=== PATIENT | female | born 1940 | race African-American/Black ===

== ENCOUNTER 2023-04-21 14:35 | Outpatient (AMB) | payer OTHER, SELFPAY ==
--- NOTE | 2023-04-21 14:50 | HO.SPINEOV ---
Intake Intake Visit Reasons: back pain Intake Note: Ms. Mojica is here today c/o low back pain. CT Scan done @ [facility]. Animal Groomer Required: No Assessment & Plan Assessment & Plan (1) Lumbar spinal stenosis: Code(s): M48.061 - Spinal stenosis, lumbar region without neurogenic claudication Plan Dear colleague, On 04/21/2023, I saw Shruti Mojica for back pain. I notice patient from my previous clinic at [facility]. She states that she has back pain it radiates to the front of her thighs. The pain is there all the time. She received [address] Kiser that helped. She is also complaining of balance problems. On exam, she has low to absent reflexes. No pathological reflexes. Straight leg raise is negative. No clear motor sensory deficits. A recent CT scan of the lumbar spine was reviewed it shows multilevel degenerative changes most pronounced at L3-4 and L4-5. The patient's symptomatology does not fit neurogenic claudication. She does have bilateral L4 foraminal stenosis on the CT scan which possibly can explain radiating pain down to her knees. She is going to see in May 11 and I will leave it up to the side if he thinks she is a surgical candidate or if injections are the way to proceed. I spent 30 minutes in this consult review imaging and discussing plan of care. Thank you for the referral. Etienne Collier MD, PhD Spine Fellowship Trained Neurosurgeon Director, [facility] Coding Level of Care Code Est Pt Level 4 (38027) Diagnoses Lumbar spinal stenosis M48.061
== END 2023-04-21 15:52 | disposition home or self-care (01) ==
PROVIDERS: PCP Internal Medicine; Visit Provider Neurological Surgery
DX: M48.061 Spinal stenosis, lumbar region without neurogenic claudication (principal)
CPT/HCPCS: 99214

== ENCOUNTER → 2023-04-21 14:35 | Outpatient (BNVA) | payer OTHER, SELFPAY | PROVIDERS: PCP Internal Medicine; Visit Provider Neurological Surgery | DX: M48.061 Spinal stenosis, lumbar region without neurogenic claudication (principal) | CPT/HCPCS: 99212 ==

== ENCOUNTER 2024-04-15 14:40 | Outpatient (AMB) | payer OTHER, SELFPAY ==
--- NOTE | 2024-04-15 15:03 | A.SPINEOV_ITS ---
Intake Visit Reasons: pain Intake Note: Ms. Mojica is here today c/o low back pain radiating into bilateral legs and unsteady gait. Medical Records Assistant Required: No Assessment & Plan Assessment & Plan (1) Lumbar spinal stenosis: Code(s): M48.061 - Spinal stenosis, lumbar region without neurogenic claudication Category: Medical Qualifiers: Neurogenic claudication status: with neurogenic claudication Qualified Code(s): M48.062 - Spinal stenosis, lumbar region with neurogenic claudication Plan Dear colleague, On 04/15/2024, I saw Shruti Mojica for chief complaint of severe bilateral leg pain. I know this patient from my time at [facility] where I performed a lumbar decompression on her. She states that she had multiple epidural steroid injections done which resulted in a dysregulation of her diabetes and admission to the hospital for 30 days. She states that since that time she has severe pain radiating down both legs of which the intensity increases when she stands and walks. Her leg starts to buckle from pain. She has fallen several times. On exam, it is very difficult to get from a sitting to standing position due to pain. She walks with small steps. Her reflexes are symmetrically present. Plantar reflex is downward bilaterally. The symptoms could come from spinal stenosis. The patient states that she had multiple scans done at [facility] in October during her admission. We will call the radiology department to see if a lumbar CT scan was done. If not then I will order a new CT scan of the lumbar spine. I spent 30 minutes in his consult to discuss history physical exam and plan. Etienne Collier MD, PhD Spine Fellowship Trained Neurosurgeon Director, [facility] Coding Level of Care Code Est Pt Level 3 (00272) Diagnoses Spinal stenosis of lumbar region with neurogenic claudication M48.062 Neurogenic claudication status: with neurogenic claudication
== END 2024-04-15 15:35 | disposition home or self-care (01) ==
PROVIDERS: PCP Internal Medicine; Visit Provider Neurological Surgery
DX: M48.062 Spinal stenosis, lumbar region with neurogenic claudication (principal)
CPT/HCPCS: 99213

== ENCOUNTER → 2024-04-15 14:40 | Outpatient (BNVA) | payer OTHER, SELFPAY | PROVIDERS: PCP Internal Medicine; Visit Provider Neurological Surgery | DX: M48.062 Spinal stenosis, lumbar region with neurogenic claudication (principal) | CPT/HCPCS: 99212 ==

== ENCOUNTER 2024-05-18 14:34 | Outpatient (AMB) | payer OTHER, SELFPAY ==
--- NOTE | 2024-05-18 14:37 | A.OFFVIS_ITS ---
Vital Signs 05/18/24 14:42 Height 5 ft 3.5 in Weight 158 lb 11.725 oz BMI 27.7 BP 136/80 Blood Pressure Location Rt brachial Position Sitting Pulse 96 Pulse Source Pulse Oximeter Intake Visit Reasons: T2DM/LVM Intake Note: NEW Patient presents today to establish treatment for Type 2 Diabetes Mellitus: Last Diabetic eye exam was on: 04/2024 Last Podiatry exam was on: Does not see a Ict Analyst Most recent HbA1c: 7.6%, 05/18/2024 Random Glucose- 237 mg/dL, Today Helicopter Repairer Required: No Accompanied by: Self / Same As Patient Allergies atorvastatin [From Lipitor] Adverse Reaction (Unknown, Verified 05/18/24 14:46) Unknown codeine Adverse Reaction (Unknown, Verified 05/18/24 14:46) Unknown oxycodone Adverse Reaction (Unknown, Verified 05/18/24 14:46) Unknown rosuvastatin [From Crestor] Adverse Reaction (Unknown, Verified 05/18/24 14:46) Unknown sulfadiazine Adverse Reaction (Unknown, Verified 05/18/24 14:46) Unknown beta blockers Adverse Reaction (Unknown, Uncoded 05/18/24 14:46) Unknown HPI Comments Details: The patient is an 83 year old female with IDDM presenting for consult Medical History: CAD s/p PCI, atrial fibrillation, PPM, DDD lumbar spine, cataract Diagnosed with diabetes in 2013 PCP Erica Blankenship [facility] Current prescriptions: Lantus 20 units nightly (taking ~3 times per week b/c skipping if in 100s), Lispro sliding scale (missing most doses and when taken doing after meal). Has nursing once daily. They are the ones giving the lantus POC A1C 7.6%. Micky 2. Glucose readings 100-270. Not consistently checking fasting. Micro/macrovascular: cataract, retinopathy. Leg pain, back issues No hypoglycemia ROS CONSTITUTIONAL: Denies weight loss, fever and chills. HEENT: Worsened eyesight RESPIRATORY: Denies SOB and cough. CV: Denies palpitations and CP GI: Denies abdominal pain, nausea, vomiting and diarrhea. : Denies dysuria and urinary frequency. MSK: Denies new myalgia and joint pain. SKIN: Denies rash and pruritus. NEUROLOGICAL: Denies headache PSYCHIATRIC: Denies recent changes in mood. PHYSICAL EXAM: GENERAL: Alert and oriented x 3. NAD EYES: EOMI. Anicteric. HENT: Moist mucous membranes. No scleral icterus. No cervical lymphadenopathy. LUNGS: Clear to auscultation bilaterally. CARDIOVASCULAR: Regular rate and rhythm. ABDOMEN: Soft, non-tender +bs EXTREMITIES: No edema. Non-tender. SKIN: No rashes or lesions. Warm. NEUROLOGIC: No focal neurological deficits. CN II-XII grossly intact PSYCHIATRIC: Cooperative. Appropriate mood and affect [facility] Surgical History Hx of eye surgery Hx of cholecystectomy Family History Mother Heart disease Father Stroke Social History Alcohol intake: never Patient Tobacco Use Status: Never used Tobacco Physical Exam Vital Signs: Last Vital Signs Pulse 96 05/18/24 14:42 BP 136/80 05/18/24 14:42 BMI result Body Mass Index 27.7 Results AMB Hemoglobin A1c AMB Hemoglobin A1c 7.6 % Last Edit by MARCO Adams on 05/18/24 14:56 Results Reviewed Results Reviewed: Laboratory Last Values Glucose (Clinic) 237 mg/dL (60-115) H 05/18/24 14:47 Assessment & Plan Assessment & Plan (1) Type 2 diabetes mellitus: Code(s): E11.9 - Type 2 diabetes mellitus without complications Category: Medical Qualifiers: Diabetes mellitus complication status: with hyperglycemia Diabetes mellitus longitudinal float operator insulin use: with half-way use Qualified Code(s): E11.65 - Type 2 diabetes mellitus with hyperglycemia; Z79.4 - jail (current) use of insulin Plan: Long time explaining the difference between short and long acting insulin, goals for fasting and 2 h post prandial Adjusted Micky alarms to <70 and >350 stop short acting insulin Take Lantus 20units regardless of spot glucose return in 4 weeks for reevaluation (2) Long-term insulin use in type 2 diabetes: Code(s): E11.9 - Type 2 diabetes mellitus without complications; Z79.4 - intermediate school teacher (current) use of insulin Category: Medical Qualifiers: Diabetes mellitus complication status: with hyperglycemia Qualified Code(s): E11.65 - Type 2 diabetes mellitus with hyperglycemia; Z79.4 - jail (current) use of insulin Plan: see above Orders: Orders AMB Hemoglobin A1c Today E11.9 - Type 2 diabetes mellitus without complications Medications: New brinzolamide 1% 1 drp ophthalmic (eye) TID 15 mL 3RF Coding Level of Care Code New Pt Level 4 (71658) Diagnoses Type 2 diabetes mellitus with hyperglycemia, with long-term current use of insulin E11.65; Z79.4 Diabetes mellitus complication status: with hyperglycemia Diabetes mellitus half-way insulin use: with half-way use Type 2 diabetes mellitus with hyperglycemia, with long-term current use of insulin E11.65; Z79.4 Diabetes mellitus complication status: with hyperglycemia
[2024-05-18 14:42] VITALS: BP 136/80; PULSE 96; BMI 27.7
[2024-05-18 14:51] LABS: Glucose, Whole Blood 237 mg/dL (60-115)
== END 2024-05-18 15:39 | disposition home or self-care (01) ==
PROVIDERS: PCP Internal Medicine; Visit Provider Internal Medicine
DX: E11.65 Type 2 diabetes mellitus with hyperglycemia (principal); Z79.4 Long term (current) use of insulin; E11.9 Type 2 diabetes mellitus without complications

== ENCOUNTER → 2024-05-18 14:34 | Outpatient (BNVA) | payer OTHER, SELFPAY | PROVIDERS: PCP Internal Medicine; Visit Provider Internal Medicine | DX: E11.65 Type 2 diabetes mellitus with hyperglycemia (principal); Z79.4 Long term (current) use of insulin | CPT/HCPCS: 82947; 83036; 99202 ==

== ENCOUNTER 2024-06-16 15:14 | Outpatient (AMB) | payer OTHER, SELFPAY ==
--- NOTE | 2024-06-16 15:16 | A.OFFVIS_ITS ---
Vital Signs 06/16/24 15:18 Height 5 ft 3.5 in Weight 156 lb 8.451 oz BMI 27.3 BP 128/72 Blood Pressure Location Rt brachial Position Sitting Pulse 86 Pulse Source Pulse Oximeter Intake Visit Reasons: DM check/LVM Intake Note: Patient presents today for a follow-up on Type 2 Diabetes Mellitus: Last Diabetic eye exam was on: 04/2024 Last Podiatry exam was on: Does not see a Pipe Bowl Paint Trimmer Most recent HbA1c: 7.6%, 05/18/2024 Random Glucose- 174 mg/dL, Today Inside Horticultural Specialty Grower Required: No Accompanied by: Other Relationship Allergies atorvastatin [From Lipitor] Adverse Reaction (Unknown, Verified 05/18/24 14:46) Unknown codeine Adverse Reaction (Unknown, Verified 05/18/24 14:46) Unknown oxycodone Adverse Reaction (Unknown, Verified 05/18/24 14:46) Unknown rosuvastatin [From Crestor] Adverse Reaction (Unknown, Verified 05/18/24 14:46) Unknown sulfadiazine Adverse Reaction (Unknown, Verified 05/18/24 14:46) Unknown beta blockers Adverse Reaction (Unknown, Uncoded 05/18/24 14:46) Unknown HPI Comments Details: The patient is an 83 year old female with IDDM presenting for follow up Medical History: CAD s/p PCI, atrial fibrillation, PPM, DDD lumbar spine, cataract Diagnosed with diabetes in 2013 PCP Erica Blankenship [facility] Current prescriptions: Lantus 20 units nightly (taking ~3 times per week b/c skipping if in 100s), Lispro sliding scale (missing most doses and when taken doing after meal). Has nursing once daily. They are the ones giving the lantus POC A1C 7.6%. Micky 2. Glucose readings 100-270. Not consistently checking fasting. Micro/macrovascular: cataract, retinopathy. Leg pain, back issues No hypoglycemia ROS CONSTITUTIONAL: Denies weight loss, fever and chills. HEENT: Worsened eyesight RESPIRATORY: Denies SOB and cough. CV: Denies palpitations and CP GI: Denies abdominal pain, nausea, vomiting and diarrhea. : Denies dysuria and urinary frequency. MSK: Denies new myalgia and joint pain. SKIN: Denies rash and pruritus. NEUROLOGICAL: Denies headache PSYCHIATRIC: Denies recent changes in mood. PHYSICAL EXAM: GENERAL: Alert and oriented x 3. NAD EYES: EOMI. Anicteric. HENT: Moist mucous membranes. No scleral icterus. No cervical lymphadenopathy. LUNGS: Clear to auscultation bilaterally. CARDIOVASCULAR: Regular rate and rhythm. ABDOMEN: Soft, non-tender +bs EXTREMITIES: No edema. Non-tender. SKIN: No rashes or lesions. Warm. NEUROLOGIC: No focal neurological deficits. CN II-XII grossly intact PSYCHIATRIC: Cooperative. Appropriate mood and affect [facility] History Hx of eye surgery Hx of cholecystectomy Family History Mother Heart disease Father Stroke Social History Alcohol intake: never Patient Tobacco Use Status: Never used Tobacco Physical Exam Vital Signs: Last Vital Signs Pulse 86 06/16/24 15:18 BP 128/72 06/16/24 15:18 BMI result Body Mass Index 27.3 Results Reviewed Results Reviewed: Laboratory Last Values Glucose (Clinic) 174 mg/dL (60-115) H 06/16/24 15:20 Assessment & Plan Assessment & Plan (1) Type 2 diabetes mellitus: Code(s): E11.9 - Type 2 diabetes mellitus without complications Category: Medical Qualifiers: Diabetes mellitus intermediate insulin use: with continuous churn buttermaker use Diabetes mellitus complication status: with hyperglycemia Qualified Code(s): E11.65 - Type 2 diabetes mellitus with hyperglycemia; Z79.4 - regional intermodal truck driver (current) use of insulin Plan: Patient reports she is feeling better Taking 100% of lantus doses. Not using short acting due to administration issues Forgot glucometer today will return with glucometer at next visit for dosing adjustments (2) Long-term insulin use in type 2 diabetes: Code(s): E11.9 - Type 2 diabetes mellitus without complications; Z79.4 - care home (current) use of insulin Category: Medical Qualifiers: Diabetes mellitus complication status: with hyperglycemia Qualified Code(s): E11.65 - Type 2 diabetes mellitus with hyperglycemia; Z79.4 - regional intermodal truck driver (current) use of insulin Plan: see above Coding Level of Care Code Est Pt Level 4 (71964) Diagnoses Type 2 diabetes mellitus with hyperglycemia, with long-term current use of insulin E11.65; Z79.4 Diabetes mellitus intermediate insulin use: with continuous churn buttermaker use Diabetes mellitus complication status: with hyperglycemia Type 2 diabetes mellitus with hyperglycemia, with long-term current use of insulin E11.65; Z79.4 Diabetes mellitus complication status: with hyperglycemia
[2024-06-16 15:18] VITALS: BP 128/72; PULSE 86; BMI 27.3
[2024-06-16 15:26] LABS: Glucose, Whole Blood 174 mg/dL (60-115)
== END 2024-06-16 15:35 | disposition home or self-care (01) ==
LOC: HO.ENCR 15:14
PROVIDERS: PCP Internal Medicine; Visit Provider Internal Medicine
DX: E11.65 Type 2 diabetes mellitus with hyperglycemia (principal); Z79.4 Long term (current) use of insulin

== ENCOUNTER → 2024-06-16 15:14 | Outpatient (BNVA) | payer OTHER, SELFPAY | PROVIDERS: PCP Internal Medicine; Visit Provider Internal Medicine | DX: E11.65 Type 2 diabetes mellitus with hyperglycemia (principal); Z79.4 Long term (current) use of insulin | CPT/HCPCS: 82947; 99212 ==

== ENCOUNTER 2024-07-20 15:34 | Outpatient (AMB) | payer OTHER, SELFPAY ==
--- NOTE | 2024-07-20 15:36 | A.OFFVIS_ITS ---
Vital Signs 07/20/24 15:38 Height 5 ft 3.5 in Weight 156 lb BMI 27.2 BP 166/78 H Blood Pressure Location Lt brachial Position Sitting Pulse 73 Pulse Source Pulse Oximeter Intake Visit Reasons: DM/ Unable to reach Intake Note: Patient present today to follow up on Type 2 Diabetes Mellitus. Patient c/o of possible hive all over her body. States bumps becomes itchy, blotchy and morgan and believes it can be related to the insulin Lantus. Last Diabetic Eye exam: 04/2024 Last Podiatry Visit: Does not see a Cheese Supervisor Random Glucose: 149 mg/dl HgA1C: 7.6% 05/18/24 School Laboratory Technician Required: No Accompanied by: Son/ Daughter Allergies atorvastatin [From Lipitor] Adverse Reaction (Unknown, Verified 07/20/24 15:41) Unknown codeine Adverse Reaction (Unknown, Verified 07/20/24 15:41) Unknown oxycodone Adverse Reaction (Unknown, Verified 07/20/24 15:41) Unknown rosuvastatin [From Crestor] Adverse Reaction (Unknown, Verified 07/20/24 15:41) Unknown sulfadiazine Adverse Reaction (Unknown, Verified 07/20/24 15:41) Unknown beta blockers Adverse Reaction (Unknown, Uncoded 07/20/24 15:41) Unknown HPI Comments Details: The patient is an 83 year old female with IDDM presenting for follow up Medical History: CAD s/p PCI, atrial fibrillation, PPM, DDD lumbar spine, cataract Diagnosed with diabetes in 2013 PCP Erica Blankenship, [facility] Current prescriptions: Lantus 20 units nightly (compliant), Lispro sliding scale (holding). Has nursing once daily. They are the ones giving the lantus POC A1C 7.6%. Micky 2. Avg glucose 205 TGT 46%, high 54%, low 0% some improvement in readings x one week. Was worse over thanksgiving with diet. Has had sometimes itchy flaky circular lesionss/rash of the thighs since starting lantus. Micro/macrovascular: cataract, retinopathy. Leg pain, back issues No hypoglycemia ROS CONSTITUTIONAL: Denies weight loss, fever and chills. HEENT: Worsened eyesight RESPIRATORY: Denies SOB and cough. CV: Denies palpitations and CP GI: Denies abdominal pain, nausea, vomiting and diarrhea. : Denies dysuria and urinary frequency. MSK: Denies new myalgia and joint pain. SKIN: see HPI NEUROLOGICAL: Denies headache PSYCHIATRIC: Denies recent changes in mood. PHYSICAL EXAM: GENERAL: Alert and oriented x 3. NAD EYES: EOMI. Anicteric. HENT: Moist mucous membranes. No scleral icterus. No cervical lymphadenopathy. LUNGS: Clear to auscultation bilaterally. CARDIOVASCULAR: Regular rate and rhythm. ABDOMEN: Soft, non-tender +bs EXTREMITIES: No edema. Non-tender. SKIN: Circular mild eczematous lesions thighs, dry legs neck NEUROLOGIC: No focal neurological deficits. CN II-XII grossly intact PSYCHIATRIC: Cooperative. Appropriate mood and affect PFSH Surgical History Hx of eye surgery Hx of cholecystectomy Family History Mother Heart disease Father Stroke Social History Alcohol intake: never Patient Tobacco Use Status: Never used Tobacco Physical Exam Vital Signs: Last Vital Signs Pulse 73 07/20/24 15:38 BP 166/78 H 07/20/24 15:38 BMI result Body Mass Index 27.2 Results Reviewed Results Reviewed: Laboratory Last Values Glucose (Clinic) 149 mg/dL (60-115) H 07/20/24 15:51 Assessment & Plan Assessment & Plan (1) Type 2 diabetes mellitus: Code(s): E11.9 - Type 2 diabetes mellitus without complications Category: Medical Qualifiers: Diabetes mellitus nursing home insulin use: with nursing home use Diabetes mellitus complication status: with hyperglycemia Qualified Code(s): E11.65 - Type 2 diabetes mellitus with hyperglycemia; Z79.4 - intermediate (current) use of insulin Plan: Uncontrolled. Increase long acting insuline to 25 units daily. Will change lantus though unlikely precipitant. lotrisone cream prn. Short term follow up (2) Long-term insulin use in type 2 diabetes: Code(s): E11.9 - Type 2 diabetes mellitus without complications; Z79.4 - intermediate (current) use of insulin Category: Medical Qualifiers: Diabetes mellitus complication status: with hyperglycemia Qualified Code(s): E11.65 - Type 2 diabetes mellitus with hyperglycemia; Z79.4 - intermediate (current) use of insulin Plan: see above Medications: New clotrimazole 1% 1 appl topical BID 4 weeks 90 grams 3RF betamethasone dipropionate 0.05% 1 appl topical BID 4 weeks 45 grams 3RF skin irritation Toujechayo SoloStar U-300 Insulin (insulin glargine U-300 conc) 25 units (0.0833 mL) subcut DAILY 4.5 mL 3RF NS albuterol sulfate 90 mcg/actuation 2 inhalations inhalation QID PRN 8.5 grams 3RF shortness of breath or wheezing inhalational spacing device (Aerochamber MV spacer) As directed 10 ea 3RF Coding Level of Care Code Est Pt Level 4 (50759) Diagnoses Type 2 diabetes mellitus with hyperglycemia, with long-term current use of insulin E11.65; Z79.4 Diabetes mellitus termite exterminator helper insulin use: with termite exterminator helper use Diabetes mellitus complication status: with hyperglycemia Type 2 diabetes mellitus with hyperglycemia, with long-term current use of insulin E11.65; Z79.4 Diabetes mellitus complication status: with hyperglycemia
[2024-07-20 15:38] VITALS: BP 166/78; PULSE 73; BMI 27.2
[2024-07-20 15:57] LABS: Glucose, Whole Blood 149 mg/dL (60-115)
--- OUTSIDE RECORDS SUMMARY | 2024-07-26 21:01 | XMS_ITS | Patient Health Record ---
Author Organization [facility] Address [address] [place] [address] Care Team Providers Care Broadcast Checker Name Role Phone Sixto Mckeon MD Primary Care Provider Oni Sargent Unavailable [phone] Allergies Allergen (clinical drug ingredient) Drug/Non Drug Allergy documented on EMR Reaction Allergy Type Onset Date Status rosuvastatin Crestor Unknown Drug Allergy Acti ve atorvastatin Lipitor Unknown Drug Allergy Acti ve oxycodone Oxycodone HCl Unknown Drug Allergy Act kristan codeine Codeine Unknown Drug Allergy Active beta blockers Unknown Drug Allergy Act kristan Reason For Referral No Information Medications Medication SIG (Take, Route, Frequency, Duration) Notes Start Date End Date Status Vitamin D Unknown Aspirin 81 MG 1 tablet Orally Once a day Unknown Vitamin C Unknown Vitamin B12 Unknown Extra-Depth Diabetic Shoes with 3 Pair Custom heat-molded multi-density innersoles . for 1 year . Dx: NIDDM, Foot Deformity, Preulcerative Callus for . 05/30/2015 Unknown hydroCHLOROthiazide 50 MG 1 tablet Orall y Once a day Unknown Metformin & Diet Manage Prod Unknown Problems No Known Problems Plan Of Treatment No Information Insurance Providers Payer Name Payer Address Payer Phone Subscriber Number Group Number Insured Name Patient Relationship to Insured Coverage Start Date Coverage End Date [employer] Medicare Complete [address] [address] [place] [address] [id number] Shruti Mojica Self - patient is the insured Medical (General) History Medical History History ICD Code Arthritis Back,Hip,and Knee pain Cholesterol type II diabetes Glaucoma Heart disease High blood pressure keloids Stroke Vascular phlebitis (clots) Measles Mumps Chicken pox Surgical History Surgery Date(Month/Year) CATARACTS GALLBLADDER PACEMAKER/STINTS
--- OUTSIDE RECORDS SUMMARY | 2024-07-26 21:02 | XMS_ITS | Data Portability ---
Author Organization [place] [facility] Address [address] [facility] [address] [address] Care Team Providers Care Director Of Graduate Medical Education Name Role Phone [facility] Primary Care Provider Assessment Encounter Date Assessment Date Assessment LastModified by Organization Details LastModified Time 12/09/2020 12/09/2020 Time On Scene with Patient: 00:44:18 [id number] Not available 12/09/2020 17:49:02 Plan of Treatment Reminders Order Date Submit Date Provider Last Modified By Organization Details Last Modified Time Details Appointments None recorded. Lab rapid SARS CoV + SARS CoV 2 Ag, QL IA, respiratory specimen 2020 021 [facility], [address], [place], [address], 17:56:58 SARS CoV 2 RNA (COVID-19), QL, mail handler-PCR, respiratory specimen 2020 021 [facility], [address] [place], [address], 11:00:08 SARS CoV 2 RNA (COVID-19), QL, mail handler-PCR, respiratory specimen 2020 021 [facility], [address] [place], [address], 11:00:08 Referral None recorded. Procedures None recorded. Surgeries None recorded. Imaging None recorded. Medication Orders None recorded. Patient TargetsNo targets recorded. Patient Instructions Encounter Date Encounter Id Patient Instructions Last Modified By Organization Details Last Modified Time 12/09/2020 [id number] coronavirus (covid-19): care instructions Not available 12/09/2020 17:49:28 Reason for Referral None Reported. Results Created Date Observation Date Name Description Value Unit Range Abnormal Flag Note LastModifiedBy Organization Detail LastModifiedTime 12/09/2020 rapid SARS CoV + SARS CoV 2 Ag, QL IA, respi rator y speci men Covid-19 positi ve Not Available [facility] [address] [place], [address], 12/09/2020 17:55:57 12/09/2020 rapid SARS CoV + SARS CoV 2 Ag, QL IA, respi rator y speci men Control Visual ized/V alid Not Available [facility] [address] [place], [address], 12/09/2020 17:55:57 Result Notes None recorded. Procedures Surgical History Date Name Laterality Status Provider Name and Address Organization Details Recorded Time Unlisted px ant segment eye completed Tiara Mello NP [address] [place], [address], [place] [facility] 12/09/2020 17:13:25 Xcapsl ctrc rmvl cplx wo ecp completed Tiara Mello NP [address] [place], [address], [place] [facility] 12/09/2020 17:13:36 placement of stent in pulmonary artery completed Tiara Mello NP [address] [place], [address], [place] [facility] 12/09/2020 17:13:45 cardiac pacemaker procedure completed Tiara Mello NP [address] [place], [address], [place] [facility] 12/09/2020 17:13:57 cholecystectomy completed Tiara Mello NP [address] [place], [address], [place] [facility] 12/09/2020 17:14:05 discectomy of spine completed Tiara Mello NP [address] [place], [address], [place] [facility] 12/09/2020 17:14:17 Imaging Results None recorded. Procedure Notes None recorded. Medical Equipment None Reported. Allergies No known drug allergies Medications Name Sig Start Date Stop Date Status Note LastModified by Organization Details LastModified Time trazodone 50 mg tablet TAKE 1 TABLET BY MOUTH EVERY DAY AT BEDTIME active Not Available Not Available No t Available brinzolamid e 1 % eye drops,suspe nsion INSTILL 1 DROP INTO BOTH EYES THREE TIMES DAILY active Not Available Not Available No t Available omeprazole 40 mg capsule,del ayed release TAKE 1 CAPSULE BY MOUTH DAILY active Not Available Not Available No t Available oxycodone-a cetaminophe n 5 mg-325 mg tablet TK 1 T PO Q 6 H 12/09 completed Not Available Not Available Not Available DOK 100 mg capsule TK ONE C PO BID active Not Available Not Available No t Available glipizide ER 2.5 mg tablet, extended release 24 hr TK 1 T PO BID B MEALS active Not Available Not Available No t Available metformin 1,000 mg tablet TK 1 T PO D WITH DEE active Not Available Not Available No t Available diclofenac 0.1 % eye drops INSTILL 1 DROP IN BOTH EYES EVERY DAY active Not Available Not Available No t Available nitroglycer in 0.4 mg sublingual tablet TK 1 T PO SUBLINGUA LLY PRN CHEST PAIN AND REPEAT DIRECTED active Not Available Not Available No t Available omeprazole 20 mg capsule,del ayed release TK 1 C PO D 12/09 completed Not Available Not Available Not Available metoprolol succinate ER 25 mg tablet,exte nded release 24 hr TAKE 1 TABLET BY MOUTH EVERY DAY active Not Available Not Available No t Available sertraline 50 mg tablet TAKE 1 TABLET BY MOUTH DAILY active Not Available Not Available No t Available brimonidine 0.15 % eye drops INSTILL 1 DROP INTO BOTH EYES THREE TIMES DAILY active Not Available Not Available No t Available oxycodone 5 mg tablet TK 1 T PO Q 8 H PRN P 12/09 completed Not Available Not Available Not Available ezetimibe 10 mg tablet TAKE 1 TABLET BY MOUTH EVERY DAY active Not Available Not Available No t Available Vitamin D3 25 mcg (1,000 unit) tablet TAKE 1 TABLET BY MOUTH EVERY DAY active Not Available Not Available No t Available cyclobenzap rine 5 mg tablet TAKE 1 TABLET BY MOUTH THREE TIMES DAILY NEEDED FOR MUSCLE SPASMS active Not Available Not Available No t Available metformin ER 750 mg tablet,exte nded release 24 hr TAKE 1 TABLET BY MOUTH EVERY DAY active Not Available Not Available No t Available rosuvastati n 5 mg tablet TAKE 1 TABLET BY MOUTH EVERY DAY active Not Available Not Available No t Available lactulose 10 gram/15 mL oral solution TK 15 ML PO D WITH DEE active Not Available Not Available No t Available vitamin E (dl, acetate) 45 mg (100 unit) capsule TAKE ONE CAPSULE BY MOUTH EVERY DAY active Not Available Not Available No t Available losartan 100 mg-hydrochl orothiazide 12.5 mg tablet TK 1 T PO D active Not Available Not Available No t Available Alphagan P 0.1 % eye drops INSTILL 1 DROP INTO OU TID active Not Available Not Available No t Available Lumigan 0.01 % eye drops INSTILL 1 DROP RIGHT EYE EVERY NIGHT AT BEDTIME active Not Available Not Available No t Available Rhopressa 0.02 % eye drops INSTILL 1 DROP IN BOTH EYES EVERY NIGHT AT BEDTIME active Not Available Not Available No t Available Vitals Date Recorded Body temperature Respiratory rate Oxygen saturation Oxygen saturation in Arterial blood by Pulse oximetry Heart rate Systolic blood pressure Diastolic blood pressure Provider Name and Address Organization Details Last Updated DateTime 97.9 [degF] 14 /min 98 % 98 % 60 /min 120 mm[Hg] 66 mm[Hg] Not Available [facility] 17:10:38 Social History Question Answer Notes LastModified by Organizat ion Details LastModified Time Tobacco Smoking Status Never Smoker Tiaar Mello, DERRICK [address] [place], [address], [place] [facility] 12/09/2020 17:12:17 Do You Have An Advance Directive? No Information not available 12/09/2020 What Is Your Code Status? Full Code Information not available 12/09/2020 Within The Past 12 Months, Has It Happened That The Food You Bought Just Didn't Last And You Didn't Have Money To Get More. No Information not available 12/09/2020 Within The Past 12 Months, Have You Worried That Your Food Would Run Out Before You Got Money To Buy More. No Information not available 12/09/2020 Fall Risk: Do You Feel Unsteady When Standing Or Walking? No Uses Cane To Ambulate Information not available 12/09/2020 We Know That How And When People Interact With Friends And Family Can Be Very Different From Person To Person. How Often Do You Have The Opportunity To See Or Talk To People That You Care About And Feel Close To? (Ex: Talking To Friends On The Phone Or Visiting Friends Or Family Or Going To Anabaptist Or Club Meetings) 1 Or 2 Times Per Week Information not available 12/09/2020 Excessive Alcohol Or Drug Use No Information not available 12/09/2020 We Know From Many Of Our Patients That Covering All Of Their Costs Can Be Difficult At Times. This Can Cause Stress And Impact Health. In The Past Year, Have You Been Unable To Get Any Of The Following When It Was Really Needed? No Information not available 12/09/2020 What Is Your Housing Situation Today? I Have Housing Information not available 12/09/2020 Would You Like Help Connecting To Resources? None Information not available 12/09/2020 Sex: Unknown Functional Status None recorded. Mental Status None recorded. Family History Relationship Description Onset Age of this Age Resolved Age Notes LastModified by Organization Details LastModified Time Father No current problems or disability Not available 12/09 17:11:25 Father Diabetes mellitus Not available 2020 17:11:38 Father Hyperlipidem ia Not available 2020 17:12:13 Mother No current problems or disability Not available 12/09 17:11:25 Mother Cardiac complication Not available 17:11:54 Mother Hypertensive disorder Not available 2020 17:12:04 Medical History Condition Response Coronary Artery Disease Y COPD N Depression N Diabetes Y Cancer N Stroke Y Asthma N High Cholesterol Y Pulmonary Embolism N Hypertension Y Kidney Disease N Gynecological HistoryNo gynecological history recorded. Obstetrics History GPAL:G 0 P 0 0 0 0 Past Encounters Encounter ID Performer Location Encounter Start Date Encounter Closed Date Diagnosis/Indication Diagnosis SNOMED-CT Code Diagnosis ICD10 Code [id number] Tiara Mello NP [facility] [address] [facility] [place] [address] 12/09/2020 17:04:51 12/09/2020 18:10:44 Suspected COVID-19 848198519 Z03.89 Exposure t o communicable disease 374774138 Z20.822 Health Concerns Section Related Observation LastModified by Organization Detai ls LastModified Time None Recorded Concern Status LastModified by Organization Details LastModified Time None Recorded Advance Directives Directive N: Payers Encounter Date Sequence Insurance Name Policy Number Policy Raza Covered Member ID Raza Member ID Guarantor Name 12/09/2020 1 [employer] - [employer] - MEDICARE SOLUTIONS - MEDICARE COMPLETE (MEDICARE REPLACEMENT HMO) Shruti Mojica [id number] Shruti Mojica Notes Date Note Type Note Provider Name and Address Organization Details Recorded Time 12/09/2020 text/html Patient is an alert 79 year old female who is new to and new to this provider. Patient chief complaint is covid symptoms that started yesterday where patient experienced weakness, body aches and pains. Patient reports a temperature of 104 this am. Patient requested EMS this morning. EMS crew assessed patient and reported non-acute findings; patient declined transport to the ER. Patient was directly exposed to Covid through family members who reside in the same home. Patient medical history significant for Heart block with stent placement, diabetes, hyperlipidemia, HTN, multiple TIA's. DERRICK Garcia, [place], [address], [place] [facility] 12/09/2020 18:02:11 OBGyn Episode No OBEpisode recorded.
== END 2024-07-20 16:23 | disposition home or self-care (01) ==
PROVIDERS: PCP Internal Medicine; Visit Provider Internal Medicine
DX: E11.65 Type 2 diabetes mellitus with hyperglycemia (principal); Z79.4 Long term (current) use of insulin

== ENCOUNTER → 2024-07-20 15:34 | Outpatient (BNVA) | payer OTHER, SELFPAY | PROVIDERS: PCP Internal Medicine; Visit Provider Internal Medicine | DX: E11.65 Type 2 diabetes mellitus with hyperglycemia (principal); Z79.4 Long term (current) use of insulin | CPT/HCPCS: 82947; 99212 ==

== ENCOUNTER 2024-11-02 16:05 | Outpatient (AMB) | payer OTHER, SELFPAY ==
[2024-11-02 16:06] VITALS: BP 138/72; PULSE 86; O2SAT 98; BMI 28.4
--- NOTE | 2024-11-02 16:06 | A.OFFVIS_ITS ---
Vital Signs 11/02/24 16:06 Height 5 ft 3.5 in Weight 163 lb 2.273 oz BMI 28.4 BP 138/72 Blood Pressure Location Rt brachial Position Sitting Pulse 86 Pulse Source Pulse Oximeter Pulse Oximetry (%) 98 Oxygen Delivery Method Room Air Intake Visit Reasons: DM Intake Note: Patient presents today for a follow-up on Type 2 Diabetes Mellitus: Last Diabetic eye exam was on: 04/2024 Last Podiatry exam was on: Does not see a Electronic Integrated Systems Mechanic Most recent HbA1c: 6.6%, 11/02/2024 Random Glucose- 224 mg/dL, Today Debt Collector Required: No Accompanied by: Other Relationship Allergies insulin glargine [From Lantus U-100 Insulin] Allergy (Intermediate, Verified 11/04/24 05:01) rash atorvastatin [From Lipitor] Adverse Reaction (Unknown, Verified 07/20/24 15:41) Unknown codeine Adverse Reaction (Unknown, Verified 07/20/24 15:41) Unknown oxycodone Adverse Reaction (Unknown, Verified 07/20/24 15:41) Unknown rosuvastatin [From Crestor] Adverse Reaction (Unknown, Verified 07/20/24 15:41) Unknown sulfadiazine Adverse Reaction (Unknown, Verified 07/20/24 15:41) Unknown beta blockers Adverse Reaction (Unknown, Uncoded 07/20/24 15:41) Unknown HPI Comments Details: 83 YO female who is seen in f/u for T2DM. She was last seen by Dr. Hernández in July. A1C 11/02/24 6.6%, 05/18/24 7.6% Initially diagnosed with T2DM in 2013 Was initially started on treatment with: Was on Lantus which triggered a rash which resolved about a month or so later Current regimen: Toujeveto 25 units Does not have her fs nuvia 2 with her today numbers 88- 145 Occasional 200 with large breakfast Reports low sugars: none recent Treats lows with juice Has eyes checked yearly, 04/2024 has some vision loss Denies neuropathy, last foot exam today in the office, does not see podiatry. Denies nephropathy, on ARB eGFR 71 10/10 Denies HLD, not on on stain + CAD cardiac pacemaker stent s/p mi Diet: balanced Not interested in seeing coach driver Weight: stable [facility] Medical History (Updated 11/04/24 @ 05:08 by Jazmyne Roach NP) Legally blind Pacemaker Surgical History Hx of eye surgery Hx of cholecystectomy Family History Mother Heart disease Father Stroke Social History Alcohol intake: never Patient Tobacco Use Status: Never used Tobacco Physical Exam Vital Signs: Last Vital Signs Pulse 86 11/02/24 16:06 BP 138/72 11/02/24 16:06 Pulse Ox 98 11/02/24 16:06 Oxygen Delivery Method Room Air 11/02/24 16:06 BMI result Body Mass Index 28.4 Absence of Cushingoid features. Absence of acromegalic features. Neck exam reveals nl size thyroid about 15 gms. No thyroid nodules palpable. No carotid bruits present. Lungs CTA. Heart S1 S2, Reg R/R. No M/R/ G. Skin exam reveals absence of vitiligo or acanthosis nigricans. Abdominal exam reveals Soft NT/ND with NA BS. No organomegaly present. Const Other: Absence of Cushingoid features. Absence of acromegalic features. Neck exam reveals nl size thyroid about 15 gms. No thyroid nodules palpable. Heart S1 S2, Reg R/R. No M/R G. Skin exam reveals absence of vitiligo or acanthosis nigricans. Visual exam of foot performed. No ulcerations or open lesions. No inter digit maceration or fissuring. No onychomycosis, no callouses. Sensation intact to monofilament exam. Vibratory sensation is normal with 128 Hz tuning fork. Neck Other: . Extrem Other: Visual exam of foot performed. No ulcerations or open lesions. No onchomycosis, no callouses.Pulses 2 + distally Sensation intact to monofilament exam. Vibratory sensation sensed is intact with 128 Hz tuning fork Results AMB Hemoglobin A1c AMB Hemoglobin A1c 6.6 % Last Edit by MARCO Adams on 11/02/24 16:21 Results Reviewed Results Reviewed: Laboratory Last Values Glucose (Clinic) 224 mg/dL (60-115) H 11/02/24 16:09 Hgb A1c (Clinic) 6.6 % (4.0-6.0) H 11/02/24 16:20 Assessment & Plan Assessment & Plan (1) Type 2 diabetes mellitus: Code(s): E11.9 - Type 2 diabetes mellitus without complications Category: Medical Qualifiers: Diabetes mellitus termite exterminator insulin use: with longterm use Diabetes mellitus complication status: with hyperglycemia Qualified Code(s): E11.65 - Type 2 diabetes mellitus with hyperglycemia; Z79.4 - alf (current) use of insulin Plan: Well-controlled diabetes. A1c 6.6% we will reduce insulin to 22 units. She does report an odor to her urine without dysuria or frequency and requested a urine test. She was unable to stay to give this today and she was given a slip to take to an outside lab. The patient had an opportunity to ask questions regarding treatment plan. The patient expressed understanding and agreement with the above treatment plan. The patient is aware they should contact our office by phone for worsening glucose readings or for any low blood sugars which may warrant a change in diabetes medication. Compliance is encouraged with medications and any followup testing/consults which may have been ordered. She will follow up with Dr. Veto Vyas Orders: Orders AMB Hemoglobin A1c 11/02/24 E11.65 - Type 2 diabetes mellitus with hyperglycemia, Z79.4 - alf (current) use of insulin Urine Culture 11/02/24 R35.0 - Frequency of micturition Medications: Changed From Toujeo SoloStar U-300 Insulin (insulin glargine U-300 conc) 25 units (0.0833 mL) subcut DAILY 4.5 mL 3RF NS To Toujeo SoloStar U-300 Insulin (insulin glargine U-300 conc) 22 units (0.0733 mL) subcut DAILY 30 days 3 mL 3RF NS Patient Instructions: Have urine sample done Take 15 carb carbohydrate grams to treat a low sugar (3-4 glucose tablets, half a glass of juice or 15 carbohydrate grams of soft candy such as gummie snacks). Recheck your sugar in 15 minutes and re-treat again with 15 carbohydrate grams if low or still with symptoms. Do not drive a car or operate machinery if you do not know what your blood sugar is, if it is low or in excess of 300. Check your feet daily looking for any signs of infection, drainage, redness, ulceration and seek medical attention if this occurs. Break in shoes gradually and do not wear open-toed shoes or walk stocking footed or barefooted. Coding Level of Care Code Est Pt Level 4 (11665) Complex EM visit Add On G2211 Diagnoses Type 2 diabetes mellitus with hyperglycemia, with long-term current use of insulin E11.65; Z79.4 Diabetes mellitus termite exterminator insulin use: with longterm use Diabetes mellitus complication status: with hyperglycemia Time Spent (min) 30 Comment Time spent reviewing labs/provider notes, face to face, chart doc
[2024-11-02 16:15] LABS: Glucose, Whole Blood 224 mg/dL (60-115)
--- OUTSIDE RECORDS SUMMARY | 2024-11-02 17:45 | XMS_ITS | Clinical Summary ---
[facility] Organization [facility] Address [address] [place] [address] Care Team Providers Care Mortgage Closing Clerk Name Role Phone Trina Messina MD Primary Care Prov ider Social History Tobacco Use Types Packs/Day Years Used Date Smoking Tobacco: Never Assessed Sex and Gender Information Value Date Recorded Sex Assigned at Not on file Gender Identity Not on file Sexual Orientation Not on file Plan of Treatment Health Maintenance Due Date Last Done Comments COVID-19 Vaccine (#1) 06/13/1941 Depression Screening 1952 Preventative Health Evaluation 12/12/1957 DTap / Tdap / Td (1 - Tdap) 12/12/1958 Shingrix-Zoster Vaccine (1 of 2) 12/12/1989 Fall Risk Assessment 12/12/2004 Osteoporosis Screening (DEXA Scan) 12/12/2004 RSV Adult > 60+ Yrs or Pregn ant (1 - 1-dose 75+ series) 12/12/2014 Pneumococcal Vaccine (2 of 2 - PCV) 07/03/2018 07/03/2017 Influenza Vaccine (#1) 2024 Hepatitis B Vaccines Aged Out No long er eligible based on patient's age to complete this topic RSV Ped < 20 months Aged Out No longe r eligible based on patient's age to complete this topic Care Teams Mortgage Closing Clerk Relationship Specialty Start Date End Date Trina Messina MD PCP - General Internal Medicine 09/15/19
--- OUTSIDE RECORDS SUMMARY | 2024-11-02 17:45 | XMS_ITS | Encounter Summary ---
Author Organization [facility] [employer] Address [address] [place] [address] Care Team Providers Care Medical Scientific Officer Name Role Phone Trina Messina MD Primary Care Prov ider Encounter Details Date Type Department Care Team (Late st Contact Info) Description 08/26/2024 Telephone [facility] [address] [facility] [address] [place] [address] Evelia Hayes MA Social History Tobacco Use Types Packs/Day Years Used Date Smoking Tobacco: Never Smokeless Tobacco: Never Alcohol Use Standard Drinks/Week Comments No 0 (1 standard drink = 0.6 oz pur e alcohol) Comments No Sex and Gender Information Value Date Recorded Sex Assigned at Not on file Legal Sex Female 5:24 PM EST Gender Identity Not on file Sexual Orientation Not on file documented as of this encounter Progress Notes * Dayan Villarreal - 10/10/2024 7:59 AM EST Unable to reach patient by phone. Letter sent for patient to book an appointment. * Dayan Villarreal - 09/29/2024 12:39 PM EST Left message to book appointment * Evan Rodriguez MA - 09/29/2024 11:34 AM EST Pt called my line and wanted to make an appt for a device check. Please call pt at [phone]. * Jess Trotter - 09/03/2024 9:40 AM EST Reached out and left a third message, mailed a letter home. * Veronique De La Cruz - 09/02/2024 3:57 PM EST Second attempt, received busy signal * Veronique De La Cruz - 08/31/2024 10:17 AM EST Left message for patient to book * Evelia Hayes MA - 08/26/2024 3:19 PM EST Please reschedule patient from missed device check for next available that works for him. Thank you documented in this encounter Plan of Treatment Upcoming Encounters Date Type Department Care Team (Late st Contact Info) Description 10/23/2025 4:00 PM EDT Ancillary Procedure [facility] [address] [facility] [address] [place] [address] documented as of this encounter Visit Diagnoses Not on filedocumented in this encounter Care Teams Medical Scientific Officer Relationship Specialty Start Date End Date Trina Messina MD [address] [place] [address] PCP - General Internal Medicine 01/28/16 documented as of this encounter
--- OUTSIDE RECORDS SUMMARY | 2024-11-02 17:45 | XMS_ITS | Encounter Summary ---
Author Organization [facility] Address [address] [place] [address] Care Team Providers Care Procurement Accountant Name Role Phone Trina Messina MD Primary Care Prov ider Reason for Referral * Consultation (Routine) - Authorized Specialty Diagnoses / Procedures Referred By Contac t Referred To Contact Cardiology Diagnoses Pacemaker reprogramming/check Trina Messina MD [address] [place], [place] Phone: tel: fax: [facility] [address] [facility] [address] [place] [address] Phone: tel: fax: Referral ID Status Reason Start Date Expiration Date Visits Requested Visits Authorized [id number] Authorized Specialty Services Required 10/10/2024 10/10/2025 1 1 Reason for Visit * Reason Onset Date Comments Referral 10/10/2024 [facility] Encounter Details Date Type Department Care Team ([facility] st Contact Info) Description 10/10/2024 Telephone Adult Medicine - [place] [address] [place] [address] Trina Messina MD [address] [place], [place] Referral ([facility]) Social History Tobacco Use Types Packs/Day Years [...] as of this encounter Progress Notes * Maddie Ochoa MA - 10/10/2024 3:28 PM EST Referral pended. * Maria Del Carmen Tristan - 10/10/2024 2:23 PM EST Referral Request: What insurance does the patient have today? [facility] and [facility] Referrals cannot be processed if the insurance is not accurate. If the insurance listed above in red is NO BILLING INFORMATION FOUND FOR THIS ENCOUTNER The patients correct insurance must be obtained and registered in [facility] or their referral can not be processed. Is this a retro request? yes If yes for what date of service do you need the retro referral? Tomorrow 10/11/24 Who is calling to request this referral? Friend / caregiver If the caller is not the patient, what is their name? Jeanette Ask the patient WHO referred them to this specialty: Not an initial visit; it is for follow up/continuation of care. Patients PCP is Krzysztof. [facility]. FIRST and LAST NAME of SPECIALIST PATIENT is seeing: Device Clinic What specialty is this? Cardiology DIAGNOSIS Patient is being seen for (Not a body part or a procedure): pacemaker checkup Have you seen this SPECIALIST for this PROBLEM/DX before? If YES, when? Yes. 2+ years ago Have you checked REVIEW or the APPT DESK to see if this referral has already been done or has visits left? yes Is this visit: Follow Up Address of Specialist: [place] Phone # of Specialist: n/a Fax #: (if applicable): n/a Does patient have an appointment scheduled?: yes Date of appointment- (including a retro-request): TOMORROW 10/11/24 Is this appointment related to: Not MVA, worker compensation, or surgery related documented in this encounter Plan of Treatment Upcoming Encounters Date Type Department Care Team (Late st Contact Info) Description 10/23/2025 4:00 PM EDT Ancillary Procedure [facility] [address] [facility] [address] [place] [address] Scheduled Referrals Name Type Priority Associated Diagnoses Order Schedule Ambulatory referral to Cardiology Outpatient Referral Routine Pacemaker reprogramming/check Expected: 10/10/2024, Expires: 10/10/2025 documented as of this encounter Visit Diagnoses Diagnosis Pacemaker reprogramming/check- Primary Fitting and adjustment of cardiac pacemaker Encounter for adjustment or management of cardiac device documented in this encounter Care Teams Procurement Accountant Relationship Specialty Start Date End Date Trina Messina MD [address] [place] [id number] PCP - General Internal Medicine 01/28/16 documented as of this encounter
--- OUTSIDE RECORDS SUMMARY | 2024-11-02 17:45 | XMS_ITS | Patient Health Record ---
Author Organization [facility] Address [address] [place] [address] Care Team Providers Care Hand Coke Drawer Name Role Phone Sixto Mckeon MD Primary Care Provider Oni Sargent Unavailable [phone] Allergies Allergen (clinical drug ingredient) Drug/Non Drug [...] Insured Coverage Start Date Coverage End Date [facility] Medicare Complete [address] [address] [place] [address] [id number] Shruti Mojica Self - patient is the insured Medical (General) History Medical History History ICD Code Arthritis Back,Hip,and Knee pain Cholesterol type II diabetes Glaucoma Heart disease High blood pressure keloids Stroke Vascular phlebitis (clots) Measles Mumps Chicken pox Surgical History Surgery Date(Month/Year) CATARACTS GALLBLADDER PACEMAKER/STINTS
--- OUTSIDE RECORDS SUMMARY | 2024-11-02 17:45 | XMS_ITS | Encounter Summary ---
Author Organization [facility] [employer] [facility] Address [address] [place] [address] Care Team Providers Care Legal Analyst Name Role Phone Trina Messina MD Primary Care Prov ider Encounter Details Date Type Department Care Team (Late st Contact Info) Description 10/10/2024 Telephone [facility] [address] [facility] [address] [place] [phone] Rc Patrick MD [address] [place] [address] Social History Tobacco Use Types Packs/Day Years [...] as of this encounter Progress Notes * Alondra Wiley MA - 10/11/2024 9:08 AM EST Correction, legacy records off notes scanned in from Sep and November of [address] Geo Cowan * Alondra Wiley MA - 10/10/2024 4:27 PM EST Not sure. Patients under Dr BAZAN. Not sure if the original call meant to put Rajesh since he's underall device checks. * Marilee Nieves NP - 10/10/2024 4:12 PM EST I think she will have to be a new patient previous with Dr. Patrick, correct? * Alondra Wiley MA - 10/10/2024 3:34 PM EST C/o burning of the throat and middle of her chest for about 1 x month, fatigued, dizziness, tiredness, vertigo room spinning making her nauseous for months now. She reported similar symptoms . She says she had several visit to [facility] last year and was in a rehab too. She's due for a Device check tomorrow. Last seen in the office by a Provider 2018. She was advised to call her PCP to see if she can get in sooner She states she has a VNA nurse that sees her and get her pill box done but she doesn't know what she takes. Im legally blind Barry [phone] * Dolores Reeves - 10/10/2024 1:32 PM EST Patient called stating she has had frequent burning sensation in throat and chest, body ache, weakness and dizzy spells. We rescheduled device check to 10/11/24 per her request, she no show 08/24/24. She would like to see a doctor. documented in this encounter Plan of Treatment Upcoming Encounters Date Type Department Care Team (Late st Contact Info) Description 10/23/2025 4:00 PM EDT Ancillary Procedure [facility] - [address] [facility] [address] [place] [address] documented as of this encounter Visit Diagnoses Not on filedocumented in this encounter Care Teams Legal Analyst Relationship Specialty Start Date End Date Trina Messina MD [address] [place] [id number] PCP - General Internal Medicine 01/28/16 documented as of this encounter
--- OUTSIDE RECORDS SUMMARY | 2024-11-02 17:45 | XMS_ITS | Clinical Summary ---
Author Organization [facility] [address] [facility] [address] Address [address] [place] [address] Phone Care Team Providers Care Tonnage Compilation Clerk Name Role Phone Trina Messina MD Primary Care Prov ider Allergies No known active allergies Medications ascorbic acid (VITAMIN C) 500 mg tablet Take 1 tablet (500 mg total) by mouth 1 (one) time each day. 04/12/20 24 Active aspirin 81 mg chewable tablet 1 tablet (81 mg total) 1 (one) time each day at the same time. Active cholecalciferol (VITAMIN D-3) 25 mcg (1,000 unit) tablet Take 1 tablet (1,000 Units total) by mouth 1 (one) time each day. 02/19/20 24 Active clonazePAM (KlonoPIN) 0.5 mg tablet Take 1 tablet (0.5 mg total) by mouth 2 times daily. Active cyanocobalamin, vitamin B-12, 1,000 mcg capsule Take by mouth. Activ e diclofenac (VOLTAREN) 0.1 % ophthalmic solution INSTILL 1 DROP IN BOTH EYES EVERY DAY 12/14/19 21 Active acetaminophen 500 mg/15 mL liquid Take 325 mg by mouth every 6 hours as needed. Active vitamin E, dl, acetate, 22.5 mg (50 unit)/mL drops 8 mL (400 Units total) daily. Active coenzyme Q-10 100 mg capsule Take 1 capsule (100 mg total) by mouth daily. Active senna-docusate (PERICOLACE) 8.6-50 mg per tablet Take 2 tablets by mouth at bedtime. Active sertraline (ZOLOFT) 50 mg tablet Take 1 tablet (50 mg total) by mouth 1 (one) time each day. 12/14/19 Active meclizine (ANTIVERT) 12.5 mg tablet Take 1 tablet (12.5 mg total) by mouth 3 (three) times a day if needed for dizziness. 30 tablet 07/01/20 24 025 Active Additional Information Patient taking differently: (No dose reported), oral,(No frequency reported), (No PRN reasons reported), Reported on 07/07/2024 flash glucose sensor (FreeStyle Micky 2 Sensor) kit APPLY TO BACK OF arm AND CHANGE sensors EVERY 14 DAYS Active losartan (COZAAR) 100 mg tablet Take 1 tablet (100 mg total) by mouth 1 (one) time each day. 05/25/20 24 Active insulin lispro (HumaLOG KwikPen) 100 unit/mL injection pen CARTRIDGE Inject 1 Units into the skin 3 times daily (with meals). Inject as per sliding scale: if 150 - 199 = 3 units; 200 - 249 = 4 units; 250 - 299 = 7 units; 300 - 349 = 10 units; 350 - 399 = 12 units 400 or greater Call MD Active insulin glargine (LANTUS) 100 unit/mL injection Inject 20 unit subcutaneously once a day at bedtime Active pen needle, diabetic 32 gauge x 5/32 needle USE FOR injecting lantus AND lispro 4 (FOUR) TIMES DAILY 12/16/19 Active flash glucose sensor (FREESTYLE MICKY 2 SENSOR [facility]) USE DIRECTED 06/10/20 24 Active acetaminophen (TYLENOL) 325 mg tablet Take 2 Tablets by mouth every 6 hours as needed. Active bimatoprost (LATISSE) 0.03 % ophthalmic solution Place into both eyes at bedtime. Apply one drop to applicator and apply to the upper eyelid at night. Active bisacodyL (DULCOLAX) [address] rectally. Active brimonidine (ALPHAGAN P) 0.1 % ophthalmic solution Active dorzolamide (TRUSOPT) 2 % ophthalmic solution 2 Drops 3 times daily. Active sodium phosphate,mono- dibasic (FLEET ENEMA RECT) Place rectally. Ac tive lactulose (CHRONULAC) solution Take 15 mL by mouth daily (with breakfast). Active methazolAMIDE (NEPTAZANE) 25 mg tablet Take 1 tablet (25 mg total) by mouth 2 (two) times a day. Active MULTIVITAMIN ORAL Take by mouth. Activ e polyethylene glycol (PEG) 17 gram/dose oral powder Take 17 g by mouth as needed. Active traZODone (DESYREL) 50 mg tablet Take 1 Tablet by mouth at bedtime. Active coQ10, ubiquinol, 100 mg capsule Take by mouth 1 (one) time each day. Active UNABLE TO FIND Take 1 capsule by mouth 1 (one) time each day. Vitamin E Water Soluble 450 MG (1000 UT) Cap 08/14/20 23 Active ezetimibe (ZETIA) 10 mg tablet Take 1 tablet (10 mg total) by mouth 1 (one) time each day. 08/14/20 23 Active Lactobacillus acidophilus 100 mg (1 billion cell) capsule Take 1 capsule by mouth 1 (one) time each day. 06/23/20 23 Active blood-glucose meter kit Use device to take blood sugar once daily before breakfast 01/17/20 23 Active magnesium hydroxide (MILK OF MAGNESIA) 400 mg/5 mL suspension Take 30 mL by mouth 2 times daily as needed for Constipation. Take medication twice daily until bowels start moving 05/13/20 22 Active freestyle (Prodigy Lancets) 28 gauge lancets Use to test blood sugar once daily 06/08/20 19 Active cyclobenzaprine (FLEXERIL) 5 mg tablet TAKE 1 TABLET BY MOUTH 3 (THREE) TIMES A DAY NEEDED FOR MUSCLE SPASM 45 tablet 5 07/11/20 24 Active traZODone (DESYREL) 100 mg tabletIndicatio ns:Anxiety disorder, unspecified TAKE ONE TABLET BY MOUTH DAILY AT BEDTIME 90 tablet 1 07/11/20 24 Active Vitamin C 500 mg tabletIndicatio ns:Type 2 diabetes mellitus with diabetic cataract (CMS/HCC) TAKE 1 TABLET BY MOUTH ONCE DAILY 90 tablet 1 07/11/20 24 Active Active Problems Problem Noted Date Diagnosed Date Known medical problems 07/07/2024 Overview (07/07/2024): Granuloma , 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 In light of recently poorly controlled blood sugars with steroid injections in other areas of the body, I have significant concern that her sugars will spike and be difficult to get back under control. I explained that if her sugars get under better control in the future and we feel the risk is worth it, we can consider the injection, but I do not recommend it for cosmetic reasons given her medical comorbidities. She voiced understanding and agreed. Arteriosclerosis of coronary artery 12/15/2022 History of 2019 novel coronavirus disease (COVID -19) 04/18/2022 Insomnia 02/11/2021 COVID-19 virus infection 12/21/2020 Cervical spondylosis 07/17/2019 CKD (chronic kidney disease) stage 3, GFR 30-59 ml/min 06/17/2019 Sliding hiatal hernia 04/01/2019 Obstructive sleep apnea 11/10/2018 Overview (07/01/2024): [facility] [place]ysomnogram: Date 11/09/2018; Wt 158# SE 49%; SM 52%; REM 0%; RDI 26 (AHI 6), Central apneas 0; Obstructive apneas 0; Mixed apneas 0; hypopneas 28; RERAs 87; average oxygen saturation 95% (lowest 92% - without saturations <88% for 5% or more of study); PLMs 6.Pre-study ESS 12. 3/4 RLS symptoms. Nuclear Stress Test 05/17/2018 EF 76% [facility] Polysomnogram treatment study. Date 04/03/2019. Wt 158#; BMI 28; SE 72 % SM 77 %; spent 19 % of the study in REM. On CPAP @ 6; RDI 0.2 (AHI 0.2), Central apneas 1; Obstructive apneas 0; Mixed apneas 0; hypopneas 0; RERAs 0; and, average oxygen saturation was 97%. For the entire study, PLMs ~0. Pre-study ESS 14. 3/4 RLS symptoms. - Obstructive Sleep Apnea - mild overall; no REM sleep; mostly hypopneas; without sleep related hypoventilation by 2019 polysomnogram. 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 2 to the mid RCA 95% lesion status post balloon angioplasty 6 sinus syndrome status post dual chamber pacemaker. Sick sinus syndrome 03/03/2018 MCI (mild cognitive impairment) with memory loss 02/09/2018 Legally blind 07/14/2017 Anxiety 05/07/2016 Atrial fibrillation 05/07/2016 Overview (07/01/2024): Short duration episodes, last one noted 03/31 Short duration episodes, last one noted 03/31 Cataract 05/07/2016 Overview (07/01/2024): S/p removal Depression 05/07/2016 Fibromyalgia 05/07/2016 GERD (gastroesophageal reflux disease) 6 Type 2 diabetes mellitus with cataract 6 Abnormal granulation tissue 02/13/2010 Cardiac pacemaker 06/13/2009 Overview (07/01/2024): 2008 Dual chamber, due to sinus kalyan Dr. Ty Mcduffie 2008 Dual chamber, due to sinus kalyan Dr. Ty Mcduffie Glaucoma 07/06/2008 Overview (07/01/2024): Multiple surgeries; patient is legally blind HTN (hypertension) 07/06/2008 Hyperlipidemia 07/06/2008 Encounters Date Type Department Care Team Description 10/19/2024 4:00 PM EST Ancillary Procedure [facility] [address] [facility] [address] [place] [address] Encounter for adjustment or management of cardiac device 10/18/2024 Billing Patient Not Present [facility] - [address] [phone] Trina Valadez MD Type 2 diabetes mellitus without complication, unspecified whether terminologist insulin use (CMS/HCC) (Primary Dx); Athscl heart disease of council coronary artery w/o ang pctrs; Sick sinus syndrome (CMS/HCC); Essential (primary) hypertension; termite helper (current) use of insulin (CMS/HCC); Personal history of other venous thrombosis and embolism 10/17/2024 Telephone Adult [address] [phone] Trina Valadez MD Forms/questionnaires ([facility] 09/30/2024-11/28/2024) 10/10/2024 Telephone Adult [address] [phone] Trina Valadez MD [facility]erral [facility]) 10/10/2024 Telephone [facility] - [facility] [address] [facility] [address] [place] [address] cR Patrick MD 08/26/2024 Telephone [facility] - [facility] [address] [facility] [address] [place] [phone] Evelia Hayes NE 08/22/[address] [phone] Trina Valadez MD 08/18/2024 Billing Patient Not Present [address] [phone] Trina Valadez MD Type 2 diabetes mellitus without complication, unspecified whether long-term insulin use (CMS/HCC) (Primary Dx); Athscl heart disease of council coronary artery w/o ang pctrs; Sick sinus syndrome (CMS/HCC); Essential (primary) hypertension; correction (current) use of insulin (CMS/HCC); Personal history of other venous thrombosis and embolism 08/16/2024 Telephone Adult [address] [phone] Trina Valadez MD Forms/questionnaires ([facility] 08/01/2024-09/29/2024 ) from Last 3 Months Immunizations Name Administration Dates Next Due PPD Test 08/15/2016,08/13/2016 Pneumococcal polysaccharide 23 valent (Pneumovax 23) 2yo and older 07/03/2017 Surgical History Surgery Date Site/Laterality Comments PARTIAL HYSTERECTOMY PROCEDURE: [place] SUPRACERVICAL ABDL HYSTER W/WO RMVL TUBE OVARY CATARACT EXTRACTION , , , PROCEDURE: HISTORICAL CATARACT REMOVAL CARDIAC CATHETERIZATION 2006 PROCEDURE: HISTORICAL CARDIAC CATH; COMMENT: 2 stents PACEMAKER IMPLANT 2008 PROCEDURE: HISTORICAL PACEMAKER EYE SURGERY [id number] PROCEDURE: HISTORICAL EYE SURGERY; COMMENT: 4 surgeries for glaucoma OTHER SURGICAL HISTORY 03/09/2020 PROCEDURE: HISTORY OTHER; COMMENT: Spinal surgery, Dr. Berkowitz LUMBAR LAMINECTOMY PROCEDURE: HISTORICAL LUMB LAMINECTOMY Medical History Medical History Date Comments Cataract DX:Cataract NSTEMI (non-ST elevation prasanna cardial infarction) ([facility]) DX:NSTEMI (non-ST elevation myocardial infarction) ([facility]) Diabetes mellitus type 2, uncomplicated ([facility]/HCC) 05/07/2016 DX:Diabetes mellitus type 2, uncomplicated ([facility]) GERD (gastroesophageal reflux disease) 05/07/2016 DX:GERD (gastroesophageal reflux disease) Fibromyalgia 05/07/2016 DX:Fibromyalgia Depression 05/07/2016 DX:Depression Anxiety 05/07/2016 DX:Anxiety Type 2 diabetes mellitus wit h cataract ([facility]) 05/07/2016 DX:Type 2 diabetes mellitus with cataract ([facility]) Cervical spondylosis 07/17/2019 DX:Cervical spondylosis Insomnia 02/11/2021 DX:Insomnia Abdominal discomfort DX:Abdomina l discomfort Constipation DX:Constipation Chronic ischemic heart disease D X:Chronic ischemic heart disease Hyperlipidemia DX:Hyperlipidemi a Essential hypertension DX:Essent ial hypertension Family History Medical History Relation Name Comments Diabetes Aunt 1 heart disease, HTN Ovarian cancer Aunt 2 breast cancer Throat cancer Brother 1 Diabetes Brother 2 Diabetes Daughter 1 heart disease, HTN Hypertension Daughter 1 Diabetes Daughter 2 Diabetes Father heart disease, HTN Other: Heart disease Mother Arthritis Sister 1 Diabetes Sister 2 Other: Heart disease Sister 2 Diabetes Sister 3 heart disease Diabetes Son 1 heart disease, HTN Diabetes Son 2 from diabe kyaw No Known Problems Son 3 Hypertension Son 4 Relation Name Status Comments Aunt 1 Aunt 2 Brother 1 Alive Brother 2 Alive Daughter 1 Alive Daughter 2 Alive Father Mother Sister 1 Alive Sister 2 Sister 3 Alive Son 1 Alive Son 2 Son 3 Alive Son 4 Alive Social History Tobacco Use Types Packs/Day Years Used Date Smoking Tobacco: Never Smokeless Tobacco: Never Tobacco Cessation:Counseling Given: Not Answered Alcohol Use Standard Drinks/Week Comments No 0 (1 standard drink = 0.6 oz pur e alcohol) Comments No Sex and Gender Information Value Date Recorded Sex Assigned at Not on file Legal Sex Female 5:24 PM EST Gender Identity Not on file Sexual Orientation Not on file Obstetrics History Last Filed Vital Signs Vital Sign Reading Time Taken Comments Blood Pressure 172/73 07/01/2024 10:35 AM EST Pulse 62 07/01/2024 10:35 AM EST Temperature 36.6 ??C (97.9 ??F) 07/01/2024 10:[address] Respiratory Rate - - Oxygen Saturation 96% 07/01/2024 10:35 AM EST Inhaled Oxygen Concentration - - Weight 72.6 kg (160 lb) 07/01/2024 10:35 AM EST Height 160 cm (5' 3 ) 07/01/2024 10:35 AM EST Body Mass Index 28.34 07/01/2024 10:35 AM EST Plan of Treatment Upcoming Encounters Date Type Department Care Team (Late st Contact Info) Description 10/23/2025 4:00 PM EDT Ancillary Procedure [facility] [address] [facility] [address] [place] [address] Health Maintenance Due Date Last Done Comments COVID-19 Vaccine (#1) 12/12/1945 Diabetes: Annual Foot Exam 12/12/1949 Zoster Vaccines (1 of 2) 12/12/1989 DTaP,Tdap,and Td Vaccines (2 - Td or Tdap) 04/24/2014 04/24/2004 RSV Immunization Patients 60 + Years Old (1 - 1-dose 75+ series) 12/12/2014 Pneumococcal Vaccine: 50+ Years (2 of 2 - PCV) 07/03/2018 07/03/2017 Depression Screening 07/26/2022 Falls Risk Assessment 07/26/2022 Osteoporosis Screening (Bone Density Screening) 07/26/2022 Social Influencers of Health Screening 07/26/2022 Diabetes: Annual Urine Albumin-Creatinine Ratio (uACR) 01/01/2024 12/31/2022 Influenza Vaccine (#1) 2024 4, 07/09/2007 Diabetes: Blood Sugar Contro l Test (HGBA1C) 12/29/2024 07/01/2024 Diabetes: Annual Retina Eye Exam 03/22/2025 03/22/2024 Diabetes: Annual GFR (Glomerular Filtration Rate) 07/01/2025 07/01/2024, 05/22/2023 Hypertension/CHF/CAD Annual BMP Blood Test 07/01/2025 07/01/2024, 05/22/2023 Cholesterol Screening (Lipid Panel) 10/22/2027 10/21/2022 HIB Vaccines Aged Out No longer eligi ble based on patient's age to complete this topic HPV Vaccines Aged Out No longer eligi ble based on patient's age to complete this topic Hepatitis A Vaccines Aged Out No long er eligible based on patient's age to complete this topic Hepatitis B Vaccines Aged Out No long er eligible based on patient's age to complete this topic IPV Vaccines Aged Out No longer eligi ble based on patient's age to complete this topic MMR Vaccines Aged Out No longer eligi ble based on patient's age to complete this topic Meningococcal ACWY Vaccine Aged Out N o longer eligible based on patient's age to complete this topic Meningococcal B Vacine Aged Out No lo nger eligible based on patient's age to complete this topic RSV Immunization Patients Under 20 months Aged Out No longer eligible b ased on patient's age to complete this topic Varicella Vaccines Aged Out No longer eligible based on patient's age to complete this topic Medical Devices Implanted Type Area K [employer] Device Identifier Shelf Expiration Date Model / Serial / Lot Luis 2240 Birdie(Tm) [id number] Implanted:12/2017 by Cain Mena MD (Quantity not on file) Cardiac Pacemaker Left: Chest [employer] 224 BIRDIE(TM ) DR Zapata [id number] / [address] 2240 [id number] Implanted:12/2017 (Quantity not on file) Cardiac Pacemaker [employer] [employer] BIRDIE [place] / [id number] / Procedures Procedure Name Priority Date/Time Associated Diagnosis Comments CARDIAC DEVICE CHECK- IN CLINIC- MURJ Routine 10/19/2024 4:01 PM EST Encounter for adjustment or management of cardiac device COMPREHENSIVE METABOLIC PANEL Routine 07/01/2024 12:06 PM EST Diabetes 1.5, managed as type 2 (CMS/HCC) HEMOGLOBIN A1C Routine 07/01/2024 12:06 PM EST Diabetes 1.5, managed as type 2 (CMS/HCC) HM URINE ALBUMIN CREATININE RATIO Routine 12/31/2022 LIPID PANEL Routine 10/21/2022 from Last 3 Months or Most Recently Relevant to Health Maintenance Results * CARDIAC DEVICE CHECK- IN CLINIC- MURJ (10/19/2024 4:01 PM EST) Date Time Interrogation Session [id number] CV DEVICE CHECK Implantable Pulse Generator [employer] CV DEVICE CHECK Implantable Pulse Generator Type IPG CV DEVICE CHECK Implantable Pulse Generator Model Assurity 2240 CV DEVICE CHECK Implantable Pulse Generator Serial Number [id number] CV DEVICE CHECK Implantable Pulse Generator Implant Date [id number] CV DEVICE CHECK Battery Voltage 2.980 CV D EVICE CHECK Battery Status Middle of Service CV DEVICE CHECK Kalyan Statistic RA Percent Paced 80.00 CV DEVICE CHECK Kalyan Statistic RV Percent Paced 0.34 CV DEVICE CHECK Lead Channel Sensing Intrinsic Amplitude 1.900 CV DEVICE CHECK Lead Channel Impedance Value 560 CV DEVICE CHECK Lead Channel Pacing Threshold Amplitude 0.750 CV DEVICE CHECK Lead Channel Pacing Threshold Pulse Width 0.4 CV DEVICE CHECK Lead Channel RA Pacing Threshold Date 2024-10-19 CV DEVICE CHECK Lead Channel Setting Pacing Amplitude 1.630 CV DEVICE CHECK Lead Channel Setting Pacing Pulse Width 0.4 CV DEVICE CHECK Lead Channel Sensing Intrinsic Amplitude 12.000 CV DEVICE CHECK Lead Channel Setting Sensing Sensitivity 2.00 CV DEVICE CHECK Lead Channel Impedance Value 710 CV DEVICE CHECK Lead Channel Pacing Threshold Amplitude 0.500 CV DEVICE CHECK Lead Channel Pacing Threshold Pulse Width 0.4 CV DEVICE CHECK Lead Channel RV Pacing Threshold Date 2024-10-19 CV DEVICE CHECK Lead Channel Setting Pacing Amplitude 0.750 CV DEVICE CHECK Lead Channel Setting Pacing Pulse Width 0.4 CV DEVICE CHECK Kalyan Setting Mode (NBG Code) DDDR CV DEVICE CHECK Kalyan Setting Lower Rate Limit 60 CV DEVICE CHECK Kalyan Setting AT Mode Switch Rate 180 CV DEVICE CHECK Kalyan Setting Maximum Tracking Rate 110 CV DEVICE CHECK Kalyan Setting Maximum Sensor Rate 110 CV DEVICE CHECK Kalyan Setting PAV Delay 250 CV DEVICE CHECK Kalyan Setting BILLY Delay 200 CV DEVICE CHECK Date of Service 2025-08-23 CV DEVICE CHECK Anatomical Region Laterality Modality Device Interroga tion 10/19/2024 Impressions 10/20/2024 9:53 AM EST Normal In-Office: No Events * Normal Device Function * Alerts or events: None * Battery: MOS, 5.30 yrs * Sensing, impedance and thresholds reviewed and tested * Presenting Rhythm: AP/ - VS 60's * Underlying Rhythm: - VS 50 - 60's * Heart Rate Histograms reviewed * Pacing and Detection Parameters were evaluated Narrative Procedure Note Cain Mena MD - 10/20/2024 IMPRESSION: Normal In-Office: No Events * Normal Device Function * Alerts or events: None * Battery: MOS, 5.30 yrs * Sensing, impedance and thresholds reviewed and tested * Presenting Rhythm: AP/ - VS 60's * Underlying Rhythm: - VS 50 - 60's * Heart Rate Histograms reviewed * Pacing and Detection Parameters were evaluated Order Referral Cardiovascular CV IMPLANTABLE CAR DIAC DEVICE PROCEDURES Final Result * (ABNORMAL) Hemoglobin A1c (07/01/2024 12:06 PM EST) Hemoglobin A1C 7.4(H) <6.5 % LAB CHEMISTRY METHOD 07/02/2024 11:19 AM EST [facility] Mean Bld Glu Estim. 166 mg/dL LAB CHEMISTRY METHOD 07/02/2024 11:19 AM EST [facility] Blood Venous blood specimen / Unknown Venipuncture / Unknown 07/01/2024 12:06 PM EST 07/01/2024 12:06 PM EST Trina Messina MD LAB BLOOD ORDERABL ES Final Result [facility] [address] [place] [address], * (ABNORMAL) Comprehensive metabolic panel (07/01/2024 12:06 PM EST) Sodium 142 133 - 145 mmol/L LAB CHEMISTRY METHOD 07/01/2024 4:45 PM EST [facility] Potassium 4.4 3.5 - 5.5 mmol/L LAB CHEMISTRY METHOD 07/01/2024 4:[address] [facility] Chloride 109 96 - 110 mmol/L LAB CHEMISTRY METHOD 07/01/2024 4:[address] [facility] CO2 28 21 - 32 mmol/L LAB CHEMISTRY METHOD 07/01/2024 4:[address] [facility] Anion Gap 5 3 - 11 LAB CHEMISTRY METHOD 07/01/2024 4:[address] [facility] Glucose 176(H) 70 - 100 mg/dL LAB CHEMISTRY METHOD 07/01/2024 4:[address] [facility] BUN 15 5 - 25 mg/dL LAB CHEMISTRY METHOD 07/01/2024 4:[address] [facility] Creatinine 0.86 0.50 - 1.10 mg/dL LAB CHEMISTRY METHOD 07/01/2024 4:[address] [facility] eGFR 67 >=60 mL/min/1. 73m2 LAB CHEMISTRY METHOD 07/01/2024 4:[address] [facility] Comment:Calculation based on the??Chronic Kidney Disease Epidemiology Collaboration (CKD-EPI) equation refit??without adjustment for race. BUN/Creatinine Ratio 17.4 LAB CHEMISTRY METHOD 07/01/2024 4:[address] [facility] Calcium 9.8 8.5 - 10.5 mg/dL LAB CHEMISTRY METHOD 07/01/2024 4:45 PM EST [facility] AST (SGOT) 20 10 - 42 unit/L LAB CHEMISTRY METHOD 07/01/2024 4:[address] [facility] ALT (SGPT) 27 10 - 60 unit/L LAB CHEMISTRY METHOD 07/01/2024 4:[address] [facility] Alkaline Phosphatase 111 42 - 121 unit/L LAB CHEMISTRY METHOD 07/01/2024 4:[address] [facility] Total Protein 6.9 6.0 - 8.0 g/dL LAB CHEMISTRY METHOD 07/01/2024 4:[address] [facility] Albumin 3.9 3.2 - 5.0 g/dL LAB CHEMISTRY METHOD 07/01/2024 4:[address] [facility] Total Bilirubin 0.3 0.0 - 1.4 mg/dL LAB CHEMISTRY METHOD 07/01/2024 4:[address] [facility] Blood Venous blood specimen / Unknown Venipuncture / Unknown 07/01/2024 12:06 PM EST 07/01/2024 12:06 PM EST Trina Messina MD LAB BLOOD ORDERABL ES Final Result [facility] [address] [place] [address], * Urine Albumin Creatinine Ratio (12/31/2022) Pathologist [facility] Urine Albumin Creatinine Ratio abstracted Historical Provider HEALTH MAINTENANCE Final Result * (ABNORMAL) Lipid panel (10/21/2022) Pathologist [facility] LDL/HDL Ratio 3 0 - 4 Triglycerides 101 0 - 150 mg/dL Cholesterol 206(A) 0 - 200 mg/dL HDL 64 >=40 mg/dL LDL Cholesterol 122(A) 0 - 100 mg/dL Blood Venous blood specimen / Unknown Historical Provider LAB BLOOD ORDERABLES Niocle l Result from Last 3 Months or Most Recently Relevant to Health Maintenance Insurance MEDICA[place] - [place] Advance Directives Documents on File Type Date Recorded Patient Vortex Operator Expl anation Health Care Decision (hx) 09/28/2023 AD REDDY DIRECTIVE Health Care Decision (hx) 09/28/2023 AD REDDY DIRECTIVE Health Care Decision (hx) 09/28/2023 AD REDDY DIRECTIVE Health Care Decision (hx) 09/15/2023 AD REDDY DIRECTIVE Health Care Decision (hx) 09/15/2023 AD REDDY DIRECTIVE Health Care Decision (hx) 09/15/2023 AD REDDY DIRECTIVE Health Care Decision (hx) 09/15/2023 AD REDDY DIRECTIVE Health Care Decision (hx) 04/14/2023 AD REDDY DIRECTIVE Health Care Decision (hx) 04/14/2023 AD REDDY DIRECTIVE Health Care Decision (hx) 04/14/2023 AD REDDY DIRECTIVE Care Teams Tonnage Compilation Clerk Relationship Specialty Start Date End Date Trina Messina MD [address] [place] [id number] PCP - General Internal Medicine 01/28/16
--- OUTSIDE RECORDS SUMMARY | 2024-11-02 17:45 | XMS_ITS | Clinical Summary ---
Author Organization [facility] Address [address] [place] [address] Care Team Providers Care Medical Affairs Leader Name Role Phone Shira Awan MD Primary Care Provider Source Comments PLEASE NOTE, if this patient is a minor, it may be UNLAWFUL to discuss sensitive information that is contained in these records (such as FAMILY PLANNING, MENTAL HEALTH or SUBSTANCE ABUSE) with the minor patient's parent or other person without the patient's specific authorization.[facility] Social History Tobacco Use Types Packs/Day Years Used Date Smoking Tobacco: Never Assessed Social Connections Answer Date Recorded Connectedness 0 05/05/2024 Financial Resource Strain Answer Date R ecorded Financial Resource Strain 0 2023 Stress Answer Date Recorded Stress 0 04/06/2024 Physical Activity Answer Date Recorded Physical Activity 0 04/06/2024 Food Insecurity Answer Date Recorded Food 0 05/12/2024 Transportation Needs Answer Date Record ed Transportation 0 04/06/2024 Housing Stability Answer Date Recorded Housing 0 04/06/2024 Safety and Environment Answer Date Adriel rded Safety 0 04/06/2024 Utilities Answer Date Recorded Utilities 0 04/06/2024 Employment Answer Date Recorded Stress 0 05/05/2024 Comments Unknown Sex and Gender Information Value Date Recorded Sex Assigned at Not on file Legal Sex Female 11:13 AM PDT Gender Identity Not on file Sexual Orientation Not on file Plan of Treatment Upcoming Encounters Date Type Department Care Team (Late st Contact Info) Description 12/02/2024 3:00 PM EDT Office Visit [facility] [address] [facility] [address] [place] [phone] Eric Jackson [address] [place] [address] Health Maintenance Due Date Last Done Comments Tobacco Screening 1940 Advanced Care Planning 01/12/1940 Hypertension Screening (#1) 12/12/1957 Medicare Annual Wellness Visit 12/12/1957 Imm-DTaP/Tdap/Td (1 - Tdap) 12/12/1958 Imm-Pneumococcal 65+ (1 of 1 - PCV) 12/12/1989 Imm-Zoster, Recombinant (1 of 2) 12/12/1989 Bone Density Screening 12/12/2004 Falls Prevention 12/12/2004 [id number] (1 - 2023- season) 2024 Imm-Influenza (#1) 2024 Alcohol and Drug Screen 08/17/2024 Depression Annual Screen 08/17/2024 [place] [facility] Care Teams Medical Affairs Leader Relationship Specialty Start Date End Date Shira Awan MD [address] [place] [address] PCP - General Internal Medicine 10/31/15
--- OUTSIDE RECORDS SUMMARY | 2024-11-02 17:45 | XMS_ITS | Data Portability ---
Author Organization [place] [facility] Address [address] [facility] [address] [place] [address] Care Team Providers Care Cycle Touring Guide Name Role Phone [facility] Primary Care Provider [phone] Assessment Encounter Date Assessment Date Assessment LastModified [...] respiratory specimen 2020 021 [facility], [address] [place] [address], [id number], 17:56:58 SARS CoV 2 RNA (COVID-19), QL, roofing layer-PCR, respiratory specimen 2020 021 [facility] (Centralized Electronic Ordering - All Locations), Patient Can Go To The Location Of Their Choice, [id number] 11:00:08 SARS CoV 2 RNA (COVID-19), QL, roofing layer-PCR, respiratory specimen 2020 021 [facility] (Centralized Electronic Ordering - All Locations), Patient Can Go To The Location Of Their Choice, [id number] 11:00:08 Referral None recorded. Procedures None recorded. Surgeries None recorded. Imaging None recorded. Medication Orders None recorded. Patient TargetsNo targets recorded. Patient Instructions Encounter Date Encounter Id Patient Instructions Last Modified By Organization Details Last Modified Time 12/09/2020 [id number] coronavirus (covid-19): care instructions Not available 12/09/2020 17:49:28 Reason for Referral None Reported. Results Created Date Observation Date Name Description Value Unit Range Abnormal Flag Note LastModifiedBy Organization Detail LastModifiedTime 12/10/19 21 12/09/2020 rapid SARS CoV + SARS CoV 2 Ag, QL IA, respi rator y speci men Covid-19 positi ve Not Available [facility] [address], [place], [address], 12/09/2020 17:55:57 12/10/19 21 12/09/2020 rapid SARS CoV + SARS CoV 2 Ag, QL IA, respi rator y speci men Control Visual ized/V alid Not Available [facility] [address], [place], [address], 12/09/2020 17:55:57 Result Notes None recorded. Procedures Surgical History Date Name Laterality Status Provider Name and Address Organization Details Recorded Time Unlisted px ant segment eye completed Tiara Mello NP [address] [place], [address], [place] [facility] 12/09/2020 17:13:25 Xcapsl ctrc rmvl cplx wo ecp completed Tiara Mello NP [address] [place], [address], [place] [facility] 12/09/2020 17:13:36 placement of stent in pulmonary artery completed Tiara Mello NP [address] [place], [address], [place] [facility] 12/09/2020 17:13:45 cardiac pacemaker procedure completed Tiara Mello NP [address] [place], [address], [place] [facility] 12/09/2020 17:13:57 cholecystectomy completed Tiara Mello NP [address] [place], [address], [place] [facility] 12/09/2020 17:14:05 discectomy of spine completed Tiara Mello NP [address] [place], [address], [place] [facility] 12/09/2020 17:14:17 Imaging Results [...] /min 120 mm[Hg] 66 mm[Hg] Not Available [facility] 17:10:38 Social History Question Answer Notes LastModified by Organizat ion Details LastModified Time Tobacco Smoking Status Never Smoker Tiara Mello, DERRICK [address] [place], [address], [place] [facility] 12/09/2020 17:12:17 Do You [...] Visiting Friends Or Family Or Going To Sabianist Or Club Meetings) 1 Or 2 Times [...] available 2020 17:12:04 Medical History Condition Response Diabetes Y Coronary Artery Disease Y High Cholesterol Y Pulmonary Embolism N Cancer N Hypertension Y Stroke Y Asthma N COPD N Depression N Kidney Disease N Gynecological HistoryNo gynecological history recorded. Obstetrics History GPAL:G 0 P 0 0 0 0 Past Encounters Encounter ID Performer Location Encounter Start Date Encounter Closed Date Diagnosis/Indication Diagnosis SNOMED-CT Code Diagnosis ICD10 Code Diagnosis Note [id number] Tiara Mello NP [facility] [place] [address] [facility] [place] [address] 12/09/2020 17:04:51 12/09/2020 18:10:44 Suspected COVID-19 [id number] Z03.89 {{jenny n primary care provider s pecialist surgeon}} and {{spoke to the PCP spoke to the on-call provider laurence odomt a message th ere was no one available spoke to the home care coordinato rs spoke to the medical technologist microbiology/ staff}}. Exposure t o communicable disease [id number] Z20.822 Overview/H istory: Patient is an 79 year old AA Female who presents with symptoms of Covid. Her symptoms include fever of 104.0 this am and body aches since yesterday. Patient suffered direct exposure through Covid positive family members who tested positive for covid. Exam: Patient afebrile 97;9. HRR 60, S1, S2. LSCTA, no work of breathing. Moist mucous membranes, no lymphadeno torri. ENT exam wnl. Abdomen SNT, + bowel sounds x 4 quadrants. No CVA tenderness , no suprapubic tenderness . DDx considered , but not limited to: Covid likely, + rapid Flu unlikely, patient immunized Pneurmonia considered , LSC Work up/Results : Rapid Covid + Covid swab sent to lab to confirm Plan/Discu ssion: 1. contact patient/cc pcp with covid PCR results. 2. Provided covid handout. Patient understand s all discussed regarding symptom management , quarantine . Discussed acute s/s to report to ED/call 911. Proper Personal Protective Equipment (PPE), including {{gloves, eye protection , masks, and gowns, shoe covers willian ves, eye protection and masks glov es, eye protection gloves, eye protection , N95 mask, gown, and shoe covers* corado rgical mask with face-shiel d, gloves, gown and shoe covers shashank gical mask with face-shiel d, gloves}} were donned and doffed paul reich and all equipment cleaned using approved technique with germicidal disposable wipes prior to and after care of this patient according to [facility]'s infection prevention protocols. In order to obtain further informatio n and compare any laboratory results/va lues, I have accessed {{old patient records* p atient records on the [employer] [facility] r eviewed records with the PCP}}. This informatio n was pertinent in my medical decision making today. Health Concerns Section Related Observation LastModified by Organization Detai ls LastModified Time None Recorded Concern Status LastModified by Organization Details LastModified Time None Recorded Advance Directives Directive N: Payers Encounter Date Sequence Insurance Name Policy Number Policy Raza Covered Member ID Raza Member ID Guarantor Name 12/09/2020 1 [employer] WEST - AARP - MEDICARE SOLUTIONS - MEDICARE COMPLETE (MEDICARE REPLACEMENT HMO) Shruti Mojica [id number] Shruti Mojica Notes Date Note Type Note [...] stent placement, diabetes, hyperlipidemia, HTN, multiple TIA's. Tiara Mello NP [address], [place], [address], [place] [facility] 12/09/2020 18:02:11 OBGyn Episode No OBEpisode recorded.
--- OUTSIDE RECORDS SUMMARY | 2024-11-02 17:45 | XMS_ITS | Clinical Summary ---
Author Organization [address] Address [address] [place] [address] Care Team Providers Care Desk Officer Name Role Phone Trina Messina MD Primary Care Prov ider Allergies Active Allergy Reactions Criticality Noted Date Comments Beta-Blockers (Beta-Adrenerg ic Blocking Agts) 04/05/2015 Chlorpheniramine 11/15/2018 Codeine 11/15/2018 Dextromethorphan 11/15/2018 Guaifenesin 11/15/2018 Atorvastatin 04/05/2015 Morphine 11/15/2018 Oxycodone 11/15/2018 Diphenhydramine-Acetaminophen 2014 Phenylephrine 11/15/2018 Phenylpropanolamine 11/15/2018 Rosuvastatin 11/15/2018 Sulfa (Sulfonamide Antibiotics) 08/2018 Medications bimatoprost (LUMIGAN) 0.03 % ophthalmic drops Place 1 drop into both eyes nightly Active clonazePAM (KLONOPIN) 0.5 MG tablet Take 0.5 mg by mouth 2 (two) times daily. Active atorvastatin (LIPITOR) 10 MG tablet Take 10 mg by mouth daily. Active sertraline (ZOLOFT) 50 MG tablet Take 50 mg by mouth daily. Active dorzolamide (TRUSOPT) 2 % ophthalmic solution 1 drop 3 (three) times daily. Active metFORMIN (GLUCOPHAGE-XR) 750 MG 24 hr tablet Take 750 mg by mouth daily with dinner. Active aspirin 81 MG EC tablet Take 81 mg by mouth daily. Active cyanocobalamin, vitamin B-12, (VITAMIN B-12 ORAL) Take by mouth. Active VITAMIN C 500 mg Chew CHEW 1 TABLET EVERY DAY 5 09/13/2018 Active vitamin E, dl, acetate, 15 unit/0.3 mL Drop Take by mouth. Active Lactobacillus acidophilus 100 mg (1 billion cell) Cap Take 100 mg by mouth 09/15/2018 Active artificial tears,hypromello se, (GENTEAL) 0.2 % ophthalmic solution Place 2 drops into both eyes 4 (four) times daily as needed 10 mL 12 09/21/2018 Active ezetimibe (ZETIA) 10 mg tablet Take 10 mg by mouth daily Active losartan-hydroch lorothiazide (HYZAAR) 100-12.5 mg per tablet Take 1 tablet by mouth daily Active traZODone (DESYREL) 50 MG tablet Take 50 mg by mouth nightly Active omeprazole (PRILOSEC) 20 MG capsule Take 20 mg by mouth daily Active brinzolamide (AZOPT) 1 % ophthalmic suspension Place 1 drop into both eyes 3 (three) times daily. 10 mL 12 04/12/2019 Active brimonidine (ALPHAGAN P) 0.1 % Drop Place 1 drop into both eyes 3 (three) times daily. 10 mL 11 04/12/2019 Active Active Problems Problem Noted Date Diagnosed Date Dizziness 09/19/2018 Overview (09/19/2018): Overview: Seen with neuro in past and ENT, thought to be due to eye disease Old MO (myocardial infarction) 09/19/2018 Overview (09/19/2018): Overview: Inferior wall NSTEMI 2006; drug eluting stents ? 2 to the mid RCA 95% lesion status post balloon angioplasty 6 sinus syndrome status post dual chamber pacemaker. Sick sinus syndrome (HC Code) (HC CODE) 03/03/20 18 MCI (mild cognitive impairment) with memory loss 02/09/2018 Legally blind 07/14/2017 Anxiety 05/07/2016 Atrial fibrillation (HC Code) (HC CODE) 05/07/20 16 Overview (09/19/2018): Overview: Short duration episodes, last one noted 03/31 Cataract 05/07/2016 Overview (09/19/2018): Overview: S/p removal Depression 05/07/2016 Fibromyalgia 05/07/2016 GERD (gastroesophageal reflux disease) 6 History of DVT (deep vein thrombosis) 05/07/2016 Overview (09/19/2018): Overview: Upper extremities Other abnormal granulation tissue 02/13/2010 Cardiac pacemaker 06/13/2009 Overview (09/19/2018): Overview: 2008 Dual chamber, due to sinus kianna Dr. Ty Mcduffie Glaucoma 07/06/2008 Overview (09/19/2018): Overview: Multiple surgeries; patient is legally blind HTN (hypertension) 07/06/2008 Hyperlipidemia 07/06/2008 Family History Medical History Relation Name Comments No Known Problems Brother Glaucoma Daughter No Known Problems Father No Known Problems Maternal Cousin No Known Problems Maternal Grandfather Blindness Maternal Grandmother No Known Problems Mother Glaucoma Other granddaughter x 2 No Known Problems Paternal Grandfather Blindness Paternal Grandmother Glaucoma Sister Macular degen Son Amblyopia Neg Hx Cancer Neg Hx Cataracts Neg Hx Diabetes Neg Hx Hypertension Neg Hx Retinal detachment Neg Hx Strabismus Neg Hx Stroke Neg Hx Thyroid disease Neg Hx Relation Name Status Comments Brother Daughter Father Maternal Cousin Maternal Grandfather Maternal Grandmother Mother Other granddaughter x 2 Alive Paternal Grandfather Paternal Grandmother Sister Son Social History Tobacco Use Types Packs/Day Years Used Date Smoking Tobacco: Never Smokeless Tobacco: Never Alcohol Use Standard Drinks/Week Comments No 0 (1 standard drink = 0.6 oz pur e alcohol) PHQ-2 Answer Date Recorded PHQ-2 Score 0 02/15/2019 Comments Unknown Sex and Gender Information Value Date Recorded Sex Assigned at Not on file Legal Sex Female 7:08 AM EST Gender Identity Not on file Sexual Orientation Not on file Last Filed Vital Signs Vital Sign Reading Time Taken Comments Blood Pressure 131/72 10/12/2018 1:06 PM EST Pulse 66 10/12/2018 1:06 PM EST Temperature 36.7 ??C (98 ??F) 10/12/2018 1:06 PM EST Respiratory Rate - - Oxygen Saturation 100% 10/12/2018 1:06 PM EST Inhaled Oxygen Concentration - - Weight 73.5 kg (162 lb) 10/12/2018 1:06 PM EST Height 160 cm (5' 3 ) 10/12/2018 1:06 PM EST Body Mass Index 28.7 10/12/2018 1:06 PM EST Plan of Treatment Health Maintenance Due Date Last Done Comments HIV screening 12/12/1953 Tetanus adult (Td q 10,TDAP once) 1959 Lipid disorder screening 1979 Diabetes screening 12/12/1984 Shingles vaccine (Shingrix) (1 of 2 - Shingrix (RZV) 2 Dose Standard Series) 12/12/1989 Osteoporosis screening (bone density) 12/12/2004 RSV Discussion (1 - 1-dose 7 5+ series) 12/12/2014 Pneumococcal Vaccine (50+ ye ars) (2 of 2 - PCV) 07/03/2018 07/03/2017 Influenza vaccine 03/17/2024 Covid-19 vaccine series ( - 2023- season) 2024 Breast cancer screening Discontinued Cervical cancer screening Discontinued Meningococcal Vaccine Aged Out No carlos eduardo jem eligible based on patient's age to complete this topic Medical Devices Implanted Type Area Occupational Psychologist Device Identifier Shelf Expiration Date Model / Serial / Lot Pacemaker [employer] Insurance [facility] Care Teams Desk Officer Relationship Specialty Start Date End Date Trina Messina MD PCP - General Internal Medicine 10/14/18
--- OUTSIDE RECORDS SUMMARY | 2024-11-02 17:45 | XMS_ITS | Encounter Summary ---
Author Organization [facility] Address [address] [place] [address] Care Team Providers Care Air Cargo Agent Name Role Phone Trina Messina MD Primary Care Prov ider Encounter Details Date Type Department Care Team (Latest Contact Info) Description 10/19/2024 4:00 PM EST Ancillary Procedure [facility] - [facility] [address] [facility] [address] [place] [address] Encounter for adjustment or management of cardiac device Social History Tobacco Use Types Packs/Day Years [...] on file documented as of this encounter Plan of Treatment Upcoming Encounters Date Type Department Care Team (Late st Contact Info) Description 10/23/2025 4:00 PM EDT Ancillary Procedure [facility] [address] [facility] [address] [place] [phone] documented as of this encounter Procedures Procedure Name Priority Date/Time Associated Diagnosis Comments CARDIAC DEVICE CHECK- IN CLINIC- [facility] Routine 10/19/2024 4:01 PM EST Encounter for adjustment or management of cardiac device documented in this encounter Results * CARDIAC DEVICE CHECK- IN CLINIC- [facility] (10/19/2024 4:01 PM EST) Date Time Interrogation Session [id number] CV DEVICE CHECK Implantable Pulse Generator Professional Poker Player [employer] CV DEVICE CHECK Implantable Pulse Generator Type IPG CV DEVICE CHECK Implantable Pulse Generator Model Assurity [address] 2240 CV DEVICE CHECK Implantable Pulse Generator Serial Number [id number] CV DEVICE CHECK Implantable Pulse Generator Implant [...] Detection Parameters were evaluated Narrative Procedure Note Rajesh, Cain P, MD - 10/20/2024 IMPRESSION: Normal In-Office: No Events * Normal Device Function * Alerts or events: None * Battery: MOS, 5.30 yrs * Sensing, impedance and thresholds reviewed and tested * Presenting Rhythm: AP/ - VS 60's * Underlying Rhythm: - VS 50 - 60's * Heart Rate Histograms reviewed * Pacing and Detection Parameters were evaluated us Order Referral Cardiovascular CV IMPLANTABLE CAR DIAC DEVICE PROCEDURES Final Result documented in this encounter Visit Diagnoses Diagnosis Encounter for adjustment or management of cardiac device Encounter for adjustment or management of cardiac device documented in this encounter Care Teams Air Cargo Agent Relationship Specialty Start Date End Date Trina Messina MD [address] [place] [address] PCP - General Internal Medicine 01/28/16 documented as of this encounter
--- OUTSIDE RECORDS SUMMARY | 2024-11-02 17:46 | XMS_ITS | Encounter Summary ---
Author Organization [facility] Address [address] [place] [address] Care Team Providers Care Fuel Buyer Name Role Phone Trina Messina MD Primary Care Prov ider Reason for Visit * Reason Onset Date Comments Forms/questionnaires 10/17/2024 [facility] 09/30/19-11/28/2024 Encounter Details Date Type Department Care Team (Late st Contact Info) Description 10/17/2024 Telephone Adult Medicine - [place] [address] [place] [phone] Trina Messina MD [address] [place] [address] Forms/questionnaires ([facility] 09/30/2024-11/28/2024) Social History Tobacco Use Types Packs/Day Years [...] Progress Notes * Maddie Ochoa MA - 10/18/2024 9:05 AM EST Order encounter created. * Maddie Ochoa MA - 10/17/2024 2:25 PM EST Placed in pcp's in basket. * Mela Mijares - 10/17/2024 10:00 AM EST HOME HEALTH CERTIFICATION AND PLAN OF CARE DATE RECEIVED:10/11/2024 AGENCY:[employer] CERT DATES:09/30/2024-11/28/2024 FAX NUMBER:[phone] LOCATION OF [facility] front desk attendant forms documented in this encounter Plan of Treatment Upcoming Encounters Date Type Department Care Team (Late st Contact Info) Description 10/23/2025 4:00 PM EDT Ancillary Procedure [facility] - [address] [facility] [address] [place] [address] documented as of this encounter Visit Diagnoses Not on filedocumented in this encounter Care Teams Fuel Buyer Relationship Specialty Start Date End Date Trina Messina MD [facility] [place] [address] PCP - General Internal Medicine 01/28/16 documented as of this encounter
--- OUTSIDE RECORDS SUMMARY | 2024-11-02 17:46 | XMS_ITS | Encounter Summary ---
Author Organization [facility] Address [address] [place] [address] Care Team Providers Care Shirt Marker Name Role Phone Trina Messina MD Primary Care Prov ider Encounter Details Date Type Department Care Team (Late st Contact Info) Description 10/18/2024 Billing Patient Not Present Adult Medicine - [place] [address] [place] [address] Trina Messina MD [address] [place] [address] Type 2 diabetes mellitus without complication, unspecified whether ferry terminal supervisor insulin use (CMS/HCC) (Primary Dx); Athscl heart disease of nikolai coronary artery w/o ang pctrs; Sick sinus syndrome (CMS/HCC); Essential (primary) hypertension; correction (current) use of insulin (CMS/HCC); Personal history of other venous thrombosis and embolism Social History Tobacco Use Types Packs/Day Years [...] Ochoa MA - 10/18/2024 9:05 AM EST Start of Care Date: 10/06/23 Date of certification period: 09/30/24-11/28/24 Date of service = signature date 10/17/24 Hospice patient: no Home Care Agency: [facility] Recertification Code [id number] Initial Code [id number] documented in this encounter Plan of Treatment Upcoming Encounters Date Type Department Care Team (Late st Contact Info) Description 10/23/2025 4:00 PM EDT Ancillary Procedure [facility] - [address] [place] [address] documented as of this encounter Visit Diagnoses Diagnosis Type 2 diabetes mellitus without complication, unspecified whether ferry terminal supervisor insulin use (CMS/HCC)- Primary 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
--- OUTSIDE RECORDS SUMMARY | 2024-11-02 17:46 | XMS_ITS ---
Author Name Mendenhall CLINICAL INFORMATICS STRATEGIST,CONTENT ENGINEER,FN P,MEASUREMENT SPECIALIST, Jenn Address [address] [place] [address] Phone [phone] Organization [facility] Care Team Providers Care C4 Planner Name Role Phone Jenn Mendenhall Unavailable [phone] Unavailable Unavailable Unavailable Unavailable Unavailable [phone] [facility] Unavailable [phone] Unavailable Unavailable Unavailable Trina Blackwell Unavailable FILIPPO BARROW Unavailable [phone] Anju Arango Unavailable [phone] Reason for Referral Not Available Allergies, adverse reactions, alerts Allergen Type Reaction Severity Status Onset Date Atorvastatin Calcium Allergy to substance (disorder) Elevated Enzymes Unknown Active 2008-08-18 Morphine Allergy to substance (disorder) Vomiting Unknown Active 2001-01-24 HMG-Coa-R Inhibitors Allergy to substance (disorder) Myalgia and Joint Pain Unknown Active 2016-05-07 Sulfa Antibiotics Allergy to substance (disorder) Rash/Dermatitis Unknown Active 2008-07-06 Metoprolol Tartrate Allergy to substance (disorder) Bradycardia in 20 Unknown Active 2008-08-18 Beta Adrenergic Blockers Allergy to substance (disorder) Unknown Unknown Active 2016-07-08 Codeine Allergy to substance (disorder) Unknown Unknown Active 2016-07-08 Diphenhydramine-Acetaminop hen Allergy to substance (disorder) Unknown Unknown Active 2015-04-05 Phenylpropanolamine HCl Allergy to substance (disorder) Unknown Active 2016-07-08 History of medication use Medication Class Instructions Start Date End Date Azopt 1 % Suspension Ophthalmic INSTILL 1 DROP IN EACH EYE two (2) times a day 2021-11-06 No Data Available Lactobacillus acidophilus 10 0 mg (1 billion cell) capsule TAKE 1 CAPSULE BY MOUTH ONCE DAILY 2021-03-13 2024-09-29 Rhopressa 0.02 % Solution INSTILL 1 DROP IN EACH EYE ONCE DAILY 2021-02-14 2023-04-17 traZODone 100 mg Tab TAKE ONE TABLET BY MOUTH DAILY AT BEDTIME 2021-10-22 2023-12-22 Vitamin D3 25 mcg (1,000 unit) tablet TAKE ONE TABLET BY MOUTH DAILY 2021-11-08 2024-09-29 Sertraline 50 mg Tab TAKE 1 & 1/2 TABLET S BY MOUTH DAILY 2021-12-02 No Data Available metFORMIN ER 750 mg Tab ER 24hr TAKE ONE TABLET BY MOUTH DAILY 2021-10-10 2023-12-22 methazolAMIDE 25 mg Tab TAKE ONE TABLET BY MOUTH two (2) times a day 2021-08-26 2024-09-29 Brimonidine Tartrate 0.15 % Solution Ophthalmic INSTILL 1 DROP IN BOTH EYES THREE TIMES DAILY 2021-12-24 No Data Available Latanoprost 0.005 % Solution INSTILL 1 D ROP IN EACH EYE EVERY NIGHT AT BEDTIME 2022-01-08 2022-05-26 Lumigan 0.01 % Solution Ophthalmic INSTILL 1 DROP IN BOTH EYES EVERY DAY 2021-12-24 No Data Available coenzyme Q10 100 mg capsule TAKE ONE CAP CHRIS BY MOUTH DAILY 2021-10-10 No Data Available glipiZIDE ER 2.5 mg Tab ER 24hr TAKE 1 TABLET BY MOUTH ONCE DAILY BEFORE MEALS 2022-01-17 2023-12-22 Losartan Potassium-HCTZ 100/12.5 mg Tab TAKE ONE TABLET BY MOUTH DAILY 2022-01-17 2023-12-22 Omeprazole 40 mg Cap delayed rel TAKE ONE CAPSULE BY MOUTH DAILY 2022-01-17 No Data Available Cyclobenzaprine 5 mg Tab TAKE 1 TABLET B Y MOUTH 3 (THREE) TIMES A DAY NEEDED FOR MUSCLE SPASMS 2021-10-07 No Data Available Ezetimibe 10 mg Tab TAKE 1 TABLET BY VELIA TH ONCE DAILY 2022-02-14 No Data Available Lactulose 10 GM/15ML Solution TAKE 1 TAB LESPOONFUL (15MLS) BY MOUTH DAILY WITH BREAKFAST 2021-06-13 No Data Available Flowflex Covid-19 Antigen Home Test kit USE DIRECTED 2022-02-15 No Data Available oxyCODONE-Acetaminophen 5/32 5 mg Tab TAKE 1 TABLET BY MOUTH 3 (THREE) TIMES A DAY NEEDED FOR SEVERE PAIN 2022-03-19 No Data Available vitamin E (dl, acetate) 450 mg (1,000 unit) capsule TAKE ONE CAPSULE BY MOUTH DAILY 2021-11-08 2023-12-22 Aspirin EC 81 mg Tab delayed rel take 1 tablet by mouth daily 2022-05-26 No Data Available Nitroglycerin 0.4 mg Tab Sublingual 1 tablet SL PRN angina every 5 minutes x 3 max 2022-05-26 No Data Available Docusate Sodium 100 mg Cap 1 capsule orally BID 2021-08 No Data Available MiraLax 17 GM Packet 1 packet orally philly ly mixed with 8 ounces of fluid 2022-05-26 No Data Available Senna 8.6 mg Tab 1 tab by mouth QD 2022-05-26 No Arslan a Available [facility] Glycerin Adult [address] 1 Suppository rectally 2 times daily as needed for Constipation 2022-05-26 No Data Available Milk of Magnesia 400 mg/5ML Suspension Take 30 mL by mouth 2 times daily as needed for Constipation. 2022-05-26 No Data Available Cyclobenzaprine 5 mg Tab 1 tablet orally 3 times per day as needed pain 2022-05-26 No Data Available Dorzolamide 2 % Solution Ophthalmic 2 times three times a day 2022-05-26 No Data Availa ble predniSONE 20 mg Tab TAKE 3 TABLETS BY M OUTH ONCE DAILY FOR 3 DAYS; 2 TABLETS ONCE DAILY FOR 3 DAYS; 1 TABLET ONCE DAILY 2022-07-01 No Data Available prednisoLONE Acetate 1 % Suspension Ophthalmic Place 1 drop into the left eye 4 (four) times a day. 2022-12-15 No Data Available Latanoprost 0.005 % Solution Place 1 samuel p into each eye nightly at bedtime. 2023-01-20 No Data Available Amoxicillin 500 mg Cap TAKE 1 CAPSULE BY MOUTH 3 (THREE) TIMES A DAY UNTIL FINISHED 2023-02-06 No Data Available Mucinex 600 mg Tab ER 12hr 1 tablets ora lly every 12 hours as needed 2023-04-17 2023-12-22 Zithromax Z-Sean 250 mg Tab 2 tablets ora lly one time today then 1 tablet (250 mg) orally daily for 4 days 2023-04-21 No Data Available Promethazine-DM 6.25/15 mg/5ML Syrup 5 ml orally every 4 hours as needed for cough 2023-04-21 2023-12-22 Vitamin C 500 mg Tab TAKE 1 TABLET BY [facility] ONCE DAILY 2023-04-14 No Data Available Vitamin E 450 mg (1000 UT) Cap TAKE ONE CAPSULE BY MOUTH DAILY 2023-01-19 No Data Available Insulin Lispro (1 Unit Dial) 100 UNIT/ML Solution Pen-injector Subcutaneous SS tid with meals & HS 2023-10-05 2024-09-29 Lantus SoloStar 100 UNIT/ML Solution Pen-injector Subcutaneous 20 units sq once daily at bedtime 2023-10-05 2024-09-29 TRUE COMFORT SAFETY PEN NEEDLES 32G X 4MM 32G X 4 MM MISC No Data Available 2023-10-05 No Data Available Ear Drops 6.5 % Solution Place 5 Drops i nto both ears 2 times daily for 10 days. Tilt head so ear to be treated points towards the ceiling. Hold medication in ear using part of a cotton ball. 2023-10-08 No Data Available [employer] Micky 2 Renovo Device USE DIRECTED 2023-10-08 No Data Available Losartan Potassium 100 mg Tab TAKE 1 TAB LET BY MOUTH ONCE DAILY 2023-11-09 No Data Available True Comfort Safety Pen Needle 32 gauge x 5/32 USE FOR injecting lantus AND lispro 4 (FOUR) TIMES DAILY 2023-12-16 No Data Available Brinzolamide 1 % Suspension Ophthalmic 1 drop ophthalmically into affected eye 2 times per day 2023-12-22 No Data Available Lumigan 0.01 % Solution Ophthalmic 1 drop ophthalmically into affected eye daily in the evening 2023-12-22 No Data Available cholecalciferol (vitamin D3) 25 mcg (1,000 unit) tablet TAKE 1 TABLET BY MOUTH ONCE DAILY 2023-09-22 No Data Available traZODone 100 mg Tab TAKE 1 TABLET BY [facility] ONCE DAILY AT BEDTIME 2024-01-29 No Data Available Diclofenac Potassium 50 mg Tab TAKE 1 TABLET BY MOUTH TWICE DAILY FOR 10 DAYS 2024-01-29 No Data Available glipiZIDE ER 2.5 mg Tab ER 24hr TAKE 1 TABLET BY MOUTH ONCE DAILY 2023-05-22 2024-09-29 Diclofenac Sodium 1 % Gel APPLY EXTERNAL LY TO THE AFFECTED AREA TWICE DAILY FOR 10 DAYS. WASH HAND AFTER APPLYING 2024-02-28 No Data Available Acetaminophen 325 mg Tab TAKE 3 TABLET B Y MOUTH EVERY 8 NEEDED FOR 10 DAYS 2024-02-28 No Data Available Diclofenac Sodium 1 % Gel 4 grams topica lly to affected area 4 times per day PRN 2024-03-23 No Data Available Meclizine 25 mg Tab 1 tablet orally pablito y as needed every 8 hours 2024-03-23 No Data Available MiraLax 17 GM/SCOOP Powder mix 17 grams of powder in liquid and drink once daily 2024-03-23 No Data Available Fluconazole 150 mg Tab Take 1 tablet (15 0 mg total) by mouth See administration instructions for 1 day. Take one tab now. Repeat in 7 days if symptoms persist. 2024-07-01 No Data Available Amoxicillin-Pot Clavulanate 500/125 mg Tab Take 1 tablet by mouth 3 (three) times a day for 10 days. 2024-07-01 No Data Available Betamethasone Dipropionate 0.05 % Crm APPLY TO THE AFFECTED AREA TOPICALLY two (2) times a day FOR SKIN irritation FOR 4 WEEKS 2024-07-20 No Data Available [facility] spacer USE DIRECTED 2024-07-20 No Data Available Clotrimazole 1 % Crm APPLY TO THE AFFECT ED AREA TOPICALLY two (2) times a day 2024-07-20 No Data Available Albuterol Sulfate HFA 108 (9 0 Base) MCG/ACT Aerosol Solution INHALE 2 PUFFS BY MOUTH INTO THE lungs 4 (FOUR) TIMES DAILY NEEDED FOR SHORTNESS OF BREATH OR FOR WHEEZING 2024-07-20 No Data Available Toujeo SoloStar 300 UNIT/ML Solution Pen-injector Subcutaneous 20 untis at night 2024-09-29 No Data Available Amoxicillin-Pot Clavulanate 875/125 mg Tab Take 1 tablet PO twice daily for 7 days 2024-09-29 No Data Available benzonatate 100 MG Oral Capsule [Tessaljamie Garica] 1 PO BID PRN cough 2024-09-29 No Data Availa ble Flonase Allergy Relief 50 MCG/ACT Suspension Nasal 1 spray each nostril daily every 12 hours 2024-09-29 No Data Available Florastor 250 mg Cap 1 capsule orally 2 times per day for GI health while on antibiotics 2024-09-29 No Data Available Problem List Problem Status Onset Date Resolved Date Mild obstructive sleep apnea Active 2022-05-26 N/A Hyperlipidemia associated wi th type 2 diabetes mellitus Active 2022-05-26 N/A Angina pectoris Active 2022-05-28 N/A Constipation Resolved 2024-03-23 2024-07-04 Rash Resolved 2024-07-04 2024-08-02 Type 2 diabetes mellitus wit h ophthalmic complication, Open-angle glaucoma, severe stage Active 2022-05-26 N/A Cervical spondylosis Active 2022-05-26 N/A Hypertension Active 2022-05-26 N/A Major depressive disorder, recurrent, moderate Active 2022-05-26 N/A Chronic kidney disease, stage 2 (mild) Active 07-06-10 N/A Fall, sequela Active 2024-08-02 N/A Dizziness Active 2024-03-23 N/A Chronic pain; Primary osteoa rthritis involving multiple joints Active 2024-03-23 N/A 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, with long-term current use of insulin Active 2023-12-22 N/A Sick sinus syndromePacemaker Active 2022-05-26 N/A Other problems related to wi dical facilities and other health care Active 2023-12-22 N/A Encounters Encounters Type Facility Date of Service Diagnosis/Co mplaint Pain Assessment - NO pain present (1126F) [facility] [place] Pain Assessment - NO pain present (1126F[place] [facility] [place] Pain Assessment - NO pain present (1126F[place] [facility] [place] Pain Assessment - NO pain present (1126F[place] [facility] [place] Pain Assessment - NO pain present (1126F[place] [facility] [place] Pain Assessment - NO pain present (1126F[place] [facility] [place] Pain Assessment - NO pain present (1126F[place] [facility] [place] Pain Assessment - NO pain present (1126F[place] [facility] [place] Pain Assessment - NO pain present (1126F[place] [facility] Type 2 diabetes mellitus wit h other circulatory complicationsHypertension secondary to endocrine disordersType 2 diabetes mellitus with unspecified complicationsUnspecified open-angle glaucoma, severe stageType 2 diabetes mellitus with diabetic chronic kidney diseaseChronic kidney disease, stage 3 unspecifiedType 2 diabetes mellitus with other specified complicationHyperlipidemia, unspecifiedMajor depressive disorder, recurrent, moderateSick sinus syndromeObstructive sleep apnea (adult) (pediatric)Spondylosis without myelopathy or radiculopathy, cervical regionAthscl heart disease of [place] art w unsp ang pctrs No Data Available [facility] [place] Unlisted special service; to be used for medical record reviews and reporting CPTII codes (1111F, etc) [facility] [place]2023 Other specified health statu s Unlisted special service; to be used for medical record reviews and reporting CPTII codes (1111F, etc) [facility] Unlisted special service; to be used for medical record reviews and reporting CPTII codes (1111F, etc) [facility] [place] No Data Available [facility] [place]23 Unspecified open-angle glauc [place], severe stageMajor depressive disorder, recurrent, moderateSick sinus syndromeUnspecified atrial fibrillationVentricular tachycardia, unspecifiedChronic kidney disease, stage 3 unspecifiedInsomnia, unspecifiedObstructive sleep apnea (adult) (pediatric)Hypertensive chronic kidney disease w stg 1-4/unsp chr kdnyType 2 diabetes mellitus with other specified complicationHyperlipidemia, unspecifiedSpondylosis without myelopathy or radiculopathy, cervical regionAthscl heart disease of [place] art w unsp ang pctrsCough, unspecified No Data Available [facility]23 No Data Available [facility] [place] No Data Available [facility] [place] No Data Available [facility] [place] No Data Available [facility] [place] No Data Available [facility] [place] No Data Available [facility] [place] No Data Available [facility] [place] No Data Available [facility] [place]23 Unspecified open-angle glauc che[place], severe stageType 2 diabetes mellitus with other diabetic ophthalmic complicationEssential (primary) hypertension No Data Available [facility] [place]2023 No Data Available [facility] [place]2023 No Data Available [facility] [place] No Data Available [facility] [place] No Data Available [facility] [place] Estab. patient 30-39min; chronic exacerbation, 2 stable chronic or 1 acute illness add add modifier 95 for video, (do not use for phone, instead use [id number]) [facility] [place]23 Type 2 diabetes mellitus wit h diabetic chronic kidney diseaseHypertensive chronic kidney disease w stg 1-4/unsp chr kdnyChronic kidney disease, stage 3 unspecifiedUnspecified open-angle glaucoma, severe stageType 2 diabetes mellitus with other diabetic ophthalmic complicationLong term (current) use of insulinType 2 diabetes mellitus with other specified complicationHyperlipidemia, unspecifiedSick sinus syndromePresence of cardiac pacemakerMajor depressive disorder, recurrent, moderateAngina pectoris, unspecifiedObstructive sleep apnea (adult) (pediatric)Spondylosis without myelopathy or radiculopathy, cervical regionOther problems related to medical facilities and other health care Estab. patient 30-39min; chronic exacerbation, 2 stable chronic or 1 acute illness add add modifier 95 for video, (do not use for phone, instead use [id number]) [facility] [place] Estab. patient 30-39min; chronic exacerbation, 2 stable chronic or 1 acute illness add add modifier 95 for video, (do not use for phone, instead use [id number]) [facility] Estab. patient 30-39min; chronic exacerbation, 2 stable chronic or 1 acute illness add add modifier 95 for video, (do not use for phone, instead use [id number]) [facility] [place] Estab. patient 30-39min; chronic exacerbation, 2 stable chronic or 1 acute illness add add modifier 95 for video, (do not use for phone, instead use [id number]) [facility] [place] Estab. patient 30-39min; chronic exacerbation, 2 stable chronic or 1 acute illness add add modifier 95 for video, (do not use for phone, instead use [id number]) [facility] [place] Estab. patient 30-39min; chronic exacerbation, 2 stable chronic or 1 acute illness add add modifier 95 for video, (do not use for phone, instead use [id number]) [facility] [place] Estab. patient 30-39min; chronic exacerbation, 2 stable chronic or 1 acute illness add add modifier 95 for video, (do not use for phone, instead use [id number]) [facility] [place] Estab. patient 30-39min; chronic exacerbation, 2 stable chronic or 1 acute illness add add modifier 95 for video, (do not use for phone, instead use [id number]) [facility] [place] Estab. patient 30-39min; chronic exacerbation, 2 stable chronic or 1 acute illness add add modifier 95 for video, (do not use for phone, instead use [id number]) [facility] [place]23 No Data Available [facility] [place] 03[place]2024 Constipation, unspecifiedOth er chronic painDizziness and giddiness No Data Available [facility] [place] 03[place]2024 No Data Available [facility] [place] No Data Available [facility] [place]2024 Type 2 diabetes mellitus wit h diabetic chronic kidney diseaseChronic kidney disease, stage 3 unspecifiedOther problems related to medical facilities and other health careUnspecified open-angle glaucoma, severe stageType 2 diabetes mellitus with other diabetic ophthalmic complicationType 2 diabetes mellitus with other specified complicationHyperlipidemia, unspecifiedPresence of cardiac pacemakerSick sinus syndromeMajor depressive disorder, recurrent, moderateAngina pectoris, unspecifiedInsomnia, unspecifiedObstructive sleep apnea (adult) (pediatric)Hypertensive chronic kidney disease w stg 1-4/unsp chr kdnySpondylosis without myelopathy or radiculopathy, cervical regionDizziness and giddinessOther chronic painConstipation, unspecified No Data Available [facility] [place] No Data Available [facility] [place] No Data Available [facility] [place] No Data Available [facility] [place] No Data Available [facility] [place]2024 Essential (primary) hypertensionType 2 diabetes mellitus with diabetic chronic kidney diseaseChronic kidney disease, unspecifiedLong term (current) use of insulin No Data Available [facility] [place]2024 No Data Available [facility] [place]2024 Type 2 diabetes mellitus wit h diabetic chronic kidney diseaseChronic kidney disease, stage 3 unspecifiedSick sinus syndromeMajor depressive disorder, recurrent, moderateAngina pectoris, unspecifiedType 2 diabetes mellitus with other diabetic ophthalmic complicationType 2 diabetes mellitus with other specified complicationHypertensive chronic kidney disease w stg 1-4/unsp chr kdnyHyperlipidemia, unspecifiedPresence of cardiac pacemakerInsomnia, unspecifiedObstructive sleep apnea (adult) (pediatric)Spondylosis without myelopathy or radiculopathy, cervical regionDizziness and giddinessOther chronic painConstipation, unspecifiedUnspecified open-angle glaucoma, severe stageOther problems related to medical facilities and other health care No Data Available [facility] [place] No Data Available [facility] [place] No Data Available [facility] [place] No Data Available [facility] [place] No Data Available [facility] [place]2024 Type 2 diabetes mellitus wit h diabetic chronic kidney diseaseHypertensive chronic kidney disease w stg 1-4/unsp chr kdnyChronic kidney disease, stage 3 unspecifiedOther problems related to medical facilities and other health careUnspecified open-angle glaucoma, severe stageType 2 diabetes mellitus with other diabetic ophthalmic complicationType 2 diabetes mellitus with other specified complicationHyperlipidemia, unspecifiedSick sinus syndromePresence of cardiac pacemakerMajor depressive disorder, recurrent, moderateAngina pectoris, unspecifiedObstructive sleep apnea (adult) (pediatric)Spondylosis without myelopathy or radiculopathy, cervical regionDizziness and giddinessOther chronic painRash and other nonspecific skin eruption No Data Available [facility] [place]24 No Data Available [facility] [place] No Data Available [facility] [place]20[place] Type 2 diabetes mellitus wit h diabetic chronic kidney diseaseChronic kidney disease, stage 3 unspecifiedType 2 diabetes mellitus with other diabetic ophthalmic complicationType 2 diabetes mellitus with other specified complicationSick sinus syndromeMajor depressive disorder, recurrent, moderateAngina pectoris, unspecifiedUnspecified open-angle glaucoma, severe stageHyperlipidemia, unspecifiedInsomnia, unspecifiedObstructive sleep apnea (adult) (pediatric)Hypertensive chronic kidney disease w stg 1-4/unsp chr kdnyPresence of cardiac pacemakerOther problems related to medical facilities and other health careSpondylosis without myelopathy or radiculopathy, cervical regionDizziness and giddinessOther chronic painUnspecified fall, sequela No Data Available [facility] [place] No Data Available [facility] [place] No Data Available [facility] [place] No Data Available [facility] [place] Estab. patient 10-29min; 1 minor problem; add add modifier 95 for video, modifier 93 for phone [facility] [place]2024 Type 2 diabetes mellitus wit h diabetic chronic kidney diseaseChronic kidney disease, stage 3 unspecifiedType 2 diabetes mellitus with other diabetic ophthalmic complicationType 2 diabetes mellitus with other specified complicationMajor depressive disorder, recurrent, moderateSick sinus syndromeUnspecified open-angle glaucoma, severe stageHyperlipidemia, unspecifiedPresence of cardiac pacemakerAngina pectoris, unspecifiedObstructive sleep apnea (adult) (pediatric)Hypertensive chronic kidney disease w stg 1-4/unsp chr kdnySpondylosis without myelopathy or radiculopathy, cervical regionDizziness and giddinessOther chronic painUnspecified fall, sequelaOther problems related to medical facilities and other health care Estab. patient 10-29min; 1 minor problem; add add modifier 95 for video, modifier 93 for phone [facility] [facility] [place] Estab. patient 10-29min; 1 minor problem; add add modifier 95 for video, modifier 93 for phone [facility] [facility] [place]/02/[place] Estab. patient 10-29min; 1 minor problem; add add modifier 95 for video, modifier 93 for [facility] [employer] [facility] [place]20[place] Estab. patient 10-29min; 1 minor problem; add add modifier 95 for video, modifier 93 [facility] [place] Type 2 diabetes mellitus wit h diabetic chronic kidney diseaseChronic kidney disease, stage 3 unspecifiedHypertensive chronic kidney disease w stg 1-4/unsp chr kdnyType 2 diabetes mellitus with other diabetic ophthalmic complicationUnspecified open-angle glaucoma, severe stageType 2 diabetes mellitus with other specified complicationHyperlipidemia, unspecifiedSick sinus syndromeMajor depressive disorder, recurrent, moderatePresence of cardiac pacemakerAngina pectoris, unspecifiedInsomnia, unspecifiedObstructive sleep apnea (adult) (pediatric)Spondylosis without myelopathy or radiculopathy, cervical regionDizziness and giddinessOther chronic painUnspecified fall, sequelaOther problems related to medical facilities and other health care Estab. patient 10-29min; 1 minor problem; add add modifier 95 for video, modifier 93 for phone [facility] [place] [place] Estab. patient 10-29min; 1 minor problem; add add modifier 95 for video, modifier 93 for [facility] Estab. patient 10-29min; 1 minor problem; add add modifier 95 for video, modifier 93 for phone [facility] Estab. patient 10-29min; 1 minor problem; add add modifier 95 for video, modifier 93 for phone [facility] [place] [facility] Estab. patient 20-29min; 1 stable chronic or 2 minor; add add modifier 95 for video, modifier 93 for phone [facility] [place] [facility] Type 2 diabetes mellitus wit h diabetic chronic kidney diseaseChronic kidney disease, stage 2 (mild)Hypertensive chronic kidney disease w stg 1-4/unsp chr kdnyLong term (current) use of insulinType 2 diabetes mellitus with other diabetic ophthalmic complicationType 2 diabetes mellitus with other specified complicationHyperlipidemia, unspecifiedSick sinus syndromeMajor depressive disorder, recurrent, moderatePresence of cardiac pacemakerAngina pectoris, unspecifiedUnspecified open-angle glaucoma, severe stageInsomnia, unspecifiedObstructive sleep apnea (adult) (pediatric)Spondylosis without myelopathy or radiculopathy, cervical regionDizziness and giddinessOther chronic painPrimary generalized (osteo)arthritisOther problems related to medical facilities and other health careUnspecified fall, sequela Estab. patient 20-29min; 1 stable chronic or 2 minor; add add modifier 95 for video, modifier 93 for phone [facility] [place] [facility] Estab. patient 20-29min; 1 stable chronic or 2 minor; add add modifier 95 for video, modifier 93 for phone [facility] [place] 09/29/[facility]24 Estab. patient 20-29min; 1 stable chronic or 2 minor; add add modifier 95 for video, modifier 93 for phone [facility] [place] 09/29/2024 Estab. patient 20-29min; 1 stable chronic or 2 minor; add add modifier 95 for video, modifier 93 for phone [facility] [place] 09/29/2024 Estab. patient 20-29min; 1 stable chronic or 2 minor; add add modifier 95 for video, modifier 93 for phone [facility] 09/29/2024 Estab. patient 20-29min; 1 stable chronic or 2 minor; add add modifier 95 for video, modifier 93 for phone [facility] [place] 09/29/2024 Estab. patient 20-29min; 1 stable chronic or 2 minor; add add modifier 95 for video, modifier 93 for phone [facility] 09/29/2024 Estab. patient 20-29min; 1 stable chronic or 2 minor; add add modifier 95 for video, modifier 93 for phone [facility] [place] 09/29/2024 Estab. patient 20-29min; 1 stable chronic or 2 minor; add add modifier 95 for video, modifier 93 for phone [facility] 09/29/2024 Estab. patient 10-29min; 1 minor problem; add add modifier 95 for video, modifier 93 for phone [facility] 10/05/2024 Type 2 diabetes mellitus wit h diabetic chronic kidney diseaseChronic kidney disease, stage 2 (mild)Hypertensive chronic kidney disease w stg 1-4/unsp chr kdnyLong term (current) use of insulinType 2 diabetes mellitus with other diabetic ophthalmic complicationUnspecified open-angle glaucoma, severe stageType 2 diabetes mellitus with other specified complicationHyperlipidemia, unspecifiedSick sinus syndromeMajor depressive disorder, recurrent, moderateAngina pectoris, unspecifiedObstructive sleep apnea (adult) (pediatric)Spondylosis without myelopathy or radiculopathy, cervical regionDizziness and giddinessOther chronic painPrimary generalized (osteo)arthritisUnspecified fall, sequelaOther problems related to medical facilities and other health carePresence of cardiac pacemaker Estab. patient 10-29min; 1 minor problem; add add modifier 95 for video, modifier 93 for phone [facility] [place] 10/05/2024 Estab. patient 10-29min; 1 minor problem; add add modifier 95 for video, modifier 93 for phone [facility] [place] 10/05/2024 Estab. patient 10-29min; 1 minor problem; add add modifier 95 for video, modifier 93 for phone [facility] Estab. patient 10-29min; 1 minor problem; add add modifier 95 for video, modifier 93 for [facility] Vital Signs Date of Collection Vitals 2022-05-26 11:51:35 Height - 161.29 cmWe ight - 69.85 kgBody Mass Index (BMI) - 26.85 kg/m2BP Diastolic - 70.0 mm[Hg]BP Systolic - 110.0 mm[Hg]Heart Rate - 61.0 /minO2 % BldC Oximetry - 98.0 % 2023-03-30 13:10:56 BP Diastolic - 60.0 mm[Hg]BP Systolic - 92.0 mm[Hg]Heart Rate - 78.0 /min 2023-04-17 13:36:41 Weight - 65.32 kgBod y Mass Index (BMI) - 25.11 kg/m2BP Diastolic - 73.0 mm[Hg]BP Systolic - 113.0 mm[Hg]Heart Rate - 75.0 /min 2023-05-13 10:55:06 BP Diastolic - 71.0 mm[Hg]BP Systolic - 133.0 mm[Hg]Heart Rate - 58.0 /minPain Scale - 3.0 {score} 2023-12-22 12:49:34 Weight - 69.85 kgBod y Mass Index (BMI) - 26.85 kg/m2BP Diastolic - 82.0 mm[Hg]BP Systolic - 138.0 mm[Hg]Pain Scale - 10.0 {score} 2024-03-23 13:46:58 BP Diastolic - 69.0 mm[Hg]BP Systolic - 154.0 mm[Hg]Heart Rate - 59.0 /min 2024-09-29 12:47:33 Height - 160.02 cmWe ight - 65.77 kgBody Mass Index (BMI) - 25.69 kg/m2BP Diastolic - 70.0 mm[Hg]BP Systolic - 130.0 mm[Hg]Pain Scale - 5.0 {score} Social History Social History Social History Observation Description Effec tive Time Current Smoking Status Never smoker 2024-10-15 9 Sex Female Gender identity Woman History of Procedures Procedures Service Procedure code Service date Servicing provider Phone# Pain Assessment - NO pain present (7446F) 1123F 2022-05-26 No Data Available No Data A vailable Medication List Documented (1159F) 1159F 2022-05-26 No Data Available No Data Mandy ilable Medication Review by prescribing provider or pharmacist documented (1160F) 1160F 2022-05-26 No Data Available No Data Mandy ilable Functional Status Assessed (1170F) 1170F 2022-05-26 No Data Available No Data Avail able Advance Care Directive Advance care planning discussion documented in the medical record (1158F) 1158F 2022-05-26 No Data Available No Data Availa ble BMI obtained (3008F) 3008F 2022-05-26 No Data Availab le No Data Available SBP < 130 (3074F) 3074F 2022-05-26 No Data Available No Data Available DBP <80 (3078F) 3078F 2022-05-26 No Data Available No Data Available New patient, 60-74min; chronic with severe exacerbation; add add modifier 95 for video, (do not use for phone, instead use [id number]) 00582 2022-05-26 No Data Available No Data Availa ble Unlisted special service; to be used for medical record reviews and reporting CPTII codes (1111F, etc) 47717 2023-03-30 No Data Available No Data Availa ble SBP < 130 (3074F) 3074F 2023-03-30 No Data Available No Data Available DBP <80 (3078F) 3078F 2023-03-30 No Data Available No Data Available No Data Available [id number] 2023-04-17 No Data Available No Data Available Medication List Documented (1159F) 1159F 2023-04-17 No Data Available No Data Mandy ilable Medication Review by prescribing provider or pharmacist documented (1160F) 1160F 2023-04-17 No Data Available No Data Mandy ilable BMI obtained (3008F) 3008F 2023-04-17 No Data Availab le No Data Available Advance Care Directive Advance care planning discussion documented in the medical record (1158F) 1158F 2023-04-17 No Data Available No Data Availa ble Pain Assessment - Pain Documented on a Pain Scale (1125F) 1125F 2023-04-17 No Data Available No Data Mandy ilable SBP < 130 (3074F) 3074F 2023-04-17 No Data Available No Data Available DBP <80 (3078F) 3078F 2023-04-17 No Data Available No Data Available Functional Status Assessed (1170F) 1170F 2023-04-17 No Data Available No Data Avail able No Data Available 69144 2023-05-13 No Data Available No Data Available Pain Assessment - Pain Documented on a Pain Scale (1125F) 1125F 2023-05-13 No Data Available No Data Mandy ilable Medication List Documented (1159F) 1159F 2023-05-13 No Data Available No Data Mandy ilable SBP 130-139 (3075F) 3075F 2023-05-13 No Data Availab le No Data Available DBP <80 (3078F) 3078F 2023-05-13 No Data Available No Data Available Functional Status Assessed (1170F) 1170F 2023-05-13 No Data Available No Data Avail able Estab. patient 30-39min; chronic exacerbation, 2 stable chronic or 1 acute illness add add modifier 95 for video, (do not use for phone, instead use [id number]) 76199 2023-12-22 No Data Available No Data Availa ble Medication List Documented (1159F) 1159F 2023-12-22 No Data Available No Data Mandy ilable Medication Review by prescribing provider or pharmacist documented (1160F) 1160F 2023-12-22 No Data Available No Data Mandy ilable Functional Status Assessed (1170F) 1170F 2023-12-22 No Data Available No Data Avail able Pain Assessment - Pain Documented on a Pain Scale (1125F) 1125F 2023-12-22 No Data Available No Data Mandy ilable Advance Care Directive Advance care planning discussion documented in the medical record (1158F) 1158F 2023-12-22 No Data Available No Data Availa ble BMI obtained (3008F) 3008F 2023-12-22 No Data Availab le No Data Available SBP 130-139 (3075F) 3075F 2023-12-22 No Data Availabl e No Data Available DBP 80-89 (3079F) 3079F 2023-12-22 No Data Available No Data Available Advance care planning discussed and documented ? advance care plan or surrogate decision-maker was documented in the medical record. (1123F) 1123F 2023-12-22 No Data Available No Data Availa ble No Data Available 2024-03-23 No Data Available No Data Available SBP >= 140 3077F 2024-03-23 No Data Available No Data Available DBP <80 (3078F) 3078F 2024-03-23 No Data Available No Data Available No Data Available 2024-04-19 No Data Available No Data Available Medication List Documented (1159F) 1159F 2024-04-19 No Data Available No Data Mandy ilable Functional Status Assessed (1170F) 1170F 2024-04-19 No Data Available No Data Avail able Advance Care Directive Advance care planning discussion documented in the medical record (1158F) 1158F 2024-04-19 No Data Available No Data Availa ble Advance care planning discussed and documented ? advance care plan or surrogate decision-maker was documented in the medical record. (1123F) 1123F 2024-04-19 No Data Available No Data Availa ble No Data Available 2024-05-10 No Data Available No Data Available SBP >= 140 3077F 2024-05-10 No Data Available No Data Available No Data Available 2024-06-08 No Data Available No Data Available Advance Care Directive Advance care planning discussion documented in the medical record (1158F) 1158F 2024-06-08 No Data Available No Data Availa ble Advance care planning discussed and documented ? advance care plan or surrogate decision-maker was documented in the medical record. (1123F) 1123F 2024-06-08 No Data Available No Data Availa ble Medication List Documented (1159F) 1159F 2024-06-08 No Data Available No Data Mandy ilable Functional Status Assessed (1170F) 1170F 2024-06-08 No Data Available No Data Avail able No Data Available 2024-07-04 No Data Available No Data Available Medication List Documented (1159F) 1159F 2024-07-04 No Data Available No Data Mandy ilable Functional Status Assessed (1170F) 1170F 2024-07-04 No Data Available No Data Avail able No Data Available [id number] 2024-08-02 No Data Available No Data Available Medication List Documented (1159F) 1159F 2024-08-02 No Data Available No Data Mandy ilable Functional Status Assessed (1170F) 1170F 2024-08-02 No Data Available No Data Avail able Advance Care Directive Advance care planning discussion documented in the medical record (1158F) 1158F 2024-08-02 No Data Available No Data Availa ble Advance care planning discussed and documented ? advance care plan or surrogate decision-maker was documented in the medical record. (1123F) 1123F 2024-08-02 No Data Available No Data Availa ble Estab. patient 10-29min; 1 minor problem; add add modifier 95 for video, modifier 93 for phone [id number] 2024-09-02 No Data Available No Data Availa ble No Data Available [id number] 2024-09-02 No Data Available No Data Available Medication List Documented (1159F) 1159F 2024-09-02 No Data Available No Data Mandy ilable Functional Status Assessed (1170F) 1170F 2024-09-02 No Data Available No Data Avail able Estab. patient 10-29min; 1 minor problem; add add modifier 95 for video, modifier 93 for phone [id number] 2024-09-29 No Data Available No Data Availa ble Advance Care Directive Advance care planning discussion documented in the medical record (1158F) 1158F 2024-09-29 No Data Available No Data Availa ble Advance care planning discussed and documented ? advance care plan or surrogate decision-maker was documented in the medical record. (1123F) 1123F 2024-09-29 No Data Available No Data Availa ble Medication List Documented (1159F) 1159F 2024-09-29 No Data Available No Data Mandy ilable Functional Status Assessed (1170F) 1170F 2024-09-29 No Data Available No Data Avail able Estab. patient 20-29min; 1 stable chronic or 2 minor; add add modifier 95 for video, modifier 93 for phone 18182 2024-09-29 No Data Available No Data Availa ble Medication Review by prescribing provider or pharmacist documented (1160F) 1160F 2024-09-29 No Data Available No Data Mandy ilable SBP 130-139 (3075F) 3075F 2024-09-29 No Data Availabl e No Data Available DBP <80 (3078F) 3078F 2024-09-29 No Data Available No Data Available Pain Assessment - Pain Documented on a Pain Scale (1125F) 1125F 2024-09-29 No Data Available No Data Mandy ilable Advance Care Directive Advance care planning discussion documented in the medical record (1158F) 1158F 2024-09-29 No Data Available No Data Availa ble Advance care planning discussed and documented ? advance care plan or surrogate decision-maker was documented in the medical record. (1123F) 1123F 2024-09-29 No Data Available No Data Availa ble Medication List Documented (1159F) 1159F 2024-09-29 No Data Available No Data Mandy ilable Functional Status Assessed (1170F) 1170F 2024-09-29 No Data Available No Data Avail able Pain Assessment - Pain Documented on a Pain Scale (1125F) 112F 2024-09-29 No Data Available No Data Mandy ilable Estab. patient 10-29min; 1 minor problem; add add modifier 95 for video, modifier 93 for phone 55416 2024-10-05 No Data Available No Data Availa ble Advance Care Directive Advance care planning discussion documented in the medical record (1158F) 1158F 2024-10-05 No Data Available No Data Availa ble Advance care planning discussed and documented ? advance care plan or surrogate decision-maker was documented in the medical record. (1123F) 1123F 2024-10-05 No Data Available No Data Availa ble Medication List Documented (1159F) 1159F 2024-10-05 No Data Available No Data Mandy ilable Functional Status Assessed (1170F) 1170F 2024-10-05 No Data Available No Data Avail able Functional Status Functional Category Effective Dates ADL: Bathing Needs Assistanc e , Dressing Needs Assistance , Eating Independent , Ambulation Needs Assistance , Transferring Needs Assistance and Toileting Needs Assistance 2023-12-22 IADL: Medication Needs Willy tance , Meal Prep Needs Assistance , Shopping Needs Assistance , Driving or Public Transport Needs Assistance , Housework Needs Assistance , Finances Needs Assistance 2023-12-22 How many falls within the last 6 months? Yes 2024-09-29 Near falls within the last 6 months? Yes 2023-12-22 Do you feel unsteady on your feet? Yes Do you worry about falling? 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 Mental Status Status Date Cognition Status: Oriented to Person, Pl lizette and Time 2023-12-22 Assessments Date of Service Assessments 2022-05-26 11:51:35 Major depressive dis order, recurrent, moderateSick sinus syndromeChronic kidney disease, stage 3 unspecifiedMild obstructive sleep apneaHypertension associated with type 2 diabetes mellitusHyperlipidemia associated with type 2 diabetes mellitusCervical spondylosisAtherosclerotic heart disease of [place] coronary artery with unspecified angina pectorisType 2 diabetes mellitus with unspecific complications 2023-04-17 13:36:41 Type 2 diabetes naye itus with unspecific complicationsMajor depressive disorder, recurrent, moderateSick sinus syndromeChronic kidney disease, stage 3 unspecifiedMild obstructive sleep apneaHypertension associated with type 2 diabetes mellitusHyperlipidemia associated with type 2 diabetes mellitusCervical spondylosisAtherosclerotic heart disease of [place] coronary artery with unspecified angina pectorisCough 2023-05-13 10:55:06 Type 2 diabetes naye itus with ophthalmic complication, Open- angle glaucoma, severe stageHypertension 2023-12-22 12:49:34 Type 2 diabetes naye itus with diabetic chronic kidney diseaseChronic kidney disease, stage 3 unspecifiedType 2 diabetes mellitus with ophthalmic complication, Open-angle glaucoma, severe stageHyperlipidemia associated with type 2 diabetes mellitusSick sinus syndromePacemakerMajor depressive disorder, recurrent, moderateAngina pectorisMild obstructive sleep apneaHypertensionCervical spondylosisOther problems related to medical facilities and other health care 2024-03-23 13:46:58 Follow up plan for a cute symptoms: 03/28/24 with APPConstipationChronic painDizziness 2024-04-19 10:14:34 Type 2 diabetes naye itus with diabetic chronic kidney diseaseOther problems related to medical facilities and other health careChronic kidney disease, stage 3 unspecifiedType 2 diabetes mellitus with ophthalmic complication, Open-angle glaucoma, severe stageHyperlipidemia associated with type 2 diabetes mellitusSick sinus syndromePacemakerMajor depressive disorder, recurrent, moderateAngina pectorisMild obstructive sleep apneaHypertensionCervical spondylosisDizzinessChronic painConstipation 2024-05-10 15:25:14 HypertensionType 2 d iabetes mellitus with diabetic chronic kidney disease 2024-06-08 13:10:29 Type 2 diabetes naye itus with diabetic chronic kidney diseaseOther problems related to medical facilities and other health careChronic kidney disease, stage 3 unspecifiedType 2 diabetes mellitus with ophthalmic complication, Open-angle glaucoma, severe stageHyperlipidemia associated with type 2 diabetes mellitusSick sinus syndromePacemakerMajor depressive disorder, recurrent, moderateAngina pectorisMild obstructive sleep apneaHypertensionCervical spondylosisDizzinessChronic painConstipation 2024-07-04 13:44:47 Type 2 diabetes naye itus with diabetic chronic kidney diseaseOther problems related to medical facilities and other health careChronic kidney disease, stage 3 unspecifiedType 2 diabetes mellitus with ophthalmic complication, Open-angle glaucoma, severe stageHyperlipidemia associated with type 2 diabetes mellitusSick sinus syndromePacemakerMajor depressive disorder, recurrent, moderateAngina pectorisMild obstructive sleep apneaHypertensionCervical spondylosisDizzinessChronic painRash 2024-08-02 07:48:44 Type 2 diabetes naye itus with diabetic chronic kidney diseaseOther problems related to medical facilities and other health careChronic kidney disease, stage 3 unspecifiedType 2 diabetes mellitus with ophthalmic complication, Open-angle glaucoma, severe stageHyperlipidemia associated with type 2 diabetes mellitusSick sinus syndromePacemakerMajor depressive disorder, recurrent, moderateAngina pectorisMild obstructive sleep apneaHypertensionCervical spondylosisDizzinessChronic painFall, sequela 2024-09-02 07:19:02 Type 2 diabetes naye itus with diabetic chronic kidney diseaseOther problems related to medical facilities and other health careChronic kidney disease, stage 3 unspecifiedType 2 diabetes mellitus with ophthalmic complication, Open-angle glaucoma, severe stageHyperlipidemia associated with type 2 diabetes mellitusSick sinus syndromePacemakerMajor depressive disorder, recurrent, moderateAngina pectorisMild obstructive sleep apneaHypertensionCervical spondylosisDizzinessChronic painFall, sequela 2024-09-29 06:31:52 Type 2 diabetes naye itus with diabetic chronic kidney diseaseOther problems related to medical facilities and other health careChronic kidney disease, stage 3 unspecifiedType 2 diabetes mellitus with ophthalmic complication, Open-angle glaucoma, severe stageHyperlipidemia associated with type 2 diabetes mellitusSick sinus syndromePacemakerMajor depressive disorder, recurrent, moderateAngina pectorisMild obstructive sleep apneaHypertensionCervical spondylosisDizzinessChronic painFall, sequela 2024-09-29 12:47:33 Type 2 diabetes naye itus with stage 2 chronic kidney disease, with long-term current use of insulinOther problems related to medical facilities and other health careChronic kidney disease, stage 2 (mild)Type 2 diabetes mellitus with ophthalmic complication, Open-angle glaucoma, severe stageHyperlipidemia associated with type 2 diabetes mellitusHypertensionSick sinus syndromePacemakerMajor depressive disorder, recurrent, moderateAngina pectorisMild obstructive sleep apneaCervical spondylosisDizzinessChronic pain; Primary osteoarthritis involving multiple jointsFall, sequela 2024-10-05 14:44:03 Type 2 diabetes naye itus with stage 2 chronic kidney disease, with long-term current use of insulinOther problems related to medical facilities and other health careChronic kidney disease, stage 2 (mild)Type 2 diabetes mellitus with ophthalmic complication, Open-angle glaucoma, severe stageHyperlipidemia associated with type 2 diabetes mellitusHypertensionSick sinus syndromePacemakerMajor depressive disorder, recurrent, moderateAngina pectorisMild obstructive sleep apneaCervical spondylosisDizzinessChronic pain; Primary osteoarthritis involving multiple jointsFall, sequela Plan of Care Date of Service Plans 2022-05-26 11:51:35 Pain Assessment - NO pain documented (1126F)Medication Review by prescribing provider or pharmacist documented (1160F)Medication List Documented (1159F)Functional Status Assessed (1170F)Advance Care Directive Advance care planning discussion documented in the medical record (1158F)BMI obtained (3008F)SBP < 130 (3074F)DBP <80 (3078F)Televideo new patient, 60-74min; chronic with severe exacerbation; add modifier 95Continue to see PCP. Follow-up with [facility] as needed for any acute or disease education needs that may arise.RX: sertralineFollows PCP yearlyRX: losartan Potassium- HCTZCardiac Pacemaker - set at 61Checks B/P every other day 110/70 (05/25/22)Checks Pulse dailyFollows Cardiology, yearlyGFR - 58 (04/16/2022)Follow PCP every yearRX: TrazadoneSleep study- Date 04/03/2019.CPAP - no longer uses as she is afraid she will inhale something and get sick. Has not used since having COVIDRX: glipizide, metforminChecks BS every day - 114 (05/25/22)A1C 5.6 (04/16/22)MICROALBUMIN, RANDOM - <5.0 (04/16/2022)GFR - 58Last diabetic foot exam - 02/23/2019Last Diabetic Eye Exam - 2RX: losartan Potassium- HCTZCardiac Pacemaker - set at 61Checks B/P every other day 110/70 (05/25/22)Checks Pulse dailyFollows Cardiology, yearlyRX: glipizide, metforminChecks BS every day - 114 (05/25/22)A1C 5.6 (04/16/22)Last diabetic foot exam - 02/23/2019Last Diabetic Eye Exam - 2RX: ezetimibeChol -225 (04/16/22)Trig - 84 (04/16/22)HDL - 74 (04/16/22)LDL - 135 (04/16/22)cortisone injections every 3 monthsFollows Pain managementmember continues to take nitroglycerin prn. Risk factors/comorbidities include history of [place], HTN, HLD, SSS.RX: glipizide, metforminChecks BS every day - 114 (05/25/22)A1C 5.6 (04/16/22)MICROALBUMIN, RANDOM - <5.0 (04/16/2022)Follows PCP yearlyRX: Azopt, Brimonidine, Lumigan, and Rhopressa, methazolamideFollows Ophthalmology yearly - Legally blindLast diabetic foot exam - 02/23/2019Last Diabetic Eye Exam - 04/12/2022 2022-06-11 06:08:27 care team will conta ct member this afternoon to reassess symptoms. 2023-04-17 13:36:41 Medication List Docu mented (1159F)Functional Status Assessed (1170F)Advance Care Directive Advance care planning discussion documented in the medical record (1158F)BMI obtained (3008F)sbdbPain Assessment - Pain Documented (1125F)Phone (patient, parent, or guardian); 21-30 minutes of medical discussion (no modifier 95)Continue to see PCP. Follow-up with [facility] as needed for any acute or disease education needs that may arise.RX: glipizide, metforminChecks BS every day - 114 (05/25/22)A1C 5.6 (04/16/22)MICROALBUMIN, RANDOM - <5.0 (04/16/2022)Follows PCP yearlyRX: Azopt, Brimonidine, Lumigan, and Rhopressa, methazolamideFollows Ophthalmology yearly - Legally blindLast diabetic foot exam - 02/23/2019Last Diabetic Eye Exam - 04/12/2022Last Diabetic exam-02/2023 and 03/2023 per member follows closely with opthamology some of drops switched.*Suggest stopping sulfonylurea (glipizide) or switching to an alternative class with a more favorable risk? benefit ratio, such as a lower risk of hypoglycemia. Note sent to NIALL Christian04/14/2023- A1C 6.1RX: sertralineFollows PCP yearly04/17/2023-member stated she feels O.K. but expressed that she wishes one of her daughters in [place] would be a little more loving towards her and check in with her.RX: losartan Potassium- HCTZCardiac Pacemaker - set at 61Checks B/P every other day 110/70 (05/25/22)Checks Pulse dailyFollows Cardiology, yearly04/17/2023-member stable and no changes had her check her BP during our call.GFR - 58 (04/16/2022)Follow PCP every yearRX: TrazadoneSleep study- Date 04/03/2019.CPAP - no longer uses as she is afraid she will inhale something and get sick. Has not used since having COVIDRX: glipizide, metforminChecks BS every day - 114 (05/25/22)A1C 5.6 (04/16/22)MICROALBUMIN, RANDOM - <5.0 (04/16/2022)GFR - 58Last diabetic foot exam - 02/23/2019Last Diabetic Eye Exam - 2RX: losartan Potassium- HCTZCardiac Pacemaker - set at 61Checks B/P every other day 110/70 (05/25/22)Checks Pulse dailyFollows Cardiology, yearly04/17/2023-Member checked blood pressure during our call today with her cuff.RX: glipizide, metforminChecks BS every day - 114 (05/25/22)A1C 5.6 (04/16/22)Last diabetic foot exam - 02/23/2019Last Diabetic Eye Exam - 2RX: ezetimibeChol -225 (04/16/22)Trig - 84 (04/16/22)HDL - 74 (04/16/22)LDL - 135 (04/16/22)cortisone injections every 3 monthsFollow pain managment04/17/2023-has follow up on this coming Thursday.member continues to take nitroglycerin prn. Risk factors/comorbidities include history of ND, HTN, HLD, SSS. 04/17/2023-member stable on current medications.Mucinex 600mg ER sent for common cold symptoms. Strongly encouraged to continue with palliative treatments steam shower, and use vicks as needed. Drink your teas and warm liquids to aid with throat.04/14/2023-Both Covid antigen tests negative and saw doctor with 04/14-cxr two days ago and no pneumonia per member. Her granddaughter was sick and she feels she got the cold from her.Doctors sent some cough medicine but pharmacists informed member not covered by her insurance. 2023-05-13 10:55:06 Medication List Docu mented (1159F)Pain Assessment - Pain Documented (1125F)Phone (patient, parent, or guardian); 11-20 minutes of medical discussion (no modifier 95)SBP 130-139 (3075F)DBP <80 (3078F)Continue to see PCP. [facility] or disease education needs that may arise 09/03.RX: glipizide, metforminChecks BS every day - 114 (05/25/22)A1C 5.6 (04/16/22)MICROALBUMIN, RANDOM - <5.0 (04/16/2022)Follows PCP yearlyRX: Azopt, Brimonidine, Lumigan, and Rhopressa, methazolamideFollows Ophthalmology yearly - Legally blindLast diabetic foot exam - 02/23/2019Last Diabetic Eye Exam - 04/12/2022Last Diabetic exam-02/2023 and 03/2023 per member follows closely with opthamology some of drops switched.*Suggest stopping sulfonylurea (glipizide) or switching to an alternative class with a more favorable risk? benefit ratio, such as a lower risk of hypoglycemia. Note sent to NIALL Christian04/14/2023- A1C 6.: BG 187. Managed with glipizide (as needed), metformin, lantanoprost, prednisolone. Continue medications as directed. Encouraged diet and weight management. Increase physical activities as tolerated. Maintain safety and fall precautions. Follow up with PCP, ophthalmology as indicated.RX: glipizide, metforminChecks BS every day - 114 (05/25/22)A1C 5.6 (04/16/22)MICROALBUMIN, RANDOM - <5.0 (04/16/2022)GFR - 58Last diabetic foot exam - 02/23/2019Last Diabetic Eye Exam - 2RX: losartan Potassium- HCTZCardiac Pacemaker - set at 61Checks B/P every other day 110/70 (05/25/22)Checks Pulse dailyFollows Cardiology, yearly04/17/2023-Member checked blood pressure during our call today with her cuff. 05/13/23: BP normalized today. Noted to be elevated last night. Continue medications as directed. Discussed holding trazodone until seen by PCP tomorrow. Verbalized understanding. Encouraged diet and weight management. Increase physical activities as tolerated. Maintain safety and fall precautions. Follow up with PCP as indicated. 2023-12-22 12:49:34 Medication Review by prescribing provider or pharmacist documented (1160F)Medication List Documented (1159F)Functional Status Assessed (1170F)Advance Care Directive Advance care planning discussion documented in the medical record (1158F)BMI obtained (3008F)SBP 130-139 (3075F)DBP 80-89 (3079F)Televideo 30-39min; chronic exacerbation, 2 stable chronic or 1 acute illness add modifier 95Advance care planning discussed and documented ? advance care plan or surrogate decision-maker was documented in the medical record. (1123F)Pain Assessment - Pain Documented (1125F)Continue to see PCP. Follow-up with [facility] as needed for any acute or disease education needs that may arise.RX: Insulin Lispro, LantusEducated on the importance of daily FSBS checks. Advised to report symptoms of hyperglycemia to CB or PCP. Advised on diabetic diet including avoiding foods with high sugar content, high carbohydrates or starchy foods like rice, potatoes. Advised to eat smaller portions with healthy snacks.Continue to follow up with PCP.Avoid nephrotoxic medications.Continue to follow up with PCP.RX: Brimonidine, Brinzolamide, Latanoprost, Lumigan, Methazolamide, PrednisoloneRecommend tight blood glucose control. Continue to follow up with Ophthalmology.RX: Ezetimibe Heart healthy diet. Continue to follow up with PCP and Cardiology.Continue to follow up with Content Engineer and Cardiology. .RX: Sertraline, Trazodone Notify provider with any changes in behavior, difficulty sleeping, or new/worsening depressive symptoms.Continue to follow up with PCP.RX: Nitroglycerin Denies recent episodes.Continue to follow up with Cardiology.Sleep study- Date 04/03/2019.CPAP - no longer uses as she is afraid she will inhale something and get sick. Has not used since having COVIDRX: Losartan Encourage low sodium diet. Encouraged daily blood pressure checks and tracking. Instructed patient to notify CB or PCP if blood pressure >140/90 or <90/50.Continue to follow up with PCP.RX: Cyclobenzaprine. Discontinued Cortisone injections due to elevated blood glucose. No longer seeing Pain Management. Continue to follow up with PCP and Neurosurgeon. .FALL CONTINGENCY PLANMember to call for the following symptoms: Fall??/ Vertigo/ WeaknessPlanned intervention: Have member check blood pressure and blood glucose. Encourage extra fluid intake Assess for change in mental status and provide reassurance if none (patient's Baseline is AAOx3) Review importance of sitting for two to three minutes prior to standing after laying downAt least 50% of time spent counseling patient, discussing diagnosis, treatment plan, compliance, and coordinating follow up care. 2024-03-23 13:46:58 Phone (patient, pare nt, or guardian); 11-20 minutes of medical discussion (no modifier 95)Continue to see PCP. Follow-up with [facility] as needed for any acute or disease education needs that may arise 09/03.03/23/24: Last BM 5-7 days ago.Will refill miralax and docusate sodium.Eat fiber rich foods, prunes or drink prune juice dailyDrink plenty of waterIncrease daily physical activityContinue to monitorF/u with MAKAYLA :Having back pain, knee pain and swelling, and burning pressure to top of her head for months. Went to ER had 1-2 months ago and had lab tests and ultrasound on her legs -found a sprain to her chest that was causing the pain. Having right shoulder pain and swelling for over a month. Will refill diclofenac gel.TylenolHeat/coldF/U with MAKAYLA : For the past 3 weeks when she lays down she feels like the room is spinning and when getting up it is hard to get up since falls back down and it is getting worse. Has nausea at times with it, neck and ear pain. Today started to have dizziness and then had a headache with it. She went to eye doctor yesterday since her vision was blurry and was told to go to her PCP but they don? t have any appointments available.Started to get dizzy spells in beginning of the year when she was in hospital when they put a continuous glucose monitoring system on her. When holding head down feels like the whole room is spinning. Had sob a while ago when had dizziness a short while ago. Denies any chest painWas given medication when was discharged from Hospital (which helped relieve dizziness) but does not know the name of it. Will start meclizineDiscussed safety measures.F/U with MAKAYLA 03/28/24 2024-04-19 10:14:34 Phone (patient, pare nt, or guardian); 11-20 minutes of medical discussion (no modifier 95)Continue to see PCP. Follow-up with [facility] as needed for any acute or disease education needs that may arise 09/03.RX: Insulin Lispro, LantusEducated on the importance of daily FSBS checks. Advised to report symptoms of hyperglycemia to CB or PCP. Advised on diabetic diet including avoiding foods with high sugar content, high carbohydrates or starchy foods like rice, potatoes. Advised to eat smaller portions with healthy snacks.Continue to follow up with PCP.FALL CONTINGENCY PLANMember to call for the following symptoms: Fall??/ Vertigo/ WeaknessPlanned intervention: Have member check blood pressure and blood glucose. Encourage extra fluid intake Assess for change in mental status and provide reassurance if none (patient's Baseline is AAOx3) Review importance of sitting for two to three minutes prior to standing after laying downAvoid nephrotoxic medications.Continue to follow up with PCP.RX: Brimonidine, Brinzolamide, Latanoprost, Lumigan, Methazolamide, PrednisoloneRecommend tight blood glucose control. Continue to follow up with Ophthalmology.RX: Ezetimibe Heart healthy diet. Continue to follow up with PCP and Cardiology.Continue to follow up with Content Engineer and Cardiology. .RX: Sertraline, Trazodone Notify provider with any changes in behavior, difficulty sleeping, or new/worsening depressive symptoms.Continue to follow up with PCP.RX: Nitroglycerin Denies recent episodes.Continue to follow up with Cardiology.Sleep study- Date 04/03/2019.CPAP - no longer uses as she is afraid she will inhale something and get sick. Has not used since having COVIDRX: Losartan Encourage low sodium diet. Encouraged daily blood pressure checks and tracking. Instructed patient to notify CB or PCP if blood pressure >140/90 or <90/50.Continue to follow up with PCP.RX: Cyclobenzaprine. Discontinued Cortisone injections due to elevated blood glucose. No longer seeing Pain Management. Continue to follow up with PCP and Neurosurgeon. .03/23/24: For the past 3 weeks when she lays down she feels like the room is spinning and when getting up it is hard to get up since falls back down and it is getting worse. Has nausea at times with it, neck and ear pain. Today started to have dizziness and then had a headache with it. She went to eye doctor yesterday since her vision was blurry and was told to go to her PCP but they don? t have any appointments available.Started to get dizzy spells in beginning of the year when she was in hospital when they put a continuous glucose monitoring system on her. When holding head down feels like the whole room is spinning. Had sob a while ago when had dizziness a short while ago. Denies any chest painWas given medication when was discharged from Hospital (which helped relieve dizziness) but does not know the name of it. Will start meclizineDiscussed safety measures.F/U with MAKAYLA : Follow up for dizziness, states that the antivert works ok, son describes BPPV fixed by a procedure and they have appt for follow up 05/12/24. Fall precautions discussed.03/23/24:Having back pain, knee pain and swelling, and burning pressure to top of her head for months. Went to ER had 1-2 months ago and had lab tests and ultrasound on her legs -found a sprain to her chest that was causing the pain. Having right shoulder pain and swelling for over a month. Will refill diclofenac gel.TylenolHeat/coldF/U with MAKAYLA : Last BM 5-7 days ago.Will refill miralax and docusate sodium.Eat fiber rich foods, prunes or drink prune juice dailyDrink plenty of waterIncrease daily physical activityContinue to monitorF/u with MAKAYLA 03/28/24 2024-05-10 15:25:14 Phone (patient, pare nt, or guardian); 5-10 minutes of medical discussion (no modifier 95)Continue to see PCP. Follow-up with [facility] as needed for any acute or disease education needs that may arise 09/03.RX: Losartan Encourage low sodium diet. Encouraged daily blood pressure checks and tracking. Instructed patient to notify CB or PCP if blood pressure >140/90 or <90/50.Continue to follow up with PCP. 05/10/24-Systolic 200 earlier today. She took her meds and it is now 156.RX: Insulin Lispro, LantusEducated on the importance of daily FSBS checks. Advised to report symptoms of hyperglycemia to CB or PCP. Advised on diabetic diet including avoiding foods with high sugar content, high carbohydrates or starchy foods like rice, potatoes. Advised to eat smaller portions with healthy snacks.Continue to follow up with PCP. 05/10/24 Micky sensor pulled out of arm. Too soon to refill. I provided her with the number for [employer] to see if they could send her a replacement. Unable to send replacement strips for her talking meter as they came from a DME supply company. 2024-06-08 13:10:29 Phone (patient, pare nt, or guardian); 5-10 minutes of medical discussion (no modifier 95)Continue to see PCP. Follow-up with [facility] as needed for any acute or disease education needs that may arise 09/03.RX: Insulin Lispro, LantusEducated on the importance of daily FSBS checks. Advised to report symptoms of hyperglycemia to CB or PCP. Advised on diabetic diet including avoiding foods with high sugar content, high carbohydrates or starchy foods like rice, potatoes. Advised to eat smaller portions with healthy snacks.Continue to follow up with PCP. 05/10/24 Micky sensor pulled out of arm. Too soon to refill. I provided her with the number for [employer] to see if they could send her a replacement. Unable to send replacement strips for her talking meter as they came from a [employer] supply company.FALL CONTINGENCY PLANMember to call for the following symptoms: Fall??/ Vertigo/ WeaknessPlanned intervention: Have member check blood pressure and blood glucose. Encourage extra fluid intake Assess for change in mental status and provide reassurance if none (patient's Baseline is AAOx3) Review importance of sitting for two to three minutes prior to standing after laying downHYPERTENSION CONTINGENCY PLANLast updated: 06/08/2024Member to call for the following symptoms: BP >180/100??/ Chest pain??/ HR >100??Planned intervention: Non Emergency Services Ambulance Driver on proper BP monitoring technique and reassess/ Encourage low sodium diet/ Discuss breathing exercises/ Encourage medication adherenceAvoid nephrotoxic medications.Continue to follow up with PCP.RX: Brimonidine, Brinzolamide, Latanoprost, Lumigan, Methazolamide, PrednisoloneRecommend tight blood glucose control. Continue to follow up with Ophthalmology.RX: Ezetimibe Heart healthy diet. Continue to follow up with PCP and Cardiology.Continue to follow up with Content Engineer and Cardiology. .RX: Sertraline, Trazodone Notify provider with any changes in behavior, difficulty sleeping, or new/worsening depressive symptoms.Continue to follow up with PCP.RX: Nitroglycerin Denies recent episodes.Continue to follow up with Cardiology.Sleep study- Date 04/03/2019.CPAP - no longer uses as she is afraid she will inhale something and get sick. Has not used since having COVIDRX: Losartan Encourage low sodium diet. Encouraged daily blood pressure checks and tracking. Instructed patient to notify CB or PCP if blood pressure >140/90 or <90/50.Continue to follow up with PCP. 06/08/24: Brief visit with son (he seemed to not want to talk long), member's 2 phone numbers are not working. Son relays Mom is doing well, no medication changes, no needs. Was in the ER 9.24 for elevated BP. States they did not add any medication to her regimen. They take her BP at home and state its normal (unable to give any numbers). Red flags reviewed when to call CB.RX: Cyclobenzaprine. Discontinued Cortisone injections due to elevated blood glucose. No longer seeing Pain Management. Continue to follow up with PCP and Neurosurgeon. .03/23/24: For the past 3 weeks when she lays down she feels like the room is spinning and when getting up it is hard to get up since falls back down and it is getting worse. Has nausea at times with it, neck and ear pain. Today started to have dizziness and then had a headache with it. She went to eye doctor yesterday since her vision was blurry and was told to go to her PCP but they don? t have any appointments available.Started to get dizzy spells in beginning of the year when she was in hospital when they put a continuous glucose monitoring system on her. When holding head down feels like the whole room is spinning. Had sob a while ago when had dizziness a short while ago. Denies any chest painWas given medication when was discharged from Hospital (which helped relieve dizziness) but does not know the name of it. Will start meclizineDiscussed safety measures.F/U with MAKAYLA : Follow up for dizziness, states that the antivert works ok, son describes BPPV fixed by a procedure and they have appt for follow up 05/12/24. Fall precautions discussed.03/23/24:Having back pain, knee pain and swelling, and burning pressure to top of her head for months. Went to ER had 1-2 months ago and had lab tests and ultrasound on her legs -found a sprain to her chest that was causing the pain. Having right shoulder pain and swelling for over a month. Will refill diclofenac gel.TylenolHeat/coldF/U with MAKAYLA : Last BM 5-7 days ago.Will refill miralax and docusate sodium.Eat fiber rich foods, prunes or drink prune juice dailyDrink plenty of waterIncrease daily physical activityContinue to monitorF/u with MAKAYLA 03/28/24 2024-07-04 13:44:47 Phone (patient, pare nt, or guardian); 5-10 minutes of medical discussion (no modifier 95)Continue to see PCP. Follow-up with [facility] as needed for any acute or disease education needs that may arise 09/03.RX: Insulin Lispro, LantusEducated on the importance of daily FSBS checks. Advised to report symptoms of hyperglycemia to CB or PCP. Advised on diabetic diet including avoiding foods with high sugar content, high carbohydrates or starchy foods like rice, potatoes. Advised to eat smaller portions with healthy snacks.Continue to follow up with PCP. 05/10/24 Micky sensor pulled out of arm. Too soon to refill. I provided her with the number for [employer] to see if they could send her a replacement. Unable to send replacement strips for her talking meter as they came from a [employer].FALL CONTINGENCY PLANMember to call for the following symptoms: Fall??/ Vertigo/ WeaknessPlanned intervention: Have member check blood pressure and blood glucose. Encourage extra fluid intake Assess for change in mental status and provide reassurance if none (patient's Baseline is AAOx3) Review importance of sitting for two to three minutes prior to standing after laying downHYPERTENSION CONTINGENCY PLANLast updated: 07/04/2024Last er 05/10 elevated BPMember to call for the following symptoms: BP >180/100??/ Chest pain??/ HR >100??Planned intervention: Non Emergency Services Ambulance Driver on proper BP monitoring technique and reassess/ Encourage low sodium diet/ Discuss breathing exercises/ Encourage medication adherenceAvoid nephrotoxic medications.Continue to follow up with PCP.RX: Brimonidine, Brinzolamide, Latanoprost, Lumigan, Methazolamide, PrednisoloneRecommend tight blood glucose control. Continue to follow up with Ophthalmology.RX: Ezetimibe Heart healthy diet. Continue to follow up with PCP and Cardiology.Continue to follow up with Content Engineer and Cardiology. .RX: Sertraline, Trazodone Notify provider with any changes in behavior, difficulty sleeping, or new/worsening depressive symptoms.Continue to follow up with PCP.RX: Nitroglycerin Denies recent episodes.Continue to follow up with Cardiology.Sleep study- Date 04/03/2019.CPAP - no longer uses as she is afraid she will inhale something and get sick. Has not used since having COVIDRX: Losartan Encourage low sodium diet. Encouraged daily blood pressure checks and tracking. Instructed patient to notify CB or PCP if blood pressure >140/90 or <90/50.Continue to follow up with PCP. 06/08/24: Brief visit with son (he seemed to not want to talk long), member's 2 phone numbers are not working. Son relays Mom is doing well, no medication changes, no needs. Was in the ER 9.24 for elevated BP. States they did not add any medication to her regimen. They take her BP at home and state its normal (unable to give any numbers). Red flags reviewed when to call CB.RX: Cyclobenzaprine. Discontinued Cortisone injections due to elevated blood glucose. No longer seeing Pain Management. Continue to follow up with PCP and Neurosurgeon. .03/23/24: For the past 3 weeks when she lays down she feels like the room is spinning and when getting up it is hard to get up since falls back down and it is getting worse. Has nausea at times with it, neck and ear pain. Today started to have dizziness and then had a headache with it. She went to eye doctor yesterday since her vision was blurry and was told to go to her PCP but they don? t have any appointments available.Started to get dizzy spells in beginning of the year when she was in hospital when they put a continuous glucose monitoring system on her. When holding head down feels like the whole room is spinning. Had sob a while ago when had dizziness a short while ago. Denies any chest painWas given medication when was discharged from Hospital (which helped relieve dizziness) but does not know the name of it. Will start meclizineDiscussed safety measures.F/U with MAKAYLA : Follow up for dizziness, states that the antivert works ok, son describes BPPV fixed by a procedure and they have appt for follow up 05/12/24. Fall precautions discussed. 07/04/24: Member still with dizziness encouraged slow position changes making follow up03/23/24:Having back pain, knee pain and swelling, and burning pressure to top of her head for months. Went to ER had 1-2 months ago and had lab tests and ultrasound on her legs -found a sprain to her chest that was causing the pain. Having right shoulder pain and swelling for over a month. Will refill diclofenac gel.TylenolHeat/cold07/04/24: Saw pcp recently for a rash to chest and arms, itchy, a cream and short term pills were prescribed unsure of name. She had blood work done and is awaiting the results. Red flags reviewed. 2024-08-02 07:48:44 Phone (patient, pare nt, or guardian); 5-10 minutes of medical discussion (no modifier 95)Continue to see PCP. [facility] or disease education needs that may arise 09/03.RX: Insulin Lispro, LantusEducated on the importance of daily FSBS checks. Advised to report symptoms of hyperglycemia to CB or PCP. Advised on diabetic diet including avoiding foods with high sugar content, high carbohydrates or starchy foods like rice, potatoes. Advised to eat smaller portions with healthy snacks.Continue to follow up with PCP. 05/10/24 Micky sensor pulled out of arm. Too soon to refill. I provided her with the number for [employer] to see if they could send her a replacement. Unable to send replacement strips for her talking meter as they came from a [employer].FALL CONTINGENCY PLANMember to call for the following symptoms: Fall??/ Vertigo/ WeaknessPlanned intervention: Have member check blood pressure and blood glucose. Encourage extra fluid intake Assess for change in mental status and provide reassurance if none (patient's Baseline is AAOx3) Review importance of sitting for two to three minutes prior to standing after laying downHYPERTENSION CONTINGENCY PLANLast updated: 08/02/2024Last er 05/10 elevated BPMember to call for the following symptoms: BP >180/100??/ Chest pain??/ HR >100??Planned intervention: Non Emergency Services Ambulance Driver on proper BP monitoring technique and reassess/ Encourage low sodium diet/ Discuss breathing exercises/ Encourage medication adherenceAvoid nephrotoxic medications.Continue to follow up with PCP.RX: Brimonidine, Brinzolamide, Latanoprost, Lumigan, Methazolamide, PrednisoloneRecommend tight blood glucose control. Continue to follow up with Ophthalmology.RX: Ezetimibe Heart healthy diet. Continue to follow up with PCP and Cardiology.Continue to follow up with Content Engineer and Cardiology. .RX: Sertraline, Trazodone Notify provider with any changes in behavior, difficulty sleeping, or new/worsening depressive symptoms.Continue to follow up with PCP.RX: Nitroglycerin Denies recent episodes.Continue to follow up with Cardiology.Sleep study- Date 04/03/2019.CPAP - no longer uses as she is afraid she will inhale something and get sick. Has not used since having COVIDRX: Losartan Encourage low sodium diet. Encouraged daily blood pressure checks and tracking. Instructed patient to notify CB or PCP if blood pressure >140/90 or <90/50.Continue to follow up with PCP. 06/08/24: Brief visit with son (he seemed to not want to talk long), member's 2 phone numbers are not working. Son relays Mom is doing well, no medication changes, no needs. Was in the ER 9.24 for elevated BP. States they did not add any medication to her regimen. They take her BP at home and state its normal (unable to give any numbers). Red flags reviewed when to call CB.RX: Cyclobenzaprine. Discontinued Cortisone injections due to elevated blood glucose. No longer seeing Pain Management. Continue to follow up with PCP and Neurosurgeon. .03/23/24: For the past 3 weeks when she lays down she feels like the room is spinning and when getting up it is hard to get up since falls back down and it is getting worse. Has nausea at times with it, neck and ear pain. Today started to have dizziness and then had a headache with it. She went to eye doctor yesterday since her vision was blurry and was told to go to her PCP but they don? t have any appointments available.Started to get dizzy spells in beginning of the year when she was in hospital when they put a continuous glucose monitoring system on her. When holding head down feels like the whole room is spinning. Had sob a while ago when had dizziness a short while ago. Denies any chest painWas given medication when was discharged from Hospital (which helped relieve dizziness) but does not know the name of it. Will start meclizineDiscussed safety measures.F/U with MAKAYLA : Follow up for dizziness, states that the antivert works ok, son describes BPPV fixed by a procedure and they have appt for follow up 05/12/24. Fall precautions discussed. 07/04/24: Member still with dizziness encouraged slow position changes making follow up03/23/24:Having back pain, knee pain and swelling, and burning pressure to top of her head for months. Went to ER had 1-2 months ago and had lab tests and ultrasound on her legs -found a sprain to her chest that was causing the pain. Having right shoulder pain and swelling for over a month. Will refill diclofenac gel.TylenolHeat/coldVisit with son at side, member doing well. Did have a fall last week, she missed the chair when going to sit down, no injuries, son helped her back up. Does have assistive devices available. Red flags reviewed. 2024-09-02 07:19:02 Estab. patient 10-29 min; 1 minor problem; add add modifier 95 for video, modifier 93 for phoneContinue to see PCP. Follow-up with Pao as needed for any acute or disease education needs that may arise 09/03.RX: Insulin Lispro, LantusEducated on the importance of daily FSBS checks. Advised to report symptoms of hyperglycemia to CB or PCP. Advised on diabetic diet including avoiding foods with high sugar content, high carbohydrates or starchy foods like rice, potatoes. Advised to eat smaller portions with healthy snacks.Continue to follow up with PCP. 05/10/24 Micky sensor pulled out of arm. Too soon to refill. I provided her with the number for [employer] to see if they could send her a replacement. Unable to send replacement strips for her talking meter as they came from a [employer].Updated 09.02.24FALL CONTINGENCY PLANMember to call for the following symptoms: Fall??/ Vertigo/ WeaknessPlanned intervention: Have member check blood pressure and blood glucose. Encourage extra fluid intake Assess for change in mental status and provide reassurance if none (patient's Baseline is AAOx3) Review importance of sitting for two to three minutes prior to standing after laying downHYPERTENSION CONTINGENCY PLANLast er 05/10 elevated BPMember to call for the following symptoms: BP >180/100??/ Chest pain??/ HR >100??Planned intervention: Non Emergency Services Ambulance Driver on proper BP monitoring technique and reassess/ Encourage low sodium diet/ Discuss breathing exercises/ Encourage medication adherenceAvoid nephrotoxic medications.Continue to follow up with PCP.RX: Brimonidine, Brinzolamide, Latanoprost, Lumigan, Methazolamide, PrednisoloneRecommend tight blood glucose control. Continue to follow up with Ophthalmology.RX: Ezetimibe Heart healthy diet. Continue to follow up with PCP and Cardiology.Continue to follow up with Content Engineer and Cardiology. .RX: Sertraline, Trazodone Notify provider with any changes in behavior, difficulty sleeping, or new/worsening depressive symptoms.Continue to follow up with PCP.RX: Nitroglycerin Denies recent episodes.Continue to follow up with Cardiology.Sleep study- Date 04/03/2019.CPAP - no longer uses as she is afraid she will inhale something and get sick. Has not used since having COVIDRX: Losartan Encourage low sodium diet. Encouraged daily blood pressure checks and tracking. Instructed patient to notify CB or PCP if blood pressure >140/90 or <90/50.Continue to follow up with PCP. 06/08/24: Brief visit with son (he seemed to not want to talk long), member's 2 phone numbers are not working. Son relays Mom is doing well, no medication changes, no needs. Was in the ER 9. for elevated BP. States they did not add any medication to her regimen. They take her BP at home and state its normal (unable to give any numbers). Red flags reviewed when to call CB.RX: Cyclobenzaprine. Discontinued Cortisone injections due to elevated blood glucose. No longer seeing Pain Management. Continue to follow up with PCP and Neurosurgeon. .03/23/24: For the past 3 weeks when she lays down she feels like the room is spinning and when getting up it is hard to get up since falls back down and it is getting worse. Has nausea at times with it, neck and ear pain. Today started to have dizziness and then had a headache with it. She went to eye doctor yesterday since her vision was blurry and was told to go to her PCP but they don? t have any appointments available.Started to get dizzy spells in beginning of the year when she was in hospital when they put a continuous glucose monitoring system on her. When holding head down feels like the whole room is spinning. Had sob a while ago when had dizziness a short while ago. Denies any chest painWas given medication when was discharged from Hospital (which helped relieve dizziness) but does not know the name of it. Will start meclizineDiscussed safety measures.F/U with MAKAYLA : Follow up for dizziness, states that the antivert works ok, son describes BPPV fixed by a procedure and they have appt for follow up 05/12/24. Fall precautions discussed. 07/04/24: Member still with dizziness encouraged slow position changes making follow up03/23/24:Having back pain, knee pain and swelling, and burning pressure to top of her head for months. Went to ER had 1-2 months ago and had lab tests and ultrasound on her legs -found a sprain to her chest that was causing the pain. Having right shoulder pain and swelling for over a month. Will refill diclofenac gel.TylenolHeat/coldVisit with son at side, member doing well. Did have a fall last week, she missed the chair when going to sit down, no injuries, son helped her back up. Does have assistive devices available. Red flags reviewed. 2024-09-29 06:31:52 Estab. patient 10-29 min; 1 minor problem; add add modifier 95 for video, modifier 93 for phoneContinue to see PCP. Follow-up with Pao as needed for any acute or disease education needs that may arise 09/03.RX: Insulin Lispro, LantusEducated on the importance of daily FSBS checks. Advised to report symptoms of hyperglycemia to CB or PCP. Advised on diabetic diet including avoiding foods with high sugar content, high carbohydrates or starchy foods like rice, potatoes. Advised to eat smaller portions with healthy snacks.Continue to follow up with PCP. 05/10/24 Micky sensor pulled out of arm. Too soon to refill. I provided her with the number for [employer] to see if they could send her a replacement. Unable to send replacement strips for her talking meter as they came from a [employer].Updated 10.03.24FALL CONTINGENCY PLANMember to call for the following symptoms: Fall??/ Vertigo/ WeaknessPlanned intervention: Have member check blood pressure and blood glucose. Encourage extra fluid intake Assess for change in mental status and provide reassurance if none (patient's Baseline is AAOx3) Review importance of sitting for two to three minutes prior to standing after laying downHYPERTENSION CONTINGENCY PLANLast er 05/10 elevated BPMember to call for the following symptoms: BP >180/100??/ Chest pain??/ HR >100??Planned intervention: Non Emergency Services Ambulance Driver on proper BP monitoring technique and reassess/ Encourage low sodium diet/ Discuss breathing exercises/ Encourage medication adherenceAvoid nephrotoxic medications.Continue to follow up with PCP.RX: Brimonidine, Brinzolamide, Latanoprost, Lumigan, Methazolamide, PrednisoloneRecommend tight blood glucose control. Continue to follow up with Ophthalmology.RX: Ezetimibe Heart healthy diet. Continue to follow up with PCP and Cardiology.Continue to follow up with Content Engineer and Cardiology. .RX: Sertraline, Trazodone Notify provider with any changes in behavior, difficulty sleeping, or new/worsening depressive symptoms.Continue to follow up with PCP.RX: Nitroglycerin Denies recent episodes.Continue to follow up with Cardiology.Sleep study- Date 04/03/2019.CPAP - no longer uses as she is afraid she will inhale something and get sick. Has not used since having COVIDRX: Losartan Encourage low sodium diet. Encouraged daily blood pressure checks and tracking. Instructed patient to notify CB or PCP if blood pressure >140/90 or <90/50.Continue to follow up with PCP. 06/08/24: Brief visit with son (he seemed to not want to talk long), member's 2 phone numbers are not working. Son relays Mom is doing well, no medication changes, no needs. Was in the ER . for elevated BP. States they did not add any medication to her regimen. They take her BP at home and state its normal (unable to give any numbers). Red flags reviewed when to call CB.RX: Cyclobenzaprine. Discontinued Cortisone injections due to elevated blood glucose. No longer seeing Pain Management. Continue to follow up with PCP and Neurosurgeon. .03/23/24: For the past 3 weeks when she lays down she feels like the room is spinning and when getting up it is hard to get up since falls back down and it is getting worse. Has nausea at times with it, neck and ear pain. Today started to have dizziness and then had a headache with it. She went to eye doctor yesterday since her vision was blurry and was told to go to her PCP but they don? t have any appointments available.Started to get dizzy spells in beginning of the year when she was in hospital when they put a continuous glucose monitoring system on her. When holding head down feels like the whole room is spinning. Had sob a while ago when had dizziness a short while ago. Denies any chest painWas given medication when was discharged from Hospital (which helped relieve dizziness) but does not know the name of it. Will start meclizineDiscussed safety measures.F/U with MAKAYLA : Follow up for dizziness, states that the antivert works ok, son describes BPPV fixed by a procedure and they have appt for follow up 05/12/24. Fall precautions discussed. 07/04/24: Member still with dizziness encouraged slow position changes making follow up03/23/24:Having back pain, knee pain and swelling, and burning pressure to top of her head for months. Went to ER had 1-2 months ago and had lab tests and ultrasound on her legs -found a sprain to her chest that was causing the pain. Having right shoulder pain and swelling for over a month. Will refill diclofenac gel.TylenolHeat/coldVisit with son at side, member doing well. Did have a fall last week, she missed the chair when going to sit down, no injuries, son helped her back up. Does have assistive devices available. Red flags reviewed. 2024-09-29 12:47:33 Functional Status As sessed (1170F)Advance Care Directive Advance care planning discussion documented in the medical record (1158F)Advance care planning discussed and documented ? advance care plan or surrogate decision-maker was documented i n the medical record. (1123F)SBP < 130 (3074F)DBP <80 (3078F)Estab. patient 20-29min; 1 stable chronic or 2 minor; add add modifier 95 for video, modifier 93 for phoneMedication List Documented (1159F)Medication Review by prescribing provider or pharmacist documented (1160F)BMI obtained (3008F)Pain Assessment - Pain Documented on a Pain Scale (1125F)Continue to see PCP. Follow-up with [facility] as needed for any acute or disease education needs that may arise.RX: Insulin Toujeo M [id number]/: eGFR 67; Creatinine 0.86 Hemoglobin A1C 7.4ADA dietFollows with endocrineUpdated 2.FALL CONTINGENCY PLANMember to call for the following symptoms: Fall??/ Vertigo/ WeaknessPlanned intervention: Have member check blood pressure and blood glucose. Encourage extra fluid intake Assess for change in mental status and provide reassurance if none (patient's Baseline is AAOx3) Review importance of sitting for two to three minutes prior to standing after laying downHYPERTENSION CONTINGENCY PLANLast er 05/10 elevated BPMember to call for the following symptoms: BP >180/100??/ Chest pain??/ HR >100??Planned intervention: Non Emergency Services Ambulance Driver on proper BP monitoring technique and reassess/ Encourage low sodium diet/ Discuss breathing exercises/ Encourage medication adherence DIABETES CONTINGENCY PLANMember to call for the following symptoms: Blood sugar <70??/ Blood sugar >300??Planned intervention: Elevate legs/ Limit high-sugar and high-carbohydrate foods/ Go for a walk / consider lantus increaseAvoid nephrotoxic mjszcpyevqc19/15/24: eGFR 67; Creatinine 0.86 Creat clearance 51 Continue to follow up with PCPRX: Brimonidine, Brinzolamide, Latanoprost, Lumigan, Methazolamide, PrednisolonePreviously recommend tight blood glucose control. Continue to follow up with Ophthalmology.RX: Ezetimibe Heart healthy diet. Continue to follow up with PCP and Cardiology.RX: Losartan Low NA diet BP 130/70Follow up pcps/p PPM. Continue to follow up with Content Engineer and Cardiology. .RX: Sertraline, Trazodone Phq2:2 Good sleep habits Would like a mental health provider referralRX: Nitroglycerin Denies recent episodes.Continue to follow up with Cardiology.Sleep study- Date 04/03/2019.CPAP - no longer uses as she is afraid she will inhale something and get sick. Has not used since having COVIDRX: Cyclobenzaprine. Discontinued Cortisone injections due to elevated blood glucose. No longer seeing Pain Management. Continue to follow up with PCP and Neurosurgeon as indicated.Describes a procedure being done for BPPVAntivert prnSlow position changesPain at times to back pain, knee pain, right shoulder pain diclofenac gel.TylenolHeat/coldNo longer follows with pain management Member's bed side commode (>5 years old) has broken. She needs a BSC as she is advanced age of 83, has had multiple falls mostly at night getting to bathroomFall, sequela, Dizziness, Primary osteoarthritis involving multiple joints, Type 2 diabetes mellitus with stage 2 chronic kidney disease, with long-term current use of elnoksaM40.XXXS, R42, M15.0, E11.22, N18.263, 145Hx falls Assistive devices to ambulate 2024-10-05 14:44:03 Estab. patient 10-29 min; 1 minor problem; add add modifier 95 for video, modifier 93 for phoneContinue to see PCP. Follow-up with [facility] as needed for any acute or disease education needs that may arise 09/03.RX: Insulin Juan Pablo M [id number]/01/24: eGFR 67; Creatinine 0.86 Hemoglobin A1C 7.4ADA dietFollows with endocrineUpdated 2..FALL CONTINGENCY PLANMember to call for the following symptoms: Fall??/ Vertigo/ WeaknessPlanned intervention: Have member check blood pressure and blood glucose. Encourage extra fluid intake Assess for change in mental status and provide reassurance if none (patient's Baseline is AAOx3) Review importance of sitting for two to three minutes prior to standing after laying downHYPERTENSION CONTINGENCY PLANLast er 05/10 elevated BPMember to call for the following symptoms: BP >180/100??/ Chest pain??/ HR >100??Planned intervention: Non Emergency Services Ambulance Driver on proper BP monitoring technique and reassess/ Encourage low sodium diet/ Discuss breathing exercises/ Encourage medication adherence DIABETES CONTINGENCY PLANMember to call for the following symptoms: Blood sugar <70??/ Blood sugar >300??Planned intervention: Elevate legs/ Limit high-sugar and high-carbohydrate foods/ Go for a walk / consider lantus increaseAvoid nephrotoxic tijqbrhihoq68/15/24: eGFR 67; Creatinine 0.86 Creat clearance 51 Continue to follow up with PCPRX: Brimonidine, Brinzolamide, Latanoprost, Lumigan, Methazolamide, PrednisolonePreviously recommend tight blood glucose control. Continue to follow up with Ophthalmology.RX: Ezetimibe Heart healthy diet. Continue to follow up with PCP and Cardiology.RX: Losartan Low NA diet BP 130/70Follow up pcps/p PPM. Continue to follow up with Content Engineer and Cardiology. .RX: Sertraline, Trazodone Phq2:2 Good sleep habits Would like a mental health provider referralRX: Nitroglycerin Denies recent episodes.Continue to follow up with Cardiology.Sleep study- Date 04/03/2019.CPAP - no longer uses as she is afraid she will inhale something and get sick. Has not used since having COVIDRX: Cyclobenzaprine. Discontinued Cortisone injections due to elevated blood glucose. No longer seeing Pain Management. Continue to follow up with PCP and Neurosurgeon as indicated.Describes a procedure being done for BPPVAntivert prnSlow position changesPain at times to back pain, knee pain, right shoulder pain diclofenac gel.TylenolHeat/coldNo longer follows with pain management Member's bed side commode (>5 years old) has broken. She needs a BSC as she is advanced age of 83, has had multiple falls mostly at night getting to bathroomFall, sequela, Dizziness, Primary osteoarthritis involving multiple joints, Type 2 diabetes mellitus with stage 2 chronic kidney disease, with long-term current use of bclphzfA69.XXXS, R42, M15.0, E11.22, N18.263, 145Hx falls Assistive devices to ambulate Goals Date Goal 2022-05-26 Remember to keep all appointments with your PCP. 2022-05-26 Call if you have que stions or concerns before going to the ER. 2022-05-26 D[facility]ed how [facility] via [facility] or tablet. 2023-05-13 Remember to follow u p with PCP and specialists as directed.Call if you have any questions, comments, or concerns.Keep taking your medications as prescribed. 2023-12-22 Continue taking medi cations as directed and keep all follow up appointments with established PCP and Specialist. Health Concerns Date Concern 2024-10-05 Visit completed via audio by telephone. Patient/Guardian agreed to visit via telehealth.Time spent in visit: <29 minutes 2024-10-05 Most recent hospital stay(s) or ER visit(s) and precipitating factors: 05/10 elevated BP 2024-10-05 HEDIS review: review ed 2024-10-05 Tuck in visit with s on. Son states there was a paper work issue and lost insurance but is hopeful it will be reinstated at the beginning of the month. He is working with his [facility].
== END 2024-11-02 16:44 | disposition home or self-care (01) ==
LOC: HO.ENCR 16:05
PROVIDERS: PCP Internal Medicine; Visit Provider Nurse Practitioner Adult Health
DX: E11.65 Type 2 diabetes mellitus with hyperglycemia (principal); Z79.4 Long term (current) use of insulin

== ENCOUNTER → 2024-11-02 16:05 | Outpatient (BNVA) | payer OTHER, SELFPAY | PROVIDERS: PCP Internal Medicine; Visit Provider Nurse Practitioner Adult Health | DX: E11.65 Type 2 diabetes mellitus with hyperglycemia (principal); Z79.4 Long term (current) use of insulin | CPT/HCPCS: 82947; 83036; 99212 ==

== ENCOUNTER 2024-11-18 15:13 | Outpatient (REF) | payer OTHER, SELFPAY ==
--- OUTSIDE RECORDS SUMMARY | 2024-11-18 16:56 | XMS_ITS | Clinical Summary ---
Author Organization [address] Address [address] [place] [address] Care Team Providers Care Finishing Inspector Name Role Phone Trina Messina MD Primary [...] to be due to eye disease Old [place] (myocardial infarction) 09/19/2018 Overview (09/19/2018): Overview: Inferior [...] this topic Medical Devices Implanted Type Area In Store Marketer Device Identifier Shelf Expiration Date Model / Serial / Lot Pacemaker [facility] [employer] Insurance [facility] MGD [facility] MGD [facility] MGD Care Teams Finishing Inspector Relationship Specialty Start Date End Date Trina Messina MD PCP - General Internal Medicine 10/14/18
--- OUTSIDE RECORDS SUMMARY | 2024-11-18 16:57 | XMS_ITS | Clinical Summary ---
Author Organization [facility] [address] [facility] Address [address] [place] [address] Phone Care Team Providers Care Negative Turner Name Role Phone Trina Messina MD [...] flash glucose sensor (FREESTYLE MICKY 2 SENSOR [facility]) USE DIRECTED 06/10/20 24 Active acetaminophen (TYLENOL) [...] 04/01/2019 Obstructive sleep apnea 11/10/2018 Overview (07/01/2024): [facility] Polysomnogram: Date 11/09/2018; Wt 158# SE 49%; SM 52%; REM 0%; RDI 26 (AHI 6), Central apneas 0; Obstructive apneas 0; Mixed apneas 0; hypopneas 28; RERAs 87; average oxygen saturation 95% (lowest 92% - without saturations <88% for 5% or more of study); PLMs 6.Pre-study ESS 12. 3/4 RLS symptoms. Nuclear Stress Test 05/17/2018 EF 76% [facility] Polysomnogram treatment study. Date [...] sleep related hypoventilation by 2019 polysomnogram. Old MO (myocardial infarction) 09/19/2018 Overview (07/01/2024): Inferior wall [...] Description 11/18/2024 4:30 PM EDT Ancillary Procedure [facility] [address] [place] [address] Arrived 10/19/2024 4:00 PM EST Ancillary Procedure [facility] [address] [place] [address] Encounter for adjustment or management of cardiac device 10/18/2024 Billing Patient Not Present Adult [address] [phone] Trina Valadez MD Type 2 diabetes mellitus without complication, unspecified whether parts counterman insulin use (CMS/[facility]) (Primary Dx); Athscl heart disease of [place] coronary artery w/o ang pctrs; Sick sinus syndrome (CMS/[facility]); Essential (primary) hypertension; [facility] (current) use of insulin (CMS/[facility]); Personal history of other venous thrombosis and embolism 10/17/2024 Telephone Adult [address] [phone] Trina Valadez MD Forms/questionnaires ([facility] 09/30/2024-11/28/2024) 10/10/2024 Telephone Adult [facility] [address] [place] [phone] Trina Valadez MD Referral ([facility] 10/10/2024 Telephone [facility] [address] [facility] [address] [place] [address] Rc Patrick MD 08/26/2024 Telephone [facility] [address] [facility] [address] [place] [address] Evelia Hayes [place] 08/22/2024 Telephone Adult [facility] [address] [place] [phone] Trina Valadez MD from Last 3 Months Immunizations Name Administration Dates Next Due PPD Test 08/15/2016,08/13/2016 Pneumococcal polysaccharide 23 valent (Pneumovax 23) 2yo and older 07/03/2017 Surgical History Surgery Date Site/Laterality Comments PARTIAL HYSTERECTOMY PROCEDURE: NM SUPRACERVICAL ABDL HYSTER W/WO RMVL TUBE OVARY CATARACT EXTRACTION , , , 12 PROCEDURE: HISTORICAL CATARACT REMOVAL CARDIAC CATHETERIZATION 2006 PROCEDURE: HISTORICAL CARDIAC CATH; COMMENT: 2 stents PACEMAKER IMPLANT 2008 PROCEDURE: HISTORICAL PACEMAKER EYE SURGERY [id number] PROCEDURE: HISTORICAL EYE SURGERY; COMMENT: 4 surgeries for glaucoma OTHER SURGICAL HISTORY 03/09/2020 PROCEDURE: HISTORY OTHER; COMMENT: Spinal surgery, Dr. Berkowitz LUMBAR LAMINECTOMY PROCEDURE: HISTORICAL LUMB LAMINECTOMY Medical History Medical History Date Comments Cataract DX:Cataract NSTEMI (non-ST elevation prasanna cardial infarction) ([facility]) DX:NSTEMI (non-ST elevation myocardial infarction) ([facility]) Diabetes mellitus type 2, uncomplicated 05/07/2016 DX:Diabetes mellitus type 2, uncomplicated ([facility]) GERD (gastroesophageal reflux disease) 05/07/2016 DX:GERD (gastroesophageal reflux disease) Fibromyalgia 05/07/2016 DX:Fibromyalgia Depression 05/07/2016 DX:Depression Anxiety 05/07/2016 DX:Anxiety Type 2 diabetes mellitus with cataract 05/07/2016 DX:Type 2 diabetes mellitus with cataract ([facility]) Cervical spondylosis 07/17/2019 DX:Cervical spondylosis Insomnia 02/11/2021 [...] Description 05/03/2025 1:30 PM EDT Office Visit [facility] [address] [facility] [address] [place] [address] Rc Patrick MD 300 [facility] [address] [place] [address] 10/23/2025 4:00 PM EDT Ancillary Procedure [facility] [address] [facility] [address] [place] [phone] Health Maintenance Due Date Last Done Comments [...] this topic Medical Devices Implanted Type Area Workcell Operator Device Identifier Shelf Expiration Date Model / Serial / Lot Beatriz-William 2240 Asssven(Tm) [id number] Implanted:12/2017 by Cain Mena MD (Quantity not on file) Cardiac Pacemaker Left: Chest [facility] 2240 ASSSVEN(TM ) DR Zapata [id number] / Emmyt-William Esparza Dr 2240 [id number] Implanted:12/2017 (Quantity not on file) Cardiac Pacemaker [facility] [employer] [place] / [id number] / Procedures Procedure Name Priority Date/Time Associated [...] 4:26 PM EDT) Date Time Interrogation Session [id number] CV DEVICE CHECK Type Interrogation Session Remote Scheduled CV DEVICE CHECK Implantable Pulse Generator Workcell Operator [employer] CV DEVICE CHECK Implantable Pulse Generator Type IPG CV DEVICE CHECK Implantable Pulse Generator Model 2240 Assurity(TM) CV DEVICE CHECK Implantable Pulse Generator Serial Number [id number] CV DEVICE CHECK Implantable Pulse Generator Implant Date 20180521 CV DEVICE CHECK Battery Remaining Percentage 50.00 CV DEVICE CHECK Battery Remaining Longevity 67.0 CV DEVICE CHECK Battery Voltage 2.990 CV D EVICE CHECK Battery WINDMILL TECHNICIAN Trigger 2.600 CV DEVICE CHECK Battery Status Middle of Service CV DEVICE CHECK Kalyan Statistic RA Percent Paced 45.00 CV DEVICE CHECK Kalyan Statistic RV Percent Paced 1.00 CV DEVICE CHECK Atrial Tachy Statistic AT/AF [place] Percent 0.00 CV DEVICE CHECK Lead Channel [...] Result * CARDIAC DEVICE CHECK- [facility] (10/19/2024 4:01 PM EST) Date Time Interrogation Session [id number] CV DEVICE CHECK Implantable Pulse Generator Workcell Operator [employer] CV DEVICE CHECK Implantable Pulse Generator Type IPG CV DEVICE CHECK Implantable Pulse Generator Model Assurity DR 2240 CV DEVICE CHECK Implantable Pulse Generator Serial Number [id number] CV DEVICE CHECK Implantable Pulse Generator Implant [...] (ABNORMAL) Hemoglobin A1c (07/01/2024 12:06 PM EST) Pathologist [facility] Hemoglobin A1C 7.4(H) <6.5 % LAB CHEMISTRY METHOD 07/02/2024 11:19 AM [facility] Mean Bld Glu Estim. 166 mg/dL LAB CHEMISTRY METHOD 07/02/2024 11:19 AM [facility] Blood Venous blood specimen / Unknown Venipuncture / Unknown 07/01/2024 12:06 PM EST 07/01/2024 12:06 PM EST us Trina Messina MD LAB BLOOD ORDERABL ES Final Result [facility] [address] [place] [address], [place] [phone] * (ABNORMAL) Comprehensive metabolic panel (07/01/2024 12:06 PM EST) [facility] Sodium 142 133 - 145 mmol/L LAB CHEMISTRY METHOD 07/01/2024 4:45 PM [facility] Potassium 4.4 3.5 - 5.5 mmol/L LAB CHEMISTRY METHOD 07/01/2024 4:45 PM [facility] Chloride 109 96 - 110 mmol/L LAB CHEMISTRY METHOD 07/01/2024 4:45 PM [facility] CO2 28 21 - 32 mmol/L LAB CHEMISTRY METHOD 07/01/2024 4:45 PM [facility] Anion Gap 5 3 - 11 LAB CHEMISTRY METHOD 07/01/2024 4:45 PM [facility] Glucose 176(H) 70 - 100 mg/dL LAB CHEMISTRY METHOD 07/01/2024 4:45 PM [facility] BUN 15 5 - 25 mg/dL LAB CHEMISTRY METHOD 07/01/2024 4:45 PM [facility] Creatinine 0.86 0.50 - 1.10 mg/dL LAB CHEMISTRY METHOD 07/01/2024 4:45 PM [facility] eGFR 67 >=60 mL/min/1. 73m2 LAB CHEMISTRY METHOD 07/01/2024 4:45 PM [facility] Comment:Calculation based on the??Chronic Kidney Disease Epidemiology Collaboration (CKD-EPI) equation refit??without adjustment for race. BUN/Creatinine Ratio 17.4 LAB CHEMISTRY METHOD 07/01/2024 4:45 PM [facility] Calcium 9.8 8.5 - 10.5 mg/dL LAB CHEMISTRY METHOD 07/01/2024 4:45 PM [facility] AST (SGOT) 20 10 - 42 unit/L LAB CHEMISTRY METHOD 07/01/2024 4:45 PM [facility] ALT (SGPT) 27 10 - 60 unit/L LAB CHEMISTRY METHOD 07/01/2024 4:45 PM [facility] Alkaline Phosphatase 111 42 - 121 unit/L LAB CHEMISTRY METHOD 07/01/2024 4:45 PM [facility] Total Protein 6.9 6.0 - 8.0 g/dL LAB CHEMISTRY METHOD 07/01/2024 4:45 PM [facility] Albumin 3.9 3.2 - 5.0 g/dL LAB CHEMISTRY METHOD 07/01/2024 4:45 PM [facility] Total Bilirubin 0.3 0.0 - 1.4 mg/dL LAB CHEMISTRY METHOD 07/01/2024 4:45 PM [facility] Blood Venous blood specimen / Unknown Venipuncture / Unknown 07/01/2024 12:06 PM EST 07/01/2024 12:06 PM EST us Trina Messina MD LAB BLOOD ORDERABL ES Final Result [facility] [address] [place] [address], * HM Urine Albumin Creatinine Ratio (12/31/2022) HM Urine Albumin Creatinine Ratio abstracted Historical Provider HEALTH MAINTENANCE Final Result * (ABNORMAL) Lipid panel (10/21/2022) LDL/HDL Ratio 3 0 - 4 Triglycerides 101 0 - 150 mg/dL Cholesterol 206(A) 0 - 200 mg/dL HDL 64 >=40 mg/dL LDL Cholesterol 122(A) 0 - 100 mg/dL Blood Venous blood specimen / Unknown us Historical Provider LAB BLOOD ORDERABLES Nicole l Result from Last 3 Months or Most Recently Relevant to Health Maintenance Insurance MEDICAID - [place] Advance Directives Documents on File Type Date Recorded Patient Print Controller Expl anation Health Care Decision (hx) 09/28/2023 [...] (hx) 04/14/2023 AD REDDY DIRECTIVE Care Teams Negative Turner Relationship Specialty Start Date End Date Trina Messina MD [address] [place] [id number] PCP - General Internal Medicine 01/28/16
--- OUTSIDE RECORDS SUMMARY | 2024-11-18 16:57 | XMS_ITS | Clinical Summary ---
Author Organization [facility] Address [address] [place] [address] Care Team Providers Care Editing Computer Publisher Name Role Phone Shira Awan MD Primary Care Provider [phone] Source Comments PLEASE NOTE, if this patient [...] Description 12/02/2024 3:00 PM EDT Office Visit [facility] [address] [facility] [address] [place] [phone] Eric Jackson [address] [place] [address] Health Maintenance Due Date Last Done Comments Tobacco Screening 1940 Advanced Care Planning 01/12/1940 Hypertension Screening (#1) 12/12/1957 Medicare Annual Wellness Visit 12/12/1957 Imm-DTaP/Tdap/Td (1 - Tdap) 12/12/1958 Imm-Pneumococcal 65+ (1 of 1 - PCV) 12/12/1989 Imm-Zoster, Recombinant (1 of 2) 12/12/1989 Bone Density Screening 12/12/2004 Falls Prevention 12/12/2004 [id number] (1 - 2023- season) 2024 Imm-Influenza (#1) 2024 Alcohol and Drug Screen 08/17/2024 Depression Annual Screen 08/17/2024 [place] [facility] Care Teams Editing Computer Publisher Relationship Specialty Start Date End Date Shira Awan MD [address] [place] [address] PCP - General Internal Medicine 10/31/15
--- OUTSIDE RECORDS SUMMARY | 2024-11-18 16:57 | XMS_ITS | Encounter Summary ---
Author Organization [facility] Address [address] [place] [address] Care Team Providers Care Medical Support Specialist Name Role Phone Trina Messina MD Primary Care Prov ider Encounter Details Date Type Department Care Team (Late Contact Info) Description 11/18/2024 4:30 PM EDT Ancillary Procedure [facility] [address] [facility] [address] [place] [address] Arrived Social History Tobacco Use Types Packs/Day [...] Description 05/03/2025 1:30 PM EDT Office Visit [facility] - [facility] [address] [phone] Rc Patrick MD [address] [address] 10/23/2025 4:00 PM EDT Ancillary Procedure [facility] - [facility] [address] [facility] [address] [place] [phone] documented as of this encounter Procedures Procedure Name Priority Date/Time Associated Diagnosis Comments CARDIAC DEVICE CHECK- REMOTE- MURJ Routine 11/18/2024 4:26 PM EDT documented in this encounter Results * Cardiac device check - Remote- MURJ (11/18/2024 4:26 PM EDT) Date Time Interrogation Session [id number] CV DEVICE CHECK Type Interrogation Session Remote Scheduled CV DEVICE CHECK Implantable Pulse Generator Program Director/Morning Show Host [employer] CV DEVICE CHECK Implantable Pulse Generator Type IPG CV DEVICE CHECK Implantable Pulse Generator Model 2240 Assurity(TM) DR CV DEVICE CHECK Implantable Pulse Generator Serial Number [id number] CV DEVICE CHECK Implantable Pulse Generator Implant Date 20180521 CV DEVICE CHECK Battery Remaining Percentage 50.00 CV DEVICE CHECK Battery Remaining Longevity 67.0 CV DEVICE CHECK Battery Voltage 2.990 CV D EVICE CHECK Battery PROPERTY FIELD INSPECTOR Trigger 2.600 CV DEVICE CHECK Battery Status Middle of Service CV DEVICE CHECK Kalyan Statistic RA Percent Paced 45.00 CV DEVICE CHECK Kalyan Statistic RV Percent Paced 1.00 CV DEVICE CHECK Atrial Tachy Statistic AT/AF [place] Percent 0.00 CV DEVICE CHECK Lead Channel [...] filedocumented in this encounter Care Teams Medical Support Specialist Relationship Specialty Start Date End Date Trina Messina MD [address] [place] [id number] PCP - General Internal Medicine 01/28/16 documented as of this encounter
--- OUTSIDE RECORDS SUMMARY | 2024-11-18 16:57 | XMS_ITS | Clinical Summary ---
Author Organization [facility] Address [address] [place] [address] Care Team Providers Care Warp Knit Operator Name Role Phone Trina Messina MD Primary [...] age to complete this topic Care Teams Warp Knit Operator Relationship Specialty Start Date End Date Trina Messina MD PCP - General Internal Medicine 09/15/19
--- OUTSIDE RECORDS SUMMARY | 2024-11-18 16:57 | XMS_ITS ---
Author Name Abdirashid EMBROIDERY SUPERVISOR,HAT BRIM CURLER,FN P,BRISTLE MACHINE OPERATOR, Jenn Address [address] [place] [address] Phone [phone] Organization [facility] [facility] Care Team Providers Care Parts Clerk Name Role Phone Jenn Mendenhall Unavailable [phone] Unavailable Unavailable [phone] Unavailable Unavailable Unavailable Unavailable Unavailable [phone] [facility] Unavailable Unavailable Unavailable Unavailable Trina Blackwell Unavailable [phone] FILIPPO BARROW Unavailable [phone] Anju Arango Unavailable [phone] Reason for Referral Not Available Allergies, adverse [...] 500 mg Tab TAKE 1 TABLET BY [facility] ONCE DAILY 2023-04-14 No Data Available Vitamin [...] a cotton ball. 2023-10-08 No Data Available Letyano Micky 2 [employer] Device USE DIRECTED 2023-10-08 No Data Available [...] WEEKS 2024-07-20 No Data Available Hawa Reeves [facility] spacer USE DIRECTED 2024-07-20 No Data Available [...] Active 2022-05-26 N/A Other problems related to [facility] facilities and other health care [...] Pain Assessment - NO pain present (1126F) [facility] [place] Pain Assessment - NO pain present (1126F) [facility] [place] Pain Assessment - NO pain present (1126F) [facility] [place] Pain Assessment - NO pain present (1126F) [facility] [place] Pain Assessment - NO pain present (1126F) [facility] Pain Assessment - NO pain present (1126F) [facility] Pain Assessment - NO pain present (1126F) [facility] Pain Assessment - NO pain present (1126F) [facility] [place] Pain Assessment - NO pain present (1126F) [facility] [place]20[place] Type 2 diabetes mellitus wit [...] or radiculopathy, cervical regionAthscl heart disease of [place]osh[place] cor art w unsp ang pctrs No Data Available [facility] [place] 06/[place]/2022 Unlisted special service; to be used for medical record reviews and reporting CPTII codes (1111F, etc) [facility] [place] 03/30/2023 Other specified health statu s Unlisted special service; to be used for medical record reviews and reporting CPTII codes (1111F, etc) [facility] [place] 03/30/2023 Unlisted special service; to be used for medical record reviews and reporting CPTII codes (1111F, etc) [facility] [place] 03/30/2023 No Data Available [facility] [place] 04[place]17/2023 Unspecified open-angle glauc chester, severe stageMajor depressive disorder, recurrent, moderateSick sinus syndromeUnspecified atrial fibrillationVentricular tachycardia, unspecifiedChronic kidney disease, stage 3 unspecifiedInsomnia, unspecifiedObstructive sleep apnea (adult) (pediatric)Hypertensive chronic kidney disease w stg 1-4/unsp chr kdnyType 2 diabetes mellitus with other specified complicationHyperlipidemia, unspecifiedSpondylosis without myelopathy or radiculopathy, cervical regionAthscl heart disease of shosh[place] cor art w unsp ang pctrsCough, unspecified No Data Available [facility] [place]2023 No Data Available [facility]2023 No Data Available [facility]/17[place]2023 No Data Available [facility]2023 No Data Available [facility]/17[place]2023 No Data Available [facility]/17[place]2023 No Data Available [facility]2023 No Data Available [facility]23 No Data Available [facility] [place]2023 Unspecified open-angle glauc chester, severe stageType 2 diabetes mellitus with other diabetic ophthalmic complicationEssential (primary) hypertension No Data Available [facility] [place] 05[place]13/2023 No Data Available [facility]2023 No Data Available [facility] [place]2023 No Data Available [facility] [place]23 No Data Available [facility] [place] 05[place]/2023 Estab. patient 30-39min; chronic exacerbation, 2 stable chronic or 1 acute illness add add modifier 95 for video, (do not use for phone, instead use 80499-71) [facility] [place]20[place] Type 2 diabetes mellitus wit h [...] (do not use for phone, instead use 28319-00) [facility] [place] Estab. patient 30-39min; chronic exacerbation, 2 stable chronic or 1 acute illness add add modifier 95 for video, (do not use for phone, instead use 25050-93) [facility] [place]20[place] Estab. patient 30-39min; chronic exacerbation, 2 stable chronic or 1 acute illness add add modifier 95 for video, (do not use for phone, instead use 07328-24) [facility] [place]20[place] Estab. patient 30-39min; chronic exacerbation, 2 stable chronic or 1 acute illness add add modifier 95 for video, (do not use for phone, instead use 76399-06) [facility] [place]20[place] Estab. patient 30-39min; chronic exacerbation, 2 stable chronic or 1 acute illness add add modifier 95 for video, (do not use for phone, instead use 13397-44) [facility] [place]20[place] Estab. patient 30-39min; chronic exacerbation, 2 stable chronic or 1 acute illness add add modifier 95 for video, (do not use for phone, instead use 39138-68) [facility] [place] Estab. patient 30-39min; chronic exacerbation, 2 stable chronic or 1 acute illness add add modifier 95 for video, (do not use for phone, instead use 27495-40) [facility] [place] Estab. patient 30-39min; chronic exacerbation, 2 stable chronic or 1 acute illness add add modifier 95 for video, (do not use for phone, instead use 82033-99) [facility] [place]20[place] Estab. patient 30-39min; chronic exacerbation, 2 stable chronic or 1 acute illness add add modifier 95 for video, (do not use for phone, instead use 85015-82) [facility] [place]2023 No Data Available [facility] 03[place]/2024 Constipation, unspecifiedOth er chronic painDizziness and giddiness No Data Available [facility] 03[place]23/2024 No Data Available [facility] [place] 03[place]2024 No Data Available [facility] [place] 04[place]19/2024 Type 2 diabetes mellitus wit [...] giddinessOther chronic painConstipation, unspecified No Data Available [facility] 04[place]19/2024 No Data Available [facility] 04[place]24 No Data Available [facility] 04/19/2024 No Data Available [facility] [place] 04[place]24 No Data Available [facility] 05[place]/2024 Essential (primary) hypertensionType 2 diabetes mellitus with diabetic chronic kidney diseaseChronic kidney disease, unspecifiedLong term (current) use of insulin No Data Available [facility] [place] 05/10/2024 No Data Available [facility] [place] 06/08/2024 Type 2 diabetes mellitus wit [...] and other health care No Data Available [facility] [place] 06/08/2024 No Data Available [facility] [place] 06/08/2024 No Data Available [facility] [place] 06/08/2024 No Data Available [facility] [place] 06/08/2024 No Data Available [facility] [place] 07/04/2024 Type 2 diabetes mellitus wit [...] other nonspecific skin eruption No Data Available [facility] [place] 07/04/2024 No Data Available [facility] [place] 07[place]04[place]2024 No Data Available [facility] [place] 08/02/2024 Type 2 diabetes mellitus wit [...] chronic painUnspecified fall, sequela No Data Available [facility] [place] 08/02/2024 No Data Available [facility] [place] No Data Available [facility] [place] No Data Available [facility] [place]/02/[place] Estab. patient 10-29min; 1 minor problem; add add modifier 95 for video, modifier 93 for phone [facility] [place] 09/02/2024 Type 2 diabetes mellitus wit h [...] 95 for video, modifier 93 for phone [facility] [place] 09/02/20[place] Estab. patient 10-29min; 1 minor problem; add add modifier 95 for video, modifier 93 for phone [facility] [place] 09/02/2024 Estab. patient 10-29min; 1 minor problem; add add modifier 95 for video, modifier 93 for phone [facility] [place] 09/02/2024 Estab. patient 10-29min; 1 minor problem; add add modifier 95 for video, modifier 93 for phone [facility] [place] 09/29/2024 Type 2 diabetes mellitus wit h [...] modifier 95 for video, modifier 93 for [facility] 09/29/[place] Estab. patient 10-29min; 1 minor problem; add add modifier 95 for video, modifier 93 for [facility] 09/29/20[place] Estab. patient 10-29min; 1 minor problem; add add modifier 95 for video, modifier 93 for [facility] 09/29/2024 Estab. patient 10-29min; 1 minor problem; add add modifier 95 for video, modifier 93 for [facility] [place] 09/29/2024 Estab. patient 20-29min; 1 stable chronic or 2 minor; add add modifier 95 for video, modifier 93 for [facility] 09/29/2024 Type 2 diabetes mellitus wit h [...] modifier 95 for video, modifier 93 for [facility] 09/29/20[place] Estab. patient 20-29min; 1 stable chronic or 2 minor; add add modifier 95 for video, modifier 93 for [facility] [place] 09/29/2024 Estab. patient 20-29min; 1 stable chronic [...] 95 for video, modifier 93 for phone [facility] [place] Estab. patient 10-29min; 1 minor problem; add add modifier 95 for video, modifier 93 for phone [facility] [place]/05/[place] Estab. patient 10-29min; 1 minor problem; add add modifier 95 for video, modifier 93 for phone [facility] [place] Estab. patient 10-29min; 1 minor problem; add add modifier 95 for video, modifier 93 for phone [facility] [place]/05/2024 Encounter for issue of repea t prescriptionGastro-esophageal reflux disease without esophagitis Estab. patient 10-29min; 1 minor problem; add add modifier 95 for video, modifier 93 for phone [facility] [place] 11/11/2024 Gastro-esophageal reflux dis ease without esophagitisType 2 diabetes mellitus with diabetic chronic kidney diseaseChronic kidney disease, stage 2 (mild)long term care phlebotomist (current) use of insulinDisorder of the skin [...] (do not use for phone, instead use 85433-88) 18195 2022-05-26 No Data Available No Data Availa ble Unlisted special service; to be used for medical record reviews and reporting CPTII codes (1111F, etc) 66619 2023-03-30 No Data Available No Data Availa ble SBP < 130 (3074F) 3074F 2023-03-30 No Data Available No Data Available DBP <80 (3078F) 3078F 2023-03-30 No Data Available No Data Available No Data Available [id number] 2023-04-17 No Data Available No Data Available [...] No Data Avail able No Data Available [id number] 2023-05-13 No Data Available No Data Available [...] (do not use for phone, instead use 54240-69) [id number] 2023-12-22 No Data Available No Data Availa [...] No Data Availa ble No Data Available [id number] 2024-03-23 No Data Available No Data Available SBP >= 140 3077F 2024-03-23 No Data Available No Data Available DBP <80 (3078F) 3078F 2024-03-23 No Data Available No Data Available No Data Available [id number] 2024-04-19 No Data Available No Data Available [...] No Data Availa ble No Data Available [id number] 2024-05-10 No Data Available No Data Available SBP >= 140 3077F 2024-05-10 No Data Available No Data Available No Data Available 71061 2024-06-08 No Data Available No Data Available [...] No Data Avail able No Data Available [id number] 2024-07-04 No Data Available No Data Available [...] 95 for video, modifier 93 for phone [id number] 2024-09-02 No Data Available No Data Availa ble No Data Available [id number] 2024-09-02 No Data Available No Data Available Medication List Documented (1159F) 1159F 2024-09-02 No Data Available No Data Mandy ilable Functional Status Assessed (1170F) 1170F 2024-09-02 No Data Available No Data Avail able Estab. patient 10-29min; 1 minor problem; add add modifier 95 for video, modifier 93 for phone [id number] 2024-09-29 No Data Available No Data Availa [...] 95 for video, modifier 93 for phone 64014 2024-09-29 No Data Available No Data Availa [...] 95 for video, modifier 93 for phone 34212 2024-10-05 No Data Available No Data Availa [...] 95 for video, modifier 93 for phone [id number] 2024-11-06 No Data Available No Data Availa ble Estab. 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 Mental Status Status Date Cognition Status: Oriented to Person, Pl lizette and Time 2023-12-22 Assessments Date of Service Assessments 2022-05-26 11:51:35 Major depressive dis order, recurrent, moderateSick sinus syndromeChronic kidney disease, stage 3 unspecifiedMild obstructive sleep apneaHypertension associated with type 2 diabetes mellitusHyperlipidemia associated with type 2 diabetes mellitusCervical spondylosisAtherosclerotic heart disease of shosh[place] coronary artery with unspecified angina pectorisType 2 diabetes mellitus with unspecific complications 2023-04-17 13:36:41 Type 2 diabetes naye itus with unspecific complicationsMajor depressive disorder, recurrent, moderateSick sinus syndromeChronic kidney disease, stage 3 unspecifiedMild obstructive sleep apneaHypertension associated with type 2 diabetes mellitusHyperlipidemia associated with type 2 diabetes mellitusCervical spondylosisAtherosclerotic heart disease of shosh[place] coronary artery with unspecified angina pectorisCough 2023-05-13 [...] nitroglycerin prn. Risk factors/comorbidities include history of [place], HTN, HLD, SSS.RX: glipizide, metforminChecks BS every [...] modifier 95)Continue to see PCP. Follow-up with [facility] as needed for any acute or [...] nitroglycerin prn. Risk factors/comorbidities include history of [place], HTN, HLD, SSS. 04/17/2023-member stable on current [...] PCP and Cardiology.Continue to follow up with [facility] and Cardiology. .RX: Sertraline, Trazodone Notify provider [...] PCP and Cardiology.Continue to follow up with [facility] Cardiology. .RX: Sertraline, Trazodone Notify provider [...] modifier 95)Continue to see PCP. Follow-up with [facility] as needed for any acute or [...] modifier 95)Continue to see PCP. Follow-up with [facility] as needed for any acute or [...] BP >180/100??/ Chest pain??/ HR >100??Planned intervention: Deburr Technician on proper BP monitoring technique and reassess/ Encourage low sodium diet/ Discuss breathing exercises/ Encourage medication adherenceAvoid nephrotoxic medications.Continue to follow up with PCP.RX: Brimonidine, Brinzolamide, Latanoprost, Lumigan, Methazolamide, PrednisoloneRecommend tight blood glucose control. Continue to follow up with Ophthalmology.RX: Ezetimibe Heart healthy diet. Continue to follow up with PCP and Cardiology.Continue to follow up with [facility] and Cardiology. .RX: Sertraline, Trazodone Notify provider [...] talking meter as they came from a [employer].FALL CONTINGENCY PLANMember to call for the following [...] BP >180/100??/ Chest pain??/ HR >100??Planned intervention: Deburr Technician on proper BP monitoring technique and reassess/ Encourage low sodium diet/ Discuss breathing exercises/ Encourage medication adherenceAvoid nephrotoxic medications.Continue to follow up with PCP.RX: Brimonidine, Brinzolamide, Latanoprost, Lumigan, Methazolamide, PrednisoloneRecommend tight blood glucose control. Continue to follow up with Ophthalmology.RX: Ezetimibe Heart healthy diet. Continue to follow up with PCP and Cardiology.Continue to follow up with [facility]. .RX: Sertraline, Trazodone Notify provider [...] talking meter as they came from a [employer].FALL CONTINGENCY PLANMember to call for the following [...] BP >180/100??/ Chest pain??/ HR >100??Planned intervention: Deburr Technician on proper BP monitoring technique and reassess/ Encourage low sodium diet/ Discuss breathing exercises/ Encourage medication adherenceAvoid nephrotoxic medications.Continue to follow up with PCP.RX: Brimonidine, Brinzolamide, Latanoprost, Lumigan, Methazolamide, PrednisoloneRecommend tight blood glucose control. Continue to follow up with Ophthalmology.RX: Ezetimibe Heart healthy diet. Continue to follow up with PCP and Cardiology.Continue to follow up with [facility] Cardiology. .RX: Sertraline, Trazodone Notify provider [...] for phoneContinue to see PCP. Follow-up with [facility] as needed for any acute or [...] talking meter as they came from a [employer].Updated 09.02.24FALL CONTINGENCY PLANMember to call for the [...] BP >180/100??/ Chest pain??/ HR >100??Planned intervention: Deburr Technician on proper BP monitoring technique and reassess/ Encourage low sodium diet/ Discuss breathing exercises/ Encourage medication adherenceAvoid nephrotoxic medications.Continue to follow up with PCP.RX: Brimonidine, Brinzolamide, Latanoprost, Lumigan, Methazolamide, PrednisoloneRecommend tight blood glucose control. Continue to follow up with Ophthalmology.RX: Ezetimibe Heart healthy diet. Continue to follow up with PCP and Cardiology.Continue to follow up with [facility] Cardiology. .RX: Sertraline, Trazodone Notify provider [...] talking meter as they came from a [employer].Updated 10.03.24FALL CONTINGENCY PLANMember to call for the [...] BP >180/100??/ Chest pain??/ HR >100??Planned intervention: Deburr Technician on proper BP monitoring technique and reassess/ Encourage low sodium diet/ Discuss breathing exercises/ Encourage medication adherenceAvoid nephrotoxic medications.Continue to follow up with PCP.RX: Brimonidine, Brinzolamide, Latanoprost, Lumigan, Methazolamide, PrednisoloneRecommend tight blood glucose control. Continue to follow up with Ophthalmology.RX: Ezetimibe Heart healthy diet. Continue to follow up with PCP and Cardiology.Continue to follow up with [facility]. .RX: Sertraline, Trazodone Notify provider [...] education needs that may arise.RX: Insulin Toujeo [facility] [id number]/01/24: eGFR 67; Creatinine 0.86 Hemoglobin A1C 7.4ADA [...] BP >180/100??/ Chest pain??/ HR >100??Planned intervention: Deburr Technician on proper BP monitoring technique and reassess/ Encourage low sodium diet/ Discuss breathing exercises/ Encourage medication adherence DIABETES CONTINGENCY PLANMember to call for the following symptoms: Blood sugar <70??/ Blood sugar >300??Planned intervention: Elevate legs/ Limit high-sugar and high-carbohydrate foods/ Go for a walk / consider lantus increaseAvoid nephrotoxic yzxjcgsdhyo89/15/24: eGFR 67; Creatinine 0.86 Creat clearance 51 Continue to follow up with PCPRX: Brimonidine, Brinzolamide, Latanoprost, Lumigan, Methazolamide, PrednisolonePreviously recommend tight blood glucose control. Continue to follow up with Ophthalmology.RX: Ezetimibe Heart healthy diet. Continue to follow up with PCP and Cardiology.RX: Losartan Low NA diet BP 130/70Follow up pcps/p PPM. Continue to follow up with [facility] and Cardiology. .RX: Sertraline, Trazodone Phq2:2 Good [...] kidney disease, with long-term current use of larwcceQ55.XXXS, R42, M15.0, E11.22, N18.263, 145Hx falls Assistive devices to ambulate 2024-10-05 14:44:03 Estab. patient 10-29 min; 1 minor problem; add add modifier 95 for video, modifier 93 for phoneContinue to see PCP. Follow-up with [facility] as needed for any acute or disease education needs that may arise 09/03.RX: Insulin Toujeo CGM [id number]/: eGFR 67; Creatinine 0.86 Hemoglobin A1C 7.4ADA [...] BP >180/100??/ Chest pain??/ HR >100??Planned intervention: Deburr Technician on proper BP monitoring technique and reassess/ Encourage low sodium diet/ Discuss breathing exercises/ Encourage medication adherence DIABETES CONTINGENCY PLANMember to call for the following symptoms: Blood sugar <70??/ Blood sugar >300??Planned intervention: Elevate legs/ Limit high-sugar and high-carbohydrate foods/ Go for a walk / consider lantus increaseAvoid nephrotoxic slruzsjamct37/15/24: eGFR 67; Creatinine 0.86 Creat clearance 51 Continue to follow up with PCPRX: Brimonidine, Brinzolamide, Latanoprost, Lumigan, Methazolamide, PrednisolonePreviously recommend tight blood glucose control. Continue to follow up with Ophthalmology.RX: Ezetimibe Heart healthy diet. Continue to follow up with PCP and Cardiology.RX: Losartan Low NA diet BP 130/70Follow up pcps/p PPM. Continue to follow up with [facility] and Cardiology. .RX: Sertraline, Trazodone Phq2:2 Good [...] kidney disease, with long-term current use of qykruisP20.XXXS, R42, M15.0, E11.22, N18.263, 145Hx falls Assistive devices to ambulate 2024-11-05 17:52:40 Televideo 10-29min; 1 minor problem; add add modifier 95 for video, modifier 93 for phoneContinue to see PCP. [facility] or disease [...] for phoneContinue to see PCP. Follow-up with [facility] as needed for any acute or [...] 30 minutes after eating.RX: Insulin Toujeo CGM [id number]/: eGFR 67; Creatinine 0.86 Hemoglobin A1C 7.4ADA dietFollows with endocrine11/11/24-freestyle micky 2 sensors refill sent to pharmacy per member request Goals Date Goal 2022-05-26 Remember to keep all appointments with your PCP. 2022-05-26 Call if you have que stions or concerns before going to the ER. 2022-05-26 Discussed how to con ehsant [employer] via phone or tablet. 2023-05-13 Remember to [...] it. States it is flesh colored.States a MARKETING AND COMMUNICATIONS OFFICER took a sample and said it was not cancerous about 2 years ago.Saw another provider who member states said they were not going to touch it because of her sugar. 2024-11-11 Member currently genia michaud a PCP. Has an appt with a primary care provider on 12/02/24 to establish care.
[2024-11-18 17:19] LABS: Alanine Aminotransferase 19 U/L (0-31); Albumin Level 4.2 g/dL (3.5-5.0); Alkaline Phosphatase 74 U/L (39-117); Anion Gap 14 (12-20); Aspartate Amino Transferase 28 U/L (5-31); Bilirubin Total 0.4 mg/dL (0.0-1.0); Blood Urea Nitrogen 12 mg/dL (9-16); Calcium 9.1 mg/dL (8.4-10.2); Carbon Dioxide 24 mmol/L (22-29); Chloride 111 mmol/L (96-108); Estimated Glomerular Filt Rate > 60; Glucose Random 116 mg/dL (60-115); Potassium 4.6 mmol/L (3.3-5.1); Sodium 144 mmol/L (135-145)
== END 2024-11-18 15:14 | disposition home or self-care (01) ==
LOC: HO.LAB 15:13
PROVIDERS: PCP Internal Medicine; Visit Provider Nurse Practitioner Adult Health
DX: E11.65 Type 2 diabetes mellitus with hyperglycemia (principal); E11.40 Type 2 diabetes mellitus with diabetic neuropathy, unspecified; R35.0 Frequency of micturition; Z79.4 Long term (current) use of insulin
CPT/HCPCS: 36415; 80053; 82947; 87086; 99212

== ENCOUNTER 2024-11-18 15:13 | Outpatient (AMB) | payer OTHER, SELFPAY ==
[2024-11-18 15:25] VITALS: BP 130/72; PULSE 86; O2SAT 97; BMI 28.4
--- NOTE | 2024-11-18 15:25 | A.OFFVIS_ITS ---
Vital Signs 11/18/24 15:25 Height 5 ft 3.5 in Weight 163 lb 2.273 oz BMI 28.4 BP 130/72 Blood Pressure Location Rt brachial Position Sitting Pulse 86 Pulse Source Pulse Oximeter Pulse Oximetry (%) 97 Oxygen Delivery Method Room Air Intake Visit Reasons: DM Intake Note: Patient presents today for a follow-up on Type 2 Diabetes Mellitus: Last Diabetic eye exam was on: 04/2024 Last Podiatry exam was on: Does not see a Utility Assembler Most recent HbA1c: 6.6%, 11/02/2024 Random Glucose- 120 mg/dL, Today Form Coverer Required: No Accompanied by: Other Relationship Allergies insulin glargine [From Lantus U-100 Insulin] Allergy (Intermediate, Verified 11/18/24 15:26) rash atorvastatin [From Lipitor] Adverse Reaction (Unknown, Verified 11/18/24 15:26) Unknown codeine Adverse Reaction (Unknown, Verified 11/18/24 15:26) Unknown oxycodone Adverse Reaction (Unknown, Verified 11/18/24 15:26) Unknown rosuvastatin [From Crestor] Adverse Reaction (Unknown, Verified 11/18/24 15:26) Unknown sulfadiazine Adverse Reaction (Unknown, Verified 11/18/24 15:26) Unknown beta blockers Adverse Reaction (Unknown, Uncoded 11/18/24 15:26) Unknown HPI Comments Details: 83 YO female who is seen in f/u for T2DM. She was last seen 3 weeks ago without her freestyle nuvia. A1C 11/02/24 6.6%, 05/18/24 7.6% Initially diagnosed with T2DM in 2013 Was initially started on treatment with: Was on Lantus which triggered a rash which resolved about a month or so later Current regimen: Toujeo 25 units Reports low sugars: none recent Treats lows with juice Freestyle nuvia sensor 3 average glucose: 199 14 day continuous glucose sensor report reviewed Glucose Management indicator 8.1 % TIme in ranges: Seventeen % very high (above 250) 41 % high (181-250) 42 % in range (70-180] 0 % low (69-55) 0 % very low (below 54) Interpretation of CGMS glucose readings slight over target Has eyes checked yearly, 04/2024 has significant vision loss Denies neuropathy, last foot exam 3 weeks ago, does not see podiatry. Denies nephropathy, on ARB eGFR 71 10/10 Denies HLD, not on on stain + CAD cardiac pacemaker stent s/p mi Denies symptoms of chest pain, dyspnea or claudication. She c/o slight odor to her urine denies dysuria She c/o some constipation and is requesting refill of ducolax Diet: balanced Not interested in seeing assurance manager Weight: stable PFSH Medical History Legally blind Pacemaker Surgical History Hx of eye surgery Hx of cholecystectomy Family History Mother Heart disease Father Stroke Social History Alcohol intake: never Patient Tobacco Use Status: Never used Tobacco Physical Exam Vital Signs: Last Vital Signs Pulse 86 11/18/24 15:25 BP 130/72 11/18/24 15:25 Pulse Ox 97 11/18/24 15:25 Oxygen Delivery Method Room Air 11/18/24 15:25 BMI result Body Mass Index 28.4 Const Other: Absence of Cushingoid features. Absence of acromegalic features. Neck exam reveals nl size thyroid about 15 gms. No thyroid nodules palpable. Heart S1 S2, Reg R/R. No M/R G. Skin exam reveals absence of vitiligo or acanthosis nigricans. Results Reviewed Results Reviewed: Laboratory Last Values Glucose (Clinic) 120 mg/dL (60-115) H 11/18/24 15:31 Assessment & Plan Assessment & Plan (1) Type 2 diabetes mellitus: Code(s): E11.9 - Type 2 diabetes mellitus without complications Category: Medical Qualifiers: Diabetes mellitus machine featheredger and reducer insulin use: with half-way use Diabetes mellitus complication status: with hyperglycemia Qualified Code(s): E11.65 - Type 2 diabetes mellitus with hyperglycemia; Z79.4 - group home (current) use of insulin Plan: 83-year-old diabetic with neuropathy, CAD and vision loss, Glucose targets revised given advanced age and comorbidities. The patient had an opportunity to ask questions regarding treatment plan. The patient expressed understanding and agreement with the above treatment plan. The patient is aware they should contact our office by phone for worsening glucose readings or for any low blood sugars which may warrant a change in diabetes medication. Compliance is encouraged with medications and any followup testing/consults which may have been ordered. Orders: Orders Comprehensive Met. Panel 11/18/24 E11.65 - Type 2 diabetes mellitus with hyperglycemia, Z79.4 - metalizing supervisor (current) use of insulin Medications: Changed From docusate sodium 100 mg PO BID To docusate sodium 100 mg PO BID 30 days 60 caps 0RF Refilled docusate sodium 100 mg PO BID 30 days 60 caps 0RF Patient Instructions: Take 15 carb carbohydrate grams to treat a low sugar (3-4 glucose tablets, half a glass of juice or 15 carbohydrate grams of soft candy such as gummie snacks). Recheck your sugar in 15 minutes and re-treat again with 15 carbohydrate grams if low or still with symptoms. Do not drive a car or operate machinery if you do not know what your blood sugar is, if it is low or in excess of 300. Check your feet daily looking for any signs of infection, drainage, redness, ulceration and seek medical attention if this occurs. Break in shoes gradually and do not wear open-toed shoes or walk stocking footed or barefooted. Coding Level of Care Code Est Pt Level 4 (66807) Complex EM visit Add On G2211 Diagnoses Type 2 diabetes mellitus with hyperglycemia, with long-term current use of insulin E11.65; Z79.4 Diabetes mellitus half-way insulin use: with machine featheredger and reducer use Diabetes mellitus complication status: with hyperglycemia
[2024-11-18 15:35] LABS: Glucose, Whole Blood 120 mg/dL (60-115)
--- OUTSIDE RECORDS SUMMARY | 2024-11-18 16:31 | XMS_ITS | Encounter Summary ---
Author Organization [facility] Address [address] [place] [address] Care Team Providers Care Die Polisher Name Role Phone Lou Messina MD Primary Care Provider [phone] Rc Patrick MD Unavailable Etienne Collier MD, PHD Unavailable Unava ilMadonna Tee PA-C Primary Care Provider + Lou Messina MD Primary Care Provider [phone] Mela Hernandez Pharm.D Unavailable [phone] Encounter Details Date Type Department Care Team Description 07/17/2019 Telephone Adult Medicine - [address] [address] Sammie Lynne PA-C Social History Tobacco Use Types Packs/Day Years Used Date Smoking Tobacco: Never Smokeless Tobacco: Never Alcohol Use Standard Drinks/Week Comments No 0 (1 standard drink = 0.6 oz pur e alcohol) Alcohol Habits Answer Date Recorded How often do you have a drin k containing alcohol? Never 11/17/2023 How many drinks containing a lcohol do you have on a typical day when you are drinking? Patient does not drink 11/17/2023 How often do you have six or more drinks on one occasion? Never 11/17/2023 Social Isolation Answer Date Recorded In a typical week, how many times do you talk on the phone with family, friends, or neighbors? More than three times a week 11/17/2023 How often do you get togethe r with friends or relatives? More than three times a week 11/17/2023 How often do you attend chur ch or voodoo services? Never 11/17/2023 Do you belong to any clubs o r organizations such as hindu groups, unions, fraternal or athletic groups, or school groups? No 11/17/2023 How often do you attend meet ings of the clubs or organizations you belong to? Never 11/17/2023 Are you now , , , , never or living with a partner? 11/17/2023 Physical Activity Answer Date Recorded On average, how many days pe r week do you engage in moderate to strenuous exercise (like walking fast, running, jogging, dancing, swimming, biking, or other activities that cause a light or heavy sweat)? 3 days 11/17/2023 On average, how many minutes do you engage in exercise at this level? 0 min 08/14/2021 Stress Answer Date Recorded Do you feel stress - tense, restless, nervous, or anxious, or unable to sleep at night because your mind is troubled all the time - these days? Only a little 11/17/2023 Financial Resource Strain Answer Date R ecorded How hard is it for you to pa y for the very basics like food, housing, medical care, and heating? Not hard at all 11/17/2023 Intimate Partner Violence Answer Date R ecorded Within the last year, have y ou been afraid of your partner or ex-partner? No 11/17/2023 Within the last year, have y ou been humiliated or emotionally abused in other ways by your partner or ex-partner? No Within the last year, have y ou been kicked, hit, slapped, or otherwise physically hurt by your partner or ex-partner? No 11/17/2023 Within the last year, have y ou been raped or forced to have any kind of sexual activity by your partner or ex-partner? No 11/17/2023 Food Insecurity Answer Date Recorded Within the past 12 months, y ou worried that your food would run out before you got money to buy more. Never true 11/17/2023 Within the past 12 months, t he food you bought just didn't last and you didn't have money to get more. Never true 11/17/2023 Transportation Needs Answer Date Record ed In the past 12 months, has l ack of transportation kept you from medical appointments or from getting medications? No 09/2023 In the past 12 months, has l ack of transportation kept you from meetings, work, or getting things needed for daily living? No 11/17/2023 Housing Stability Answer Date Recorded In the last 12 months, was t here a time when you were not able to pay the mortgage or rent on time? No 11/17/2023 In the last 12 months, how many places have you lived? 1 11/17/2023 In the last 12 months, was t here a time when you did not have a steady place to sleep or slept in a detention (including now)? No 11/17/2023 Sex Assigned at Date Recorded Not on file Job Start Date Occupation Industry Not on file Not on file Not on file documented as of this encounter Plan of Treatment Not on file documented as of this encounter Visit Diagnoses Not on filedocumented in this encounter Care Teams Die Polisher Relationship Specialty Start Date End Date Lou Messina MD [address] [place], [place] PCP - General Internal Medicine 01/28/16 10/07/23 Madonna Saul PA-C [address] [place] PCP - General Internal Medicine 10/08/23 10/08/23 Lou Messina MD [address] [place] PCP - General Internal Medicine 10/09/23 Rc Patrick MD [address] [place], [place] Specialist Cardiovascular Disease 01/01/21 Etienne Collier MD, PHD [address] [place], [place] Specialist Neurosurgery 08/14/21 Mela Hernandez, Pharm.D [address] [place] [id number] Specialist PHAMACIST CLINICIAN 11/17/23 documented as of this encounter
--- OUTSIDE RECORDS SUMMARY | 2024-11-18 16:31 | XMS_ITS | Encounter Summary ---
Author Organization [facility] Address [address] [place] [address] Care Team Providers Care Assistant Financial Accountant Name Role Phone Lou Messina MD Primary Care Provider [phone] Rc Patrick MD Unavailable Etienne Collier MD, PHD Unavailable Unava ilable Madonna Saul PA-C Primary Care Provider + Lou Messina MD Primary Care Provider [phone] Mela Hernandez Pharm.D Unavailable [phone] Reason for Referral * Non FREDO (Routine) - Authorized/Booked Specialty Diagnoses / Procedures Referred By Gisselle serrato Referred To Contact Ophthalmology Procedures REFERRAL TO EXTERNAL OPHTHALMOLOGY Lou Messina MD [address] [place] [address] Cain Roblero Referral ID Status Reason Start Date Expiration Date V isits Requested Visits Authorized [id number] Authorized/B ooked 06/09/2016 09/09/2016 1 1 Reason for Visit * Reason Onset Date Comments Cloth Examiner Feedback 06/09/2016 Optometry Encounter Details Date Type Department Care Team Description 06/09/2016 Telephone Adult Medicine - [place] [address] [place] [address] Lou Messina MD [address] [place] [address] Cloth Examiner Feedback (Optometry) Social History Tobacco Use Types Packs/Day Years Used Date Smoking Tobacco: Never Alcohol Use Standard Drinks/Week Comments Not Asked 0 (1 standard drink = 0.6 oz [...] 11/17/2023 How often do you attend chur or mandaen services? Never 11/17/2023 Do you belong to any clubs o r organizations such as yazdanism groups, unions, fraternal or athletic groups, or [...] place to sleep or slept in a custodial (including now)? No 11/17/2023 Sex Assigned at Date Recorded Not on file Job Start Date Occupation Industry Not on file Not on file Not on file documented as of this encounter Miscellaneous Notes * Telephone Encounter - Lou Messina MD - 06/09/2016 11:49 AM EDT Thank you new order signed * Telephone Encounter - Lis Ramos - 06/09/2016 11:[address] Messina You referred patient to Dr Pike for second opinion for Glaucoma, Dr Pike is a retina specialistand does not see patients for this dx I have pended a new order w/o a provider listed documented in this encounter Plan of Treatment Not on file documented as of this encounter Visit Diagnoses Not on filedocumented in this encounter Care Teams Assistant Financial Accountant Relationship Specialty Start Date End Date Lou Messina MD [address] [place] [address] PCP - General Internal Medicine 01/28/16 10/07/23 Madonna Saul PA-C [address] [place] [address] PCP - General Internal Medicine 10/08/23 10/08/23 Lou Messina MD [address] [place] [address] PCP - General Internal Medicine 10/09/23 Rc Patrick MD [address] [place] [address] Specialist Cardiovascular Disease 01/01/21 Etienne Collier MD, PHD [address] [place], [place] Specialist Neurosurgery 08/14/21 Mela Hernandez, Pharm.D [address] [place] [address] Specialist PHAMACIST CLINICIAN 11/17/23 documented as of this encounter
--- OUTSIDE RECORDS SUMMARY | 2024-11-18 16:31 | XMS_ITS | Encounter Summary ---
Author Organization [facility] Address [address] [place] [address] Care Team Providers Care Sales Representative Aircraft Name Role Phone Valeria Lopez MD Primary Care Provider Unavai ruthie Messina Ch MD Primary Care Provider [phone] Lou Messina MD Primary Care Provider [phone] Rc Patrick MD Unavailable Etienne Collier MD, PHD Unavailable Unava Madonna Salguero PA-C Primary Care Provider + Lou Messina MD Primary Care Provider [phone] Mela Hernandez Pharm.D Unavailable [phone] Encounter Details Date Type Department Care Team Description 05/06/2010 Hospital Medical Records [address] [place] [address] Maida Wyman PA-C Social History Tobacco Use Types Packs/Day Years Used Date Smoking Tobacco: Never Passive Smoke Exposure: Current Smokeless Tobacco: Never Alcohol Use Standard Drinks/Week [...] How often do you attend chur or zoroastrianism services? Never 11/17/2023 Do you belong to any clubs o r organizations such as zoroastrian groups, unions, fraternal or athletic groups, or [...] place to sleep or slept in a snf (including now)? No 11/17/2023 Sex Assigned at Date Recorded Not on file Job Start Date Occupation Industry Not on file Not on file Not on file documented as of this encounter Plan of Treatment Not on file documented as of this encounter Visit Diagnoses Not on filedocumented in this encounter Care Teams Sales Representative Aircraft Relationship Specialty Start Date End Date Valeria Lopez MD PCP - General 06/23/08 12/08/13 Lou Messina MD [address] [place], [place] PCP - General Internal Medicine 01/28/16 10/07/23 Lou Messina MD [address] [place], [place] PCP - General 12/09/13 01/27/16 Madonna Saul PA-C [address] [place], [place] PCP - General Internal Medicine 10/08/23 10/08/23 Lou Messina MD [address] [place], [place] PCP - General Internal Medicine 10/09/23 Rc Patrick MD [address] [place] [address] Specialist Cardiovascular Disease 01/01/21 Etienne Collier MD, PHD [address] [place] [address] Specialist Neurosurgery 08/14/21 Mela Hernandez, Pharm.D [address] [place] [address] [id number] Specialist PHAMACIST CLINICIAN 11/17/23 documented as of this encounter
--- OUTSIDE RECORDS SUMMARY | 2024-11-18 16:31 | XMS_ITS | Encounter Summary ---
Author Organization [facility] Address [address] [place] [address] Care Team Providers Care Lpn Rn Hospice Name Role Phone Lou Messina MD Primary Care Provider [phone] Rc Patrick MD Unavailable Etienne Collier MD, PHD Unavailable Unava ilable Madonna Saul PA-C Primary Care Provider + Lou Messina MD Primary Care Provider [phone] Mela Hernandez Pharm.D Unavailable [phone] Encounter Details Date Type Department Care Team Description 09/27/2019 Power System Engineer Report Medical Records [address] [place] [address] Rc Patrick MD [address] [place] [address] [id number] Social History Tobacco Use Types Packs/Day Years [...] often do you attend chur ch or restoration services? Never 11/17/2023 Do you belong to any clubs o r organizations such as mormon groups, unions, fraternal or athletic groups, or [...] place to sleep or slept in a retirement (including now)? No 11/17/2023 Sex Assigned at Date Recorded Not on file Job Start Date Occupation Industry Not on file Not on file Not on file documented as of this encounter Plan of Treatment Not on file documented as of this encounter Visit Diagnoses Not on filedocumented in this encounter Care Teams Lpn Rn Hospice Relationship Specialty Start Date End Date Lou Messina MD [address] [place] [address] PCP - General Internal Medicine 01/28/16 10/07/23 Madonna Saul PA-C [address] [place] [address] PCP - General Internal Medicine 10/08/23 10/08/23 Lou Messina MD [address] [place], [place] PCP - General Internal Medicine 10/09/23 Rc Patrick MD [address] [place] [address] Specialist Cardiovascular Disease 01/01/21 Etienne Collier MD, PHD [address] [place], [place] Specialist Neurosurgery 08/14/21 Mela Hernandez, Pharm.D [address] [place] [address] Specialist PHAMACIST CLINICIAN 11/17/23 documented as of this encounter
--- OUTSIDE RECORDS SUMMARY | 2024-11-18 16:31 | XMS_ITS | Encounter Summary ---
Author Organization [facility] Address [address] [place] [address] Care Team Providers Care Director Of Ancillary Services Name Role Phone Valeria Lopez MD Primary Care Provider Unavai ruthie Messina Ch MD Primary Care Provider [phone] Lou Messina MD Primary Care Provider [phone] Rc Patrick MD Unavailable Etienne Collier MD, PHD Unavailable Unava ilMadonna Tee PA-C Primary Care Provider + Lou Messina MD Primary Care Provider [phone] Mela Hernandez Pharm.D Unavailable [phone] Encounter Details Date Type Department Care Team Description 08/18/2013 Test Data Developer Report Medical Records [address] [place] [address] Karen Manuel Social History Tobacco Use Types Packs/Day Years [...] How often do you attend chur or latter-day services? Never 11/17/2023 Do you belong to any clubs o r organizations such as synagogue groups, unions, fraternal or athletic groups, or [...] place to sleep or slept in a alf (including now)? No 11/17/2023 Sex Assigned at Date Recorded Not on file Job Start Date Occupation Industry Not on file Not on file Not on file documented as of this encounter Plan of Treatment Not on file documented as of this encounter Visit Diagnoses Not on filedocumented in this encounter Care Teams Director Of Ancillary Services Relationship Specialty Start Date End Date Valeria Lopez MD PCP - General 06/23/08 12/08/13 Lou Messina MD [address] [place], [place] PCP - General Internal Medicine 01/28/16 10/07/23 Lou Messina MD [address] [place], [place] PCP - General 12/09/13 01/27/16 Madonna Saul PA-C [address] [place], [place] PCP - General Internal Medicine 10/08/23 10/08/23 Lou Messina MD [address] [place], [place] PCP - General Internal Medicine 10/09/23 Rc Patrick MD [address] [place] [address] Specialist Cardiovascular Disease 01/01/21 Etienne Collier MD, PHD [address] [place] [address] Specialist Neurosurgery 08/14/21 Mela Hernandez, Pharm.D [address] [place] [address] Specialist PHAMACIST CLINICIAN 11/17/23 documented as of this encounter
--- OUTSIDE RECORDS SUMMARY | 2024-11-18 16:31 | XMS_ITS | Encounter Summary ---
Author Organization [facility] Address [address] [place] [address] Care Team Providers Care Cafeteria Table Attendant Name Role Phone Lou Messina MD Primary Care Provider [phone] Rc Patrick MD Unavailable Etienne Collier MD, PHD Unavailable Unava Madonna Salguero PA-C Primary Care Provider + Lou Messina MD Primary Care Provider [phone] Mela Hernandez Pharm.D Unavailable [phone] Reason for Visit * Reason Onset Date Comments medication problems 04/05/2019 losartan-hyd rochlorothiazide (HYZAAR) 100-12.5 MG per tablet Encounter Details Date Type Department Care Team Description 04/05/2019 Telephone Adult Medicine - [place] [address] [place], [place] [id number] Lou Messina MD [address] [place], [place] [phone] medication problems (losartan-hydrochlorothi azide (HYZAAR) 100-12.5 MG per tablet) Social History Tobacco Use Types Packs/Day Years [...] week 11/17/2023 How often do you attend [facility] or scientology services? Never 11/17/2023 Do you belong to [...] place to sleep or slept in a senior care (including now)? No 11/17/2023 Sex Assigned at Date Recorded Not on file Job Start Date Occupation Industry Not on file Not on file Not on file documented as of this encounter Miscellaneous Notes * Telephone Encounter - Clementina Aponte M.A. - 04/06/2019 8:29 AM EDT Pt contacted and informed of medication change. * Telephone Encounter - Lou Messina MD - 04/05/2019 5:31 PM EDT Changed to Lisinopril hctz * Telephone Encounter - Roma Callaway - 04/05/2019 4:23 PM EDT Who is calling? A pharmacist: Pharmacy: [facility] Pharmacist Name: fax request Pharmacy Name of the medication losartan-hydrochlorothiazide (HYZAAR) 100-12.5 MG per tablet What is the specific problem or interaction? Fax request states product on backorder/unavailable If the patient is having a problem with taking the med - how long has the problem been going on? N/A documented in this encounter Plan of Treatment Not on file documented as of this encounter Visit Diagnoses Not on filedocumented in this encounter Care Teams Cafeteria Table Attendant Relationship Specialty Start Date End Date Lou Messina MD [address] [place] [address] PCP - General Internal Medicine 01/28/16 10/07/23 Madonna Saul PA-C [address] [place] [address] PCP - General Internal Medicine 10/08/23 10/08/23 Lou Messina MD [address] [place] [address] PCP - General Internal Medicine 10/09/23 Rc Patrick MD [address] [place] [address] Specialist Cardiovascular Disease 01/01/21 Etienne Collier MD, PHD [address] [place], [place] Specialist Neurosurgery 08/14/21 Mela Hernandez, Pharm.D [address] [place] [id number] Specialist PHAMACIST CLINICIAN 11/17/23 documented as of this encounter
--- OUTSIDE RECORDS SUMMARY | 2024-11-18 16:31 | XMS_ITS | Encounter Summary ---
Author Organization [facility] Address [address] [place] [address] Care Team Providers Care Chicken Picker Name Role Phone Valeria Lopez MD Primary Care Provider Unavai ruthie Messina Ch MD Primary Care Provider [phone] [phone] Lou Messina MD Primary Care Provider [phone] Rc Patrick MD Unavailable Etienne Collier MD, PHD Unavailable Unava Madonna Salguero PA-C Primary Care Provider + Lou Messina MD Primary Care Provider +1 [phone] Mela Hernandez Pharm.D Unavailable [phone] Encounter Details Date Type Department Care Team Description 07/12/2010 Incoming Correspondence Medical Records [address] [place] [address] Vascular, [facility] [address] [place] [address] Social History Tobacco Use Types Packs/Day Years [...] How often do you attend chur or moravian services? Never 11/17/2023 Do you belong to any clubs o r organizations such as catholic groups, unions, fraternal or athletic groups, or [...] place to sleep or slept in a fci (including now)? No 11/17/2023 Sex Assigned at Date Recorded Not on file Job Start Date Occupation Industry Not on file Not on file Not on file documented as of this encounter Plan of Treatment Not on file documented as of this encounter Visit Diagnoses Not on filedocumented in this encounter Care Teams Chicken Picker Relationship Specialty Start Date End Date Valeria Lopez MD PCP - General 06/23/08 12/08/13 Lou Messina, [address] [place], [place] PCP - General Internal Medicine 01/28/16 10/07/23 Lou Messina MD [address] [place], [place] PCP - General 12/09/13 01/27/16 Madonna Saul PA-C [address] [place], [place] PCP - General Internal Medicine 10/08/23 10/08/23 Lou Messina MD [address] [place], [place] PCP - General Internal Medicine 10/09/23 Rc Patrick MD [address] [place] [address] Specialist Cardiovascular Disease 01/01/21 Etienne Collier MD, PHD [address] [place] [address] Specialist Neurosurgery 08/14/21 Mela Hernandez, Pharm.D [address] [place] [address] Specialist PHAMACIST CLINICIAN 11/17/23 documented as of this encounter
--- OUTSIDE RECORDS SUMMARY | 2024-11-18 16:31 | XMS_ITS | Encounter Summary ---
Author Organization [facility] Address [address] [place] [address] Care Team Providers Care Switchboard Operator Assistant Name Role Phone Lou Messina MD Primary Care Provider [phone] Rc Patrick MD Unavailable Etienne Collier MD, PHD Unavailable Unava Madonna Salguero PA-C Primary Care Provider + Lou Messina MD Primary Care Provider +[phone] Mela Hernandez Pharm.D Unavailable [phone] Encounter Details Date Type Department Care Team Description 10/16/2016 Specialty Food Products Supervisor Report Medical Records [address] [place] [address] Neeta Bolton NP Social History Tobacco Use Types Packs/Day Years [...] often do you attend chur ch or episcopalian services? Never 11/17/2023 Do you belong to any clubs o r organizations such as baptism groups, unions, fraternal or athletic groups, or [...] on filedocumented in this encounter Care Teams Switchboard Operator Assistant Relationship Specialty Start Date End Date Lou Messina MD [address] [place], [place] PCP - General Internal Medicine 01/28/16 10/07/23 Madonna Saul PA-C [address] [place], [place] PCP - General Internal Medicine 10/08/23 10/08/23 Lou eMssina MD [address] [place], [place] PCP - General Internal Medicine 10/09/23 Rc Patrick MD [address] [place], [place] Specialist Cardiovascular Disease 01/01/21 Etienne Collier MD, PHD [address] [place], [place] Specialist Neurosurgery 08/14/21 Mela Hernandez, Pharm.D [address] [place] [address] Specialist PHAMACIST CLINICIAN 11/17/23 documented as of this encounter
--- OUTSIDE RECORDS SUMMARY | 2024-11-18 16:31 | XMS_ITS | Encounter Summary ---
Author Organization [facility] Address [address] [place] [address] Care Team Providers Care Forge Hand Name Role Phone Lou Messina MD Primary Care Provider [phone] Rc Patrick MD Unavailable Etienne Collier MD, PHD Unavailable Unava ilable Madonna Saul PA-C Primary Care Provider + Lou Messina MD Primary Care Provider [phone] Mela Hernandez Pharm.D Unavailable [phone] Reason for Visit * Reason Onset Date Comments Medication 05/30/2019 Encounter Details Date Type Department Care Team Description 05/30/2019 Telephone Adult Medicine - [place] [address] [place] [address] Lou Messina MD [address] [place] [address] Medication Social History Tobacco Use Types Packs/Day Years [...] often do you attend chur ch or oriental orthodox services? Never 11/17/2023 Do you belong to any clubs o r organizations such as rastafarian groups, unions, fraternal or athletic groups, or [...] encounter Miscellaneous Notes * Telephone Encounter - Lina GironP.N. - 05/30/2019 1:34 PM EDT msg left for clarification. What do they need? Pt is presently on prinizide with is a combination of lisinopril and hctz * Telephone Encounter - Kimberly Medina - 05/30/2019 10:11 AM EDT Who is calling? Formerly [facility], [facility] - [facility] Name of the medication lisinopril-hydrochlorothiazide (PRINZIDE,ZESTORETIC) 10- 12.5 MG per tablet What is the specific problem or interaction? Pt wondering what bp pressure rx she is to be taking If the patient is having a problem with taking the med - how long has the problem been going on? N/A documented in this encounter Plan of Treatment Not on file documented as of this encounter Visit Diagnoses Not on filedocumented in this encounter Care Teams Forge Hand Relationship Specialty Start Date End Date Lou Messina MD [address] [place], [place] PCP - General Internal Medicine 01/28/16 10/07/23 Madonna Saul PA-C [address] [place] [address] PCP - General Internal Medicine 10/08/23 10/08/23 Lou Messina MD [address] [place] [address] PCP - General Internal Medicine 10/09/23 Rc Patrick MD [address] [place] [address] Specialist Cardiovascular Disease 01/01/21 Etienne Collier MD, PHD [address] [place] [address] Specialist Neurosurgery 08/14/21 Mela Hernandez, Pharm.D [address] [place] [address] Specialist PHAMACIST CLINICIAN 11/17/23 documented as of this encounter
--- OUTSIDE RECORDS SUMMARY | 2024-11-18 16:31 | XMS_ITS | Encounter Summary ---
Author Organization [facility] Address [address] [place] [address] Care Team Providers Care Drum Worker Name Role Phone Lou Messina MD Primary Care Provider [phone] Lou Messina MD Primary Care Provider [phone] [phone] Rc Patrick MD Unavailable Etienne Collier MD, PHD Unavailable Unava ilMadonna Tee PA-C Primary Care Provider + Lou Messina MD Primary Care Provider [phone] Mela Hernandez Pharm.D Unavailable Encounter Details Date Type Department Care Team Description 04/25/2015 Hospital Medical Records [address] [place] [address] Lucio Hansen Social History Tobacco Use Types Packs/Day Years [...] How often do you attend chur or yazidi services? Never 11/17/2023 Do you belong to any clubs o r organizations such as episcopal groups, unions, fraternal or athletic groups, or [...] on filedocumented in this encounter Care Teams Drum Worker Relationship Specialty Start Date End Date Lou Messina MD [address] [place], [place] PCP - General Internal Medicine 01/28/16 10/07/23 Lou Messina MD [address] [place], [place] PCP - General 12/09/13 01/27/16 Madonna Saul PA-C [address] [place], [place] PCP - General Internal Medicine 10/08/23 10/08/23 Lou Messina MD [address] [place], [place] PCP - General Internal Medicine 10/09/23 Rc Patrick MD [address] [place], [place] Specialist Cardiovascular Disease 01/01/21 Etienne Collier MD, PHD [address] [place] [address] Specialist Neurosurgery 08/14/21 Mela Hernandez, Pharm.D [address] [place] [address] Specialist PHAMACIST CLINICIAN 11/17/23 documented as of this encounter
--- OUTSIDE RECORDS SUMMARY | 2024-11-18 16:31 | XMS_ITS | Encounter Summary ---
Author Organization [facility] Address [address] [place] [address] Care Team Providers Care Inspector Government Property Name Role Phone Lou Messina MD Primary Care Provider [phone] Rc Patrick MD Unavailable Etienne Collier MD, PHD Unavailable Unava ilable Madonna Saul PA-C Primary Care Provider + Lou Messina MD Primary Care Provider [phone] Mela Hernandez Pharm.D Unavailable [phone] Encounter Details Date Type Department Care Team Description 04/12/2022 Home Health Certification Medical Records [address] [place] [address] Social History Tobacco Use Types Packs/Day Years [...] often do you attend chur ch or caodaism services? Never 11/17/2023 Do you belong to any clubs o r organizations such as confucianism groups, unions, fraternal or athletic groups, or [...] place to sleep or slept in a [facility] (including now)? No 11/17/2023 Sex Assigned at Date Recorded Not on file Job Start Date Occupation Industry Not on file Not on file Not on file documented as of this encounter Plan of Treatment Not on file documented as of this encounter Visit Diagnoses Not on filedocumented in this encounter Care Teams Inspector Government Property Relationship Specialty Start Date End Date Lou Messina MD [address] [place], [place] PCP - General Internal Medicine 01/28/16 10/07/23 Madonna Saul PA-C [address] [place], [place] PCP - General Internal Medicine 10/08/23 10/08/23 Lou Messina MD [address] [place], [place] PCP - General Internal Medicine 10/09/23 Rc Patrick MD [address] [place], [place] Specialist Cardiovascular Disease 01/01/21 Etienne Collier MD, PHD [address] [place], [place] Specialist Neurosurgery 08/14/21 Mela Hernandez, Pharm.D [address] [place] [address] Specialist PHAMACIST CLINICIAN 11/17/23 documented as of this encounter
--- OUTSIDE RECORDS SUMMARY | 2024-11-18 16:31 | XMS_ITS | Encounter Summary ---
Author Organization [facility] Address [address] [place] [address] Care Team Providers Care Disc Inspector Name Role Phone Lou Messina MD Primary Care Provider [phone] Rc Patrick MD Unavailable Etienne Collier MD, PHD Unavailable Unava ilable Madonna Saul PA-C Primary Care Provider + Lou Messina MD Primary Care Provider [phone] Mela Hernandez Pharm.D Unavailable [phone] Encounter Details Date Type Department Care Team Description 03/17/2019 Dyeing Machine Feeder Report Medical Records [address] [place] [address] Rehab., Prakash Social History Tobacco Use Types Packs/Day Years [...] often do you attend chur ch or episcopal services? Never 11/17/2023 Do you belong to any clubs o r organizations such as bahai groups, unions, fraternal or athletic groups, or [...] place to sleep or slept in a half-way (including now)? No 11/17/2023 Sex Assigned at Date Recorded Not on file Job Start Date Occupation Industry Not on file Not on file Not on file documented as of this encounter Plan of Treatment Not on file documented as of this encounter Visit Diagnoses Not on filedocumented in this encounter Care Teams Disc Inspector Relationship Specialty Start Date End Date Lou Messina MD [address] [place], [place] PCP - General Internal Medicine 01/28/16 10/07/23 Madonna Saul PA-C [address] [place], [place] PCP - General Internal Medicine 10/08/23 10/08/23 Lou Messina MD [address] [place], [place] PCP - General Internal Medicine 10/09/23 Rc Patrick MD [address] [place], [place] Specialist Cardiovascular Disease 01/01/21 Etienne Collier MD, PHD [address] [place], [place] Specialist Neurosurgery 08/14/21 Mela Hernandez, Pharm.D [address] [place] [address] Specialist PHAMACIST CLINICIAN 11/17/23 documented as of this encounter
--- OUTSIDE RECORDS SUMMARY | 2024-11-18 16:31 | XMS_ITS | Encounter Summary ---
Author Organization [facility] Address [address] [place] [address] Care Team Providers Care Head Piece Assembler Name Role Phone Lou Messina MD Primary Care Provider [phone] Rc Patrick MD Unavailable Etienne Collier MD, PHD Unavailable Unava ilable Madonna Saul PA-C Primary Care Provider + Lou Messina MD Primary Care Provider [phone] Mela Hernandez Pharm.D Unavailable [phone] Reason for Visit * Reason Onset Date Comments Faxed Refill 10/15/2016 Error 10/15/2016 Encounter Details Date Type Department Care Team Description 10/15/2016 Refill Adult Medicine - [place] [address] [place] [address] Lou Messina MD [address] [place] [address] Faxed Refill; Error Social History Tobacco Use Types Packs/Day Years [...] often do you attend chur ch or quaker services? Never 11/17/2023 Do you belong to any clubs o r organizations such as oriental orthodox groups, unions, fraternal or athletic groups, or [...] on filedocumented in this encounter Care Teams Head Piece Assembler Relationship Specialty Start Date End Date Lou Messina MD [address] [place], [place] PCP - General Internal Medicine 01/28/16 10/07/23 Madonna Saul PA-C [address] [place], [place] PCP - General Internal Medicine 10/08/23 10/08/23 Lou Messina MD [address] [place], [place] PCP - General Internal Medicine 10/09/23 Rc Patrick MD [address] [place], [place] Specialist Cardiovascular Disease 01/01/21 Etienne Collier MD, PHD [address] [place] [address] Specialist Neurosurgery 08/14/21 Mela Hernandez, Pharm.D [address] [place] [address] Specialist PHAMACIST CLINICIAN 11/17/23 documented as of this encounter
--- OUTSIDE RECORDS SUMMARY | 2024-11-18 16:31 | XMS_ITS | Encounter Summary ---
Author Organization [facility] Address [address] [place] [address] Care Team Providers Care Program Therapist Name Role Phone Lou Messina MD Primary Care Provider [phone] Rc Patrick MD Unavailable Etienne Collier MD, PHD Unavailable Unava ilable Madonna Saul PA-C Primary Care Provider + Lou Messina MD Primary Care Provider [phone] Mela Hernandez Pharm.D Unavailable Reason for Visit * Reason Onset Date Comments Call From Insurance Co 03/31/2019 Defecogra phy Encounter Details Date Type Department Care Team Description 03/31/2019 Telephone Gastroenterology [address] [place] [address] Minh Donaldson MD Call From Insurance [employer] (Defecography ) Social History Tobacco Use Types Packs/Day Years [...] How often do you attend chur or congregation services? Never 11/17/2023 Do you belong to any clubs o r organizations such as latter-day groups, unions, fraternal or athletic groups, or [...] place to sleep or slept in a jail (including now)? No 11/17/2023 Sex Assigned at Date Recorded Not on file Job Start Date Occupation Industry Not on file Not on file Not on file documented as of this encounter Miscellaneous Notes * Telephone Encounter - Dimitry Oscar - 04/15/2019 12:25 PM EDT Per [facility]. Auth # [id number] Approved 3 visits 04/05/2019-04/05/2020 * Telephone Encounter - Dimitry Oscar - 04/08/2019 10:37 AM EDT Received respone from [facility] noting that Request pending Dertmination under Reference Number [id number]. Lay from [facility] Medical Management Team called at 9AM on 04-08-2019 to ask if this was considered Out of Network and I explained that it was and [facility] is the only Facility that would do this procedure. She documented that so she can forward to reviewing Nurse and they will contact us back with a final response. Waiting for that response. * Telephone Encounter - Cheyenne Magallon M.A. - 04/05/2019 3:58 PM EDT Noted, thank you * Telephone Encounter - Dimitry Oscar - 04/05/2019 3:54 PM EDT Notes, imaging, faxed to [facility], waiting on response. * Telephone Encounter - Cheyenne Magallon M.A. - 04/05/2019 2:47 PM EDT Pt needs an out of Network Refferal to be able to have a defecogram which per Dr donaldson she needs done , and it can only be performed at [facility]/ * Telephone Encounter - Dimitry Oscar - 04/05/2019 1:56 PM EDT Evelyn please rout this to Gi dept for scheduling. Thanks * Telephone Encounter - Evelyn Schaefer - 04/05/2019 1:41 PM EDT No prior auth required for defocogram. Pt will need to get an out of network referral. * Telephone Encounter - Cheyenne Riggs.AFranky - 04/05/2019 1:33 PM EDT Pt needs authorization for defecogram at [facility]. * Telephone Encounter - Cheyenne Magallon M.AFranky - 04/05/2019 1:[address] Donaldson needs defecogram, will work on this * Telephone Encounter - Cheyenne Magallon M.A. - 04/05/2019 12:55 PM EDT According to her last visit: PLAN: 1. Patient to undergo defecography and a Gastrografin enema to more clearly delineate her hindgut function. ?? 2. She did undergo an upper GI with small bowel follow-through to assess her relative transit time between the stomach and the cecum. ?? She was provided with a written handout outlining appropriate skin care. This was reviewed several times the patient does not appear to have a good understanding of what she needs to do. Patient has no concept of how the bowel works and despite several attempts to educate her it appears that she fails to grasp the issues presented to her. ?? Edtq-at-wjnr time exceeded 35 minutes with greater than 50% of the time spent counseling the patient. (Pt did get BE done , would you still need Defecogram?) ?? * Telephone Encounter - Cammy Mao - 04/05/2019 12:05 PM EDT Therese from [facility] is calling to inform you that she was not able to find an in-network facility who does the defecography. The office would have to submit an out of network auhtorizatin for [facility]. Both numbers for Prior aohtorization are # for (Medical Part) - [employer] # (Radiology) . If you need to then you can access the requirements on the web site [email or web address] * Telephone Encounter - Cheyenne Magallon M.A. - 03/31/2019 4:10 PM EDT Noted will wait for call/vs * Telephone Encounter - Keyla Bedoya - 03/31/2019 1:47 PM EDT Patient called to book her defecography. I called [facility] scheduling department and prior auth is needed for patient insurance. I was informed the patients insurance will be consider an [id number]. Ispoke with the patient an informed her if she would like for me to continue to book this appointment or if she would like to call her insurance. Patient stated she would call her insurance and get back to us. Patients insurance called with the patient on the phone and will give the patient a few places [facility] will cover for her to have the Defecography done. Patient will call back with information. documented in this encounter Plan of Treatment Not on file documented as of this encounter Visit Diagnoses Not on filedocumented in this encounter Care Teams Program Therapist Relationship Specialty Start Date End Date Lou Messina MD [address] [place] [address] PCP - General Internal Medicine 01/28/16 10/07/23 Madonna Saul PA-C [address] [place] [address] PCP - General Internal Medicine 10/08/23 10/08/23 Lou Messina MD [address] [place] [address] PCP - General Internal Medicine 10/09/23 Rc Patrick MD [address] [place] [address] Specialist Cardiovascular Disease 01/01/21 Etienne Collier MD, PHD [address] [place], [place] Specialist Neurosurgery 08/14/21 Mela Hernandez, Pharm.D [address] [place] [address] Specialist PHAMACIST CLINICIAN 11/17/23 documented as of this encounter
--- OUTSIDE RECORDS SUMMARY | 2024-11-18 16:31 | XMS_ITS | Encounter Summary ---
Author Organization [facility] Address [address] [place] [address] Care Team Providers Care Health Information Provider Name Role Phone Lou Messina MD Primary Care Provider [phone] Rc Patrick MD Unavailable Etienne Collier MD, PHD Unavailable Unava ilable Madonna Saul PA-C Primary Care Provider + Lou Messina MD Primary Care Provider +[phone] Mela Hernandez Pharm.D Unavailable [phone] Encounter Details Date Type Department Care Team Description 01/19/2017 Folding Machine Operator Report Medical Records [address] [place] [address] Mario Rockwell MD, MD Social History Tobacco Use Types Packs/Day Years [...] often do you attend chur ch or confucianism services? Never 11/17/2023 Do you belong to any clubs o r organizations such as adventism groups, unions, fraternal or athletic groups, or [...] place to sleep or slept in a fpc (including now)? No 11/17/2023 Sex Assigned at Date Recorded Not on file Job Start Date Occupation Industry Not on file Not on file Not on file documented as of this encounter Plan of Treatment Not on file documented as of this encounter Visit Diagnoses Not on filedocumented in this encounter Care Teams Health Information Provider Relationship Specialty Start Date End Date Lou Messina MD [address] [place], [place] PCP - General Internal Medicine 01/28/16 10/07/23 Madonna Saul PA-C [address] [place], [place] PCP - General Internal Medicine 10/08/23 10/08/23 Lou Messina MD [address] [place], [place] PCP - General Internal Medicine 10/09/23 Rc Patrick MD [address] [place], [place] Specialist Cardiovascular Disease 01/01/21 Etienne Collier MD, PHD [address] [place], [place] Specialist Neurosurgery 08/14/21 Mela Hernandez, Pharm.D [address] [place] [address] Specialist PHAMACIST CLINICIAN 11/17/23 documented as of this encounter
--- OUTSIDE RECORDS SUMMARY | 2024-11-18 16:31 | XMS_ITS | Encounter Summary ---
Author Organization [facility] Address [address] [place] [address] Care Team Providers Care Artificial Breast Fabricator Name Role Phone Valeria Lopez MD Primary Care Provider Unavai ruthie Messina Ch MD Primary Care Provider [phone] Lou Messina MD Primary Care Provider [phone] Rc Patrick MD Unavailable Etienne Collier MD, PHD Unavailable Unava Madonna Salguero PA-C Primary Care Provider + Lou Messina MD Primary Care Provider +[phone] -[phone] Mela Hernandez Pharm.D Unavailable [phone] Encounter Details Date Type Department Care Team Description 05/06/2010 Hospital Medical Records [address] [place] [address] Melanie Pham Social History Tobacco Use Types Packs/Day Years [...] often do you attend chur ch or temple services? Never 11/17/2023 Do you belong to any clubs o r organizations such as gnosticism groups, unions, fraternal or athletic groups, or [...] place to sleep or slept in a [place] [facility] [place] (including now)? No 11/17/2023 Sex Assigned at Date Recorded Not on file Job Start Date Occupation Industry Not on file Not on file Not on file documented as of this encounter Plan of Treatment Not on file documented as of this encounter Visit Diagnoses Not on filedocumented in this encounter Care Teams Artificial Breast Fabricator Relationship Specialty Start Date End Date Valeria Lopez MD PCP - General 06/23/08 12/08/13 Lou Messina, [address] [place], [place] PCP - General Internal Medicine 01/28/16 10/07/23 Lou Messina MD [address] [place], [place] PCP - General 12/09/13 01/27/16 Madonna Saul PA-C [address] [place], [place] PCP - General Internal Medicine 10/08/23 10/08/23 Lou Messina MD [address] [place], [place] PCP - General Internal Medicine 10/09/23 Rc Patrick MD [address] [place] [address] Specialist Cardiovascular Disease 01/01/21 Etienne Collier MD, PHD [address] [place] [address] Specialist Neurosurgery 08/14/21 Mela Hernandez, Pharm.D [address] [place] [address] Specialist PHAMACIST CLINICIAN 11/17/23 documented as of this encounter
--- OUTSIDE RECORDS SUMMARY | 2024-11-18 16:31 | XMS_ITS | Encounter Summary ---
Author Organization [facility] Address [address] [place] [address] Care Team Providers Care Insights Manager Name Role Phone Lou Messina MD Primary Care Provider [phone] Rc Patrick MD Unavailable Etienne Collier MD, PHD Unavailable Unava ilable Madonna Saul PA-C Primary Care Provider + Lou Messina MD Primary Care Provider +[phone] Mela Hernandez Pharm.D Unavailable [phone] Encounter Details Date Type Department Care Team Description 05/27/2019 Telephone Pulmonology - [place] [address] [facility] [address] [place] [address] Ace Zuñiga PA-C [address] [facility] [address] [place] [address] Social History Tobacco Use Types Packs/Day Years [...] often do you attend chur ch or christian services? Never 11/17/2023 Do you belong to any clubs o r organizations such as amish groups, unions, fraternal or athletic groups, or [...] encounter Miscellaneous Notes * Telephone Encounter - Jody Duran - 05/27/2019 9:18 AM EDT Appointment scheduled 05/31/19. * Telephone Encounter - Ace Zuñiga PA-C - 05/27/2019 9:05 AM EDT Please schedule this pt for F/U for WEN documented in this encounter Plan of Treatment Not on file documented as of this encounter Visit Diagnoses Not on filedocumented in this encounter Care Teams Insights Manager Relationship Specialty Start Date End Date Lou Messina MD [address] [place] [address] PCP - General Internal Medicine 01/28/16 10/07/23 Madonna Saul PA-C [address] [place] [address] PCP - General Internal Medicine 10/08/23 10/08/23 Lou Messina MD [address] [place] [address] PCP - General Internal Medicine 10/09/23 Rc Patrick MD [address] [place] [address] Specialist Cardiovascular Disease 01/01/21 Etienne Collier MD, PHD [address] [place] [address] Specialist Neurosurgery 08/14/21 Mela Hernandez, Pharm.D [address] [place] [address] Specialist PHAMACIST CLINICIAN 11/17/23 documented as of this encounter
--- OUTSIDE RECORDS SUMMARY | 2024-11-18 16:31 | XMS_ITS | Encounter Summary ---
Author Organization [facility] Address [address] [place] [address] Care Team Providers Care Orthopedic Designer Name Role Phone Lou Messina MD Primary Care Provider [phone] Rc Patrick MD Unavailable Etienne Collier MD, PHD Unavailable Unava ilable Madonna Saul PA-C Primary Care Provider + Lou Messina MD Primary Care Provider +[phone] Mela Hernandez Pharm.D Unavailable [phone] Encounter Details Date Type Department Care Team Description 04/17/2016 Release of Information Medical Records [address] [place] [address] Abstract, Provider Social History Tobacco Use Types Packs/Day Years [...] week 11/17/2023 How often do you attend [facility] or jehovah's witness services? Never 11/17/2023 Do you belong to any clubs o r organizations such as sikhism groups, unions, fraternal or athletic groups, or [...] place to sleep or slept in a penitentiary (including now)? No 11/17/2023 Sex Assigned at Date Recorded Not on file Job Start Date Occupation Industry Not on file Not on file Not on file documented as of this encounter Plan of Treatment Not on file documented as of this encounter Visit Diagnoses Not on filedocumented in this encounter Care Teams Orthopedic Designer Relationship Specialty Start Date End Date Lou Messina MD [address] [place], [place] PCP - General Internal Medicine 01/28/16 10/07/23 Madonna Saul PA-C [address] [place] [address] PCP - General Internal Medicine 10/08/23 10/08/23 Lou Messina MD [address] [place], [place] PCP - General Internal Medicine 10/09/23 Rc Patrick MD [address] [place], [place] Specialist Cardiovascular Disease 01/01/21 Etienne Collier MD, PHD [address] [place], [place] Specialist Neurosurgery 08/14/21 Mela Hernandez, Pharm.D [address] [place] [address] Specialist PHAMACIST CLINICIAN 11/17/23 documented as of this encounter
--- OUTSIDE RECORDS SUMMARY | 2024-11-18 16:31 | XMS_ITS | Encounter Summary ---
Author Organization [facility] Address [address] [place] [address] Care Team Providers Care General Matcher Name Role Phone Lou Messina MD Primary Care Provider [phone] Rc Patrick MD Unavailable Etienne Collier MD, PHD Unavailable Unava ilable Madonna Saul PA-C Primary Care Provider + Lou Messina MD Primary Care Provider +[phone] Mela Hernandez Pharm.D Unavailable [phone] Encounter Details Date Type Department Care Team Description 04/04/2019 Telephone Adult Medicine - [place] [address] [place] [address] Lou Messina MD [address] [place] [address] Social History Tobacco Use Types Packs/Day Years [...] often do you attend chur ch or congregation services? Never 11/17/2023 Do you belong to any clubs o r organizations such as quaker groups, unions, fraternal or athletic groups, or [...] place to sleep or slept in a chcf (including now)? No 11/17/2023 Sex Assigned at Date Recorded Not on file Job Start Date Occupation Industry Not on file Not on file Not on file documented as of this encounter Plan of Treatment Not on file documented as of this encounter Visit Diagnoses Not on filedocumented in this encounter Care Teams General Matcher Relationship Specialty Start Date End Date Lou Messina MD [address] [place], [place] PCP - General Internal Medicine 01/28/16 10/07/23 Madonna Saul PA-C [address] [place], [place] PCP - General Internal Medicine 10/08/23 10/08/23 Lou Messina MD [address] [place], [place] PCP - General Internal Medicine 10/09/23 Rc Patrick MD [address] [place], [place] Specialist Cardiovascular Disease 01/01/21 Etienne Collier MD, PHD [address] [place], [place] Specialist Neurosurgery 08/14/21 Mela Hernandez, Pharm.D [address] [place] [address] Specialist PHAMACIST CLINICIAN 11/17/23 documented as of this encounter
--- OUTSIDE RECORDS SUMMARY | 2024-11-18 16:31 | XMS_ITS | Encounter Summary ---
Author Organization [facility] Address [address] [place] [address] Care Team Providers Care Architecture Department Chair Name Role Phone Valeria Lopez MD Primary Care Provider Unavai ruthie Messina Ch MD Primary Care Provider [phone] Lou Messina MD Primary Care Provider [phone] Rc Patrick MD Unavailable Etienne Collier MD, PHD Unavailable Unava ilMadonna Tee PA-C Primary Care Provider + Lou Messina MD Primary Care Provider [phone] Mela Hernandez Pharm.D Unavailable [phone] Encounter Details Date Type Department Care Team Description 07/01/2011 Typesetting Machine Operator/Tender Report Medical Records [address] [place] [address] Karen Manuel Social History Tobacco Use Types [...] How often do you attend chur or jain services? Never 11/17/2023 Do you belong to any clubs o r organizations such as yarsanism groups, unions, fraternal or athletic groups, or [...] place to sleep or slept in a assisted (including now)? No 11/17/2023 Sex Assigned at Date Recorded Not on file Job Start Date Occupation Industry Not on file Not on file Not on file documented as of this encounter Plan of Treatment Not on file documented as of this encounter Visit Diagnoses Not on filedocumented in this encounter Care Teams Architecture Department Chair Relationship Specialty Start Date End Date Valeria Lopez MD PCP - General 06/23/08 12/08/13 Lou Messina MD [address] [place], [place] PCP - General Internal Medicine 01/28/16 10/07/23 Lou Messina MD [address] [place], [place] PCP - General 12/09/13 01/27/16 Madonna Saul PA-C [address] [place], [place] PCP - General Internal Medicine 10/08/23 10/08/23 Lou Messina MD [address] [place], [place] PCP - General Internal Medicine 10/09/23 Rc aPtrick MD [address] [place] [address] Specialist Cardiovascular Disease 01/01/21 Etienne Collier MD, PHD [address] [place] [address] Specialist Neurosurgery 08/14/21 Mela Hernandez, Pharm.D [address] [place] [address] Specialist PHAMACIST CLINICIAN 11/17/23 documented as of this encounter
--- OUTSIDE RECORDS SUMMARY | 2024-11-18 16:32 | XMS_ITS | Encounter Summary ---
Author Organization [facility] Address [address] [place] [address] Care Team Providers Care Cardiopulmonary Supervisor Name Role Phone Lou Messina MD Primary Care Provider [phone] Rc Patrick MD Unavailable Etienne Collier MD, PHD Unavailable Unava ilable Madonna Saul PA-C Primary Care Provider + Lou Messina MD Primary Care Provider [phone] Mela Hernandez Pharm.D Unavailable [phone] Encounter Details Date Type Department Care Team Description 05/04/2017 Orders Only Adult Medicine - [address] [address] Dev Jorgensen PA-C [address] [place] [address] Social History Tobacco Use Types Packs/Day Years [...] How often do you attend chur or voodoo services? Never 11/17/2023 Do you belong to any clubs o r organizations such as rastafari groups, unions, fraternal or athletic groups, or [...] place to sleep or slept in a intermediate (including now)? No 11/17/2023 Sex Assigned at Date Recorded Not on file Job Start Date Occupation Industry Not on file Not on file Not on file documented as of this encounter Plan of Treatment Not on file documented as of this encounter Visit Diagnoses Not on filedocumented in this encounter Care Teams Cardiopulmonary Supervisor Relationship Specialty Start Date End Date Lou Messina MD [address] [place], [place] PCP - General Internal Medicine 01/28/16 10/07/23 Madonna Saul PA-C [address] [place], [place] PCP - General Internal Medicine 10/08/23 10/08/23 Lou Messina MD [address] [place], [place] PCP - General Internal Medicine 10/09/23 Rc Patrick MD [address] [place], [place] Specialist Cardiovascular Disease 01/01/21 Etienne Collier MD, PHD [address] [place], [place] Specialist Neurosurgery 08/14/21 Mela Hernandez, Pharm.D [address] [place] [address] Specialist PHAMACIST CLINICIAN 11/17/23 documented as of this encounter
--- OUTSIDE RECORDS SUMMARY | 2024-11-18 16:32 | XMS_ITS | Encounter Summary ---
Author Organization [facility] Address [address] [place] [address] Care Team Providers Care Mfts Name Role Phone Rc Patrick MD Unavailable Etienne Collier MD, PHD Unavailable Unava ilable Lou Messina MD Primary Care Provider [phone] Mela Hernandez Pharm.D Unavailable [phone] Encounter Details Date Type Department Care Team Description 10/19/2023 Telephone Adult Medicine - [place] [address] [place] [address] Dev Jorgensen PA-C [address] [place] [address] Social History Tobacco Use Types Packs/Day Years [...] any clubs o r organizations such as restorationism groups, unions, fraternal or athletic groups, or [...] encounter Miscellaneous Notes * Telephone Encounter - Farheen Miller M.A. - 10/19/2023 1:43 PM EST Patient had order that was place of MRA Neck;' w/wo contrast mat on 09/2023. documented in this encounter Plan of Treatment Not on file documented as of this encounter Visit Diagnoses Not on filedocumented in this encounter Care Teams Mfts Relationship Specialty Start Date End Date Lou Messina MD [address] [place] [address] PCP - General Internal Medicine 10/09/23 Rc Patrick MD Specialist Cardiovascular Disease 01/01/21 Etienne Collier MD, PHD Specialist Neurosurgery 08/14/21 Mela Hernandez, Pharm.D [address] [place] [id number] Specialist PHAMACIST CLINICIAN 11/17/23 documented as of this encounter
--- OUTSIDE RECORDS SUMMARY | 2024-11-18 16:32 | XMS_ITS | Encounter Summary ---
Author Organization [facility] Address [address] [place] [address] Care Team Providers Care Title Inspector Name Role Phone Rc Patrick MD Unavailable Etienne Collier MD, PHD Unavailable Unava ilable Lou Messina MD Primary Care Provider [phone] Mela Hernandez Pharm.D Unavailable [phone] Reason for Visit * Reason Onset Date Comments [facility] Call 11/04/2023 hospital follow up 11/04/2023 Encounter Details Date Type Department Care Team Description 11/04/2023 Telephone Adult Medicine - [place] [address] [place] [address] Lou Messina MD [address] [place] [address] VNA Call; hospital follow up Social History Tobacco Use Types Packs/Day Years [...] How often do you attend chur or oriental orthodox services? Never 11/17/2023 Do you belong to any clubs o r organizations such as religion groups, unions, fraternal or athletic groups, or [...] encounter Miscellaneous Notes * Telephone Encounter - Radha Ojeda R.N. - 11/04/2023 5:13 PM EDT Looks like Patient was seen at [facility] ER on 11/02 and it is recommended for follow up with PCP due toelevated BP not controlled. Call to patient. ER FU scheduled for 11/08. In mean time if any headache, vision changes, confusion,chest pain, faintness, dizziness should go back to ER. Agrees To floor nurse, please obtain ER notes from [facility] * Telephone Encounter - Maria Del Carmen Hudson - 11/04/2023 3:28 PM EDT [facility]NA CALL // hospital f/u needed Which [facility] office is calling? [facility] Full name of caller: Madhavi Randhawa The caller is A nurse practitioner Is the caller at the patients home?: NO Reason for call: saw pt yesterday for annual home visit, sent her to the hospital for elevated bp 220/90. Went by ambulance to hospital, unsure if [facility] or not. She was in the hopsital in Aug/Sep, went to Rehab on 10/05 for weakness and elevated sugar. Oct 08 saw us and we discontinued the losartan-h ydrochlorothiazide, the pt was still taking this med as of yesterday! Pt is blind/glaucoma. Son takes care of meds but didn't realize that med was discontinued. Very high fall risk. Very unsteady on feet. Lives in a huge house on 3rd floor. Son Devonte helps her on stairs, she doesn't do stairs alone. Sugars and other health issues she needs help on/education on. Diabetes healthy eating. Madhavi will send us her notes next week. Does caller need an urgent call back? NO Was CONTACT Telephone # obtained above?: YES Fax #: n/a documented in this encounter Plan of Treatment Not on file documented as of this encounter Visit Diagnoses Not on filedocumented in this encounter Care Teams Title Inspector Relationship Specialty Start Date End Date Lou Messina MD [address] [place] [address] PCP - General Internal Medicine 10/09/23 Rc Patrick MD Specialist Cardiovascular Disease 01/01/21 Etienne Collier MD, PHD Specialist Neurosurgery 08/14/21 Mela Hernandez, Pharm.D [address] [place] [id number] Specialist PHAMACIST CLINICIAN 11/17/23 documented as of this encounter
--- OUTSIDE RECORDS SUMMARY | 2024-11-18 16:32 | XMS_ITS | Encounter Summary ---
Author Organization [facility] Address [address] [place] [address] Care Team Providers Care Automation Lead Name Role Phone Lou Messina MD Primary Care Provider [phone] Rc Patrick MD Unavailable Etienne Collier MD, PHD Unavailable Unava ilable Madonna Saul PA-C Primary Care Provider + Lou Messina MD Primary Care Provider [phone] Mela Hernandez Pharm.D Unavailable [phone] Encounter Details Date Type Department Care Team Description 09/25/2021 [facility] Neurosurgery [place] [address] [place] [address] Etienne Collier MD, PHD Social History Tobacco Use Types Packs/Day Years [...] How often do you attend chur or pentecostalism services? Never 11/17/2023 Do you belong to any clubs o r organizations such as baptist groups, unions, fraternal or athletic groups, or [...] file Not on file Not on file COVID-19 Exposure Response Date Recorded In the last month, have you been in contact with someone who was confirmed or suspected to have Coronavirus / COVID-19? No / Unsure 09/26/2021 1:24 PM EST documented as of this encounter Plan of Treatment Not on file documented as of this encounter Visit Diagnoses Not on filedocumented in this encounter Care Teams Automation Lead Relationship Specialty Start Date End Date Lou Messina MD [address] [place], [place] PCP - General Internal Medicine 01/28/16 10/07/23 Madonna Saul PA-C [address] [place], [place] PCP - General Internal Medicine 10/08/23 10/08/23 Lou Messina MD [address] [place], [place] PCP - General Internal Medicine 10/09/23 Rc Patrick MD [address] [place], [place] Specialist Cardiovascular Disease 01/01/21 Etienne Collier MD, PHD [address] [place] [address] Specialist Neurosurgery 08/14/21 Mela Hernandez, Pharm.D [address] [place] [address] Specialist PHAMACIST CLINICIAN 11/17/23 documented as of this encounter
--- OUTSIDE RECORDS SUMMARY | 2024-11-18 16:32 | XMS_ITS | Encounter Summary ---
Author Organization [facility] Address [address] [place] [address] Care Team Providers Care Electric Welder Helper Name Role Phone Lou Messina MD Primary Care Provider [phone] Rc Patrick MD Unavailable Etienne Collier MD, PHD Unavailable Unava ilable Madonna Saul PA-C Primary Care Provider + Lou Messina MD Primary Care Provider [phone] Mela Hernandez Pharm.D Unavailable [phone] Encounter Details Date Type Department Care Team Description 05/30/2021 Home Health Certification Medical Records [address] [place] [address] Social History Tobacco Use Types Packs/Day Years [...] often do you attend chur ch or denominational services? Never 11/17/2023 Do you belong to any clubs o r organizations such as druze groups, unions, fraternal or athletic groups, or [...] have Coronavirus / COVID-19? No / Unsure 05/13/2021 9:42 AM EDT documented as of this encounter Plan of Treatment Not on file documented as of this encounter Visit Diagnoses Not on filedocumented in this encounter Care Teams Electric Welder Helper Relationship Specialty Start Date End Date Lou Messina MD [address] [place], [place] PCP - General Internal Medicine 01/28/16 10/07/23 Madonna Saul PA-C [address] [place], [place] PCP - General Internal Medicine 10/08/23 10/08/23 Lou Messina MD [address] [place], [place] PCP - General Internal Medicine 10/09/23 Rc Patrick MD [address] [place], [place] Specialist Cardiovascular Disease 01/01/21 Etienne Collier MD, PHD [address] [place], [place] Specialist Neurosurgery 08/14/21 Mela Hernandez, Pharm.D [address] [place] [address] Specialist PHAMACIST CLINICIAN 11/17/23 documented as of this encounter
--- OUTSIDE RECORDS SUMMARY | 2024-11-18 16:32 | XMS_ITS | Encounter Summary ---
Author Organization [facility] Address [address] [place] [address] Care Team Providers Care Fiscal Officer Name Role Phone Lou Messina MD Primary Care Provider [phone] Rc Patrick MD Unavailable Etienne Collier MD, PHD Unavailable Unava ilable Madonna Saul PA-C Primary Care Provider + Lou Messina MD Primary Care Provider [phone] Mela Hernandez Pharm.D Unavailable [phone] Encounter Details Date Type Department Care Team Description 02/11/2022 Home Health Certification Medical Records [address] [place] [address] Social History Tobacco Use Types Packs/Day Years [...] often do you attend chur ch or gnosticist services? Never 11/17/2023 Do you belong to any clubs o r organizations such as cheondoism groups, unions, fraternal or athletic groups, or [...] on filedocumented in this encounter Care Teams Fiscal Officer Relationship Specialty Start Date End Date Lou Messina MD [address] [place], [place] PCP - General Internal Medicine 01/28/16 10/07/23 Madonna Saul PA-C [address] [place], [place] PCP - General Internal Medicine 10/08/23 10/08/23 Lou Messina MD [address] [place], [place] PCP - General Internal Medicine 10/09/23 Rc Patrick MD [address] [place], [place] Specialist Cardiovascular Disease 01/01/21 Etienne Collier MD, PHD [address] [place], [place] Specialist Neurosurgery 08/14/21 Mela Hernandez, Pharm.D [address] [place] [address] Specialist PHAMACIST CLINICIAN 11/17/23 documented as of this encounter
--- OUTSIDE RECORDS SUMMARY | 2024-11-18 16:32 | XMS_ITS | Clinical Summary ---
Author Organization [facility] Address [address] [place] [address] Care Team Providers Care International Sales Manager Name Role Phone Rc Patrick MD Unavailable Etienne Collier MD, PHD Unavailable Unava ilable Lou Messina MD Primary Care Provider [phone] Mela Hernandez Pharm.D Unavailable [phone] Allergies Active Allergy Reactions Severity Noted Date Comments Atorvastatin OTHER 01/25/2016 Atorvastatin Calcium OTHER 08/18/2008 Some elevation in liver enzymes Metoprolol Tartrate OTHER 08/18/2008 Bradycardia in 20s Morphine 01/25/2016 Other reaction(s): Vomiting Hmg-Coa-R Inhibitors Myalgia and Joint Pain Sulfa Drugs Rash/Dermatitis 07/06/2008 Medications Medication Sig Dispensed Refills Start Date End Date Status ASPIRIN 81 MG OR TABS 1 TABLET DAILY 0 Active PRODIGY LANCETS 28G Misc Use to test blood sugar once daily 100 Each 1 06/08/2019 Active magnesium hydroxide (Milk of Magnesia) 400 MG/5ML suspension Take 30 mL by mouth 2 times daily as needed for Constipation. Take medication twice daily until bowels start moving 1200 mL 11 05/13/2022 Active Blood Glucose Monitoring Suppl (Viscose Closuresigy Voice Blood Glucose) w/Device Kit Use device to take blood sugar once daily before breakfast 1 Kit 0 01/16/2023 Active Ascorbic Acid (Vitamin C) 500 MG Chew Tab Take 1 Tablet by mouth daily. 30 Tablet 5 04/14/2023 Active Lactobacillus (Acidophilus) 100 MG Cap TAKE 1 CAPSULE BY MOUTH ONCE DAILY 90 Capsule 1 06/23/2023 Active Coenzyme Q10 (Co Q-10) 100 MG Cap TAKE ONE CAPSULE BY MOUTH DAILY 90 Capsule 1 08/14/2023 Active Vitamin E Water Soluble 450 MG (1000 UT) Cap TAKE ONE CAPSULE BY MOUTH DAILY 90 Capsule 1 08/14/2023 Active ezetimibe (ZETIA) 10 MG tablet Take 1 Tablet by mouth daily. 90 Tablet 1 08/14/2023 Active acetaminophen (TYLENOL) 325 MG tabletIndications :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) Take 2 Tablets by mouth every 6 hours as needed. 0 Active bimatoprost (LATISSE) 0.03 % ophthalmic solutionIndicatio ns: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) Place into both eyes at bedtime. Apply one drop to applicator and apply to the upper eyelid at night. 0 Active cyclobenzaprine (FLEXERIL) 5 MG tabletIndications :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) Take 1 Tablet by mouth 3 times daily as needed for Muscle spasms for up to 10 days. 30 Tablet 2 10/08/2023 Active carbamide peroxide (DEBROX) 6.5 % otic solutionIndicatio ns: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) Place 5 Drops into both ears 2 times daily for 10 days. Tilt head so ear to be treated points towards the ceiling. Hold medication in ear using part of a cotton ball. 15 mL 0 10/08/2023 Active Bisacodyl 10 MG SupposIndications :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) Place rectally. 0 Activ e brimonidine (ALPHAGAN P) 0.1 % SolutionIndicatio ns: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) 0 Active Cyanocobalamin 1000 MCG CapIndications:Ty pe 2 diabetes mellitus with cataract (HCC) Take by mouth. 0 Active dorzolamide (TRUSOPT) 2 % ophthalmic solutionIndicatio ns: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) 2 Drops 3 times daily. 0 Active Sodium Phosphates (FLEET ENEMA RE)Indications:Ty pe 2 diabetes mellitus with cataract (HCC) Place rectally. 0 Activ e insulin glargine (LANTUS) 100 UNIT/ML injectionIndicati ons: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) Inject 20 Units into the skin at bedtime. 0 Active lactulose (CHRONULAC) 10 GM/15ML solutionIndicatio ns: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) Take 15 mL by mouth daily (with breakfast). 0 Active Meclizine HCl 12.5 MG TabIndications:Ty pe 2 diabetes mellitus with cataract (HCC) Take by mouth. 0 Active methazolamide (NEPTAZANE) 25 MG tabletIndications :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) Take 1 Tablet by mouth 2 times daily. 0 Active Multiple Vitamin (Multivitamin Adult) TabIndications:Ty pe 2 diabetes mellitus with cataract (HCC) Take by mouth. 0 Active polyethylene glycol (GLYCOLAX) 17 GM/SCOOP powderIndications :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) Take 17 g by mouth as needed. 0 Active senna-docusate (PERICOLACE) 8.6-50 MG per tabletIndications :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) Take 2 Tablets by mouth at bedtime. 0 Active trazodone (DESYREL) 50 MG tabletIndications :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) Take 1 Tablet by mouth at bedtime. 0 Active Ubiquinol 100 MG CapIndications:Ty pe 2 diabetes mellitus with cataract (HCC) Take by mouth daily. 0 Active Continuous Blood Gluc Director Of [facility] ([employer]yle Micky 2 [place]) Device USE DIRECTED 1 Each 0 10/15/2023 Active True Comfort Pen [place] 32G X 4 MM Misc USE FOR injecting lantus AND lispro 4 (FOUR) TIMES DAILY 100 Each 5 12/16/2023 Active diclofenac (CATAFLAM) 50 MG tablet Take 1 Tablet by mouth 2 times daily for 10 days. 20 Tablet 0 01/29/2024 Active Insulin Glargine (Lantus SoloStar) 100 UNIT/ML Solution Pen-injector Inject 20 unit subcutaneously once a day at bedtime 15 mL 5 02/19/2024 Active Cholecalciferol (D3-1000) 25 MCG (1000 UT) Tab Take 1 Tablet by mouth daily. 30 Tablet 2 02/19/2024 Active ascorbic acid (VITAMIN C) 500 MG tabletIndications :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) TAKE 1 TABLET BY MOUTH ONCE DAILY 90 Tablet 0 04/12/2024 Active trazodone (DESYREL) 100 MG tabletIndications :Anxiety TAKE ONE TABLET BY MOUTH DAILY AT BEDTIME 90 Tablet 0 04/12/2024 Active Insulin Lispro 100 UNIT/ML Solution Cartridge Inject 1 Units into the skin 3 times daily (with meals). Inject as per sliding scale: if 150 - 199 = 3 units; 200 - 249 = 4 units; 250 - 299 = 7 units; 300 - 349 = 10 units; 350 - 399 = 12 units 400 or greater Call , 15 mL 5 05/13/2024 Active sertraline (ZOLOFT) 50 MG tabletIndications :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) TAKE 1 TABLET BY MOUTH ONCE DAILY 90 Tablet 0 05/25/2024 Active losartan (COZAAR) 100 MG tabletIndications :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) Take 1 Tablet by mouth daily. 90 Tablet 0 05/25/2024 Active Continuous Glucose Sensor (PromoteUStyle Micky 2 Sensor) MiscIndications:T ype 2 diabetes mellitus with cataract (HCC) APPLY TO BACK OF arm AND CHANGE sensors EVERY 14 DAYS 2 Each 0 06/10/2024 Active Active Problems Patient Care Coordination No te Formatting of this note is d ifferent from the original. Checking Your Blood Sugars Please check your blood sugars every day. Please check your sugars at the following times of day: before breakfast Your Blood Sugar Goals Pre Meal: 90-130 2 hours after meals: 110-160 Bedtime: 110-150 Use the Results ?? Bring your glucometer to every appointment ?? Write your fingerstick blood sugars down on a log sheet or record book. Bring them to your appointment ?? Look for patterns in the numbers. The results help you and your provider make decisions about your diabetes treatment plan. Your Results and your Goals Your Result / Date of Completion Your Goal / How Often to Assess Component Value Date HGBA1C 5.2 09/22/2008 Less than 7% --- 2-4 times per year BP Readings from Last 1 Encounters: 04/16/16 110/66 Less than 140/90 --- once per year Component Value Date MALBCR 4 09/22/2008 Less than 30 --- once per year Component Value Date LDL 170 04/15/2010 Less than 100 --- once per year Wt Readings from Last 1 Encounters: 05/15/10 198 lb (89.812 kg) Your goal weight by next visit: 160 --- reassess 2-4 times a year Health Maintenance Due Topic Date Due ? ? Dtap/tdap/td (#1 - Tdap) 12/12/1950 ? ? Diabetes: Annual Eye Exam 12/12/1957 ? ? Diabetes: Annual Foot Exam 12/12/1957 ? ? Diabetes: Annual Care Plan 12/12/1957 ? ? Mammogram 1979 ? ? Adult Immunization: Zostavax For Patients Over 60 1999 ? ? Pneumococcal Vaccine (#1 of 2 - Dose 1 = PCV13, Dose 2 = PPSV23) 12/12/2004 ? ? Diabetes: Blood Sugar Control Test (Hgba1c) 01/20/2009 ? ? Diabetes: Annual Urine Protein Test (Microalbumin) 09/22/2009 ? ? Bone Density Screening 10/30/2010 ? ? Diabetes/heart Disease: Annual Cholesterol (Ldl) 04/15/2011 Your Action Plan Start/adjust diabetic medications as directed. Check blood glucose as directed and write down all results. Contact me if you experience any barriers to care such as inability to purchase your medication, difficulty getting to your appointments or difficulty understanding your care plan When to Call your Healthcare Provider If your blood sugar falls below 70 and you do not know why or you become unconscious If you are sick and unable to take liquids because or nausea or vomiting If you have a fever over 101 If your blood sugar is 300 or higher on greater than 3 separate occasions during the same week If you are just unsure what to do Educational Resources [place] Diabetes Association (www.diabetes.org) Centers for Disease Control and Prevention (www.cdc.gov/diabetes) This care plan was created in collaboration with Shrutianirudh Mojica on 04/16/2016 Problem Noted Date Vulvar keloid 09/01/2023 Last Assessment & Plan: I counseled Shruti [...] medical comorbidities. She voiced understanding and agreed. History of 2019 novel coronavirus diseas e (COVID-19) 04/18/2022 Insomnia 02/11/2021 COVID-19 virus infection 12/21/2020 Cervical spondylosis 07/17/2019 CKD (chronic kidney disease) stage 3, GF R 30-59 ml/min 06/17/2019 Sliding hiatal hernia 04/01/2019 Obstructive sleep apnea mild AHI 6 11/10 Overview: [facility] [place]: Date 11/09/2018; Wt 158# SE 49%; SM 52%; REM 0%; RDI 26 (AHI 6), Central apneas 0; Obstructive apneas 0; Mixed apneas 0; hypopneas 28; RERAs 87; average oxygen saturation 95% (lowest 92% - without saturations <88% for 5% or more of study); PLMs 6.Pre-study ESS 12. 3/4 RLS symptoms. Nuclear Stress Test 05/17/2018 EF 76% [facility] Polysomnogram treatment study. Date 04/03/2019. Wt 158#; [...] mostly hypopneas; without sleep related hypoventilation by 2018 polysomnogram. 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 Ty Mcduffie HTN (hypertension) 07/06/2008 Hyperlipidemia 07/06/2008 Glaucoma 07/06/2008 Overview: Multiple surgeries; patient is legally blind [place] (myocardial infarction) Overview: Inferior wall NSTEMI 2006; drug eluting stents ? 2 to the mid RCA 95% lesion status post balloon angioplasty 6 sinus syndrome status post dual chamber pacemaker. Dizziness Overview: Seen with neuro in past and ENT, thought to be due to eye disease Abdominal discomfort Constipation Resolved Problems Problem Noted Date Resolved Date Amnestic MCI (mild cognitive impairment with mem ory loss) 02/09/2018 02/09/2018 Cholecystitis 07/06/2008 05/07/2016 Immunizations Name Administration Dates Next Due PPD Negative Response(Internal) 08/15/2016 PPD-RBMG 08/13/2016 Pneumoccoccal(Adult) Polysaccharide PPSV23 07/03 Family History Medical History Relation Name Comments Diabetes Aunt 1 heart disease, HTN CA Ovarian Aunt 2 breast cancer Throat Cancer Brother 1 Diabetes Brother 2 Diabetes Daughter 1 heart disease, HTN Hypertension Daughter 1 Diabetes Daughter 2 Diabetes Father heart disease, HTN Heart disease Mother Arthritis Sister 1 Diabetes Sister 2 Heart disease Sister 2 Diabetes Sister 3 [...] Passive Smoke Exposure: Current Smokeless Tobacco: Never Tobacco Cessation:Counseling Given: Not [...] How often do you attend chur or anabaptism services? Never 11/17/2023 Do you belong to any clubs o r organizations such as oriental orthodox groups, unions, [employer] or athletic groups, or school groups? No [...] place to sleep or slept in a skilled nursing (including now)? No 11/17/2023 Sex Assigned at Date Recorded Not on file Job Start Date Occupation Industry Not on file Not on file Not on file Last Filed Vital Signs Vital Sign Reading Time Taken Comments Blood Pressure 142/78 01/29/2024 6:19 PM EDT Pulse 78 01/29/2024 6:19 PM EDT Temperature 36.6 ??C (97.8 ??F) 01/29/2024 6:19 PM ED T Respiratory Rate 14 09/01/2023 8:45 AM EST Oxygen Saturation 99% 01/29/2024 6:19 PM EDT Inhaled Oxygen Concentration - - Weight 67.6 kg (149 lb) 11/09/2023 1:26 PM EDT Height 160 cm (5' 3 ) 11/09/2023 1:26 PM EDT Body Mass Index 26.39 11/09/2023 1:26 PM EDT Plan of Treatment Health Maintenance Due Date Last Done Comments Covid-19 Vaccine (#1) 06/13/1941 DTAP/TDAP/TD (1 - Tdap) 12/12/1958 MAMMOGRAM 1979 SHINGLES VACCINE (1 of 2) 12/12/1989 BONE DENSITY SCREENING 10/30/2010 10/30/2008 PNEUMOCOCCAL VACCINE (2 - PCV) 07/03/2018 07/03/2017 DIABETES: ANNUAL FOOT EXAM 02/24/202002/23 (Completed), 04/08/2017 DIABETES: ANNUAL EYE EXAM 04/12/20202018, 09/21/2018, 06/30/2018, Additional history exists DIABETES: BLOOD SUGAR CONTRO L TEST (HGBA1C) 07/15/2023 04/14/2023, 10/21/2022, 04/16/2022, Additional history exists DIABETES/HEART DISEASE: DELL AL CHOLESTEROL (LDL) 10/22/2023 10/21/2022, 04/16/2022, 07/31/2021, Additional history exists DIABETES: ANNUAL URINE PROTE IN TEST (MICROALBUMIN) 01/01/2024 12/31/2022, 04/16/2022, 07/31/2021, Additional history exists BMI CHECK/ADVISE 08/17/2024 07/15/2023, , 02/08/2020, Additional history exists INFLUENZA (Season Ended) 2025 07/03/2017 (Refu sed) Care Teams International Sales Manager Relationship Specialty Start Date End Date Lou Messina MD [address] [place] [id number] PCP - General Internal Medicine 10/09/23 Rc Patrick MD Specialist Cardiovascular Disease 01/01/21 Etienne Collier MD, PHD Specialist Neurosurgery 08/14/21 Mela Hernandez, Pharm.D [address] [place] [address] Specialist PHAMACIST CLINICIAN 11/17/23
--- OUTSIDE RECORDS SUMMARY | 2024-11-18 16:32 | XMS_ITS | Encounter Summary ---
Author Organization [facility] Address [address] [place] [address] Care Team Providers Care Railroad Car Repairman Name Role Phone Lou Messina MD Primary Care Provider [phone] Rc Patrick MD Unavailable Etienne Collier MD, PHD Unavailable Unava ilable Madonna Saul PA-C Primary Care Provider + Lou Messina MD Primary Care Provider [phone] Mela Hernandez Pharm.D Unavailable [phone] Encounter Details Date Type Department Care Team Description 07/27/2018 Incoming Correspondence Medical Records [address] [place] [address] Abstract, Provider Social History Tobacco Use Types [...] any clubs o r organizations such as caodaism groups, unions, fraternal or athletic groups, or [...] on filedocumented in this encounter Care Teams Railroad Car Repairman Relationship Specialty Start Date End Date Lou Messina MD [address] [place], [place] PCP - General Internal Medicine 01/28/16 10/07/23 Madonna Saul PA-C [address] [place], [place] PCP - General Internal Medicine 10/08/23 10/08/23 Lou Messina MD [address] [place], [place] PCP - General Internal Medicine 10/09/23 Rc Patrick MD [address] [place], [place] Specialist Cardiovascular Disease 01/01/21 Etienne Collier MD, PHD [address] [place], [place] Specialist Neurosurgery 08/14/21 Mela Hernandez, Pharm.D [address] [place] [address] Specialist PHAMACIST CLINICIAN 11/17/23 documented as of this encounter
--- OUTSIDE RECORDS SUMMARY | 2024-11-18 16:32 | XMS_ITS | Patient Health Record ---
Author Organization [facility] Address [address] [place] [address] Care Team Providers Care Speeder Frame Tender Name Role Phone Sixto Mckeon MD Primary Care Provider Oni Sargent Unavailable [phone] Allergies Allergen (clinical drug ingredient) Drug/Non Drug [...] Insured Coverage Start Date Coverage End Date [facility] Medicare Complete [address] [address] [place] [address] [id number] Shruti Mojica Self - patient is the insured Medical (General) History Medical History History ICD Code Arthritis Back,Hip,and Knee pain Cholesterol type II diabetes Glaucoma Heart disease High blood pressure keloids Stroke Vascular phlebitis (clots) Measles Mumps Chicken pox Surgical History Surgery Date(Month/Year) CATARACTS GALLBLADDER PACEMAKER/STINTS
--- OUTSIDE RECORDS SUMMARY | 2024-11-18 16:32 | XMS_ITS | Encounter Summary ---
Author Organization [facility] Address [address] [place] [address] Care Team Providers Care Email Developer Name Role Phone Rc Patrick MD Unavailable Etienne Collier MD, PHD Unavailable Unava ilable Lou Messina MD Primary Care Provider [phone] Mela Hernandez Pharm.D Unavailable [phone] Reason for Visit * Reason Onset Date Comments Provider Call Back 03/11/2024 Encounter Details Date Type Department Care Team Description 03/11/2024 Telephone Adult Medicine - [place] [address] [place] [address] Lou Messina MD [address] [place] [address] Provider Call Back Social History Tobacco Use Types Packs/Day Years [...] often do you attend chur ch or mu-ism services? Never 11/17/2023 Do you belong to any clubs o r organizations such as restoration groups, unions, fraternal or athletic groups, or [...] encounter Miscellaneous Notes * Telephone Encounter - Dinh Mejía - 03/11/2024 12:42 PM EDT Caller requesting call back from provider: Is the caller the patient? NO If caller is not the patient, what is the callers name? [place] Callers relationship to patient? [facility] If person calling is not the patient themselves, is there a verbal release in FYI or permanent comments for this person: NO Reason for call back: Calling to state they are trying to find new PCP for pt but pt can still be seen if a prior auth is done. States someone from the office just has to call at the prior auth line. Caller offered to speak with the nurse for assistance: YES Response: Patient offered to speak with nurse for assistance and patient agreed. Message forwarded to nurse. documented in this encounter Plan of Treatment Not on file documented as of this encounter Visit Diagnoses Not on filedocumented in this encounter Care Teams Email Developer Relationship Specialty Start Date End Date Lou Messina MD [address] [place] [address] PCP - General Internal Medicine 10/09/23 Rc Patrick MD Specialist Cardiovascular Disease 01/01/21 Etienne Collier MD, PHD Specialist Neurosurgery 08/14/21 Mela Hernandez, Pharm.D [address] [place] [address] Specialist PHAMACIST CLINICIAN 11/17/23 documented as of this encounter
--- OUTSIDE RECORDS SUMMARY | 2024-11-18 16:32 | XMS_ITS | Encounter Summary ---
Author Organization [facility] Address [address] [place] [address] Care Team Providers Care Hot Saw Operator Name Role Phone Lou Messina MD Primary Care Provider [phone] Rc Patrick MD Unavailable Etienne Collier MD, PHD Unavailable Unava ilable Madonna Saul PA-C Primary Care Provider + Lou Messina MD Primary Care Provider [phone] Mela Hernandez Pharm.D Unavailable [phone] Encounter Details Date Type Department Care Team Description 07/26/2018 Product Line Manager Report Medical Records [address] [place] [id number] Social History Tobacco Use Types Packs/Day Years [...] week 11/17/2023 How often do you attend [facility] or mandaen services? Never 11/17/2023 Do you belong to any clubs o r organizations such as sikh groups, unions, fraternal or athletic groups, or [...] place to sleep or slept in a halfway (including now)? No 11/17/2023 Sex Assigned at Date Recorded Not on file Job Start Date Occupation Industry Not on file Not on file Not on file documented as of this encounter Plan of Treatment Not on file documented as of this encounter Visit Diagnoses Not on filedocumented in this encounter Care Teams Hot Saw Operator Relationship Specialty Start Date End Date Lou Messina MD [address] [place], [place] PCP - General Internal Medicine 01/28/16 10/07/23 Madonna Saul PA-C [address] [place] [address] PCP - General Internal Medicine 10/08/23 10/08/23 Lou Messina MD [address] [place], [place] PCP - General Internal Medicine 10/09/23 Rc Patrick MD [address] [place], [place] Specialist Cardiovascular Disease 01/01/21 Etienne Collier MD, PHD [address] [place], [place] Specialist Neurosurgery 08/14/21 Mela Hernandez, Pharm.D [address] [place] [address] Specialist PHAMACIST CLINICIAN 11/17/23 documented as of this encounter
--- OUTSIDE RECORDS SUMMARY | 2024-11-18 16:32 | XMS_ITS | Encounter Summary ---
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 Never 11/17/2023 Do you belong to any clubs o r organizations such as yazidism groups, unions, fraternal or athletic groups, or [...] place to sleep or slept in a prison (including now)? No 11/17/2023 Sex Assigned at Date Recorded Not on file Job Start Date Occupation Industry Not on file Not on file Not on file documented as of this encounter Miscellaneous Notes * Telephone Encounter - Maddie Ochoa M.A. - 01/16/2022 12:24 PM EDT This encounter was created for the home health certification that was previously completed by someone and sent to scan. * Telephone Encounter - Gris Smith - 01/06/2022 11:04 AM EDT Updated order to physiatry is needed Order has been pended. Thank you Dr Kiser or Kurt Umanzor Pa-C for neck pain, back pain * Telephone Encounter - Mela Mijares - 01/01/2022 9:16 AM EDT HOME HEALTH CERTIFICATION AND PLAN OF CARE DATE RECEIVED:12/30/2021 AGENCY:[facility] CERT DATES:12/13/2021-02/10/2022 FAX NUMBER:[phone] LOCATION OF [facility]:front end developer javascript html css documented in this encounter Plan of Treatment Not on file documented as of this encounter Visit Diagnoses Not on filedocumented in this encounter Care Teams Supervisor Sewing Department Relationship Specialty Start Date End Date Lou Messina MD [address] [place] [address] PCP - General Internal Medicine 01/28/16 10/07/23 Madonna Saul PA-C [address] [place] [address] PCP - General Internal Medicine 10/08/23 10/08/23 Lou Messina MD [address] [place] [address] PCP - General Internal Medicine 10/09/23 Rc Patrick MD [address] [place] [address] Specialist Cardiovascular Disease 01/01/21 Etienne Collier MD, PHD [address] [place], [place] Specialist Neurosurgery 08/14/21 Mela Hernandez, Pharm.D [address] [place] [address] Specialist PHAMACIST CLINICIAN 11/17/23 documented as of this encounter
--- OUTSIDE RECORDS SUMMARY | 2024-11-18 16:32 | XMS_ITS | Encounter Summary ---
Author Organization [facility] Address [address] [place] [address] Care Team Providers Care Online Journalist Name Role Phone Lou Messina MD Primary Care Provider [phone] Rc Patrick MD Unavailable Etienne Collier MD, PHD Unavailable Unava ilable Madonna Saul PA-C Primary Care Provider + Lou Messina MD Primary Care Provider [phone] Mela Hernandez Pharm.D Unavailable Encounter Details Date Type Department Care Team Description 2021 Home Health Certification Medical Records [address] [place] [address] Social History Tobacco Use Types Packs/Day Years [...] often do you attend chur ch or zoroastrian services? Never 11/17/2023 Do you belong to any clubs o r organizations such as mandaen groups, unions, fraternal or athletic groups, or [...] on filedocumented in this encounter Care Teams Online Journalist Relationship Specialty Start Date End Date Lou Messina MD [address] [place], [place] PCP - General Internal Medicine 01/28/16 10/07/23 Madonna Saul PA-C [address] [place], [place] PCP - General Internal Medicine 10/08/23 10/08/23 Lou Messina MD [address] [place], [place] PCP - General Internal Medicine 10/09/23 Rc Patrick MD [address] [place], [place] Specialist Cardiovascular Disease 01/01/21 Etienne Collier MD, PHD [address] [place], [place] Specialist Neurosurgery 08/14/21 Mela Hernandez, Pharm.D [address] [place] [address] Specialist PHAMACIST CLINICIAN 11/17/23 documented as of this encounter
--- OUTSIDE RECORDS SUMMARY | 2024-11-18 16:32 | XMS_ITS | Encounter Summary ---
Author Organization [facility] Address [address] [place] [address] Care Team Providers Care Cytotechnologist Name Role Phone Rc Patrick MD Unavailable Etienne Collier MD, PHD Unavailable Unava ilable Lou Messina MD Primary Care Provider [phone] Mela Hernandez Pharm.D Unavailable [phone] Reason for Visit * Reason Comments E-prescribe Rx Request Encounter Details Date Type Department Care Team Description 06/11/2024 Refill Adult Medicine - [place] [address] [place] [address] Lou Messina MD [address] [place] [address] E-prescribe Rx Request Social History Tobacco Use Types Packs/Day Years [...] often do you attend chur ch or tenriism services? Never 11/17/2023 Do you belong to any clubs o r organizations such as latter day groups, unions, fraternal or athletic groups, or [...] encounter Miscellaneous Notes * Telephone Encounter - Trina Bhardwaj M.A. - 06/13/2024 3:30 PM EDT Pt has NO SHOWED and Canceled several appts - needs to schedule an appt NICO and bring all medication bottles or a list of medications she is taking to her next appt * Telephone Encounter - Maria Del Carmen Hudson - 06/13/2024 3:14 PM EDT REFILLS LAST OFFICE VISIT 11/09/23 LAST PCP same NEXT OFFICE VISIT none booked, pt has no-showed a few appts this year, [employer] to call us to book med ck appt. 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
--- OUTSIDE RECORDS SUMMARY | 2024-11-18 16:32 | XMS_ITS | Encounter Summary ---
Author Organization [facility] Address [address] [place] [address] Care Team Providers Care Preparing Box Tender Name Role Phone Lou Messina MD Primary Care Provider [phone] Rc Patrick MD Unavailable Etienne Collier MD, PHD Unavailable Unava ilable Madonna Saul PA-C Primary Care Provider + Lou Messina MD Primary Care Provider [phone] Mela Hernandez Pharm.D Unavailable [phone] Reason for Visit * Reason Onset Date Comments Call From Insurance Co 09/18/2022 Encounter Details Date Type Department Care Team Description 09/18/2022 Telephone Adult Medicine [facility] [address] [place] [address] Lou Messina MD [address] [place] [address] Call From Insurance Co Social History Tobacco Use Types Packs/Day Years [...] often do you attend chur ch or druze services? Never 11/17/2023 Do you belong to any clubs o r organizations such as jainism groups, unions, fraternal or athletic groups, or [...] encounter Miscellaneous Notes * Telephone Encounter - Rob Hernandez LPN - 09/18/2022 11:56 AM EST Left message for pt to please return our call * Telephone Encounter - Lou Messina MD - 09/18/2022 11:50 AM EST I reviewed her chart a lot of the issues the patient is complaining about has been addressed both here and in the [place] area would recommend the patient make an appointment to discuss these issues * Telephone Encounter - Rob Hernandez LPN - 09/18/2022 11:43 AM EST Please review message from insurance [employer] * Telephone Encounter - Alta Yusuf - 09/18/2022 11:35 AM EST Samuel EDGE POLISHER with [facility] Calls is calling to report she saw the patient on 09/13 and reports the patient has peripheral artery disease, pain in both legs. Wants to know if the provider would consider a vascular consult? Requesting patient be referred to OBCRISTEL Baker states call her if needed [phone] documented in this encounter Plan of Treatment Not on file documented as of this encounter Visit Diagnoses Not on filedocumented in this encounter Care Teams Preparing Box Tender Relationship Specialty Start Date End Date Lou Messina MD [address] [place] [address] PCP - General Internal Medicine 01/28/16 10/07/23 Madonna Saul PA-C [address] [place] [address] PCP - General Internal Medicine 10/08/23 10/08/23 Lou Messina MD [address] [place], [place] PCP - General Internal Medicine 10/09/23 Rc Patrick MD [address] [place], [place] Specialist Cardiovascular Disease 01/01/21 Etienne Collier MD, PHD [address] [place], [place] Specialist Neurosurgery 08/14/21 Mela Hernandez, Pharm.D [address] [place] [address] Specialist PHAMACIST CLINICIAN 11/17/23 documented as of this encounter
--- OUTSIDE RECORDS SUMMARY | 2024-11-18 16:32 | XMS_ITS | Encounter Summary ---
Author Organization [facility] Address [address] [place] [address] Care Team Providers Care Technician'S Helper Name Role Phone Rc Patrick MD Unavailable Etienne Collier MD, PHD Unavailable Unava iljean carlos Messina Ch MD Primary Care Provider [phone] Mela Hernandez Pharm.D Unavailable [phone] Encounter Details Date Type Department Care Team Description 02/03/2024 Home Health Certification Medical Records [address] [place] [address] Social History Tobacco Use Types Packs/Day Years [...] week 11/17/2023 How often do you attend [facility] or alevism services? Never 11/17/2023 Do you belong to any clubs o r organizations such as nondenominational groups, unions, fraternal or athletic groups, or [...] on filedocumented in this encounter Care Teams Technician'S Helper Relationship Specialty Start Date End Date Lou Messina MD [address] [place] [address] PCP - General Internal Medicine 10/09/23 Rc Patrick MD Specialist Cardiovascular Disease 01/01/21 Etienne Collier MD, PHD Specialist Neurosurgery 08/14/21 Mela Hernandez, Pharm.D [address] [place] [address] Specialist PHAMACIST CLINICIAN 11/17/23 documented as of this encounter
--- OUTSIDE RECORDS SUMMARY | 2024-11-18 16:32 | XMS_ITS | Encounter Summary ---
Author Organization [facility] Address [address] [place] [address] Care Team Providers Care Electrocardiograph Repairer Name Role Phone Lou Messina MD Primary Care Provider [phone] Rc Patrick MD Unavailable Etienne Collier MD, PHD Unavailable Unava ilable Madonna Saul PA-C Primary Care Provider + Lou Messina MD Primary Care Provider [phone] Mela Hernandez Pharm.D Unavailable [phone] Encounter Details Date Type Department Care Team Description 07/30/2021 Orders Only Adult Medicine - [place] [address] [place] [address] Lou Messina MD [address] [place] [address] Personal history of COVID-19 (Primary Dx); Primary hypertension; rn long term care (current) use of oral hypoglycemic drugs; Diabetes mellitus without complication (HCC) Social History Tobacco Use Types Packs/Day Years [...] often do you attend chur ch or mormonism services? Never 11/17/2023 Do you belong to any clubs o r organizations such as tenriism groups, unions, fraternal or athletic groups, or [...] have Coronavirus / COVID-19? No / Unsure 07/31/2021 3:40 PM EST documented as of this encounter Plan of Treatment Not on file documented as of this encounter Visit Diagnoses Diagnosis Personal history of COVID-19- Primary Primary hypertension Unspecified essential hypertension rn long term care (current) use of oral hypoglycemic drugs Diabetes mellitus without complication (HCC) Type II or unspecified type diabetes mellitus without mention of complication, not stated as uncontrolled documented in this encounter Care Teams Electrocardiograph Repairer Relationship Specialty Start Date End Date Lou Messina MD [address] [place] [address] PCP - General Internal Medicine 01/28/16 10/07/23 Madonna Saul PA-C [address] [place] [address] PCP - General Internal Medicine 10/08/23 10/08/23 Luo Messina MD [address] [place] [address] PCP - General Internal Medicine 10/09/23 Rc Patrick MD [address] [place] [address] Specialist Cardiovascular Disease 01/01/21 Etienne Collier MD, PHD [address] [place] [address] Specialist Neurosurgery 08/14/21 Mela Hernandez, Pharm.D [address] [place] [address] Specialist PHAMACIST CLINICIAN 11/17/23 documented as of this encounter
--- OUTSIDE RECORDS SUMMARY | 2024-11-18 16:32 | XMS_ITS | Encounter Summary ---
Author Organization [facility] Address [address] [place] [address] Care Team Providers Care Environmental Associate Name Role Phone Lou Messina MD Primary Care Provider [phone] Rc Patrick MD Unavailable Etienne Collier MD, PHD Unavailable Unava ilable Madonna Saul PA-C Primary Care Provider + Lou Messina MD Primary Care Provider [phone] Mela Hernandez Pharm.D Unavailable [phone] Reason for Visit * Reason Onset Date Comments refill request 02/13/2022 Encounter Details Date Type Department Care Team Description 02/13/2022 Refill Adult Medicine - [place] [address] [place] [address] Lou Messina MD [address] [place] [address] refill request Social History Tobacco Use Types Packs/Day Years [...] often do you attend chur ch or sikh services? Never 11/17/2023 Do you belong to any clubs o r organizations such as advent groups, unions, fraternal or athletic groups, or [...] place to sleep or slept in a long term (including now)? No 11/17/2023 Sex Assigned at Date Recorded Not on file Job Start Date Occupation Industry Not on file Not on file Not on file documented as of this encounter Miscellaneous Notes * Telephone Encounter - Yamilet Zuleta - 02/13/2022 9:09 AM EDT Patient would like script to be: E-PRESCRIBED/FAXED TO PHARMACY WHEN WAS THE PATIENT'S LAST APPOINTMENT IN ADULT MEDICINE? 08/05/2021 WHEN WAS THE LAST TIME THE PATIENT SAW THEIR PCP? Does patient have an upcoming appointment? Yes 03/12/2022 (THE MEDICATION REQUESTED IS ON THE MED LIST ABOVE) All of the medications requested were on the CURRENT MEDS list Did you check the Pharmacy information above?: YES Patient wants: 90 -day supply Is this a mail order prescription request ? NO If the refill is from a FAXED refill request what is the RX # listed on the fax? N/A Patients current insurance carrier is: Payor: [place] [employer] / Plan: [employer] $Vanessa RODRÍGUEZ [id number] / Product Type: HMO [id number] documented in this encounter Plan of Treatment Not on file documented as of this encounter Visit Diagnoses Not on filedocumented in this encounter Care Teams Environmental Associate Relationship Specialty Start Date End Date Lou Messina MD [address] [place] [address] PCP - General Internal Medicine 01/28/16 10/07/23 Madonna Saul PA-C [address] [place] [address] PCP - General Internal Medicine 10/08/23 10/08/23 Lou Messina MD [address] [place] [address] PCP - General Internal Medicine 10/09/23 Rc Patrick MD [address] [place] [address] Specialist Cardiovascular Disease 01/01/21 Etienne Collier MD, PHD [address] [place], [place] Specialist Neurosurgery 08/14/21 Mela Hernandez, Pharm.D [address] [place] [address] Specialist PHAMACIST CLINICIAN 11/17/23 documented as of this encounter
--- OUTSIDE RECORDS SUMMARY | 2024-11-18 16:32 | XMS_ITS | Encounter Summary ---
Author Organization [facility] Address [address] [place] [address] Care Team Providers Care Rn Clinical Resource Name Role Phone Rc Patrick MD Unavailable Etienne Collier MD, PHD Unavailable Unava ilable Lou Messina MD Primary Care Provider [phone] Mela Hernandez Pharm.D Unavailable [phone] Reason for Visit * Reason Onset Date Comments Leg Pain 01/28/2024 Encounter Details Date Type Department Care Team Description 01/28/2024 Telephone Adult Medicine [facility] [address] [place] [address] Lou Messina, [address] [place] [address] Leg Pain Social History Tobacco Use Types Packs/Day Years [...] often do you attend chur ch or yazdanism services? Never 11/17/2023 Do you belong to any clubs o r organizations such as hoahaoism groups, unions, fraternal or athletic groups, or [...] encounter Miscellaneous Notes * Telephone Encounter - Maribell Gamboa M.A. - 01/29/2024 12:50 PM EDT Spoke to patient and let her know the trazodone was ready at the pharmacy. * Telephone Encounter - Lou Messina MD - 01/29/2024 11:35 AM EDT Okay trazodone sent to her pharmacy * Telephone Encounter - Rob Hernandez RN - 01/29/2024 8:22 AM EDT Pt states that she has been having calf swelling for a while , pt states that it is from her knee down , pt states that it is painful in the back of her calf but that there is no hard spot or redness, pt denies injury , appointment scheduled for evaluation on [facility] PCP Pt states that she is not sleeping , pt is asking for a refill on trazodone , med seems like it is historic so did not pend * Telephone Encounter - Maribell Tristan - 01/28/2024 3:38 PM EDT Symptoms patient is presenting: c/o left calve pain and swelling. Pt states she had difficulties walking and sleeping. Offer nxt avail appt w/ care team 02/24, pt refused and stated she needs to be seen sooner. How long has patient had these symptoms?: 2-3 months PCP: Trina Messina Payor: [place] [employer] / Plan: [employer] $0 [employer] RODRÍGUEZ [id number] / Product Type: HMO [id number] documented in this encounter Plan of Treatment Not on file documented as of this encounter Visit Diagnoses Diagnosis Anxiety Anxiety state, unspecified documented in this encounter Care Teams Rn Clinical Resource Relationship Specialty Start Date End Date Lou Messina MD [address] [place] [address] PCP - General Internal Medicine 10/09/23 Rc Patrick MD Specialist Cardiovascular Disease 01/01/21 Etienne Collier MD, PHD Specialist Neurosurgery 08/14/21 Mela Hernnadez, Pharm.D [address] [place] [address] [id number] Specialist PHAMACIST CLINICIAN 11/17/23 documented as of this encounter
--- OUTSIDE RECORDS SUMMARY | 2024-11-18 16:32 | XMS_ITS | Encounter Summary ---
Author Organization [facility] Address [address] [place] [address] Care Team Providers Care Courier Delivery Driver Name Role Phone Rc Patrick MD Unavailable Etienne Collier MD, PHD Unavailable Unava iljean carlos Messina Ch MD Primary Care Provider [phone] Mela Hernandez Pharm.D Unavailable [phone] Encounter Details Date Type Department Care Team Description 12/05/2023 Home Health Certification Medical Records [address] [place] [address] Social History Tobacco Use Types Packs/Day Years [...] week 11/17/2023 How often do you attend [facility] or oriental orthodox services? Never 11/17/2023 Do [...] place to sleep or slept in a group home (including now)? No 11/17/2023 Sex Assigned at Date Recorded Not on file Job Start Date Occupation Industry Not on file Not on file Not on file documented as of this encounter Plan of Treatment Not on file documented as of this encounter Visit Diagnoses Not on filedocumented in this encounter Care Teams Courier Delivery Driver Relationship Specialty Start Date End Date Lou Messina MD [address] [place] [address] PCP - General Internal Medicine 10/09/23 Rc Patrick MD Specialist Cardiovascular Disease 01/01/21 Etienne Collier MD, PHD Specialist Neurosurgery 08/14/21 Mela Hernandez, Pharm.D [address] [place] [address] Specialist PHAMACIST CLINICIAN 11/17/23 documented as of this encounter
--- OUTSIDE RECORDS SUMMARY | 2024-11-18 16:32 | XMS_ITS | Encounter Summary ---
Author Organization [facility] Address [address] [place] [address] Care Team Providers Care Explosive Ordnance Technician Name Role Phone Rc Patrick MD Unavailable Etienne Collier MD, PHD Unavailable Unava ilable Lou Messina MD Primary Care Provider [phone] Mela Hernandez Pharm.D Unavailable [phone] Reason for Visit * Reason Onset Date Comments Faxed Order 11/17/2023 Faxed Order Miss ed Visit (correction visit date 11/03/2023) Encounter Details Date Type Department Care Team Description 11/17/2023 Telephone Adult Medicine - [place] [address] [place] [address] Lou Messina MD [address] [place] [address] Faxed Order (Faxed Order Missed Visit (correction visit date 11/03/2023)) Social History Tobacco Use Types Packs/Day Years [...] often do you attend chur ch or yarsani services? Never 11/17/2023 Do you belong to any clubs o r organizations such as jewish groups, unions, fraternal or athletic groups, or [...] place to sleep or slept in a longterm (including now)? No 11/17/2023 Sex Assigned at Date Recorded Not on file Job Start Date Occupation Industry Not on file Not on file Not on file documented as of this encounter Miscellaneous Notes * Telephone Encounter - Farheen Miller M.A. - 11/23/2023 1:40 PM EDT Obtained from [employer]box and faxed to number requested and filed. * Telephone Encounter - Mela Mijares - 11/17/2023 10:27 AM EDT . PLEASE CLOSE ( SIGN ENCOUNTER) MESSAGE WHEN ORDER HAS BEEN FAXED Faxed order Missed Visit (correction visit date 11/03/2023) received from [employer], requesting signature from provider. Please sign and fax back to [phone]. Faxed order in PCP's folder ( orange) at check out. documented in this encounter Plan of Treatment Not on file documented as of this encounter Visit Diagnoses Not on filedocumented in this encounter Care Teams Explosive Ordnance Technician Relationship Specialty Start Date End Date Lou Messina MD [address] [place] [address] PCP - General Internal Medicine 10/09/23 Rc Patrick MD Specialist Cardiovascular Disease 01/01/21 Etienne Collier MD, PHD Specialist Neurosurgery 08/14/21 Mela Hernandez, Pharm.D [address] [place] [address] Specialist PHAMACIST CLINICIAN 11/17/23 documented as of this encounter
--- OUTSIDE RECORDS SUMMARY | 2024-11-18 16:32 | XMS_ITS | Encounter Summary ---
Author Organization [facility] Address [address] [place] [address] Care Team Providers Care Fiscal Assistant Name Role Phone Lou Messina MD Primary Care Provider [phone] Rc Patrick MD Unavailable Etienne Collier MD, PHD Unavailable Unava ilable Madonna Saul PA-C Primary Care Provider + Lou Messina MD Primary Care Provider [phone] Mela Hernandez Pharm.D Unavailable [phone] Encounter Details Date Type Department Care Team Description 08/23/2018 Home Health Certification Medical Records [address] [place] [address] Home, [facility] [address] [facility] [place] [address] [place] [address] Social History Tobacco Use Types Packs/Day Years [...] How often do you attend chur or catholic services? Never 11/17/2023 Do you belong to any clubs o r organizations such as congregational groups, unions, fraternal or athletic groups, or [...] filedocumented in this encounter Care Teams Fiscal Assistant Relationship Specialty Start Date End Date Lou Messina MD [address] [place], [place] PCP - General Internal Medicine 01/28/16 10/07/23 Madonna Saul PA-C [address] [place], [place] PCP - General Internal Medicine 10/08/23 10/08/23 Lou Messina MD [address] [place], [place] PCP - General Internal Medicine 10/09/23 Rc Patrick MD [address] [place], [place] Specialist Cardiovascular Disease 01/01/21 Etienne Collier MD, PHD [address] [place], [place] Specialist Neurosurgery 08/14/21 Mela Hernandez, Pharm.D [address] [place] [address] Specialist PHAMACIST CLINICIAN 11/17/23 documented as of this encounter
--- OUTSIDE RECORDS SUMMARY | 2024-11-18 16:32 | XMS_ITS | Encounter Summary ---
Author Organization [facility] Address [address] [place] [address] Care Team Providers Care Chimney Repairer Name Role Phone Rc Patrick MD Unavailable Etienne Collier MD, PHD Unavailable Unava ilable Lou Messina MD Primary Care Provider [phone] Mela Hernandez Pharm.D Unavailable [phone] Encounter Details Date Type Department Care Team Description 11/04/2023 Orders Only Medical Records [address] [place] [address] Abram Martinez MD Social History Tobacco Use Types Packs/Day [...] you attend [facility] or baptism services? Never 11/17/2023 Do you belong to any clubs o r organizations such as sabianist groups, unions, fraternal or athletic groups, or [...] on file documented as of this encounter Procedures Procedure Name Priority Date/Time Associated Diagnosis Comments OUTSIDE CT Routine 11/03/2023 documented in this encounter Results * OUTSIDE CT (11/03/2023) Abram Martinez MD RADIOLOGY documented in this encounter Visit Diagnoses Not on filedocumented in this encounter Care Teams Chimney Repairer Relationship Specialty Start Date End Date Lou Messina MD [address] [place] [address] PCP - General Internal Medicine 10/09/23 Rc Patrick MD Specialist Cardiovascular Disease 01/01/21 Etienne Collier MD, PHD Specialist Neurosurgery 08/14/21 Mela Hernandez, Pharm.D [address] [place] [address] Specialist PHAMACIST CLINICIAN 11/17/23 documented as of this encounter
--- OUTSIDE RECORDS SUMMARY | 2024-11-18 16:32 | XMS_ITS | Encounter Summary ---
Author Organization [facility] Address [address] [place] [address] Care Team Providers Care Auto Fleet Maintenance Manager Name Role Phone Valeria Lopez MD Primary Care Provider Unavai ruthie Messina Ch MD Primary Care Provider [phone] Lou Messina MD Primary Care Provider [phone] Rc Patrick MD Unavailable Etienne Collier MD, PHD Unavailable Unava Madonna Salguero PA-C Primary Care Provider + Lou Messina MD Primary Care Provider [phone] Mela Hernandez Pharm.D Unavailable [phone] Encounter Details Date Type Department Care Team Description 01/26/2009 Hospital Medical Records [address] [place] [address] Jean Claude Plascencia Social History Tobacco Use Types Packs/Day Years [...] often do you attend chur ch or worship services? Never 11/17/2023 Do you belong to [...] on filedocumented in this encounter Care Teams Auto Fleet Maintenance Manager Relationship Specialty Start Date End Date Valeria Lopez MD PCP - General 06/23/08 12/08/13 Luo Messina MD [address] [place], [place] PCP - General Internal Medicine 01/28/16 10/07/23 Lou Messina MD [address] [place], [place] PCP - General 12/09/13 01/27/16 Madonna Saul PA-C [address] [place], [place] PCP - General Internal Medicine 10/08/23 10/08/23 Lou Messina MD [address] [place] PCP - General Internal Medicine 10/09/23 Rc Patrick MD [address] [place] [address] Specialist Cardiovascular Disease 01/01/21 Etienne Collier MD, PHD [address] [place] [address] Specialist Neurosurgery 08/14/21 Mela Hernandez, Pharm.D [address] [place] [address] Specialist PHAMACIST CLINICIAN 11/17/23 documented as of this encounter
--- OUTSIDE RECORDS SUMMARY | 2024-11-18 16:32 | XMS_ITS | Encounter Summary ---
Author Organization [facility] Address [address] [place] [address] Care Team Providers Care Sap Business Objects Developer Name Role Phone Lou Messina MD Primary Care Provider [phone] Rc Patrick MD Unavailable Etienne Collier MD, PHD Unavailable Unava ilable Madonna Saul PA-C Primary Care Provider + Lou Messina MD Primary Care Provider +[phone] Mela Hernandez Pharm.D Unavailable [phone] Encounter Details Date Type Department Care Team Description 06/16/2021 Home Health Certification Medical Records [address] [place] [address] Social History Tobacco Use Types Packs/Day Years [...] often do you attend chur ch or jehovah's witness services? Never 11/17/2023 Do you belong to any clubs o r organizations such as moravian groups, unions, fraternal or athletic groups, or [...] place to sleep or slept in a long-term (including now)? No 11/17/2023 Sex Assigned at Date Recorded Not on file Job Start Date Occupation Industry Not on file Not on file Not on file documented as of this encounter Plan of Treatment Not on file documented as of this encounter Visit Diagnoses Not on filedocumented in this encounter Care Teams Sap Business Objects Developer Relationship Specialty Start Date End Date Lou Messina MD [address] [place], [place] PCP - General Internal Medicine 01/28/16 10/07/23 Madonna Saul PA-C [address] [place], [place] PCP - General Internal Medicine 10/08/23 10/08/23 Lou Messina MD [address] [place], [place] PCP - General Internal Medicine 10/09/23 Rc Patrick MD [address] [place], [place] Specialist Cardiovascular Disease 01/01/21 Etienne Collier MD, PHD [address] [place], [place] Specialist Neurosurgery 08/14/21 Mela Hernandez, Pharm.D [address] [place] [address] Specialist PHAMACIST CLINICIAN 11/17/23 documented as of this encounter
--- OUTSIDE RECORDS SUMMARY | 2024-11-18 16:32 | XMS_ITS | Clinical Summary ---
Author Organization [facility] Address [address] [place] [address] Care Team Providers Care Tack Driller Name Role Phone Shira Awan MD Primary Care Provider [phone] Source Comments PLEASE NOTE, if this patient [...] Description 12/02/2024 3:00 PM EDT Office Visit [facility] [address] [facility] [address] [place] [id number] Eric Jackson [address] [place] [address] Health Maintenance Due Date Last Done Comments Tobacco Screening 1940 Advanced Care Planning 01/12/1940 Hypertension Screening (#1) 12/12/1957 Medicare Annual Wellness Visit 12/12/1957 Imm-DTaP/Tdap/Td (1 - Tdap) 12/12/1958 Imm-Pneumococcal 65+ (1 of 1 - PCV) 12/12/1989 Imm-Zoster, Recombinant (1 of 2) 12/12/1989 Bone Density Screening 12/12/2004 Falls Prevention 12/12/2004 [id number] (1 - 2023- season) 2024 Imm-Influenza (#1) 2024 Alcohol and Drug Screen 08/17/2024 Depression Annual Screen 08/17/2024 Insurance [place] [facility] Care Teams Tack Driller Relationship Specialty Start Date End Date Shira Awan MD [address] [place] [address] PCP - General Internal Medicine 10/31/15
--- OUTSIDE RECORDS SUMMARY | 2024-11-18 16:32 | XMS_ITS | Encounter Summary ---
Author Organization [facility] Address [address] [place] [address] Care Team Providers Care Continuous Pillowcase Cutter Name Role Phone Lou Messina MD Primary Care Provider [phone] Rc Patrick MD Unavailable Etienne Collier MD, PHD Unavailable Unava ilable Madonna Saul PA-C Primary Care Provider + Lou Messina MD Primary Care Provider +[phone] Mela Hernandez Pharm.D Unavailable [phone] Encounter Details Date Type Department Care Team Description 04/09/2017 Telephone Adult Medicine - [address] [address] Dev Jorgensen PA-C [address] [place] [address] Social History Tobacco Use Types Packs/Day Years [...] place to sleep or slept in a mcc (including now)? No 11/17/2023 Sex Assigned at Date Recorded Not on file Job Start Date Occupation Industry Not on file Not on file Not on file documented as of this encounter Miscellaneous Notes * Telephone Encounter - Dev Jorgensen PA-C - 04/10/2017 9:45 AM EDT signed * Telephone Encounter - Kimberli Boland M.A. - 04/10/2017 9:11 AM EDT Letter with normal results pending, please review and sign. Thank you * Telephone Encounter - Mary De Souza - 04/09/2017 4:18 PM EDT Pt is requesting diabetic test results to be mailed to her. Please advise? * Telephone Encounter - Christina Oconnell M.A. - 04/09/2017 11:49 AM EDT Left message for patient to call back. * Telephone Encounter - Christina Oconnell M.A. - 04/09/2017 11:49 AM EDT ----- Message from Dev Jorgensen PA-C sent at 04/09/2017 9:00 AM EDT ----- Please call patient with normal results Telephone Information: Mobile Not on file. documented in this encounter Plan of Treatment Not on file documented as of this encounter Visit Diagnoses Not on filedocumented in this encounter Care Teams Continuous Pillowcase Cutter Relationship Specialty Start Date End Date Lou Messina MD [address] [place] [address] PCP - General Internal Medicine 01/28/16 10/07/23 Madonna Saul PA-C [address] [place] [address] PCP - General Internal Medicine 10/08/23 10/08/23 Lou Messina MD [address] [place] [address] PCP - General Internal Medicine 10/09/23 Rc Patrick MD [address] [place] [address] Specialist Cardiovascular Disease 01/01/21 Etienne Collier MD, PHD [address] [place], [place] Specialist Neurosurgery 08/14/21 Mela Hernandez, Pharm.D [address] [place] [id number] Specialist PHAMACIST CLINICIAN 11/17/23 documented as of this encounter
--- OUTSIDE RECORDS SUMMARY | 2024-11-18 16:32 | XMS_ITS | Encounter Summary ---
Author Organization [facility] Address [address] [place] [address] Care Team Providers Care Field Hockey And Lacrosse Coach Name Role Phone Lou Messina MD Primary Care Provider [phone] Rc Patrick MD Unavailable Etienne Collier MD, PHD Unavailable Unava ilable Madonna Saul PA-C Primary Care Provider + Lou Messina MD Primary Care Provider +[phone] Mela Hernandez Pharm.D Unavailable [phone] Reason for Visit * Reason Onset Date Comments refill request 10/04/2021 not on med list Encounter Details Date Type Department Care Team Description 10/04/2021 Telephone Adult Medicine - [place] [address] [place] [address] Lou Messina MD [address] [place] [address] refill request (not on med list) Social History Tobacco Use Types Packs/Day Years [...] often do you attend chur ch or jew services? Never 11/17/2023 Do you belong to [...] PM EST documented as of this encounter Miscellaneous Notes * Telephone Encounter - Trina Bhardwaj M.A. 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 - 10/04/2021 11:16 AM EST Nitroglycerin not on medication list Called [facility], no record of Rx being filled there. Will call patient back as daughter in law was having a full conversation on the other line and had me on the other line for 3 minutes. * Telephone Encounter - Roma Callaway - 10/04/2021 11:08 AM EST Patient would like script to be: E-PRESCRIBED/FAXED TO PHARMACY When was the patients last office visit in Adult Medicine?: 08/05/21 When was the last time the patient saw their PCP? no Does patient have an upcoming appointment?per pauline pt is to see pcp by 10/2021, pt needs to be seen much sooner due to cronic conditions, bsr has sent a message to triage to see if triage can assist booking something sooner with pcp (THE MEDICATION IS NOT ON THE MED LIST AND IS IDENTIFIED BELOW): {MED LIST:66605) Med name: NITROGLYCERIN Dosage: # of tablets: Local pharmacy with request for 30 -day supply Instructions: Did you check the pharmacy information above?: NO Patients current insurance carrier: Payor: [employer] / Plan: Mobile Armor $0 [facility] [id number] / Product Type: HMO [id number] documented in this encounter Plan of Treatment Not on file documented as of this encounter Visit Diagnoses Not on filedocumented in this encounter Care Teams Field Hockey And Lacrosse Coach Relationship Specialty Start Date End Date Lou Messina MD [address] [place] [address] PCP - General Internal Medicine 01/28/16 10/07/23 Madonna Saul PA-C [address] [place], [place] PCP - General Internal Medicine 10/08/23 10/08/23 Lou Messina MD [address] [place] PCP - General Internal Medicine 10/09/23 Rc Patrick MD [address] [place] [address] Specialist Cardiovascular Disease 01/01/21 Etienne Collier MD, PHD [address] [place] [address] Specialist Neurosurgery 08/14/21 Mela Hernandez, Pharm.D [address] [place] [phone] Specialist PHAMACIST CLINICIAN 11/17/23 documented as of this encounter
--- OUTSIDE RECORDS SUMMARY | 2024-11-18 16:32 | XMS_ITS | Encounter Summary ---
Author Organization [facility] Address [address] [place] [address] Care Team Providers Care Fisher Pound Net Or Trap Name Role Phone Lou Messina MD Primary Care Provider [phone] Rc Patrick MD Unavailable Etienne Collier MD, PHD Unavailable Unava ilable Madonna Saul PA-C Primary Care Provider + Lou Messina MD Primary Care Provider [phone] Mela Hernandez Pharm.D Unavailable [phone] Reason for Visit * Reason Comments E-prescribe Rx Request Encounter Details Date Type Department Care Team Description 12/03/2021 Refill Adult Medicine - [place] [address] [place] [address] Lou Messina MD [address] [place] [address] E-prescribe Rx Request Social History Tobacco Use [...] often do you attend chur ch or holiness services? Never 11/17/2023 Do you belong to any clubs o r organizations such as yazidi groups, unions, fraternal or athletic groups, or [...] encounter Miscellaneous Notes * Telephone Encounter - Jorje Enriquez M.A. - 12/04/2021 10:50 AM EDT Patient would like script to be: E-PRESCRIBED/FAXED TO PHARMACY WHEN WAS THE PATIENT'S LAST APPOINTMENT IN ADULT MEDICINE? 08/14/21 WHEN WAS THE LAST TIME THE PATIENT SAW THEIR PCP? 01/08/21 Does patient have an upcoming appointment? Yes 02/10/22 (THE MEDICATION REQUESTED IS ON THE MED LIST ABOVE) All of the medications requested were on the CURRENT MEDS list Did you check the Pharmacy information above?: NO Patient wants: 90 -day supply Is this a mail order prescription request ? NO If the refill is from a FAXED refill request what is the RX # listed on the fax? N/A Patients current insurance carrier is: Payor: [employer] / Plan: Ludesi $Vanessa RODRÍGUEZ [id number] / Product Type: HMO Clh-ohs-Aaddcuy documented in this encounter Plan of Treatment Not on file documented as of this encounter Visit Diagnoses Not on filedocumented in this encounter Care Teams Fisher Pound Net Or Trap Relationship Specialty Start Date End Date Lou Messina MD [address] [place] [address] PCP - General Internal Medicine 01/28/16 10/07/23 Madonna Saul PA-C [address] [place] [address] PCP - General Internal Medicine 10/08/23 10/08/23 Lou Messina MD [address] [place] [address] PCP - General Internal Medicine 10/09/23 Rc Patrick MD [address] [place] [address] Specialist Cardiovascular Disease 01/01/21 Etienne Collier MD, PHD [address] [place], [place] Specialist Neurosurgery 08/14/21 Mela Hernandez, Pharm.D [address] [place] [address] Specialist PHAMACIST CLINICIAN 11/17/23 documented as of this encounter
--- OUTSIDE RECORDS SUMMARY | 2024-11-18 16:32 | XMS_ITS | Encounter Summary ---
Author Organization [facility] Address [address] [place] [address] Care Team Providers Care Advertising Sales Associate Name Role Phone Rc Patrick MD Unavailable Etienne Collier MD, PHD Unavailable Unava iljean carlos Messina Ch MD Primary Care Provider [phone] Mela Hernandez Pharm.D Unavailable [phone] Encounter Details Date Type Department Care Team Description 05/18/2024 Cruise Staff Member Report Medical Records [address] [place] [address] Rose Nails MD Social History Tobacco Use Types Packs/Day [...] week 11/17/2023 How often do you attend [facility] or yazidism services? Never 11/17/2023 Do you belong to any clubs o r organizations such as methodist groups, unions, fraternal or athletic groups, or [...] place to sleep or slept in a usp (including now)? No 11/17/2023 Sex Assigned at Date Recorded Not on file Job Start Date Occupation Industry Not on file Not on file Not on file documented as of this encounter Plan of Treatment Not on file documented as of this encounter Visit Diagnoses Not on filedocumented in this encounter Care Teams Advertising Sales Associate Relationship Specialty Start Date End Date Lou Messina MD [address] [place] [address] PCP - General Internal Medicine 10/09/23 Rc Patrick MD Specialist Cardiovascular Disease 01/01/21 Etienne Collier MD, PHD Specialist Neurosurgery 08/14/21 Mela Hernandez, Pharm.D [address] [place] [address] Specialist PHAMACIST CLINICIAN 11/17/23 documented as of this encounter
--- OUTSIDE RECORDS SUMMARY | 2024-11-18 16:32 | XMS_ITS | Encounter Summary ---
Author Organization [facility] Address [address] [place] [address] Care Team Providers Care Carroting Machine Offbearer Name Role Phone Valeria Lopez MD Primary Care Provider Unavai ruthie Messina Ch MD Primary Care Provider [phone] Lou Messina MD Primary Care Provider [phone] Rc Patrick MD Unavailable Etienne Collier MD, PHD Unavailable Unava Madonna Salguero PA-C Primary Care Provider + Lou Messina MD Primary Care Provider [phone] Mela Hernandez Pharm.D Unavailable [phone] Encounter Details Date Type Department Care Team Description 01/25/2009 Hospital Medical Records [address] [place] [address] Misael Brice Social History Tobacco Use Types Packs/Day Years [...] often do you attend chur ch or presybeterian services? Never 11/17/2023 Do you belong to any clubs o r organizations such as spiritism groups, unions, fraternal or athletic groups, or [...] to sleep or slept in a senior living (including now)? No 11/17/2023 Sex Assigned at Date Recorded Not on file Job Start Date Occupation Industry Not on file Not on file Not on file documented as of this encounter Plan of Treatment Not on file documented as of this encounter Visit Diagnoses Not on filedocumented in this encounter Care Teams Carroting Machine Offbearer Relationship Specialty Start Date End Date Valeria Lopez MD PCP - General 06/23/08 12/08/13 Lou Messina, [address] [place], [place] PCP - General Internal Medicine 01/28/16 10/07/23 Lou Messina MD [address] [place], [place] PCP - General 12/09/13 01/27/16 Madonna Saul PA-C [address] [place], [place] PCP - General Internal Medicine 10/08/23 10/08/23 Lou Messina MD [address] [place], [place] PCP - General Internal Medicine 10/09/23 Rc Patrick MD [address] [place] [address] Specialist Cardiovascular Disease 01/01/21 Etienne Collier MD, PHD [address] [place] [address] Specialist Neurosurgery 08/14/21 Mela Hernandez, Pharm.D [address] [place] [address] Specialist PHAMACIST CLINICIAN 11/17/23 documented as of this encounter
--- OUTSIDE RECORDS SUMMARY | 2024-11-18 16:32 | XMS_ITS | Encounter Summary ---
Author Organization [facility] Address [address] [place] [address] Care Team Providers Care Applications Trainer Name Role Phone Lou Messina MD Primary Care Provider [phone] Rc Patrick MD Unavailable Etienne Collier MD, PHD Unavailable Unava ilable Madonna Saul PA-C Primary Care Provider + Lou Messina MD Primary Care Provider [phone] Mela Hernandez Pharm.D Unavailable [phone] Encounter Details Date Type Department Care Team Description 09/18/2021 [facility] [address] [address] Karen Warren PA-C [address] [address] Social History Tobacco Use Types Packs/Day Years [...] often do you attend chur ch or mandaeism services? Never 11/17/2023 Do you belong to any clubs o r organizations such as yarsani groups, unions, fraternal or athletic groups, or [...] have Coronavirus / COVID-19? No / Unsure 09/02/2021 2:26 PM EST documented as of this encounter Plan of Treatment Not on file documented as of this encounter Visit Diagnoses Not on filedocumented in this encounter Care Teams Applications Trainer Relationship Specialty Start Date End Date Lou Messina MD [address] [place], [place] PCP - General Internal Medicine 01/28/16 10/07/23 Madonna Saul PA-C [address] [place], [place] PCP - General Internal Medicine 10/08/23 10/08/23 Lou Messina MD [address] [place], [place] PCP - General Internal Medicine 10/09/23 Rc Patrick MD [address] [place] [address] Specialist Cardiovascular Disease 01/01/21 Etienne oCllier MD, PHD [address] [place] [address] Specialist Neurosurgery 08/14/21 Mela Hernandez, Pharm.D [address] [place] [address] Specialist PHAMACIST CLINICIAN 11/17/23 documented as of this encounter
--- OUTSIDE RECORDS SUMMARY | 2024-11-18 16:32 | XMS_ITS | Encounter Summary ---
Author Organization [facility] Address [address] [place] [address] Care Team Providers Care Air Chief Marshal Name Role Phone Lou Messina MD Primary Care Provider [phone] Rc Patrick MD Unavailable Etienne Collier MD, PHD Unavailable Unava ilMadonna Tee PA-C Primary Care Provider + Lou Messina MD Primary Care Provider [phone] Mlea Hernandez Pharm.D Unavailable [phone] Reason for Visit * Reason Onset Date Comments Form 09/04/2021 [facility] 08/15/2021- Encounter Details Date Type Department Care Team Description 09/04/2021 Telephone Adult Medicine - [place] [address] [place] [address] Lou Messina MD [address] [place] [address] Form ([facility] 08/15/2021-10/13/2021) Social History Tobacco Use Types Packs/Day Years [...] How often do you attend chur or muslim services? Never 11/17/2023 Do you belong to any clubs o r organizations such as confucianist groups, unions, fraQuantum OPS or athletic groups, or school groups? No [...] place to sleep or slept in a residential (including now)? No 11/17/2023 Sex Assigned at [...] encounter Miscellaneous Notes * Telephone Encounter - Mela Mijares - 09/04/2021 10:19 AM EST Orders only encounter created. Will fax file and scan once provider signs form. Form to pcp. documented in this encounter Plan of Treatment Not on file documented as of this encounter Visit Diagnoses Not on filedocumented in this encounter Care Teams Air Chief Marshal Relationship Specialty Start Date End Date Lou Messina MD [facility] [place] [address] PCP - General Internal Medicine 01/28/16 10/07/23 Madonna Saul PA-C [address] [place] [address] PCP - General Internal Medicine 10/08/23 10/08/23 Lou Messina MD [address] [place] [address] PCP - General Internal Medicine 10/09/23 Rc Patrick MD [address] [place] [address] Specialist Cardiovascular Disease 01/01/21 Etienne Collier MD, PHD [address] [place] [address] Specialist Neurosurgery 08/14/21 Mela Hernandez, Pharm.D [address] [place] [address] Specialist PHAMACIST CLINICIAN 11/17/23 documented as of this encounter
--- OUTSIDE RECORDS SUMMARY | 2024-11-18 16:32 | XMS_ITS | Encounter Summary ---
Author Organization [facility] Address [address] [place] [address] Care Team Providers Care Printing Machine Operator Name Role Phone Lou Messina MD Primary Care Provider [phone] Rc Patrick MD Unavailable Etienne Collier MD, PHD Unavailable Unava ilable Madonna Saul PA-C Primary Care Provider + Lou Messina MD Primary Care Provider +[phone] Mela Hernandez Pharm.D Unavailable [phone] Encounter Details Date Type Department Care Team Description 02/11/2022 Home Health Certification Medical Records [address] [place] [address] Social History Tobacco Use Types Packs/Day Years [...] often do you attend chur ch or restorationism services? Never 11/17/2023 Do you belong to [...] on filedocumented in this encounter Care Teams Printing Machine Operator Relationship Specialty Start Date End Date Lou Messina MD [address] [place], [place] PCP - General Internal Medicine 01/28/16 10/07/23 Madonna Saul PA-C [address] [place], [place] PCP - General Internal Medicine 10/08/23 10/08/23 Lou Messina MD [address] [place], [place] PCP - General Internal Medicine 10/09/23 Rc Patrick MD [address] [place], [place] Specialist Cardiovascular Disease 01/01/21 Etienne Collier MD, PHD [address] [place], [place] Specialist Neurosurgery 08/14/21 Mela Hernandez, Pharm.D [address] [place] [address] Specialist PHAMACIST CLINICIAN 11/17/23 documented as of this encounter
--- OUTSIDE RECORDS SUMMARY | 2024-11-18 16:33 | XMS_ITS | Encounter Summary ---
Author Organization [facility] Address [address] [place] [address] Care Team Providers Care Tree Loader Meat Name Role Phone Lou Messina MD Primary Care Provider [phone] Rc Patrick MD Unavailable Etienne Collier MD, PHD Unavailable Unava ilable Madonna Saul PA-C Primary Care Provider + Lou Messina MD Primary Care Provider [phone] Mela Hernandez Pharm.D Unavailable [phone] Encounter Details Date Type Department Care Team Description 12/17/2020 [facility] Medical Records [address] [place] [address] Social History Tobacco Use Types Packs/Day Years [...] often do you attend chur ch or shinto services? Never 11/17/2023 Do you belong to [...] on filedocumented in this encounter Care Teams Tree Loader Meat Relationship Specialty Start Date End Date Lou Messina MD [address] [place], [place] PCP - General Internal Medicine 01/28/16 10/07/23 Madonna Saul PA-C [address] [place], [place] PCP - General Internal Medicine 10/08/23 10/08/23 Lou Messina MD [address] [place], [place] PCP - General Internal Medicine 10/09/23 Rc Patrick MD [address] [place], [place] Specialist Cardiovascular Disease 01/01/21 Etienne Collier MD, PHD [address] [place], [place] Specialist Neurosurgery 08/14/21 Mela Hernandez, Pharm.D [address] [place] [address] Specialist PHAMACIST CLINICIAN 11/17/23 documented as of this encounter
--- OUTSIDE RECORDS SUMMARY | 2024-11-18 16:33 | XMS_ITS | Encounter Summary ---
Author Organization [facility] Address [address] [place] [address] Care Team Providers Care Abrasive Wheel Molder Name Role Phone Lou Messina MD Primary Care Provider [phone] Rc Patrick MD Unavailable Etienne Collier MD, PHD Unavailable Unava ilable Madonna Saul PA-C Primary Care Provider + Lou Messina MD Primary Care Provider [phone] Mela Hernandez Pharm.D Unavailable [phone] Encounter Details Date Type Department Care Team Description 04/21/2023 Reclamation Engineer Report Medical Records [address] [place] [address] Etienne Collier MD, PHD Social History Tobacco [...] Exposure Response Date Recorded In the last 10 days, have yo u been in contact with someone who was confirmed or suspected to have Coronavirus/COVID-19? No / Unsure 04/14/2023 11:27 AM EDT documented as of this encounter Plan of Treatment Not on file documented as of this encounter Visit Diagnoses Not on filedocumented in this encounter Care Teams Abrasive Wheel Molder Relationship Specialty Start Date End Date Lou Messina MD [address] [place], [place] PCP - General Internal Medicine 01/28/16 10/07/23 Madonna Saul PA-C [address] [place] [address] PCP - General Internal Medicine 10/08/23 10/08/23 Lou Messina MD [address] [place], [place] PCP - General Internal Medicine 10/09/23 Rc Patrick MD [address] [place], [place] Specialist Cardiovascular Disease 01/01/21 Etienne Collier MD, PHD [address] [place] [address] Specialist Neurosurgery 08/14/21 Mela Hernandez, Pharm.D [address] [place] [address] Specialist PHAMACIST CLINICIAN 11/17/23 documented as of this encounter
--- OUTSIDE RECORDS SUMMARY | 2024-11-18 16:33 | XMS_ITS | Encounter Summary ---
Author Organization [facility] Address [address] [place] [address] Care Team Providers Care Grappler Name Role Phone Lou Messina MD Primary Care Provider [phone] Rc Patrick MD Unavailable Etienne Collier MD, PHD Unavailable Unava ilable Madonna Saul PA-C Primary Care Provider + Lou Messina MD Primary Care Provider +1 [phone] Mela Hernandez Pharm.D Unavailable [phone] Encounter Details Date Type Department Care Team Description 11/27/2017 Home Health Certification Medical Records [address] [place] [id number] Abstract, Provider Social History Tobacco Use Types [...] often do you attend chur ch or judaism services? Never 11/17/2023 Do you belong to [...] on filedocumented in this encounter Care Teams Grappler Relationship Specialty Start Date End Date Lou Messina MD [address] [place], [place] PCP - General Internal Medicine 01/28/16 10/07/23 Madonna Saul PA-C [address] [place], [place] PCP - General Internal Medicine 10/08/23 10/08/23 Lou Messina MD [address] [place], [place] PCP - General Internal Medicine 10/09/23 Rc Patrick MD [address] [place], [place] Specialist Cardiovascular Disease 01/01/21 Etienne Collier MD, PHD [address] [place], [place] Specialist Neurosurgery 08/14/21 Mela Hernandez, Pharm.D [address] [place] [address] Specialist PHAMACIST CLINICIAN 11/17/23 documented as of this encounter
--- OUTSIDE RECORDS SUMMARY | 2024-11-18 16:33 | XMS_ITS | Encounter Summary ---
Author Organization [facility] Address [address] [place] [address] Care Team Providers Care Hydrocrane Operator Name Role Phone Lou Messina MD Primary Care Provider [phone] [phone] Rc Patrick MD Unavailable Etienne Collier MD, PHD Unavailable Unava ilable Madonna Saul PA-C Primary Care Provider + Lou Messina MD Primary Care Provider +1 -[phone] Mela Hernandez Pharm.D Unavailable [phone] Encounter Details Date Type Department Care Team Description 04/01/2021 Home Health Certification Medical Records [address] [place] [id number] Abstract, Provider Social History Tobacco Use Types [...] often do you attend chur ch or yazidism services? Never 11/17/2023 Do you belong to any clubs o r organizations such as sabianism groups, unions, fraternal or athletic groups, or [...] have Coronavirus / COVID-19? No / Unsure 03/13/2021 4:49 PM EDT documented as of this encounter Plan of Treatment Not on file documented as of this encounter Visit Diagnoses Not on filedocumented in this encounter Care Teams Hydrocrane Operator Relationship Specialty Start Date End Date Lou Messina MD [address] [place], [place] PCP - General Internal Medicine 01/28/16 10/07/23 Madonna Saul PA-C [address] [place], [place] PCP - General Internal Medicine 10/08/23 10/08/23 Lou eMssina MD [address] [place], [place] PCP - General Internal Medicine 10/09/23 Rc Patrick MD [address] [place], [place] Specialist Cardiovascular Disease 01/01/21 Etienne Collier MD, PHD [address] [place], [place] Specialist Neurosurgery 08/14/21 Mela Hernandez, Pharm.D [address] [place] [address] Specialist PHAMACIST CLINICIAN 11/17/23 documented as of this encounter
--- OUTSIDE RECORDS SUMMARY | 2024-11-18 16:33 | XMS_ITS | Encounter Summary ---
Author Organization [facility] Address [address] [place] [address] Care Team Providers Care Lost Charge Card Clerk Name Role Phone Lou Messina MD Primary Care Provider [phone] Rc Patrick MD Unavailable Etienne Collier MD, PHD Unavailable Unava ilable Madonna Saul PA-C Primary Care Provider + Lou Messina MD Primary Care Provider [phone] Mela Hernandez Pharm.D Unavailable [phone] Encounter Details Date Type Department Care Team Description 11/20/2017 Hospital Medical Records [address] [place] [address] Marilee Fu, CONVENTIONAL MORTGAGE UNDERWRITER [address] [address] Social History Tobacco Use Types Packs/Day Years [...] How often do you attend chur or hindu services? Never 11/17/2023 Do you belong to any clubs o r organizations such as jew groups, unions, fraternal or athletic groups, or [...] on filedocumented in this encounter Care Teams Lost Charge Card Clerk Relationship Specialty Start Date End Date Lou Messina MD [address] [place], [place] PCP - General Internal Medicine 01/28/16 10/07/23 Madonna Saul PA-C [address] [place], [place] PCP - General Internal Medicine 10/08/23 10/08/23 Lou Messina MD [address] [place], [place] PCP - General Internal Medicine 10/09/23 Rc Patrick MD [address] [place], [place] Specialist Cardiovascular Disease 01/01/21 Etienne Collier MD, PHD [address] [place], [place] Specialist Neurosurgery 08/14/21 Mela Hernandez, Pharm.D [address] [place] [address] Specialist PHAMACIST CLINICIAN 11/17/23 documented as of this encounter
--- OUTSIDE RECORDS SUMMARY | 2024-11-18 16:33 | XMS_ITS | Encounter Summary ---
Author Organization [facility] Address [address] [place] [address] Care Team Providers Care Loading Dock Hand Name Role Phone Lou Messina MD Primary Care Provider [phone] Rc Patrick MD Unavailable Etienne Collier MD, PHD Unavailable Unava ilable Madonna Saul PA-C Primary Care Provider + Lou Messina MD Primary Care Provider +1 [phone] Mela Hernandez Pharm.D Unavailable [phone] Encounter Details Date Type Department Care Team Description 08/02/2018 Orders Only Medical Records [address] [place] [address] Abstract, Provider Social History Tobacco Use Types [...] any clubs o r organizations such as holiness groups, unions, fraternal or athletic groups, or [...] Name Priority Date/Time Associated Diagnosis Comments OUTSIDE EYE EXAM Routine 06/30/2018 documented in this encounter Results * OUTSIDE EYE EXAM (06/30/2018) Provider Abstract PROCEDURES documented in this encounter Visit Diagnoses Not on filedocumented in this encounter Care Teams Loading Dock Hand Relationship Specialty Start Date End Date Lou Messina MD [address] [place], [place] PCP - General Internal Medicine 01/28/16 10/07/23 Madonna Saul PA-C [address] [place], [place] PCP - General Internal Medicine 10/08/23 10/08/23 Lou Messina MD [address] [place], [place] PCP - General Internal Medicine 10/09/23 Rc Patrick MD [address] [place], [place] Specialist Cardiovascular Disease 01/01/21 Etienne Collier MD, PHD [address] [place], [place] Specialist Neurosurgery 08/14/21 Mela Hernandez, Pharm.D [address] [place], [place] [id number] Specialist PHAMACIST CLINICIAN 11/17/23 documented as of this encounter
--- OUTSIDE RECORDS SUMMARY | 2024-11-18 16:33 | XMS_ITS | Encounter Summary ---
Author Organization [facility] Address [address] [place] [address] Care Team Providers Care Foster Care Social Worker Name Role Phone Valeria Lopez MD Primary Care Provider Unavai ruthie Messina Ch MD Primary Care Provider [phone] Lou Messina MD Primary Care Provider [phone] [phone] Rc Patrick MD Unavailable Etienne Collier MD, PHD Unavailable Unava Madonna Salguero PA-C Primary Care Provider + Lou Messina MD Primary Care Provider [phone] Mela Hernandez Pharm.D Unavailable [phone] Encounter Details Date Type Department Care Team Description 02/15/2009 Hospital Medical Records [address] [place] [address] Norm Le Social History Tobacco Use Types Packs/Day Years [...] How often do you attend chur or mormon services? Never 11/17/2023 Do you belong to any clubs o r organizations such as judaism groups, unions, fraternal or athletic groups, or [...] on filedocumented in this encounter Care Teams Foster Care Social Worker Relationship Specialty Start Date End Date Valeria Lopez MD PCP - General 06/23/08 12/08/13 Lou Messina, [address] [place], [place] PCP - General Internal Medicine 01/28/16 10/07/23 Lou Messina MD [address] [place], [place] PCP - General 12/09/13 01/27/16 Madonna Saul PA-C [address] [place], [place] PCP - General Internal Medicine 10/08/23 10/08/23 Lou Messina MD [address] [place], [place] PCP - General Internal Medicine 10/09/23 Rc Patrick MD [address] [place] [address] Specialist Cardiovascular Disease 01/01/21 Etienne Collier MD, PHD [address] [place] [address] Specialist Neurosurgery 08/14/21 Mela Hernandez, Pharm.D [address] [place] [address] Specialist PHAMACIST CLINICIAN 11/17/23 documented as of this encounter
--- OUTSIDE RECORDS SUMMARY | 2024-11-18 16:33 | XMS_ITS | Encounter Summary ---
Author Organization [facility] Address [address] [place] [address] Care Team Providers Care Steel Rule Inspector Name Role Phone Valeria Lopez MD Primary Care Provider Unavai ruthie Messina Ch MD Primary Care Provider [phone] [phone] Lou Messina MD Primary Care Provider [phone] Rc Patrick MD Unavailable Etienne Collier MD, PHD Unavailable Unava Madonna Salguero PA-C Primary Care Provider + Lou Messina MD Primary Care Provider [phone] [phone] Mela Hernandez Pharm.D Unavailable [phone] Encounter Details Date Type Department Care Team Description 02/14/2009 Hospital Medical Records [address] [place] [address] Shane Schneider MD Social History Tobacco Use Types Packs/Day [...] How often do you attend chur or cheondoism services? Never 11/17/2023 Do you belong to any clubs o r organizations such as confucianist groups, unions, fraternal or athletic groups, or [...] on filedocumented in this encounter Care Teams Steel Rule Inspector Relationship Specialty Start Date End Date Valeria Lopez MD PCP - General 06/23/08 12/08/13 Lou Messina, [address] [place], [place] PCP - General Internal Medicine 01/28/16 10/07/23 Lou Messina MD [address] [place], [place] PCP - General 12/09/13 01/27/16 Madonna Saul PA-C [address] [place], [place] PCP - General Internal Medicine 10/08/23 10/08/23 Lou Messina MD [address] [place], [place] PCP - General Internal Medicine 10/09/23 cR Patrick MD [address] [place] [address] Specialist Cardiovascular Disease 01/01/21 Etienne Collier MD, PHD [address] [place] [address] Specialist Neurosurgery 08/14/21 Mela Hernandez, Pharm.D [address] [place] [address] Specialist PHAMACIST CLINICIAN 11/17/23 documented as of this encounter
--- OUTSIDE RECORDS SUMMARY | 2024-11-18 16:33 | XMS_ITS | Encounter Summary ---
Author Organization [facility] Address [address] [place] [address] Care Team Providers Care Preconstruction Manager Name Role Phone Lou Messina MD Primary Care Provider [phone] Rc Patrick MD Unavailable Etienne Collier MD, PHD Unavailable Unava ilable Madonna Saul PA-C Primary Care Provider + Lou Messina MD Primary Care Provider +[phone] Mela Hernandez Pharm.D Unavailable [phone] Encounter Details Date Type Department Care Team Description 02/06/2023 Home Health Certification Medical Records [address] [place] [address] Social History Tobacco Use Types Packs/Day Years [...] often do you attend chur ch or congregational services? Never 11/17/2023 Do you belong to [...] suspected to have Coronavirus/COVID-19? No / Unsure 01/16/2023 2:39 PM EDT documented as of this encounter Plan of Treatment Not on file documented as of this encounter Visit Diagnoses Not on filedocumented in this encounter Care Teams Preconstruction Manager Relationship Specialty Start Date End Date Lou Messina MD [address] [place], [place] PCP - General Internal Medicine 01/28/16 10/07/23 Madonna Saul PA-C [address] [place], [place] PCP - General Internal Medicine 10/08/23 10/08/23 Lou Messina MD [address] [place], [place] PCP - General Internal Medicine 10/09/23 Rc Patrick MD [address] [place], [place] Specialist Cardiovascular Disease 01/01/21 Etienne Collier MD, PHD [address] [place], [place] Specialist Neurosurgery 08/14/21 Mela Hernandez, Pharm.D [address] [place], [place] [phone] Specialist PHAMACIST CLINICIAN 11/17/23 documented as of this encounter
--- OUTSIDE RECORDS SUMMARY | 2024-11-18 16:33 | XMS_ITS | Encounter Summary ---
Author Organization [facility] Address [address] [place] [address] Care Team Providers Care Power Barker Operator Name Role Phone Lou Messina MD Primary Care Provider [phone] Rc Patrick MD Unavailable Etienne Collier MD, PHD Unavailable Unava ilable Madonna Saul PA-C Primary Care Provider + Lou Messina MD Primary Care Provider +1 -[phone] Mela Hernandez Pharm.D Unavailable [phone] Reason for Visit * Reason Onset Date Comments APPOINTMENT 04/29/2021 Encounter Details Date Type Department Care Team Description 04/29/2021 Telephone Cardio PVC POC [address] [facility] [address] [place] [address] Cain Mena MD [address] [place] [address] [id number] APPOINTMENT Social History Tobacco Use Types Packs/Day Years [...] How often do you attend chur or buddhism services? Never 11/17/2023 Do you belong to any clubs o r organizations such as shinto groups, unions, fraternal or athletic groups, or [...] place to sleep or slept in a correction (including now)? No 11/17/2023 Sex Assigned at Date Recorded Not on file Job Start Date Occupation Industry Not on file Not on file Not on file documented as of this encounter Miscellaneous Notes * Telephone Encounter - Lexy Alvarado C.M.A. - 04/29/2021 9:55 AM EDT Please call patient and schedule for in office device check documented in this encounter Plan of Treatment Not on file documented as of this encounter Visit Diagnoses Not on filedocumented in this encounter Care Teams Power Barker Operator Relationship Specialty Start Date End Date Lou Messina MD [address] [place] [address] PCP - General Internal Medicine 01/28/16 10/07/23 Madonna Saul PA-C [address] [place], [place] PCP - General Internal Medicine 10/08/23 10/08/23 Lou Messina MD [address] [place], [place] PCP - General Internal Medicine 10/09/23 Rc Patrick MD [address] [place] [address] Specialist Cardiovascular Disease 01/01/21 Etienne Collier MD, PHD [address] [place] [address] Specialist Neurosurgery 08/14/21 Mela Hernandez, Pharm.D [address] [place] [address] Specialist PHAMACIST CLINICIAN 11/17/23 documented as of this encounter
--- OUTSIDE RECORDS SUMMARY | 2024-11-18 16:33 | XMS_ITS | Encounter Summary ---
Author Organization [facility] Address [address] [place] [address] Care Team Providers Care Tax Consultant Name Role Phone Lou Messina MD Primary Care Provider [phone] [phone] Rc Patrick MD Unavailable Etienne Collier MD, PHD Unavailable Unava ilable Madonna Saul PA-C Primary Care Provider + Lou Messina MD Primary Care Provider +1 [phone] Mela Hernandez Pharm.D Unavailable [phone] Reason for Visit * Reason Onset Date Comments Pre-visit Diabetes Lab Adult Medicine 05/22/202006/01 Encounter Details Date Type Department Care Team Description 05/22/2020 Telephone Adult Medicine - [place] [address] [place] [address] Lou Messina MD [address] [place] [address] Pre-visit Diabetes Lab Adult Medicine (06/01) Social History Tobacco Use Types Packs/Day Years [...] often do you attend chur ch or yarsanism services? Never 11/17/2023 Do you belong to [...] place to sleep or slept in a fdc (including now)? No 11/17/2023 Sex Assigned at Date Recorded Not on file Job Start Date Occupation Industry Not on file Not on file Not on file documented as of this encounter Miscellaneous Notes * Telephone Encounter - Yudelka Hook - 05/22/2020 8:31 AM EDT Spoke with patient advised to complete previsit lab work prior to appointment. The lab work does not need to be fasting lab work. Patient states that they will complete prior to their appointment. Patient verbally understanding. documented in this encounter Plan of Treatment Not on file documented as of this encounter Results * (ABNORMAL) LIPID PROFILE (06/01/2020 3:08 PM EDT) [facility] Cholesterol 228(H) 0 - 200 mg/dL 06/01/2020 6:14 PM EDT [facility] TRIGLYCERIDES 122 0 - 150 mg/dL 06/01/2020 6:14 PM EDT [facility] HDL CHOLESTEROL 82 >40 mg/dL 0 6:16 PM EDT [facility] LDL CALCULATED 122(H) 0 - 100 mg/dL 06/01/2020 6:16 PM EDT [facility] TC-HDLC RATIO 2.8 0 - 4.4 mg/dL 06/01/2020 6:16 PM EDT [facility] 06/01/2020 3:08 PM EDT 06/01/2020 3:13 PM EDT Lou Messina MD LAB [facility] documented in this encounter Visit Diagnoses Diagnosis 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 documented in this encounter Care Teams Tax Consultant Relationship Specialty Start Date End Date Lou Messina MD [address] [place] [address] PCP - General Internal Medicine 01/28/16 10/07/23 Madonna Saul PA-C [address] [place] [address] PCP - General Internal Medicine 10/08/23 10/08/23 Lou Messina MD [address] [place] [address] PCP - General Internal Medicine 10/09/23 Rc Patrick MD [address] [place] [address] Specialist Cardiovascular Disease 01/01/21 Etienne Collier MD, PHD [address] [place], [place] Specialist Neurosurgery 08/14/21 Mela Hernandez, Pharm.D [address] [place] [address] Specialist PHAMACIST CLINICIAN 11/17/23 documented as of this encounter
--- OUTSIDE RECORDS SUMMARY | 2024-11-18 16:33 | XMS_ITS | Encounter Summary ---
Author Organization [facility] Address [address] [place] [address] Care Team Providers Care Electronic Installer Name Role Phone Lou Messina MD Primary Care Provider [phone] [phone] Rc Patrick MD Unavailable Etienne Collier MD, PHD Unavailable Unava ilable Madonna Saul PA-C Primary Care Provider + Lou Messina MD Primary Care Provider +1 -[phone] Mela Hernandez Pharm.D Unavailable [phone] Encounter Details Date Type Department Care Team Description 11/19/2017 [facility] Medical Records [address] [place] [id number] [place] [address] Social History Tobacco Use Types Packs/Day Years [...] on filedocumented in this encounter Care Teams Electronic Installer Relationship Specialty Start Date End Date Lou Messina MD [address] [place], [place] PCP - General Internal Medicine 01/28/16 10/07/23 Maodnna Saul PA-C [address] [place], [place] PCP - General Internal Medicine 10/08/23 10/08/23 Lou Messina MD [address] [place], [place] PCP - General Internal Medicine 10/09/23 Rc Patrick MD [address] [place], [place] Specialist Cardiovascular Disease 01/01/21 Etienne Collier MD, PHD [address] [place], [place] Specialist Neurosurgery 08/14/21 Mela Hernandez, Pharm.D [address] [place] [address] Specialist PHAMACIST CLINICIAN 11/17/23 documented as of this encounter
--- OUTSIDE RECORDS SUMMARY | 2024-11-18 16:33 | XMS_ITS ---
Author Name Abdirashid GAMING CASHIER,EMPLOYEE RELATIONS REPRESENTATIVE,FN P,HOME CARE PROVIDER, Jenn Address [address] [place] [address] Phone [phone] Organization [facility] Care Team Providers Care Event Services Manager Name Role Phone Jenn Mendenhall Unavailable [phone] Unavailable Unavailable [phone] Unavailable Unavailable Unavailable Unavailable Unavailable [phone] [facility] Unavailable Unavailable Unavailable Unavailable Trina Blackwell Unavailable FILIPPO BARROW Unavailable [phone] Anju Arango Unavailable [phone] Reason for Referral Not Available Allergies, adverse [...] 500 mg Tab TAKE 1 TABLET BY [facility] ONCE DAILY 2023-04-14 No Data Available Vitamin [...] a cotton ball. 2023-10-08 No Data Available [facility] Micky 2 Edward Device USE DIRECTED 2023-10-08 No Data Available [...] 100 mg Tab TAKE 1 TABLET BY [facility] ONCE DAILY AT BEDTIME 2024-01-29 No Data [...] FOR 4 WEEKS 2024-07-20 No Data Available [facility] spacer USE DIRECTED 2024-07-20 No Data Available [...] Data Available benzonatate 100 MG Oral Capsule [Tessalon Perlbambi] 1 PO BID PRN cough 2024-09-29 No Data Availa ble Flonase Allergy Relief 50 MCG/ACT Suspension Nasal 1 spray each nostril daily every 12 hours 2024-09-29 No Data Available Florastor 250 mg Cap 1 capsule orally 2 times per day for GI health while on antibiotics 2024-09-29 No Data Available FreeStyle Micky 2 Sensor Miscellaneous Change once every two weeks. 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, with long-term current use of insulin Active 2023-12-22 N/A Skin lesion of lower extremity Active 2024-11-11 N/A Encounters Encounters Type Facility Date of Service Diagnosis/Co mplaint Pain Assessment - NO pain present (1126F) [facility] [place] Pain Assessment - NO pain present (1126F) [facility] [place] Pain Assessment - NO pain present (1126F) [facility] [place] Pain Assessment - NO pain present (1126F) [facility] [place] Pain Assessment - NO pain present (1126F) [facility] Pain Assessment - NO pain present (1126F) [facility] Pain Assessment - NO pain present (1126F) [facility] Pain Assessment - NO pain present (1126F) [facility] Pain Assessment - NO pain present (1126F) [facility] Type 2 diabetes mellitus [...] or radiculopathy, cervical regionAthscl heart disease of ak chin cor art w unsp ang pctrs No Data Available [facility]20[place] Unlisted special service; to be used for medical record reviews and reporting CPTII codes (1111F, etc) [facility]20[place] Other specified health statu s Unlisted special service; to be used for medical record reviews and reporting CPTII codes (1111F, etc) [facility]20[place] Unlisted special service; to be used for medical record reviews and reporting CPTII codes (1111F, etc) [facility] No Data Available [facility] [place]2023 Unspecified open-angle glauc chester, severe stageMajor depressive disorder, recurrent, moderateSick sinus syndromeUnspecified atrial fibrillationVentricular tachycardia, unspecifiedChronic kidney disease, stage 3 unspecifiedInsomnia, unspecifiedObstructive sleep apnea (adult) (pediatric)Hypertensive chronic kidney disease w stg 1-4/unsp chr kdnyType 2 diabetes mellitus with other specified complicationHyperlipidemia, unspecifiedSpondylosis without myelopathy or radiculopathy, cervical regionAthscl heart disease of ak chin cor art w unsp ang pctrsCough, unspecified No Data Available [facility] [place]20[place] No Data Available [facility] [place] No Data Available [facility] [place] No Data Available [facility] [place]2023 No Data Available [facility] [place]/17[place]2023 No Data Available [facility] [place]23 No Data Available [facility] [place]/17[place]23 No Data Available [facility] No Data Available [facility] [place] Unspecified open-angle glauc chester, severe stageType 2 diabetes mellitus with other diabetic ophthalmic complicationEssential (primary) hypertension No Data Available [facility] No Data Available [facility] No Data Available [facility] No Data Available [facility] No Data Available [facility] Estab. patient 30-39min; chronic exacerbation, 2 stable chronic or 1 acute illness add add modifier 95 for video, (do not use for phone, instead use [id number]) [facility] ([place] 12[place]22/2023 Type 2 diabetes mellitus wit h [...] (do not use for phone, instead use 36141-36) [facility] Estab. patient 30-39min; chronic exacerbation, 2 stable chronic or 1 acute illness add add modifier 95 for video, (do not use for phone, instead use 40679-94) [facility] Estab. patient 30-39min; chronic exacerbation, 2 stable chronic or 1 acute illness add add modifier 95 for video, (do not use for phone, instead use 31053-08) [facility] Estab. patient 30-39min; chronic exacerbation, 2 stable chronic or 1 acute illness add add modifier 95 for video, (do not use for phone, instead use 29489-94) [facility] [place] Estab. patient 30-39min; chronic exacerbation, 2 stable chronic or 1 acute illness add add modifier 95 for video, (do not use for phone, instead use 96188-42) [facility] Estab. patient 30-39min; chronic exacerbation, 2 stable chronic or 1 acute illness add add modifier 95 for video, (do not use for phone, instead use 73093-90) [facility] [place] Estab. patient 30-39min; chronic exacerbation, 2 stable chronic or 1 acute illness add add modifier 95 for video, (do not use for phone, instead use 32920-02) [facility] Estab. patient 30-39min; chronic exacerbation, 2 stable chronic or 1 acute illness add add modifier 95 for video, (do not use for phone, instead use 49018-62) [facility] Estab. patient 30-39min; chronic exacerbation, 2 stable chronic or 1 acute illness add add modifier 95 for video, (do not use for phone, instead use 90020-01) [facility] [place] No Data Available [facility] Constipation, unspecifiedOth er chronic painDizziness and giddiness No Data Available [facility] No Data Available [facility] [place] No Data Available [facility] [place]20[place] Type 2 diabetes mellitus [...] giddinessOther chronic painConstipation, unspecified No Data Available [facility] No Data Available [facility] [place] No Data Available [facility] [place] No Data Available [facility] [place] No Data Available [facility] [place]2024 Essential (primary) hypertensionType 2 diabetes mellitus with diabetic chronic kidney diseaseChronic kidney disease, unspecifiedLong term (current) use of insulin No Data Available [facility] [place]10[place]24 No Data Available [facility] [place]2024 Type 2 diabetes mellitus [...] and other health care No Data Available [facility] [place] No Data Available [facility] [place] No Data Available [facility] [place] No Data Available [facility] [place] No Data Available [facility] [place]/04[place]20[place] Type 2 diabetes mellitus [...] other nonspecific skin eruption No Data Available [facility] [place]/04[place]24 No Data Available [facility] [place]04[place] No Data Available [facility] [place] 08[place]02[place]2024 Type 2 diabetes mellitus [...] chronic painUnspecified fall, sequela No Data Available [facility] [place] 08/[place]24 No Data Available [facility] [place] 08/02/2024 No Data Available [facility] [place]/02/[place] No Data Available [facility] [place] 08[place]02/20[place] Estab. patient 10-29min; 1 minor problem; add add modifier 95 for video, modifier 93 for phone [facility]/02/2024 Type 2 diabetes mellitus wit h [...] 95 for video, modifier 93 for phone [facility]/02/2024 Estab. patient 10-29min; 1 minor problem; add add modifier 95 for video, modifier 93 for phone [facility] [place] 09/02/2024 Estab. patient 10-29min; 1 minor problem; add add modifier 95 for video, modifier 93 for phone [facility] [place] 09/02/2024 Estab. patient 10-29min; 1 minor problem; add add modifier 95 for video, modifier 93 for phone [facility] [place] 09/29/2024 Type 2 diabetes mellitus wit h [...] modifier 95 for video, modifier 93 for [facility] [facility] [place] 09/29/2024 Estab. patient 10-29min; 1 minor problem; add add modifier 95 for video, modifier 93 for [facility], [place] 09/29/2024 Estab. patient 10-29min; 1 minor problem; add add modifier 95 for video, modifier 93 for [facility], [place] 09/29/2024 Estab. patient 10-29min; 1 minor problem; add add modifier 95 for video, modifier 93 for [facility], [place] 09/29/2024 Estab. patient 20-29min; 1 stable chronic or 2 minor; add add modifier 95 for video, modifier 93 for [facility] [employer] [facility] [place] 09/29/2024 Type 2 diabetes mellitus wit h [...] modifier 95 for video, modifier 93 for [facility] [employer] [facility] [place] 09/29/2024 Estab. patient 20-29min; 1 stable chronic or 2 minor; add add modifier 95 for video, modifier 93 for [facility], ([place] 09/29/2024 Estab. patient 20-29min; 1 stable chronic or 2 minor; add add modifier 95 for video, modifier 93 for phone [facility] [place] Estab. patient 20-29min; 1 stable chronic or 2 minor; add add modifier 95 for video, modifier 93 for phone [facility] 09[place]29/20[place] Estab. patient 20-29min; 1 stable chronic or 2 minor; add add modifier 95 for video, modifier 93 for phone [facility] 09/29/20[place] Estab. patient 20-29min; 1 stable chronic or 2 minor; add add modifier 95 for video, modifier 93 for phone [facility] [place] 09/[place] Estab. patient 20-29min; 1 stable chronic or 2 minor; add add modifier 95 for video, modifier 93 for phone [facility] 09/29/2024 Estab. patient 20-29min; 1 stable chronic or 2 minor; add add modifier 95 for video, modifier 93 for phone [facility] 09/29/2024 Estab. patient 20-29min; 1 stable chronic or 2 minor; add add modifier 95 for video, modifier 93 for phone [facility] [place] 09[place] Estab. patient 10-29min; 1 minor problem; add add modifier 95 for video, modifier 93 for phone [facility]05/2024 Type 2 diabetes mellitus wit h [...] 95 for video, modifier 93 for phone [facility] [place] Estab. patient 10-29min; 1 minor problem; add add modifier 95 for video, modifier 93 for phone [facility] [place] Estab. patient 10-29min; 1 minor problem; add add modifier 95 for video, modifier 93 for phone [facility] [place] Estab. patient 10-29min; 1 minor problem; add add modifier 95 for video, modifier 93 for phone [facility] [place] Estab. patient 10-29min; 1 minor problem; add add modifier 95 for video, modifier 93 for phone [facility] [place] Encounter for issue of repea t prescriptionGastro-esophageal reflux disease without esophagitis Estab. patient 10-29min; 1 minor problem; add add modifier 95 for video, modifier 93 for phone [facility] [place]/2024 Gastro-esophageal reflux dis ease without esophagitisType 2 diabetes mellitus with diabetic chronic kidney diseaseChronic kidney disease, stage 2 (mild)roasterman (current) use of insulinDisorder of the skin and subcutaneous tissue, unspecified Vital Signs Date of Collection Vitals 2022-05-26 [...] tive Time Current Smoking Status Never smoker 4 Sex Female Gender identity Woman History of Procedures Procedures Service Procedure code Service date Servicing provider Phone# Pain Assessment - NO pain present (1126F) 1126F 2022-05-26 No Data Available No Data A [...] (do not use for phone, instead use [id number]) 59460 2022-05-26 No Data Available No Data Availa ble Unlisted special service; to be used for medical record reviews and reporting CPTII codes (1111F, etc) 23244 2023-03-30 No Data Available No Data Availa ble SBP < 130 (3074F) 3074F 2023-03-30 No Data Available No Data Available DBP <80 (3078F) 3078F 2023-03-30 No Data Available No Data Available No Data Available [id number] 2023-04-17 No Data Available No Data Available [...] No Data Avail able No Data Available [id number] 2023-05-13 No Data Available No Data Available Pain Assessment - Pain Documented on a Pain Scale (1125F) 1125F 2023-05-13 No Data Available No Data Mandy ilable Medication List Documented (1159F) 1159F 2023-05-13 No Data Available No Data Mandy ilable SBP 130-139 (3075F) 3075F 2023-05-13 No Data Availabl e No Data Available DBP <80 (3078F) 3078F 2023-05-13 No Data Available No Data Available Functional Status Assessed (1170F) 1170F 2023-05-13 No Data Available No Data Avail able Estab. patient 30-39min; chronic exacerbation, 2 stable chronic or 1 acute illness add add modifier 95 for video, (do not use for phone, instead use 53265-43) 92207 2023-12-22 No Data Available No Data Availa [...] No Data Availa ble No Data Available [id number] 2024-03-23 No Data Available No Data Available SBP >= 140 3077F 2024-03-23 No Data Available No Data Available DBP <80 (3078F) 3078F 2024-03-23 No Data Available No Data Available No Data Available [id number] 2024-04-19 No Data Available No Data Available [...] No Data Availa ble No Data Available [id number] 2024-05-10 No Data Available No Data Available SBP >= 140 3077F 2024-05-10 No Data Available No Data Available No Data Available [id number] 2024-06-08 No Data Available No Data Available [...] No Data Avail able No Data Available [id number] 2024-07-04 No Data Available No Data Available Medication List Documented (1159F) 1159F 2024-07-04 No Data Available No Data Mandy ilable Functional Status Assessed (1170F) 1170F 2024-07-04 No Data Available No Data Avail able No Data Available 2024-08-02 No Data Available No Data Available [...] 95 for video, modifier 93 for phone [id number] 2024-09-02 No Data Available No Data Availa ble No Data Available [id number] 2024-09-02 No Data Available No Data Available Medication List Documented (1159F) 1159F 2024-09-02 No Data Available No Data Mandy ilable Functional Status Assessed (1170F) 1170F 2024-09-02 No Data Available No Data Avail able Estab. patient 10-29min; 1 minor problem; add add modifier 95 for video, modifier 93 for phone [id number] 2024-09-29 No Data Available No Data Availa [...] 95 for video, modifier 93 for phone [id number] 2024-09-29 No Data Available No Data Availa [...] 95 for video, modifier 93 for phone 19802 2024-10-05 No Data Available No Data Availa [...] 95 for video, modifier 93 for phone [id number] 2024-11-06 No Data Available No Data Availa ble Estab. patient 10-29min; 1 minor problem; add add modifier 95 for video, modifier 93 for phone [id number] 2024-11-11 No Data Available No Data Availa ble Functional Status Functional Category Effective Dates ADL: [...] Friends/Family in a typical week: daily 2024-09-29 [employer] 2024-09-29 Mental Status Status Date Cognition Status: Oriented to Person, Pl lizette and Time 2023-12-22 Assessments Date of Service Assessments 2022-05-26 11:51:35 Major depressive dis order, recurrent, moderateSick sinus syndromeChronic kidney disease, stage 3 unspecifiedMild obstructive sleep apneaHypertension associated with type 2 diabetes mellitusHyperlipidemia associated with type 2 diabetes mellitusCervical spondylosisAtherosclerotic heart disease of ak chin coronary artery with unspecified angina pectorisType 2 diabetes mellitus with unspecific complications 2023-04-17 13:36:41 Type 2 diabetes naye itus with unspecific complicationsMajor depressive disorder, recurrent, moderateSick sinus syndromeChronic kidney disease, stage 3 unspecifiedMild obstructive sleep apneaHypertension associated with type 2 diabetes mellitusHyperlipidemia associated with type 2 diabetes mellitusCervical spondylosisAtherosclerotic heart disease of ak chin coronary artery with unspecified angina pectorisCough 2023-05-13 [...] care 2024-03-23 13:46:58 Follow up plan for anirudh marr symptoms: 03/28/24 with APPConstipationChronic painDizziness 2024-04-19 10:14:34 [...] pain; Primary osteoarthritis involving multiple jointsFall, sequela 2024-11-05 17:52:40 Follow up plan for a cute symptoms: 11/11/24 with APPMedication refillChronic GERD 2024-11-11 08:00:27 Skin lesion of lower extremityChronic GERDType 2 diabetes mellitus with stage 2 chronic kidney disease, with long-term current use of insulin Plan of Care Date of Service Plans [...] modifier 95Continue to see PCP. Follow-up with [facility] as [...] nitroglycerin prn. Risk factors/comorbidities include history of VT, HTN, HLD, SSS.RX: glipizide, metforminChecks BS every [...] modifier 95)Continue to see PCP. Follow-up with [facility] as needed for any acute or disease [...] nitroglycerin prn. Risk factors/comorbidities include history of VT, HTN, HLD, SSS. 04/17/2023-member stable on current [...] <80 (3078F)Continue to see PCP. Follow-up with [facility] as [...] Documented (1125F)Continue to see PCP. Follow-up with [facility] as [...] PCP and Cardiology.Continue to follow up with [facility]. .RX: Sertraline, Trazodone Notify provider [...] modifier 95)Continue to see PCP. Follow-up with [facility] as [...] modifier 95)Continue to see PCP. Follow-up with [facility] as [...] PCP and Cardiology.Continue to follow up with [facility]. .RX: Sertraline, Trazodone Notify provider [...] modifier 95)Continue to see PCP. Follow-up with [facility] as needed for any acute or disease [...] I provided her with the number for [employer] to see if they could send her a replacement. Unable to send replacement strips for her talking meter as they came from a DME supply company. 2024-06-08 13:10:29 Phone (patient, pare nt, or guardian); 5-10 minutes of medical discussion (no modifier 95)Continue to see PCP. Follow-up with [facility] as needed for any acute or disease [...] as they came from a DME supply company.FALL CONTINGENCY PLANMember to call for [...] BP >180/100??/ Chest pain??/ HR >100??Planned intervention: Oyster Floater on proper BP monitoring technique and reassess/ Encourage low sodium diet/ Discuss breathing exercises/ Encourage medication adherenceAvoid nephrotoxic medications.Continue to follow up with PCP.RX: Brimonidine, Brinzolamide, Latanoprost, Lumigan, Methazolamide, PrednisoloneRecommend tight blood glucose control. Continue to follow up with Ophthalmology.RX: Ezetimibe Heart healthy diet. Continue to follow up with PCP and Cardiology.Continue to follow up with [facility]. .RX: Sertraline, Trazodone Notify provider [...] changes, no needs. Was in the ER 05.10 for elevated BP. States they did not [...] month. Will refill diclofenac gel.TylenolHeat/coldF/U with MAKAYLA /03/09: Last BM 5-7 days ago.Will refill miralax [...] talking meter as they came [place] a [place].FALL CONTINGENCY PLANMember to call for the following [...] BP >180/100??/ Chest pain??/ HR >100??Planned intervention: Oyster Floater on proper BP monitoring technique and reassess/ Encourage low sodium diet/ Discuss breathing exercises/ Encourage medication adherenceAvoid nephrotoxic medications.Continue to follow up with PCP.RX: Brimonidine, Brinzolamide, Latanoprost, Lumigan, Methazolamide, PrednisoloneRecommend tight blood glucose control. Continue to follow up with Ophthalmology.RX: Ezetimibe Heart healthy diet. Continue to follow up with PCP and Cardiology.Continue to follow up with [facility]. .RX: Sertraline, Trazodone Notify provider [...] Will start meclizineDiscussed safety measures.F/U with MAKAYLA /11/07: Follow up for dizziness, states that the [...] talking meter as they came from a [place].FALL CONTINGENCY PLANMember to call for the following symptoms: Fall??/ Vertigo/ WeaknessPlanned intervention: Have member check blood pressure and blood glucose. Encourage extra fluid intake Assess for change in mental status and provide reassurance if none (patient's Baseline is AAOx3) Review importance of sitting for two to three minutes prior to standing after laying downHYPERTENSION CONTINGENCY PLANLast updated: 08/02/2024Last er 9 elevated BPMember to call for the following symptoms: BP >180/100??/ Chest pain??/ HR >100??Planned intervention: Oyster Floater on proper BP monitoring technique and reassess/ Encourage low sodium diet/ Discuss breathing exercises/ Encourage medication adherenceAvoid nephrotoxic medications.Continue to follow up with PCP.RX: Brimonidine, Brinzolamide, Latanoprost, Lumigan, Methazolamide, PrednisoloneRecommend tight blood glucose control. Continue to follow up with Ophthalmology.RX: Ezetimibe Heart healthy diet. Continue to follow up with PCP and Cardiology.Continue to follow up with [facility]. .RX: Sertraline, Trazodone Notify provider [...] for phoneContinue to see PCP. Follow-up with [facility] as needed for any acute or disease [...] talking meter as they came from a [place].Updated 09.02.24FALL CONTINGENCY PLANMember to call for the [...] BP >180/100??/ Chest pain??/ HR >100??Planned intervention: Oyster Floater on proper BP monitoring technique and reassess/ Encourage low sodium diet/ Discuss breathing exercises/ Encourage medication adherenceAvoid nephrotoxic medications.Continue to follow up with PCP.RX: Brimonidine, Brinzolamide, Latanoprost, Lumigan, Methazolamide, PrednisoloneRecommend tight blood glucose control. Continue to follow up with Ophthalmology.RX: Ezetimibe Heart healthy diet. Continue to follow up with PCP and Cardiology.Continue to follow up with [facility] [facility]. .RX: Sertraline, Trazodone Notify provider [...] talking meter as they came from a [place].Updated 10.03.24FALL CONTINGENCY PLANMember to call for the [...] BP >180/100??/ Chest pain??/ HR >100??Planned intervention: Oyster Floater on proper BP monitoring technique and reassess/ Encourage low sodium diet/ Discuss breathing exercises/ Encourage medication adherenceAvoid nephrotoxic medications.Continue to follow up with PCP.RX: Brimonidine, Brinzolamide, Latanoprost, Lumigan, Methazolamide, PrednisoloneRecommend tight blood glucose control. Continue to follow up with Ophthalmology.RX: Ezetimibe Heart healthy diet. Continue to follow up with PCP and Cardiology.Continue to follow up with [facility]. .RX: Sertraline, Trazodone Notify provider [...] education needs that may arise.RX: Insulin Toujeo [facility] [id number]/01/24: eGFR 67; Creatinine 0.86 Hemoglobin A1C 7.4ADA [...] BP >180/100??/ Chest pain??/ HR >100??Planned intervention: Oyster Floater on proper BP monitoring technique and reassess/ Encourage low sodium diet/ Discuss breathing exercises/ Encourage medication adherence DIABETES CONTINGENCY PLANMember to call for the following symptoms: Blood sugar <70??/ Blood sugar >300??Planned intervention: Elevate legs/ Limit high-sugar and high-carbohydrate foods/ Go for a walk / consider lantus increaseAvoid nephrotoxic bsuzmecisvw83/15/24: eGFR 67; Creatinine 0.86 Creat clearance 51 Continue to follow up with PCPRX: Brimonidine, Brinzolamide, Latanoprost, Lumigan, Methazolamide, PrednisolonePreviously recommend tight blood glucose control. Continue to follow up with Ophthalmology.RX: Ezetimibe Heart healthy diet. Continue to follow up with PCP and Cardiology.RX: Losartan Low NA diet BP 130/70Follow up pcps/p PPM. Continue to follow up with [facility]. .RX: Sertraline, Trazodone Phq2:2 Good [...] kidney disease, with long-term current use of jbbhoymQ49.XXXS, R42, M15.0, E11.22, N18.263, 145Hx falls Assistive devices to ambulate 2024-10-05 14:44:03 Estab. patient 10-29 min; 1 minor problem; add add modifier 95 for video, modifier 93 for phoneContinue to see PCP. Follow-up with [facility] as needed for any acute or disease education needs that may arise 09/03.RX: Insulin Toujeo CGM [id number]/: eGFR 67; Creatinine 0.86 Hemoglobin A1C 7.4ADA dietFollows with endocrineUpdated 10.05.24FALL CONTINGENCY PLANMember to call for the following [...] BP >180/100??/ Chest pain??/ HR >100??Planned intervention: Oyster Floater on proper BP monitoring technique and reassess/ Encourage low sodium diet/ Discuss breathing exercises/ Encourage medication adherence DIABETES CONTINGENCY PLANMember to call for the following symptoms: Blood sugar <70??/ Blood sugar >300??Planned intervention: Elevate legs/ Limit high-sugar and high-carbohydrate foods/ Go for a walk / consider lantus increaseAvoid nephrotoxic /15/24: eGFR 67; Creatinine 0.86 Creat clearance 51 Continue to follow up with PCPRX: Brimonidine, Brinzolamide, Latanoprost, Lumigan, Methazolamide, PrednisolonePreviously recommend tight blood glucose control. Continue to follow up with Ophthalmology.RX: Ezetimibe Heart healthy diet. Continue to follow up with PCP and Cardiology.RX: Losartan Low NA diet BP 130/70Follow up pcps/p PPM. Continue to follow up with [facility]. .RX: Sertraline, Trazodone Phq2:2 Good [...] kidney disease, with long-term current use of fanyfxxY68.XXXS, R42, M15.0, E11.22, N18.263, 145Hx falls Assistive devices to ambulate 2024-11-05 17:52:40 Televideo 10-29min; 1 minor problem; add add modifier 95 for video, modifier 93 for phoneContinue to see PCP. [facility] or disease education needs that may arise 09/03.11/05/24: Refill losartan and ezetimibeContact CB with new, continued or worsening symptoms.F/U with MAKAYLA : Will refill omeprazoleAvoid greasy, spicy or acidic foods, chocolate, coffee or alcohol.Sit upright for 1-2 hours after eating.Continue to monitor and contact CB with new, worsening or continued symptoms.F/U with MAKAYLA 11/11/24 2024-11-11 08:00:27 Estab. patient 10-29 min; 1 minor problem; add add modifier 95 for video, modifier 93 for phoneContinue to see PCP. Follow-up with [facility] as needed for any acute or disease education needs that may arise 09/03.11/11/24:-member with growing flesh-colored skin lesion of 4 years to left inguinal area causing discomfort. Lack of visual/tactile assessment limits ability to evaluate/diagnose. There is a potential concern for malignancy. Will attempt to get a referral to dermatology for member as this may be a faster visit to obtain. She is in between PCPs and new PCP visit is not until 12/02/24.11/05/24: Will refill omeprazoleAvoid greasy, spicy or acidic foods, chocolate, coffee or alcohol.Sit upright for 1-2 hours after eating.Continue to monitor and contact CB with new, worsening or continued symptoms.F/U with MAKAYLA :-symptoms improved- Continue current medication regimen (omeprazole)- Advised to avoid consumption of spicy foods and caffeinated beverages.- Advised to refrain from lying flat within 30 minutes after eating.RX: Insulin Toujeo CGM [id number]/: eGFR 67; Creatinine 0.86 Hemoglobin A1C 7.4ADA dietFollows with endocrine11/11/24-freestyle micky 2 sensors refill sent to pharmacy per member request Goals Date Goal 2022-05-26 Remember to keep all appointments with your PCP. 2022-05-26 Call if you have que stions or concerns before going to the ER. 2022-05-26 Discussed how to con ehsant [employer] via phone or tablet. 2023-05-13 Remember to follow u p with PCP and specialists as directed.Call if you have any questions, comments, or concerns.Keep taking your medications as prescribed. 2023-12-22 Continue taking medi cations as directed and keep all follow up appointments with established PCP and Specialist. 2024-11-11 Continue taking medi cations as directed and keep all follow up appointments with established PCP and Specialist. 2024-11-11 At least 50% of time spent counseling patient, discussing diagnosis, treatment plan, complicance, and coordinating follow up care. Health Concerns Date Concern 2024-11-11 Visit completed via audio by telephone. Patient/Guardian agreed to visit via telehealth.Time spent in visit: 2024-11-11 Most recent hospital stay(s) or ER visit(s) and precipitating factors: no recent visits reported 2024-11-11 HEDIS review: review ed 2024-11-11 FB mg/dl 2024-11-11 I followed up with monster duenas today after her acute visit with CB on 11/05/2024 in which she was treated for her chronic GERD. Refill of omeprazole was given and she reports today that it was a lifesaver. States she is feeling much better. 2024-11-11 Additionally, she is requesting refill on freestyle micky 2 sensors. She states they keep falling off, but also admits she goes in her hot tub often as pain mgt for her back. 2024-11-11 Additionally, she re ports she is concerned about a lesion that is growing in the left inguinal region. She states this has been ongoing for about 4 years, but it is getting more concerning to her now and more uncomfortable. She states she does not feel comfortable showing it. States it is flesh colored.States a CEMENTER took a sample and said it was not cancerous about 2 years ago.Saw another provider who member states said they were not going to touch it because of her sugar. 2024-11-11 Member currently genia michaud a PCP. Has an appt with a primary care provider on 12/02/24 to establish care.
--- OUTSIDE RECORDS SUMMARY | 2024-11-18 16:33 | XMS_ITS | Encounter Summary ---
Author Organization [facility] Address [address] [place] [address] Care Team Providers Care Hat Blocking Operator Name Role Phone Lou Messina MD Primary Care Provider [phone] Rc Patrick MD Unavailable Etienne Collier MD, PHD Unavailable Unava ilable Madonna Saul PA-C Primary Care Provider + Lou Messina MD Primary Care Provider [phone] Mela Hernandez Pharm.D Unavailable Reason for Visit * Reason Comments E-prescribe Rx Request Encounter Details Date Type Department Care Team Description 03/08/2021 Refill Adult Medicine - [facility] [address] [place] [address] Lou Messina MD [address] [place] [address] E-prescribe Rx Request Social History Tobacco Use [...] often do you attend chur ch or sabianist services? Never 11/17/2023 Do you belong to [...] have Coronavirus / COVID-19? No / Unsure 02/22/2021 1:33 PM EDT documented as of this encounter Miscellaneous Notes * Telephone Encounter - Karen Juarez M.A. - 03/11/2021 11:15 AM EDT DMITRY - 02/11/21 NOV - 03/13/21 * Telephone Encounter - Fatemeh Ramsey - 03/11/2021 11:10 AM EDT Patient would like script to be: E-PRESCRIBED/FAXED TO PHARMACY WHEN WAS THE PATIENT'S LAST APPOINTMENT IN ADULT MEDICINE? 02/11/2021 WHEN WAS THE LAST TIME THE PATIENT SAW THEIR PCP? Same as above Does patient have an upcoming appointment? Yes 03/13/2021 (THE MEDICATION REQUESTED IS ON THE MED LIST ABOVE) All of the medications requested were on the CURRENT MEDS list Did you check the Pharmacy information above?: YES Patient wants: 30 -day supply Is this a mail order prescription request ? NO If the refill is from a FAXED refill request what is the RX # listed on the fax? N/A Patients current insurance carrier is: Payor: [employer] / Plan: [employer] $0 [employer] [id number] / Product Type: Academic Earth[employer] [id number] documented in this encounter Plan of Treatment Not on file documented as of this encounter Visit Diagnoses Not on filedocumented in this encounter Care Teams Hat Blocking Operator Relationship Specialty Start Date End Date Lou Messina MD [address] [place] [address] PCP - General Internal Medicine 01/28/16 10/07/23 Madonna Saul PA-C [address] [place] [address] PCP - General Internal Medicine 10/08/23 10/08/23 Lou Messina MD [address] [place] [address] PCP - General Internal Medicine 10/09/23 Rc Patrick MD [address] [place] [address] Specialist Cardiovascular Disease 01/01/21 Etienne Collier MD, PHD [address] [place] [address] Specialist Neurosurgery 08/14/21 Mela Hernandez, Pharm.D [address] [place] [address] Specialist PHAMACIST CLINICIAN 11/17/23 documented as of this encounter
--- OUTSIDE RECORDS SUMMARY | 2024-11-18 16:33 | XMS_ITS | Clinical Summary ---
Author Organization [facility] at [facility] Address [address] [place] [address] Care Team Providers Care Steel Turner Name Role Phone Trina Messina MD Primary [...] age to complete this topic Care Teams Steel Turner Relationship Specialty Start Date End Date Trina Messina MD PCP - General Internal Medicine 09/15/19
--- OUTSIDE RECORDS SUMMARY | 2024-11-18 16:33 | XMS_ITS | Encounter Summary ---
Author Organization [facility] Address [address] [place] [address] Care Team Providers Care Marketing Operations Specialist Name Role Phone Valeria Lopez MD Primary Care Provider Unavai ruthie Messina Ch MD Primary Care Provider [phone] Lou Messina MD Primary Care Provider [phone] Rc Patrick MD Unavailable Etienne Collier MD, PHD Unavailable Unava Madonna Salguero PA-C Primary Care Provider + Lou Messina MD Primary Care Provider [phone] Mela Hernandez Pharm.D Unavailable [phone] Encounter Details Date Type Department Care Team Description 02/12/2009 Hospital Medical Records [address] [place] [address] Maricel Ayala Social History Tobacco Use Types Packs/Day Years [...] often do you attend chur ch or baptism services? Never 11/17/2023 Do you [...] place to sleep or slept in a nursing home (including now)? No 11/17/2023 Sex Assigned at Date Recorded Not on file Job Start Date Occupation Industry Not on file Not on file Not on file documented as of this encounter Plan of Treatment Not on file documented as of this encounter Visit Diagnoses Not on filedocumented in this encounter Care Teams Marketing Operations Specialist Relationship Specialty Start Date End Date Valeria Lopez MD PCP - General 06/23/08 12/08/13 Lou Messina, [address] [place], [place] PCP - General Internal Medicine 01/28/16 10/07/23 Lou Messina MD [address] [place], [place] PCP - General 12/09/13 01/27/16 Madonna Saul PA-C [address] [place], [place] PCP - General Internal Medicine 10/08/23 10/08/23 Lou Messina MD [address] [place], [place] PCP - General Internal Medicine 10/09/23 Rc Patrick MD [address] [place] [address] Specialist Cardiovascular Disease 01/01/21 Etienne Collier MD, PHD [address] [place] [address] Specialist Neurosurgery 08/14/21 Mela Hernandez, Pharm.D [address] [place] [address] Specialist PHAMACIST CLINICIAN 11/17/23 documented as of this encounter
--- OUTSIDE RECORDS SUMMARY | 2024-11-18 16:33 | XMS_ITS | Encounter Summary ---
Author Organization [facility] Address [address] [place] [address] Care Team Providers Care Stabilizing Machine Operator Name Role Phone Valeria Lopez MD Primary Care Provider Unavai ruthie Messina Ch MD Primary Care Provider [phone] Lou Messina MD Primary Care Provider [phone] Rc Patrick MD Unavailable Etienne Collier MD, PHD Unavailable Unava Madonna Salguero PA-C Primary Care Provider + Lou Messina MD Primary Care Provider [phone] Mela Hernandez Pharm.D Unavailable Encounter Details Date Type Department Care Team Description 04/13/2009 Hospital Medical Records [address] [place] [address] Cain Perez MD Social History Tobacco Use Types Packs/Day [...] How often do you attend chur or anglican services? Never 11/17/2023 Do you belong to any clubs o r organizations such as mormonism groups, unions, fraternal or athletic groups, or [...] on filedocumented in this encounter Care Teams Stabilizing Machine Operator Relationship Specialty Start Date End Date Valeria Lopez MD PCP - General 06/23/08 12/08/13 Lou Messina, [address] [place], [place] PCP - General Internal Medicine 01/28/16 10/07/23 Lou Messina MD [address] [place], [place] PCP - General 12/09/13 01/27/16 Madonna Saul PA-C [address] [place], [place] PCP - General Internal Medicine 10/08/23 10/08/23 Lou Messina MD [address] [place], [place] PCP - General Internal Medicine 10/09/23 Rc Patrick MD [address] [place] [address] Specialist Cardiovascular Disease 01/01/21 Etienne Collier MD, PHD [address] [place] [address] Specialist Neurosurgery 08/14/21 Mela Hernandez, Pharm.D [address] [place] [address] Specialist PHAMACIST CLINICIAN 11/17/23 documented as of this encounter
--- OUTSIDE RECORDS SUMMARY | 2024-11-18 16:33 | XMS_ITS | Encounter Summary ---
Author Organization [facility] Address [address] [place] [address] Care Team Providers Care Marketing Program Coordinator Name Role Phone Lou Messina MD Primary Care Provider [phone] Rc Patrick MD Unavailable Etienne Collier MD, PHD Unavailable Unava ilable Madonna Saul PA-C Primary Care Provider + Lou Messina MD Primary Care Provider [phone] Mela Hernandez Pharm.D Unavailable [phone] Reason for Visit * Reason Onset Date Comments Call From Insurance [employer] 09/29/2017 case [place] from [facility] Encounter Details Date Type Department Care Team Description 09/29/2017 Telephone Adult Medicine [facility] [address] [place] [address] Lou Messina MD [address] [place] [address] Call From [email or web address] (case advocate from [facility]) Social History Tobacco Use Types Packs/Day Years [...] often do you attend chur ch or synagogue services? Never 11/17/2023 Do you belong to [...] * Telephone Encounter - Mela Mijares - 09/29/2017 10:46 AM EST Antionette case advocate from [facility] is calling to let us know the patient is switching her preferred pharmacy to [facility], requesting all scripts be in the bubble packs and to be delivered. Antionette states all her medications needed refilled. BSR advised Antionette to call the patient and get the current medications patient will need. Pt will call back with the current medications needed to send over. documented in this encounter Plan of Treatment Not on file documented as of this encounter Visit Diagnoses Not on filedocumented in this encounter Care Teams Marketing Program Coordinator Relationship Specialty Start Date End Date Lou Messina MD [address] [place] [address] PCP - General Internal Medicine 01/28/16 10/07/23 Madonna Saul PA-C [address] [place] [address] PCP - General Internal Medicine 10/08/23 10/08/23 Lou Messina MD [address] [place] [address] PCP - General Internal Medicine 10/09/23 Rc Patrick MD [address] [place] [address] Specialist Cardiovascular Disease 01/01/21 Etienne Collier MD, PHD [address] [place] [address] Specialist Neurosurgery 08/14/21 Mela Hernandez, Pharm.D [address] [place] [address] Specialist PHAMACIST CLINICIAN 11/17/23 documented as of this encounter
--- OUTSIDE RECORDS SUMMARY | 2024-11-18 16:33 | XMS_ITS | Encounter Summary ---
Author Organization [facility] Address [address] [place] [address] Care Team Providers Care Motor Driver Name Role Phone Lou Messina MD Primary Care Provider [phone] Rc Patrick MD Unavailable Etienne Collier MD, PHD Unavailable Unava ilable Madonna Saul PA-C Primary Care Provider + Lou Messina MD Primary Care Provider [phone] Mela Hernandez Pharm.D Unavailable [phone] Encounter Details Date Type Department Care Team Description 12/30/2017 [facility] Report Medical Records [address] [place] [address] Abstract, Provider Social History Tobacco Use Types [...] often do you attend chur ch or taoism services? Never 11/17/2023 Do you belong to any clubs o r organizations such as jehovah's witness groups, unions, fraternal or athletic groups, or [...] on filedocumented in this encounter Care Teams Motor Driver Relationship Specialty Start Date End Date Lou Messina MD [address] [place], [place] PCP - General Internal Medicine 01/28/16 10/07/23 Madonna Saul PA-C [address] [place], [place] PCP - General Internal Medicine 10/08/23 10/08/23 Lou Messina MD [address] [place], [place] PCP - General Internal Medicine 10/09/23 Rc Patrick MD [address] [place], [place] Specialist Cardiovascular Disease 01/01/21 Etienne Collier MD, PHD [address] [place], [place] Specialist Neurosurgery 08/14/21 Mela Hernandez, Pharm.D [address] [place] [address] Specialist PHAMACIST CLINICIAN 11/17/23 documented as of this encounter
--- OUTSIDE RECORDS SUMMARY | 2024-11-18 16:33 | XMS_ITS | Encounter Summary ---
Author Organization [facility] Address [address] [place] [address] Care Team Providers Care Nutritionist Public Health Name Role Phone Lou Messina MD Primary Care Provider [phone] Rc Patrick MD Unavailable Etienne Collier MD, PHD Unavailable Unava ilable Madonna Saul PA-C Primary Care Provider + Lou Messina MD Primary Care Provider [phone] Mela Hernandez Pharm.D Unavailable Encounter Details Date Type Department Care Team Description 05/14/2023 Telephone Adult Medicine - [address] [address] Dev Jorgensen PA-C [address] [place] [address] Social History Tobacco Use Types Packs/Day Years [...] How often do you attend chur or sabianist services? Never 11/17/2023 Do you belong to any clubs o r organizations such as orthodoxy groups, unions, fraternal or athletic groups, or [...] AM EDT documented as of this encounter Miscellaneous Notes * Telephone Encounter - Nesha Willett M.A. - 05/14/2023 11:03 AM EDT Pt is a 30 min appt she has been booked twice on Phillip's schedule as a 15 minute. P[rachel pugh to make them 30 min appts this pt needs a definate 30 minutes. Thank you! documented in this encounter Plan of Treatment Not on file documented as of this encounter Visit Diagnoses Not on filedocumented in this encounter Care Teams Nutritionist Public Health Relationship Specialty Start Date End Date Lou Messina MD [address] [place] [address] PCP - General Internal Medicine 01/28/16 10/07/23 Madonna Saul PA-C [address] [place] [address] PCP - General Internal Medicine 10/08/23 10/08/23 Lou Messina MD [address] [place] [address] PCP - General Internal Medicine 10/09/23 Rc Patrick MD [address] [place] [address] Specialist Cardiovascular Disease 01/01/21 Etienne Collier MD, PHD [address] [place] [address] Specialist Neurosurgery 08/14/21 Mela Hernandez, Pharm.D [address] [place] [address] Specialist PHAMACIST CLINICIAN 11/17/23 documented as of this encounter
--- OUTSIDE RECORDS SUMMARY | 2024-11-18 16:33 | XMS_ITS | Encounter Summary ---
Author Organization [facility] Address [address] [place] [address] Care Team Providers Care Outsole Cementer Machine Name Role Phone Lou Messina MD Primary Care Provider [phone] Rc Patrick MD Unavailable Etienne Collier MD, PHD Unavailable Unava ilable Madonna Saul PA-C Primary Care Provider + Lou Messina MD Primary Care Provider [phone] Mela Hernandez Pharm.D Unavailable [phone] Reason for Visit * Reason Onset Date Comments hospital follow up 11/20/2017 [facility] Encounter Details Date Type Department Care Team Description 11/20/2017 Telephone Adult Medicine [facility] [address] [place], [place] [id number] Lou Messina MD [address] [place] [address] hospital follow up ([facility]) Social History Tobacco Use Types Packs/Day Years [...] often do you attend chur ch or scientologist services? Never 11/17/2023 Do you belong to [...] Telephone Encounter - Rob Hernandez LPN - 11/25/2017 10:27 AM EDT Appointment scheduled with Dr Messina on 12/02/17 pt was seen at [facility] , please obtain records * Telephone Encounter - Marleny Roberts - 11/25/2017 9:54 AM EDT Pt returning call * Telephone Encounter - Rob Hernandez LPN - 11/24/2017 9:46 AM EDT Left message for pt to please return our call * Telephone Encounter - Rob Hernandez LPN - 11/20/2017 4:52 PM EDT Left message for pt to please return our call * Telephone Encounter - Mela Felixon - 11/20/2017 4:48 PM EDT Please see attached letter for hospital f/u. Pt needs to be seen NICO for Chest pains documented in this encounter Plan of Treatment Not on file documented as of this encounter Visit Diagnoses Not on filedocumented in this encounter Care Teams Outsole Cementer Machine Relationship Specialty Start Date End Date Lou Messina MD [address] [place], [place] PCP - General Internal Medicine 01/28/16 10/07/23 Madonna Saul PA-C [address] [place], [place] PCP - General Internal Medicine 10/08/23 10/08/23 Lou Messina MD [address] [place], [place] PCP - General Internal Medicine 10/09/23 Rc Patrick MD [address] [place], [place] Specialist Cardiovascular Disease 01/01/21 Etienne Collier MD, PHD [address] [place], [place] Specialist Neurosurgery 08/14/21 Mela Hernandez, Pharm.D [address] [place] [address] Specialist PHAMACIST CLINICIAN 11/17/23 documented as of this encounter
--- OUTSIDE RECORDS SUMMARY | 2024-11-18 16:33 | XMS_ITS | Encounter Summary ---
Author Organization [facility] Address [address] [place] [address] Care Team Providers Care Access Specialist Name Role Phone Valeria Lopez MD Primary Care Provider Unavai ruthie Messina Ch MD Primary Care Provider +1 [phone] Lou Messina MD Primary Care Provider +1 [phone] Rc Patrick MD Unavailable Etienne Collier MD, PHD Unavailable Unava Madonna Salguero PA-C Primary Care Provider + Lou Messina MD Primary Care Provider +1 -[phone] Mela Hernandez Pharm.D Unavailable Encounter Details Date Type Department Care Team Description 02/19/2009 Hospital Medical Records [address] [place] [address] Ronnie Gotti MD Social History Tobacco Use Types Packs/Day [...] any clubs o r organizations such as samaritan groups, unions, fraternal or athletic groups, or [...] on filedocumented in this encounter Care Teams Access Specialist Relationship Specialty Start Date End Date Valeria Lopez MD PCP - General 06/23/08 12/08/13 Lou Messina, [address] [place], [place] PCP - General Internal Medicine 01/28/16 10/07/23 Lou Messina MD [address] [place], [place] PCP - General 12/09/13 01/27/16 Madonna Saul PA-C [address], [place] PCP - General Internal Medicine 10/08/23 10/08/23 Lou Messina MD [address] [place], [place] PCP - General Internal Medicine 10/09/23 Rc Patrick MD [address] [place] [address] Specialist Cardiovascular Disease 01/01/21 Etienne Collier MD, PHD [address] [place] [address] Specialist Neurosurgery 08/14/21 Mela Hernandez, Pharm.D [address] [place] [address] Specialist PHAMACIST CLINICIAN 11/17/23 documented as of this encounter
--- OUTSIDE RECORDS SUMMARY | 2024-11-18 16:33 | XMS_ITS | Encounter Summary ---
Author Organization [facility] Address [address] [place] [address] Care Team Providers Care Lint Cleaner Name Role Phone Lou Messina MD Primary Care Provider [phone] [phone] Rc Patrick MD Unavailable Etienne Collier MD, PHD Unavailable Unava ilable Madonna Saul PA-C Primary Care Provider + Lou Messina MD Primary Care Provider +1 -[phone] Mela Hernandez Pharm.D Unavailable [phone] Encounter Details Date Type Department Care Team Description 02/03/2018 Telephone Cardiology - [address] [id number] Mara Dejesus NP Social History Tobacco Use Types Packs/Day [...] any clubs o r organizations such as orthodox groups, unions, fraternal or athletic groups, [...] encounter Miscellaneous Notes * Telephone Encounter - Mara Dejesus NP - 02/03/2018 1:00 PM EDT The patient was seen at the device clinic today. She had reported to the nurse regarding symptoms that she had been having since last OV. I have left a message for the patient to triage her symptoms and need for further interventions. Will await her return call. documented in this encounter Plan of Treatment Not on file documented as of this encounter Visit Diagnoses Not on filedocumented in this encounter Care Teams Lint Cleaner Relationship Specialty Start Date End Date Lou Messina MD [address] [place], [place] PCP - General Internal Medicine 01/28/16 10/07/23 Madonna Saul PA-C [address] [place], [place] PCP - General Internal Medicine 10/08/23 10/08/23 Lou Messina MD [address] [place], [place] PCP - General Internal Medicine 10/09/23 Rc Patrick MD [address] [place] [address] Specialist Cardiovascular Disease 01/01/21 Etienne Collier MD, PHD [address] [place] [address] Specialist Neurosurgery 08/14/21 Mela Hernandez, Pharm.D [address] [place] [address] Specialist PHAMACIST CLINICIAN 11/17/23 documented as of this encounter
--- OUTSIDE RECORDS SUMMARY | 2024-11-18 16:33 | XMS_ITS | Encounter Summary ---
Author Organization [facility] Address [address] [place] [address] Care Team Providers Care Intake Rn Name Role Phone Lou Messina MD Primary Care Provider +1 [phone] Rc Patrick MD Unavailable Etienne Collier MD, PHD Unavailable Unava ilMadonna Tee PA-C Primary Care Provider + Lou Messina MD Primary Care Provider +1 [phone] Mela Hernandez Pharm.D Unavailable [phone] Encounter Details Date Type Department Care Team Description 11/20/2017 [facility] Medical Records [address] [place] [address] Rubina Núñez PA-C Social History Tobacco Use Types Packs/Day [...] often do you attend chur ch or mosque services? Never 11/17/2023 Do you belong to [...] on filedocumented in this encounter Care Teams Intake Rn Relationship Specialty Start Date End Date Lou Messina MD [address] [place], [place] PCP - General Internal Medicine 01/28/16 10/07/23 Madonna Saul PA-C [address] [place], [place] PCP - General Internal Medicine 10/08/23 10/08/23 Lou Messina MD [address] [place], [place] PCP - General Internal Medicine 10/09/23 Rc Patrick MD [address] [place], [place] Specialist Cardiovascular Disease 01/01/21 Etienne Collier MD, PHD [address] [place], [place] Specialist Neurosurgery 08/14/21 Mela Hernandez, Pharm.D [address] [place] [address] Specialist PHAMACIST CLINICIAN 11/17/23 documented as of this encounter
--- OUTSIDE RECORDS SUMMARY | 2024-11-18 16:33 | XMS_ITS | Encounter Summary ---
Author Organization [facility] Address [address] [place] [address] Care Team Providers Care Biomedical Equipment Support Specialist Name Role Phone Lou Messina MD Primary Care Provider [phone] Rc Patrick MD Unavailable Etienne Collier MD, PHD Unavailable Unava ilMadonna Tee PA-C Primary Care Provider + Lou Messina MD Primary Care Provider +1 [phone] Mela Hernandez Pharm.D Unavailable [phone] Reason for Visit * Reason Onset Date Comments Merchandise Planning Manager Feedback 02/16/2021 Home Care Encounter Details Date Type Department Care Team Description 02/16/2021 Telephone Adult Medicine - [address] [address] Sammie Lynne PA-C Cro Feedback (Home Care) Social History Tobacco Use Types Packs/Day Years [...] often do you attend chur ch or anabaptist services? Never 11/17/2023 Do you belong to any clubs o r organizations such as restorationist groups, unions, fraternal or athletic groups, or [...] have Coronavirus / COVID-19? No / Unsure 02/11/2021 3:59 PM EDT documented as of this encounter Miscellaneous Notes * Telephone Encounter - Rob Hernandez LPN - 02/26/2021 11:37 AM EDT Done with [employer] * Telephone Encounter - Bernice López - 02/16/2021 11:17 AM EDT DOCTOR OF CHIROPRACTIC is checking the status of Home Health Care order. This order will print to the same printer this workstation prints all other orders.The clinical staff in the department will contact the patient to schedule the appointment. Please notify the referrals department once services have been set up and who they have been set up with. documented in this encounter Plan of Treatment Not on file documented as of this encounter Visit Diagnoses Not on filedocumented in this encounter Care Teams Biomedical Equipment Support Specialist Relationship Specialty Start Date End Date Lou Messina MD [address] [place] [address] PCP - General Internal Medicine 01/28/16 10/07/23 Madonna Saul PA-C [address] [place], [place] PCP - General Internal Medicine 10/08/23 10/08/23 Lou Messina MD [address] [place], [place] PCP - General Internal Medicine 10/09/23 Rc Patrick MD [address] [place], [place] Specialist Cardiovascular Disease 01/01/21 Etienne Collier MD, PHD [address] [place] [address] Specialist Neurosurgery 08/14/21 Mela Hernandez, Pharm.D [address] [place] [address] Specialist PHAMACIST CLINICIAN 11/17/23 documented as of this encounter
--- OUTSIDE RECORDS SUMMARY | 2024-11-18 16:33 | XMS_ITS | Encounter Summary ---
Author Organization [facility] Address [address] [place] [address] Care Team Providers Care Switch Adjuster Name Role Phone Lou Messina MD Primary Care Provider [phone] Rc Patrick MD Unavailable Etienne Collier MD, PHD Unavailable Unava ilable Madonna Saul PA-C Primary Care Provider + Lou Messina MD Primary Care Provider +[phone] Mela Hernandez Pharm.D Unavailable [phone] Encounter Details Date Type Department Care Team Description 04/07/2018 Cloth Printer Helper Report Medical Records [address] [place] [address] Abstract, Provider Social History Tobacco Use Types [...] on filedocumented in this encounter Care Teams Switch Adjuster Relationship Specialty Start Date End Date Lou Messina MD [address] [place], [place] PCP - General Internal Medicine 01/28/16 10/07/23 Madonna Saul PA-C [address] [place], [place] PCP - General Internal Medicine 10/08/23 10/08/23 Lou Messina MD [address] [place], [place] PCP - General Internal Medicine 10/09/23 Rc Patrick MD [address] [place], [place] Specialist Cardiovascular Disease 01/01/21 Etienne Collier MD, PHD [address] [place], [place] Specialist Neurosurgery 08/14/21 Mela Hernandez, Pharm.D [address] [place] [address] Specialist PHAMACIST CLINICIAN 11/17/23 documented as of this encounter
--- OUTSIDE RECORDS SUMMARY | 2024-11-18 16:33 | XMS_ITS | Encounter Summary ---
Author Organization [facility] Address [address] [place] [address] Care Team Providers Care Middleware Engineer Name Role Phone Lou Messina MD Primary Care Provider [phone] Rc Patrick MD Unavailable Etienne Collier MD, PHD Unavailable Unava ilable Madonna Saul PA-C Primary Care Provider + Lou Messina MD Primary Care Provider [phone] Mela Hernandez Pharm.D Unavailable [phone] Reason for Visit * Reason Comments E-prescribe Rx Request Encounter Details Date Type Department Care Team Description 11/12/2017 Refill Adult Medicine - [place] [address] [place] [address] Lou Messina MD [address] [place] [address] E-prescribe Rx Request Social History Tobacco Use [...] any clubs o r organizations such as jain groups, unions, fraternal or athletic groups, or [...] Telephone Encounter - Jorje Enriquez M.A. - 11/16/2017 1:28 PM EDT Faxed to pharmacy * Telephone Encounter - Lina Us L.P.N. - 11/16/2017 9:38 AM EDT Lab Results Component Value Date NA 144 06/23/2017 K 4.1 06/23/2017 CO2 26.1 06/23/2017 CL 103 06/23/2017 BUN 13 06/23/2017 CREAT 0.9 06/23/2017 GLU 130 06/23/2017 CA 10.0 06/23/2017 GFR > 60 06/23/2017 * Telephone Encounter - Toshia Fitzpatrick - 11/16/2017 7:53 AM EDT Patient would like script to be: E-PRESCRIBED/FAXED TO PHARMACY WHEN WAS THE PATIENT'S LAST APPOINTMENT IN ADULT MEDICINE? 11/12/17 WHEN WAS THE LAST TIME THE PATIENT SAW THEIR PCP? 07/14/17 Does patient have an upcoming appointment? (THE MEDICATION REQUESTED IS ON THE MED LIST ABOVE) All of the medications requested were on the CURRENT MEDS list Did you check the Pharmacy information above?: YES Patient wants: 90 -day supply Is this a mail order prescription request ? NO Patients current insurance carrier is: Payor: [employer] / Plan: [employer] $0 [facility] [id number] / Product Type: [id number] documented in this encounter Plan of Treatment Not on file documented as of this encounter Visit Diagnoses Not on filedocumented in this encounter Care Teams Middleware Engineer Relationship Specialty Start Date End Date Lou Messina MD [address] [place] [address] PCP - General Internal Medicine 01/28/16 10/07/23 Madonna Saul PA-C [address] [place] [address] PCP - General Internal Medicine 10/08/23 10/08/23 Lou Messina MD [address] [place] [address] PCP - General Internal Medicine 10/09/23 Rc Patrick MD [address] [place] [address] Specialist Cardiovascular Disease 01/01/21 Etienne Collier MD, PHD [address] [place] [address] Specialist Neurosurgery 08/14/21 Mela Hernandez, Pharm.D [address] [place] [address] Specialist PHAMACIST CLINICIAN 11/17/23 documented as of this encounter
--- OUTSIDE RECORDS SUMMARY | 2024-11-18 16:33 | XMS_ITS | Encounter Summary ---
Author Organization [facility] Address [address] [place] [address] Care Team Providers Care Surveillance Observer Name Role Phone Lou Messina MD Primary Care Provider [phone] Rc Patrick MD Unavailable Etienne Collier MD, PHD Unavailable Unava ilable Madonna Saul PA-C Primary Care Provider + Lou Messina MD Primary Care Provider [phone] Mela Hernandez Pharm.D Unavailable [phone] Encounter Details Date Type Department Care Team Description 05/13/2023 Telephone Adult Medicine - [address] [address] Dev Jorgensen PA-C [address] [place] [address] Social History Tobacco Use Types Packs/Day Years [...] any clubs o r organizations such as alevism groups, unions, fraternal or athletic groups, or [...] Telephone Encounter - Dev Jorgensen PA-C - 05/13/2023 10:44 PM EDT Patient is 30 minutes scheduled for 15. She definitely takes up not much time. Please extend her time or reschedule as appropriate. Thank you documented in this encounter Plan of Treatment Not on file documented as of this encounter Visit Diagnoses Not on filedocumented in this encounter Care Teams Surveillance Observer Relationship Specialty Start Date End Date Lou Messina MD [address] [place] [address] PCP - General Internal Medicine 01/28/16 10/07/23 Madonna Saul PA-C [address] [place] [address] PCP - General Internal Medicine 10/08/23 10/08/23 Lou Messina MD [address] [place] [address] PCP - General Internal Medicine 10/09/23 Rc Patrick MD [address] [place] [address] Specialist Cardiovascular Disease 01/01/21 Etienne Collier MD, PHD [address] [place] [address] Specialist Neurosurgery 08/14/21 Mela Hernandez, Pharm.D [address] [place] [address] Specialist PHAMACIST CLINICIAN 11/17/23 documented as of this encounter
--- OUTSIDE RECORDS SUMMARY | 2024-11-18 16:33 | XMS_ITS | Encounter Summary ---
Author Organization [facility] Address [address] [place] [address] Care Team Providers Care Railroad Commissioner Name Role Phone Valeria Lopez MD Primary Care Provider Unavai ruthie Messina Ch MD Primary Care Provider [phone] Lou Messina MD Primary Care Provider [phone] Rc Patrick MD Unavailable Etienne Collier MD, PHD Unavailable Unava Madonna Salguero PA-C Primary Care Provider + Lou Messina MD Primary Care Provider +[phone] Mela Hernandez Pharm.D Unavailable [phone] Encounter Details Date Type Department Care Team Description 02/20/2009 Hospital Medical Records [address] [place] [address] Alice Lopez Social History Tobacco Use Types Packs/Day Years [...] often do you attend chur ch or sabianism services? Never 11/17/2023 Do you belong to [...] filedocumented in this encounter Care Teams Railroad Commissioner Relationship Specialty Start Date End Date Valeria Lopez MD PCP - General 06/23/08 12/08/13 Lou Messina MD [address] [place], [place] PCP - General Internal Medicine 01/28/16 10/07/23 Lou Messina MD [address] [place] PCP - General 12/09/13 01/27/16 Madonna Saul PA-C [address] [place] PCP - General Internal Medicine 10/08/23 10/08/23 Lou Messina MD [address] [place] PCP - General Internal Medicine 10/09/23 Rc Patrick MD [address] [place] [address] Specialist Cardiovascular Disease 01/01/21 Etienne Collier MD, PHD [address] [place] [address] Specialist Neurosurgery 08/14/21 Mela Hernandez, Pharm.D [address] [place] [address] Specialist PHAMACIST CLINICIAN 11/17/23 documented as of this encounter
--- OUTSIDE RECORDS SUMMARY | 2024-11-18 16:34 | XMS_ITS | Encounter Summary ---
Author Organization [facility] Address [address] [place] [address] Care Team Providers Care Decal Transferrer Name Role Phone Lou Messina MD Primary Care Provider [phone] Rc Patrick MD Unavailable Etienne Collier MD, PHD Unavailable Unava ilable Madonna Saul PA-C Primary Care Provider + Lou Messina MD Primary Care Provider +[phone] Mela Hernandez Pharm.D Unavailable [phone] Reason for Visit * Reason Onset Date Comments TEST RESULTS 10/22/2022 Encounter Details Date Type Department Care Team Description 10/22/2022 Telephone Adult Medicine - [place] [address] [place] [address] Lou Messina MD [address] [place] [address] TEST RESULTS Social History Tobacco Use Types Packs/Day Years [...] any clubs o r organizations such as religious groups, unions, fraternal or athletic groups, or [...] suspected to have Coronavirus/COVID-19? No / Unsure 10/21/2022 2:20 PM EST documented as of this encounter Miscellaneous Notes * Telephone Encounter - Kailey Pressley L.P.N. - 10/23/2022 8:44 AM EST Message left for patient to return my call. * Telephone Encounter - Dev Jorgensen PA-C - 10/22/2022 9:07 PM EST She may need to go to the hospital then. There is no whole-body scan to be ordered from primary care. If she is in that much pain and having the dizziness and falls she needs more emergent evaluation. She did not seem to stable when I saw her. I really think she should go get checked out * Telephone Encounter - Rob Hernandez LPN - 10/22/2022 1:41 PM EST Pt advised of provider message Pt is requesting to have a whole body scan , pt states that she hurts all over * Telephone Encounter - Rob Hernandez LPN - 10/22/2022 1:37 PM EST ----- Message from Dev Jorgensen PA-C sent at 10/22/2022 12:55 PM EST ----- Triage. Please let patient know that all of her labs are stable and I am ordering 1 more follow-up scan of her arteries to double check that her brain is getting the oxygen that she needs. They will call her about that. Thank you documented in this encounter Plan of Treatment Not on file documented as of this encounter Visit Diagnoses Not on filedocumented in this encounter Care Teams Decal Transferrer Relationship Specialty Start Date End Date Lou Messina MD [address] [place], [place] PCP - General Internal Medicine 01/28/16 10/07/23 Madonna Saul PA-C [address] [place], [place] PCP - General Internal Medicine 10/08/23 10/08/23 Lou Messina MD [address] [place], [place] PCP - General Internal Medicine 10/09/23 Rc Patrick MD [address] [place], [place] Specialist Cardiovascular Disease 01/01/21 Etienne Collier MD, PHD [address] [place], [place] Specialist Neurosurgery 08/14/21 Mela Hernandez, Pharm.D [address] [place], [place] [id number] Specialist PHAMACIST CLINICIAN 11/17/23 documented as of this encounter
--- OUTSIDE RECORDS SUMMARY | 2024-11-18 16:34 | XMS_ITS | Encounter Summary ---
Author Organization [facility] Address [address] [place] [address] Care Team Providers Care Hospitality Job Titles Name Role Phone Lou Messina MD Primary Care Provider [phone] Rc Patrick MD Unavailable Etienne Collier MD, PHD Unavailable Unava ilable Madonna Saul PA-C Primary Care Provider + Lou Messina MD Primary Care Provider +[phone] -[phone] Mela Hernandez Pharm.D Unavailable [phone] Encounter Details Date Type Department Care Team Description 09/22/2023 SNF discharge summary Medical Records [address] [place] [address] Abstract, Provider Social History Tobacco Use Types [...] often do you attend chur ch or faith services? Never 11/17/2023 Do you belong to [...] on filedocumented in this encounter Care Teams Hospitality Job Titles Relationship Specialty Start Date End Date Lou Messina MD [address] [place], [place] PCP - General Internal Medicine 01/28/16 10/07/23 Madonna Saul PA-C [address] [place], [place] PCP - General Internal Medicine 10/08/23 10/08/23 Lou Messina MD [address] [place], [place] PCP - General Internal Medicine 10/09/23 Rc Patrick MD [address] [place], [place] Specialist Cardiovascular Disease 01/01/21 Etienne Collier MD, PHD [address] [place], [place] Specialist Neurosurgery 08/14/21 Mela Hernandez, Pharm.D [address] [place] [address] Specialist PHAMACIST CLINICIAN 11/17/23 documented as of this encounter
--- OUTSIDE RECORDS SUMMARY | 2024-11-18 16:34 | XMS_ITS | Encounter Summary ---
Author Organization [facility] Address [address] [place] [address] Care Team Providers Care Mechanical Supervisor Name Role Phone Lou Messina MD Primary Care Provider [phone] Rc Patrick MD Unavailable Etienne Collier MD, PHD Unavailable Unava ilable Madonna Saul PA-C Primary Care Provider + Lou Messina MD Primary Care Provider +1 -[phone] Mela Hernandez Pharm.D Unavailable [phone] Reason for Visit * Reason Comments E-prescribe Rx Request Encounter Details Date Type Department Care Team Description 01/03/2020 Refill Adult Medicine - [place] [address] [place] [address] Lou Messina MD [address] [place] [address] E-prescribe Rx Request Social History Tobacco Use [...] any clubs o r organizations such as mandaeism groups, unions, fraternal or athletic groups, or [...] encounter Miscellaneous Notes * Telephone Encounter - Ace Siddiqui - 01/03/2020 1:13 PM EDT Patient would like script to be: E-PRESCRIBED/FAXED TO PHARMACY WHEN WAS THE PATIENT'S LAST APPOINTMENT IN ADULT MEDICINE? 10/18/2019 WHEN WAS THE LAST TIME THE PATIENT SAW THEIR PCP? 04/01/19 Does patient have an upcoming appointment? Yes 01/19/2020 (THE MEDICATION REQUESTED IS ON THE MED [...] N/A Patients current insurance carrier is: Payor: [employer] / Plan: [employer] $0 [place] [facility] [id number] / Product Type: HMO [id number] documented in this encounter Plan of Treatment Not on file documented as of this encounter Visit Diagnoses Diagnosis MCI (mild cognitive impairment) with memory loss Mild cognitive impairment, so stated documented in this encounter Care Teams Mechanical Supervisor Relationship Specialty Start Date End Date Lou Messina MD [address] [place] [address] PCP - General Internal Medicine 01/28/16 10/07/23 Madonna Saul PA-C [address] [place] [address] PCP - General Internal Medicine 10/08/23 10/08/23 Lou Messina MD [address] [place] [address] PCP - General Internal Medicine 10/09/23 Rc Patrick MD [address] [place] [address] Specialist Cardiovascular Disease 01/01/21 Etienne Collier MD, PHD [address] [place], [place] Specialist Neurosurgery 08/14/21 Mela Hernandez, Pharm.D [address] [place] [address] Specialist PHAMACIST CLINICIAN 11/17/23 documented as of this encounter
--- OUTSIDE RECORDS SUMMARY | 2024-11-18 16:34 | XMS_ITS | Encounter Summary ---
Author Organization [facility] Address [address] [place] [address] Care Team Providers Care Digital Technician Name Role Phone Lou Messina MD Primary Care Provider [phone] Rc Patrick MD Unavailable Etienne Collier MD, PHD Unavailable Unava ilable Madonna Saul PA-C Primary Care Provider + Lou Messina MD Primary Care Provider +[phone] Mela Hernandez Pharm.D Unavailable [phone] Reason for Visit * Reason Onset Date Comments Faxed Order 01/26/2020 [facility] Encounter Details Date Type Department Care Team Description 01/26/2020 Telephone Adult Medicine [facility] [address] [place] [address] Lou Messina MD [address] [place] [address] Faxed Order ([facility]) Social History Tobacco Use Types Packs/Day Years [...] How often do you attend chur or restorationism services? Never 11/17/2023 Do you [...] encounter Miscellaneous Notes * Telephone Encounter - Carmen Vivas - 01/26/2020 3:58 PM EDT Home Health Certificate and order to be reviewed, signed and faxed back to [facility] at [phone], placed in PCP bin for signature documented in this encounter Plan of Treatment Not on file documented as of this encounter Visit Diagnoses Not on filedocumented in this encounter Care Teams Digital Technician Relationship Specialty Start Date End Date Lou Messina MD [address] [place] [address] PCP - General Internal Medicine 01/28/16 10/07/23 Madonna Saul PA-C [address] [place] [address] PCP - General Internal Medicine 10/08/23 10/08/23 Lou Messina MD [address] [place] [address] PCP - General Internal Medicine 10/09/23 Rc Patrick MD [address] [place] [address] Specialist Cardiovascular Disease 01/01/21 Etienne Collier MD, PHD [address] [place] [address] Specialist Neurosurgery 08/14/21 Mela Hernandez, Pharm.D [address] [place] [address] Specialist PHAMACIST CLINICIAN 11/17/23 documented as of this encounter
--- OUTSIDE RECORDS SUMMARY | 2024-11-18 16:34 | XMS_ITS | Encounter Summary ---
Author Organization [facility] Address [address] [place] [address] Care Team Providers Care Freight Broker Name Role Phone Lou Messina MD Primary Care Provider +1 [phone] Rc Patrick MD Unavailable Etienne Collier MD, PHD Unavailable Unava ilable Madonna Saul PA-C Primary Care Provider + Lou Messina MD Primary Care Provider +1 [phone] Mela Hernandez Pharm.D Unavailable [phone] Encounter Details Date Type Department Care Team Description 04/02/2020 Senior Network Architect Report Medical Records [address] [place] [address] Dev Michaud PA-C [address] [facility] [address] [place] [address] Social History Tobacco Use Types Packs/Day Years [...] How often do you attend chur or religion services? Never 11/17/2023 Do you belong to [...] on filedocumented in this encounter Care Teams Freight Broker Relationship Specialty Start Date End Date Lou Messina MD [address] [place], [place] PCP - General Internal Medicine 01/28/16 10/07/23 Madonna Saul PA-C [address] [place], [place] PCP - General Internal Medicine 10/08/23 10/08/23 Lou Messina MD [address] [place], [place] PCP - General Internal Medicine 10/09/23 Rc Patrick MD [address] [place], [place] Specialist Cardiovascular Disease 01/01/21 Etienne Collier MD, PHD [address] [place], [place] Specialist Neurosurgery 08/14/21 Mela Hernandez, Pharm.D [address] [place] [address] Specialist PHAMACIST CLINICIAN 11/17/23 documented as of this encounter
--- OUTSIDE RECORDS SUMMARY | 2024-11-18 16:34 | XMS_ITS | Encounter Summary ---
Author Organization [facility] Address [address] [place] [address] Care Team Providers Care Drop Man Name Role Phone Lou Messina MD Primary Care Provider [phone] Rc Patrick MD Unavailable Etienne Collier MD, PHD Unavailable Unava ilable Madonna Saul PA-C Primary Care Provider + Lou Messnia MD Primary Care Provider +1 [phone] Mela Hernandez Pharm.D Unavailable [phone] Encounter Details Date Type Department Care Team Description 09/14/2023 [facility] Medical Records [address] [place] [address] Zbigniew Aggarwal MD Social History Tobacco Use Types Packs/Day [...] any clubs o r organizations such as presybeterian groups, unions, fraternal or athletic groups, or [...] on filedocumented in this encounter Care Teams Drop Man Relationship Specialty Start Date End Date Lou Messina MD [address] [place], [place] PCP - General Internal Medicine 01/28/16 10/07/23 Madonna Saul PA-C [address] [place], [place] PCP - General Internal Medicine 10/08/23 10/08/23 Lou Messina MD [address] [place], [place] PCP - General Internal Medicine 10/09/23 Rc Patrick MD [address] [place], [place] Specialist Cardiovascular Disease 01/01/21 Etienne Collier MD, PHD [address] [place], [place] Specialist Neurosurgery 08/14/21 Mela Hernandez, Pharm.D [address] [place] [address] Specialist PHAMACIST CLINICIAN 11/17/23 documented as of this encounter
--- OUTSIDE RECORDS SUMMARY | 2024-11-18 16:34 | XMS_ITS | Encounter Summary ---
Author Organization [facility] Address [address] [place] [address] Care Team Providers Care Stock Parts Inspector Name Role Phone Lou Messina MD Primary Care Provider [phone] Rc Patrick MD Unavailable Etienne Collier MD, PHD Unavailable Unava ilable Madonna Saul PA-C Primary Care Provider + Lou Messina MD Primary Care Provider +[phone] Mela Hernandez Pharm.D Unavailable [phone] Reason for Visit * Reason Comments E-prescribe Rx Request Encounter Details Date Type Department Care Team Description 08/14/2023 Refill Adult Medicine - [address] [address] Dev Jorgensen PA-C [address] [place] [address] E-prescribe Rx Request Social History Tobacco Use [...] often do you attend chur ch or buddhism services? Never 11/17/2023 Do you belong to any clubs o r organizations such as taoist groups, unions, fraternal or athletic groups, or [...] encounter Miscellaneous Notes * Telephone Encounter - Yohana Mcclain - 08/14/2023 10:36 AM EST ioana documented in this encounter Plan of Treatment Not on file documented as of this encounter Visit Diagnoses Not on filedocumented in this encounter Care Teams Stock Parts Inspector Relationship Specialty Start Date End Date Lou Messina MD [address] [place], [place] PCP - General Internal Medicine 01/28/16 10/07/23 Madonna Saul PA-C [address] [place], [place] PCP - General Internal Medicine 10/08/23 10/08/23 Lou Messina MD [address] [place], [place] PCP - General Internal Medicine 10/09/23 Rc Patrick MD [address] [place] [address] Specialist Cardiovascular Disease 01/01/21 Etienne Collier MD, PHD [address] [place] [address] Specialist Neurosurgery 08/14/21 Mela Hernandez, Pharm.D [address] [place] [address] Specialist PHAMACIST CLINICIAN 11/17/23 documented as of this encounter
--- OUTSIDE RECORDS SUMMARY | 2024-11-18 16:34 | XMS_ITS | Encounter Summary ---
Author Organization [facility] Address [address] [place] [address] Care Team Providers Care Lumber Straightener Name Role Phone Trina Messina MD Primary Care Prov ider Encounter Details Date Type Department Care Team (Late Contact Info) Description 11/18/2024 4:30 PM EDT Ancillary Procedure [facility] [address] [facility] [address] [place] [address] Arrived Social History Tobacco Use Types Packs/Day Years [...] Encounters Date Type Department Care Team (Late Contact Info) Description 05/03/2025 1:30 PM EDT Office Visit [facility] [address] [address] Rc Patrick MD [address] [address] 10/23/2025 4:00 PM EDT Ancillary Procedure [facility] [address] 300 [facility] [address] [place] [phone] documented as of this encounter Procedures Procedure Name Priority Date/Time Associated Diagnosis Comments CARDIAC DEVICE CHECK- REMOTE- MURJ Routine 11/18/2024 4:26 PM EDT documented in this encounter Results * Cardiac device check - Remote- MURJ (11/18/2024 4:26 PM EDT) Date Time Interrogation Session [id number] CV DEVICE CHECK Type Interrogation Session Remote Scheduled CV DEVICE CHECK Implantable Pulse Generator Political Science Chair [employer] CV DEVICE CHECK Implantable Pulse Generator Type IPG CV DEVICE CHECK Implantable Pulse Generator Model 2[address] Assurity(TM) DR CV DEVICE CHECK Implantable Pulse Generator Serial Number [id number] CV DEVICE CHECK Implantable Pulse Generator Implant Date [id number] CV DEVICE CHECK Battery Remaining Percentage 50.00 CV DEVICE CHECK Battery Remaining Longevity 67.0 CV DEVICE CHECK Battery Voltage 2.990 CV D EVICE CHECK Battery HYPERBARIC WELDER DIVER Trigger 2.600 CV DEVICE CHECK Battery Status Middle of Service CV DEVICE CHECK Kalyan Statistic RA Percent Paced 45.00 CV DEVICE CHECK Kalyan Statistic RV Percent Paced 1.00 CV DEVICE CHECK Atrial Tachy Statistic AT/AF [place] Percent 0.00 CV DEVICE CHECK Lead Channel Sensing Intrinsic Amplitude 1.300 CV DEVICE CHECK Lead Channel Setting Sensing Sensitivity 0.30 CV DEVICE CHECK Lead Channel Impedance Value 480 CV DEVICE CHECK Lead Channel Pacing Threshold Amplitude 0.625 CV DEVICE CHECK Lead Channel Pacing Threshold Pulse Width 0.4 CV DEVICE CHECK Lead Channel RA Pacing Threshold Date 2024-05-23 CV DEVICE CHECK Lead Channel Setting Pacing Amplitude 1.625 CV DEVICE CHECK Lead Channel Setting Pacing Pulse Width 0.4 CV DEVICE CHECK Lead Channel Sensing Intrinsic Amplitude 11.800 CV DEVICE CHECK Lead Channel Setting Sensing Sensitivity 2.00 CV DEVICE CHECK Lead Channel Impedance Value 660 CV DEVICE CHECK Lead Channel Pacing Threshold Amplitude 0.625 CV DEVICE CHECK Lead Channel Pacing Threshold Pulse Width 0.4 CV DEVICE CHECK Lead Channel RV Pacing Threshold Date 2024-05-23 CV DEVICE CHECK Lead Channel Setting Pacing Amplitude 0.875 CV DEVICE CHECK Lead Channel Setting Pacing [...] 200 CV DEVICE CHECK Date of Service 2024-06-03 CV DEVICE CHECK Anatomical Region Laterality Modality Device Interroga tion 05/23/2024 2:00 AM EDT Impressions 06/03/2024 1:00 PM EDT Normal Remote: No Events * Normal Device Function * Alerts or events: None * Battery: Battery is at 50%, 5.58 yrs * Sensing, impedance and thresholds reviewed * Programmed parameters reviewed * Presenting rhythm reviewed * Heart Rate Histograms reviewed * No significant changes noted Narrative Procedure Note Cain Mena MD - 11/18/2024 IMPRESSION: Normal Remote: No Events * Normal Device Function * Alerts or events: None * Battery: Battery is at 50%, 5.58 yrs * Sensing, impedance and thresholds reviewed * Programmed parameters reviewed * Presenting rhythm reviewed * Heart Rate Histograms reviewed * No significant changes noted Cain Mena MD CV IMPLANTABLE CARDIAC DEVICE PROCEDURES Final Result documented in this encounter Visit Diagnoses Not on filedocumented in this encounter Care Teams Lumber Straightener Relationship Specialty Start Date End Date Trina Messina MD [address] [place] [address] PCP - General Internal Medicine 01/28/16 documented as of this encounter
--- OUTSIDE RECORDS SUMMARY | 2024-11-18 16:34 | XMS_ITS | Encounter Summary ---
Author Organization [facility] Address [address] [place] [address] Care Team Providers Care Material Damage Adjuster Name Role Phone Lou Messina MD Primary Care Provider [phone] [phone] Rc Patrick MD Unavailable Etienne Collier MD, PHD Unavailable Unava ilable Madonna Saul PA-C Primary Care Provider + Lou Messina MD Primary Care Provider [phone] [phone] Mela Hernandez Pharm.D Unavailable [phone] Reason for Visit * Reason Comments E-prescribe Rx Request Encounter Details Date Type Department Care Team Description 01/03/2020 Refill Adult Medicine [address] [address] Sammie Lynne PA-C E-prescribe Rx Request Social History Tobacco Use [...] often do you attend chur ch or samaritan services? Never 11/17/2023 Do you belong to any clubs o r organizations such as uatsdin groups, unions, fraternal or athletic groups, or [...] encounter Miscellaneous Notes * Telephone Encounter - Amee Soriano M.A. - 01/03/2020 11:22 AM EDT Last ov 10/18/19 Next ov 01/19/20 Lab Results Component Value Date HGBA1C 6.9 10/11/2019 MALBUR 9.8 06/08/2019 MALBCR < 4.8 06/08/2019 CHOL 243 06/08/2019 LDL 157 06/08/2019 HDL 61 06/08/2019 TRIG 127 06/08/2019 GLU 189 10/18/2019 CREAT 0.93 06/08/2019 * Telephone Encounter - Ace Siddiqui - 01/03/2020 9:35 AM EDT Patient would like script to [...] N/A Patients current insurance carrier is: Payor: [employer] / Plan: [employer] $Tapestry [id number] / Product Type: ClassanaO [id number] documented in this encounter Plan of Treatment Not on file documented as of this encounter Visit Diagnoses Diagnosis MCI (mild cognitive impairment) with memory loss Mild cognitive impairment, so stated documented in this encounter Care Teams Material Damage Adjuster Relationship Specialty Start Date End Date Lou Messina MD [address] [place], [place] PCP - General Internal Medicine 01/28/16 10/07/23 Madonna Saul PA-C [address] [place], [place] PCP - General Internal Medicine 10/08/23 10/08/23 Lou Messina MD [address] [place], [place] PCP - General Internal Medicine 10/09/23 Rc Patrick MD [address] [place], [place] Specialist Cardiovascular Disease 01/01/21 Etienne Collier MD, PHD [address] [place], [place] Specialist Neurosurgery 08/14/21 Mela Hernandez, Pharm.D [address] [place] [address] Specialist PHAMACIST CLINICIAN 11/17/23 documented as of this encounter
--- OUTSIDE RECORDS SUMMARY | 2024-11-18 16:34 | XMS_ITS | Encounter Summary ---
Author Organization [facility] Address [address] [place] [address] Care Team Providers Care Model Builder Display Name Role Phone Lou Messina MD Primary Care Provider [phone] Rc Patrick MD Unavailable Etienne Collier MD, PHD Unavailable Unava ilable Madonna Saul PA-C Primary Care Provider + Lou Messina MD Primary Care Provider +1 [phone] Mela Hernandez Pharm.D Unavailable [phone] Encounter Details Date Type Department Care Team Description 10/09/2022 Home Health Certification Medical Records [address] [place] [address] Social History Tobacco Use Types Packs/Day Years [...] often do you attend chur ch or mandaen services? Never 11/17/2023 Do you belong to any clubs o r organizations such as buddhist groups, unions, fraternal or athletic groups, or [...] suspected to have Coronavirus/COVID-19? No / Unsure 10/09/2022 12:52 PM EST documented as of this encounter Plan of Treatment Not on file documented as of this encounter Visit Diagnoses Not on filedocumented in this encounter Care Teams Model Builder Display Relationship Specialty Start Date End Date Lou Messina MD [address] [place], [place] PCP - General Internal Medicine 01/28/16 10/07/23 Madonna Saul PA-C [address] [place], [place] PCP - General Internal Medicine 10/08/23 10/08/23 Lou Messina MD [address] [place], [place] PCP - General Internal Medicine 10/09/23 Rc Patrick MD [address] [place], [place] Specialist Cardiovascular Disease 01/01/21 Etienne Collier MD, PHD [address] [place], [place] Specialist Neurosurgery 08/14/21 Mela Hernandez, Pharm.D [address] [place], [place] [phone] Specialist PHAMACIST CLINICIAN 11/17/23 documented as of this encounter
--- OUTSIDE RECORDS SUMMARY | 2024-11-18 16:34 | XMS_ITS | Encounter Summary ---
Author Organization [facility] Address [address] [place] [address] Care Team Providers Care Twister Hand Name Role Phone Lou Messina MD Primary Care Provider [phone] Rc Patrick MD Unavailable Etienne Collier MD, PHD Unavailable Unava ilable Madonna Saul PA-C Primary Care Provider + Lou Messina MD Primary Care Provider +1 [phone] Mela Hernandez Pharm.D Unavailable [phone] Reason for Visit * Reason Comments E-prescribe Rx Request Encounter Details Date Type Department Care Team Description 12/08/2022 Refill Adult Medicine - [address] [address] Dev Jorgensen PA-C [address] [place] [address] E-prescribe Rx Request Social History Tobacco Use [...] encounter Miscellaneous Notes * Telephone Encounter - Lynn Fox - 12/09/2022 9:35 AM EDT Dupe * Telephone Encounter - Clementina Jeffers - 12/09/2022 9:30 AM EDT duplicate documented in this encounter Plan of Treatment Not on file documented as of this encounter Visit Diagnoses Diagnosis Anxiety Anxiety state, unspecified MCI (mild cognitive impairment) with memory loss Mild cognitive impairment, so stated documented in this encounter Care Teams Twister Hand Relationship Specialty Start Date End Date Lou Messina MD [address] [place] [address] PCP - General Internal Medicine 01/28/16 10/07/23 Madonna Saul PA-C [address] [place] [address] PCP - General Internal Medicine 10/08/23 10/08/23 Lou Messina MD [address] [place] [address] PCP - General Internal Medicine 10/09/23 Rc Patrick MD [address] [place] [address] Specialist Cardiovascular Disease 01/01/21 Etienne Collier MD, PHD [address] [place] [address] Specialist Neurosurgery 08/14/21 Mela Hernandez, Pharm.D [address] [place] [id number] Specialist PHAMACIST CLINICIAN 11/17/23 documented as of this encounter
--- OUTSIDE RECORDS SUMMARY | 2024-11-18 16:34 | XMS_ITS | Clinical Summary ---
Author Organization [address] Address [address] [place] [address] Care Team Providers Care Home Health Manager Name Role Phone Trina Messina MD Primary [...] to be due to eye disease [place] (myocardial infarction) 09/19/2018 Overview (09/19/2018): Overview: Inferior [...] 12/12/1989 Osteoporosis screening (bone density) 12/12/2004 RSV Immunization (1 - 1-dose 75+ series) 12/12/2014 Pneumococcal Vaccine (50+ ye ars) (2 of 2 - PCV) 07/03/2018 07/03/2017 Covid-19 vaccine series ( - 2023- season) 2024 Influenza vaccine 04/17/2025 Breast cancer screening Discontinued Cervical cancer screening Discontinued Meningococcal Vaccine Aged Out No carlos eduardo jem eligible based on patient's age to complete this topic Medical Devices Implanted Type Area Property Clerk Device Identifier Shelf Expiration Date Model / Serial / Lot Pacemaker [employer] [facility] [place] [address] [facility] Care Teams Home Health Manager Relationship Specialty Start Date End Date Trina Messina MD PCP - General Internal Medicine 10/14/18
--- OUTSIDE RECORDS SUMMARY | 2024-11-18 16:34 | XMS_ITS | Encounter Summary ---
Author Organization [facility] Address [address] [place] [address] Care Team Providers Care Skein Yarn Dyer Name Role Phone Lou Messina MD Primary Care Provider [phone] [phone] Rc Patrick MD Unavailable Etienne Collier MD, PHD Unavailable Unava ilable Madonna Saul PA-C Primary Care Provider + Lou Messina MD Primary Care Provider +1 -[phone] Mela Hernandez Pharm.D Unavailable [phone] Reason for Visit * Reason Onset Date Comments Error 05/11/2020 Encounter Details Date Type Department Care Team Description 05/11/2020 Refill Adult Medicine - [place] [address] [place] [address] Lou Messina MD [address] [place] [address] Error Social History Tobacco Use Types Packs/Day [...] often do you attend chur ch or jain services? Never 11/17/2023 Do you belong to any clubs o r organizations such as congregation groups, unions, fraternal or athletic groups, or [...] encounter Miscellaneous Notes * Telephone Encounter - Linda Gooden L.P.N. - 05/11/2020 2:28 PM EDT Placed at patient strip picker documented in this encounter Plan of Treatment Not on file documented as of this encounter Visit Diagnoses Not on filedocumented in this encounter Care Teams Skein Yarn Dyer Relationship Specialty Start Date End Date Lou Messina MD [address] [place] [address] PCP - General Internal Medicine 01/28/16 10/07/23 Madonna Saul PA-C [address] [place], [place] PCP - General Internal Medicine 10/08/23 10/08/23 Lou Messina MD [address] [place], [place] PCP - General Internal Medicine 10/09/23 Rc Patrick MD [address] [place] [address] Specialist Cardiovascular Disease 01/01/21 Etienne Collier MD, PHD [address] [place] [address] Specialist Neurosurgery 08/14/21 Mela Hernandez, Pharm.D [address] [place] [address] Specialist PHAMACIST CLINICIAN 11/17/23 documented as of this encounter
--- OUTSIDE RECORDS SUMMARY | 2024-11-18 16:34 | XMS_ITS | Encounter Summary ---
Author Organization [facility] Address [address] [place] [address] Care Team Providers Care Rotary Veneer Machine Operator Name Role Phone Lou Messina MD Primary Care Provider [phone] Rc Patrick MD Unavailable Etienne Collier MD, PHD Unavailable Unava ilable Madonna Saul PA-C Primary Care Provider + Lou Messina MD Primary Care Provider +1 -[phone] Mela Hernandez Pharm.D Unavailable [phone] Encounter Details Date Type Department Care Team Description 09/12/2023 [facility] Medical Records [address] [place] [address] Tato Camargo MD [address] [address] Social History Tobacco Use Types Packs/Day Years [...] How often do you attend chur or druze services? Never 11/17/2023 Do you [...] on filedocumented in this encounter Care Teams Rotary Veneer Machine Operator Relationship Specialty Start Date End Date Lou Messina MD [address] [place], [place] PCP - General Internal Medicine 01/28/16 10/07/23 Madonna Saul PA-C [address] [place], [place] PCP - General Internal Medicine 10/08/23 10/08/23 oLu Messina MD [address] [place], [place] PCP - General Internal Medicine 10/09/23 Rc Patrick MD [address] [place], [place] Specialist Cardiovascular Disease 01/01/21 Etienne Collier MD, PHD [address] [place], [place] Specialist Neurosurgery 08/14/21 Mela Hernandez, Pharm.D [address] [place] [address] Specialist PHAMACIST CLINICIAN 11/17/23 documented as of this encounter
--- OUTSIDE RECORDS SUMMARY | 2024-11-18 16:34 | XMS_ITS | Encounter Summary ---
Author Organization [facility] Address [address] [place] [address] Care Team Providers Care Residence Life Coordinator Name Role Phone Lou Messina MD Primary Care Provider [phone] [phone] Rc Patrick MD Unavailable Etienne Collier MD, PHD Unavailable Unava ilable Madonna Saul PA-C Primary Care Provider + Lou Messina MD Primary Care Provider +[phone] Mela Hernandez Pharm.D Unavailable [phone] Encounter Details Date Type Department Care Team Description 04/16/2023 Orders Only Medical Records [address] [place] [address] Kurt Umanzor PA-C Social History Tobacco Use Types Packs/Day [...] Date/Time Associated Diagnosis Comments OUTSIDE CT Routine 04/14/2023 documented in this encounter Results * OUTSIDE CT (04/14/2023) Provider Abstract RADIOLOGY documented in this encounter Visit Diagnoses Not on filedocumented in this encounter Care Teams Residence Life Coordinator Relationship Specialty Start Date End Date Lou Messina MD [address] [place], [place] PCP - General Internal Medicine 01/28/16 10/07/23 Madonna Saul PA-C [address] [place], [place] PCP - General Internal Medicine 10/08/23 10/08/23 Lou Messina MD [address] [place], [place] PCP - General Internal Medicine 10/09/23 Rc Patrick MD [address] [place] [address] Specialist Cardiovascular Disease 01/01/21 Etienne Collier MD, PHD [address] [place] [address] Specialist Neurosurgery 08/14/21 Mela Hernandez, Pharm.D [address] [place] [id number] Specialist PHAMACIST CLINICIAN 11/17/23 documented as of this encounter
--- OUTSIDE RECORDS SUMMARY | 2024-11-18 16:34 | XMS_ITS | Encounter Summary ---
Author Organization [facility] Address [address] [place] [address] Care Team Providers Care Relationship Consultant Name Role Phone Lou Messina MD Primary Care Provider [phone] Rc Patrick MD Unavailable Etienne Collier MD, PHD Unavailable Unava ilable Madonna Saul PA-C Primary Care Provider + Lou Messina MD Primary Care Provider +[phone] Mela Hernandez Pharm.D Unavailable [phone] Reason for Visit * Reason Comments E-prescribe Rx Request Encounter Details Date Type Department Care Team Description 10/18/2019 Refill Adult Medicine [address] [address] Sammie Lynne PA-C E-prescribe Rx Request Social [...] encounter Miscellaneous Notes * Telephone Encounter - Roma Callaway - 10/18/2019 12:26 PM EST Patient would like script to be: E-PRESCRIBED/FAXED TO PHARMACY WHEN WAS THE PATIENT'S LAST APPOINTMENT IN ADULT MEDICINE? 10/18/19 ( today with sammie) WHEN WAS THE LAST TIME THE PATIENT SAW THEIR PCP? 04/01/19 Does patient have an upcoming appointment? Pt has not booked the yet pt was seen today (THE MEDICATION REQUESTED IS ON THE MED [...] N/A Patients current insurance carrier is: Payor: [facility] / Plan: [employer] $0 [id number] / Product Type: HMO [id number]-Tguoclk documented in this encounter Plan of Treatment Not on file documented as of this encounter Visit Diagnoses Not on filedocumented in this encounter Care Teams Relationship Consultant Relationship Specialty Start Date End Date Lou Messina MD [address] [place] [address] PCP - General Internal Medicine 01/28/16 10/07/23 Madonna Saul PA-C [address] [place] [address] PCP - General Internal Medicine 10/08/23 10/08/23 Lou Messina MD [address] [place] [address] PCP - General Internal Medicine 10/09/23 Rc Patrick MD [address] [place] [address] Specialist Cardiovascular Disease 01/01/21 Etienne Collier MD, PHD [address] [place] [address] Specialist Neurosurgery 08/14/21 eMla Hernandez, Pharm.D [address] [place] [address] Specialist PHAMACIST CLINICIAN 11/17/23 documented as of this encounter
--- OUTSIDE RECORDS SUMMARY | 2024-11-18 16:34 | XMS_ITS | Encounter Summary ---
Author Organization [facility] Address [address] [place] [address] Care Team Providers Care Safety Instructor Name Role Phone Valeria Lopez MD Primary Care Provider Unavai ruthie Messina Ch MD Primary Care Provider [phone] Lou Messina MD Primary Care Provider [phone] Rc Patrick MD Unavailable Etienne Collier MD, PHD Unavailable Unava Madonna Salguero PA-C Primary Care Provider + Lou Messina MD Primary Care Provider [phone] Mela Hernandez Pharm.D Unavailable [phone] Encounter Details Date Type Department Care Team Description 12/19/2009 Trim Technician Report Medical Records [address] [place] [address] Vascular, [facility] [address] [place] [address] Social History Tobacco Use Types Packs/Day Years [...] How often do you attend chur or roman catholic services? Never 11/17/2023 Do you belong [...] on filedocumented in this encounter Care Teams Safety Instructor Relationship Specialty Start Date End Date Valeria Lopez MD PCP - General 06/23/08 12/08/13 Lou Messina, [address] [place], [place] PCP - General Internal Medicine 01/28/16 10/07/23 Lou Messina MD [address] [place], [place] PCP - General 12/09/13 01/27/16 Madonna Saul PA-C [address] [place], [place] PCP - General Internal Medicine 10/08/23 10/08/23 Lou Messina MD [address] [place], [place] PCP - General Internal Medicine 10/09/23 Rc Patrick MD [address] [place] [address] Specialist Cardiovascular Disease 01/01/21 Etienne Collier MD, PHD [address] [place] [address] Specialist Neurosurgery 08/14/21 Mela Hernandez, Pharm.D [address] [place] [address] Specialist PHAMACIST CLINICIAN 11/17/23 documented as of this encounter
--- OUTSIDE RECORDS SUMMARY | 2024-11-18 16:34 | XMS_ITS | Encounter Summary ---
Author Organization [facility] Address [address] [place] [address] Care Team Providers Care Linux Unix Administrator Name Role Phone Lou Messina MD Primary Care Provider [phone] Rc Patrick MD Unavailable Etienne Collier MD, PHD Unavailable Unava ilable Madonna Saul PA-C Primary Care Provider + Lou Messina MD Primary Care Provider [phone] Mela Hernandez Pharm.D Unavailable [phone] Reason for Visit * Reason Onset Date Comments LAB WORK 09/07/2023 Encounter Details Date Type Department Care Team Description 09/07/2023 Telephone Adult Medicine - [place] [address] [place] [address] Lou Messina MD [address] [place] [address] LAB WORK Social History Tobacco Use Types Packs/Day Years [...] often do you attend chur ch or orthodoxy services? Never 11/17/2023 Do you belong to [...] Telephone Encounter - Clementina Aponte M.A. - 09/10/2023 11:40 AM EST Called pt to inform of this message, person answering the phone stated pt was in hospital * Telephone Encounter - Anju Arango PA-C - 09/10/2023 9:04 AM EST Reviewed last labs. She only needs a1c, lipids and bmp. Please have patient get labs 1-2 days before appt * Telephone Encounter - Regi Mcneil - 09/07/2023 3:07 PM EST Patient calling to request labs be ordered: What lab work is patient requesting? Blood work- full panel, CBC Cholestrol Does patient have an upcoming appointment, if yes when and WITH WHO? 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) Expected: 09/10/2023, Expires: 09/09/2024 CHG LIPID PANEL Lab Routine Pure hypertriglyceridemia Expected: 09/10/2023, Expires: 09/09/2024 CHG BASIC METABOLIC PANEL CALCIUM TOTAL Lab Routine Primary hypertension Expected: 09/10/2023, Expires: 09/09/2024 documented as of this encounter Visit Diagnoses Diagnosis Pure hypertriglyceridemia- Primary Pure hyperglyceridemia 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) Primary hypertension Unspecified essential hypertension documented in this encounter Care Teams Linux Unix Administrator Relationship Specialty Start Date End Date Lou Messina MD [address] [place] [address] PCP - General Internal Medicine 01/28/16 10/07/23 Madonna Saul PA-C [address] [place] [address] PCP - General Internal Medicine 10/08/23 10/08/23 Lou Messina MD [address] [place] [address] PCP - General Internal Medicine 10/09/23 cR Patrick MD [address] [place] [address] Specialist Cardiovascular Disease 01/01/21 Etienne Collier MD, PHD [address] [place] [address] Specialist Neurosurgery 08/14/21 Mela Hernandez, Pharm.D [address] [place] [address] Specialist PHAMACIST CLINICIAN 11/17/23 documented as of this encounter
--- OUTSIDE RECORDS SUMMARY | 2024-11-18 16:34 | XMS_ITS | Encounter Summary ---
Author Organization [facility] Address [address] [place] [address] Care Team Providers Care Night Stocker Name Role Phone Lou Messina MD Primary Care Provider [phone] Rc Patrick MD Unavailable Etienne Collier MD, PHD Unavailable Unava ilable Madonna Saul PA-C Primary Care Provider + Lou Messina MD Primary Care Provider [phone] Mela Hernandez Pharm.D Unavailable [phone] Reason for Visit * Reason Onset Date Comments Provider Call Back 09/10/2023 Encounter Details Date Type Department Care Team Description 09/10/2023 Telephone Adult Medicine [facility] [address] [place], [place] [phone] Lou Messina MD [address] [place] [address] Provider Call Back Social History Tobacco Use [...] often do you attend chur ch or church services? Never 11/17/2023 Do you belong to [...] encounter Miscellaneous Notes * Telephone Encounter - Betsy North M.A. - 09/24/2023 1:56 PM EST Spoke with Devonte, patient's son on verbal. He asked that I mail this to patient's home address. Dr. Blankenship, he wanted to let you know that patient went into the hospital for elevated sugars andis now in rehab. I did advise him that she will need a hospital follow up, he will call to schedulethis when he knows she will be discharged. * Telephone Encounter - Nesha Willett M.A. - 09/24/2023 9:36 AM EST Pt requesting letter for an accommodation to get a tub so she can soak in it. Pended letter for review. * Telephone Encounter - Radhika Cunningham M.A. - 09/23/2023 2:15 PM EST This is not a DME. Please create letter for a tub accomodation for Dr. Blankenship. Thank you in advance * Telephone Encounter - Yamilet Zuleta - 09/15/2023 11:52 AM EST Patient is asking for a call back regarding a letter for a accommodation to get a tub so she can soak in it. Please review and call * Telephone Encounter - Rob Hernandez RN - 09/10/2023 2:20 PM EST ok * Telephone Encounter - Lynn Fox - 09/10/2023 2:16 PM EST The patient is admitted to [facility] she has been there since last night. * Telephone Encounter - Rob Hernandez RN - 09/10/2023 10:01 AM EST Is pt still in the hospital ? * Telephone Encounter - Lynn Fox - 09/10/2023 9:39 AM EST I called the patient to get her schedule with Mela Hernandez in the Pharmacy clinic. She is [facility]ingshe [facility]. She went in last night. She sugar was in the 600's. She is requesting a call back. She is also looking for an update on a letter she said Dr. Maldonado wrote for her in regards to her tub. She is a letter for a accommodation to get a tub so she can soak in it. Her son has my direct line and he will call me back when they are ready to get scheduled in the pharmacy clinic. documented in this encounter Plan of Treatment Not on file documented as of this encounter Visit Diagnoses Not on filedocumented in this encounter Care Teams Night Stocker Relationship Specialty Start Date End Date Lou Messina MD [address] [place] [address] PCP - General Internal Medicine 01/28/16 10/07/23 Madonna Saul PA-C [address] [place] [address] PCP - General Internal Medicine 10/08/23 10/08/23 Lou Messina MD [address] [place] [address] PCP - General Internal Medicine 10/09/23 Rc Patrick MD [address] [place] [address] Specialist Cardiovascular Disease 01/01/21 Etienne Collier MD, PHD [address] [place] [address] Specialist Neurosurgery 08/14/21 Mela Hernandez, Pharm.D [address] [place] [address] Specialist PHAMACIST CLINICIAN 11/17/23 documented as of this encounter
--- OUTSIDE RECORDS SUMMARY | 2024-11-18 16:34 | XMS_ITS | Encounter Summary ---
Author Organization [facility] Address [address] [place] [address] Care Team Providers Care Middle School Librarian Name Role Phone Lou Messina MD Primary Care Provider [phone] Rc Patrick MD Unavailable Etienne Collier MD, PHD Unavailable Unava ilable Madonna Saul PA-C Primary Care Provider + Lou Messina MD Primary Care Provider [phone] Mela Hernandez Pharm.D Unavailable [phone] Reason for Visit * Reason Onset Date Comments Back Pain 10/20/2022 Hip Pain 10/20/2022 Neck Pain 10/20/2022 Encounter Details Date Type Department Care Team Description 10/20/2022 Telephone [facility] Neurosurgery [address] [address] Etienne Collier MD, PHD Back Pain; Hip Pain; Neck Pain Social History Tobacco Use Types Packs/Day [...] often do you attend chur ch or catholic services? Never 11/17/2023 Do you [...] encounter Miscellaneous Notes * Telephone Encounter - Ginny Cook - 10/20/2022 4:17 PM EST Patient states severe pain, neck, back knees-swollen from neck down to knees, has fallen several times. Has been ongoing over a month. Would like appt to evaluate. [phone] documented in this encounter Plan of Treatment Not on file documented as of this encounter Visit Diagnoses Not on filedocumented in this encounter Care Teams Middle School Librarian Relationship Specialty Start Date End Date Lou eMssina MD [address] [place] [address] PCP - General Internal Medicine 01/28/16 10/07/23 Madonna Saul PA-C [address] [place] [address] PCP - General Internal Medicine 10/08/23 10/08/23 Lou Messina MD [address] [place] [address] PCP - General Internal Medicine 10/09/23 Rc Patrick MD [address] [place] [address] Specialist Cardiovascular Disease 01/01/21 Etienne Collier MD, PHD [address] [place] [address] Specialist Neurosurgery 08/14/21 Mela Hernandez, Pharm.D [address] [place] [address] Specialist PHAMACIST CLINICIAN 11/17/23 documented as of this encounter
--- OUTSIDE RECORDS SUMMARY | 2024-11-18 16:34 | XMS_ITS | Clinical Summary ---
Author Organization [facility] [address] [facility] Address [address] [place] [address] Phone Care Team Providers Care Solutions Developer Name Role Phone Trina Messina MD Primary [...] flash glucose sensor (FREESTYLE MICKY 2 SENSOR [facility]) USE DIRECTED 06/10/20 24 Active acetaminophen (TYLENOL) [...] ns:Type 2 diabetes mellitus with diabetic cataract TAKE 1 TABLET BY MOUTH ONCE DAILY [...] 04/01/2019 Obstructive sleep apnea 11/10/2018 Overview (07/01/2024): [facility] Polysomnogram: Date 11/09/2018; Wt 158# SE 49%; SM 52%; REM 0%; RDI 26 (AHI 6), Central apneas 0; Obstructive apneas 0; Mixed apneas 0; hypopneas 28; RERAs 87; average oxygen saturation 95% (lowest 92% - without saturations <88% for 5% or more of study); PLMs 6.Pre-study ESS 12. 3/4 RLS symptoms. Nuclear Stress Test 05/17/2018 EF 76% [facility] Polysomnogram treatment study. Date [...] sleep related hypoventilation by 2019 polysomnogram. Old [place] (myocardial infarction) 09/19/2018 Overview (07/01/2024): Inferior wall [...] Encounters Date Type Department Care Team Description 11/18/2024 4:30 PM EDT Ancillary Procedure [facility] Cardiology [facility] [address] [place] [address] Arrived 10/19/2024 4:00 PM EST Ancillary Procedure [facility] Cardiology [facility] [address] [place] [address] Encounter for adjustment or management of cardiac device 10/18/2024 Billing Patient Not Present Adult [address] [phone] Trina Valadez MD Type 2 diabetes mellitus without complication, unspecified whether intermodal customer service insulin use (CMS/[facility]) (Primary Dx); 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; Sick sinus syndrome (CMS/[facility]); Essential (primary) hypertension; nursing home (current) use of insulin (CMS/[facility]); Personal history of other venous thrombosis and embolism 10/17/2024 Telephone Adult [address] [phone] Trina Valadez MD Forms/questionnaires ([facility] 09/30/2024-11/28/2024) 10/10/2024 Telephone Adult [facility] [address] [place] [phone] Trina [facility]adez MD [facility] 10/10/2024 Telephone [facility] [address] [facility] [address] [place] [address] Rc Patrick MD 08/26/2024 Telephone [facility] Cardiology [facility] [address] [facility] [address] [place] [address] Evelia Hayes [place] 08/22/2024 Telephone Adult [facility] [address] [place] [phone] Trina Valadez MD from Last 3 Months Immunizations Name Administration Dates Next Due PPD Test 08/15/2016,08/13/2016 Pneumococcal polysaccharide 23 valent (Pneumovax 23) 2yo and older 07/03/2017 Surgical History Surgery Date Site/Laterality Comments PARTIAL HYSTERECTOMY PROCEDURE: [place] SUPRACERVICAL ABDL HYSTER W/WO RMVL TUBE OVARY CATARACT EXTRACTION , , , 12 PROCEDURE: HISTORICAL CATARACT REMOVAL CARDIAC CATHETERIZATION 2006 PROCEDURE: HISTORICAL CARDIAC CATH; COMMENT: 2 stents PACEMAKER IMPLANT 2008 PROCEDURE: HISTORICAL PACEMAKER EYE SURGERY [id number] PROCEDURE: HISTORICAL EYE SURGERY; COMMENT: 4 surgeries for glaucoma OTHER SURGICAL HISTORY 03/09/2020 PROCEDURE: HISTORY OTHER; COMMENT: Spinal surgery, Dr. Berkowitz LUMBAR LAMINECTOMY PROCEDURE: HISTORICAL LUMB LAMINECTOMY Medical History Medical History Date Comments Cataract DX:Cataract NSTEMI (non-ST elevation prasanna cardial infarction) ([facility]) DX:NSTEMI (non-ST elevation myocardial infarction) ([facility]) Diabetes mellitus type 2, uncomplicated 05/07/2016 DX:Diabetes mellitus type 2, uncomplicated ([facility]) GERD (gastroesophageal reflux disease) 05/07/2016 DX:GERD (gastroesophageal reflux disease) Fibromyalgia 05/07/2016 DX:Fibromyalgia Depression 05/07/2016 DX:Depression Anxiety 05/07/2016 DX:Anxiety Type 2 diabetes mellitus with cataract 05/07/2016 DX:Type 2 diabetes mellitus with cataract ([facility]) Cervical spondylosis 07/17/2019 DX:Cervical spondylosis [...] Care Team (Late st Contact Info) Description 05/03/2025 1:30 PM EDT Office Visit [facility] [address] [facility] [address] [place] [address] Rc Patrick MD [address] [facility] [address] [place] [address] 10/23/2025 4:00 PM EDT Ancillary Procedure [facility] Cardiology [facility] [address] [facility] [address] [place] [phone] Health Maintenance Due Date Last Done Comments COVID-19 Vaccine (#1) 12/12/1945 Diabetes: Annual Foot Exam 12/12/1949 Zoster Vaccines (1 of 2) 12/12/1989 DTaP,Tdap,and Td Vaccines (2 - Td or Tdap) 04/24/2014 04/24/2004 RSV Immunization Adult Patients (1 - 1-dose 75+ series) 12/12/2014 Pneumococcal [...] this topic Medical Devices Implanted Type Area Strategy Manager Device Identifier Shelf Expiration Date Model / Serial / Lot Beatriz-William 2240 Asssven(Tm) [id number] Implanted:12/2017 by Cain Mena MD (Quantity not on file) Cardiac Pacemaker Left: Chest [facility] 2240 ASSSVEN(TM ) DR Zapata [id number] / Emmyt-William Espar[address] Dr 2240 [id number] Implanted:12/2017 (Quantity not on file) Cardiac Pacemaker [facility] [employer] [place] / [id number] / Procedures Procedure Name Priority Date/Time Associated Diagnosis Comments CARDIAC DEVICE CHECK- REMOTE- MURJ Routine 11/18/2024 4:26 PM EDT CARDIAC DEVICE CHECK- IN CLINIC- MURJ Routine [...] Recently Relevant to Health Maintenance Results * Cardiac device check - Remote- MURJ (11/18/2024 4:26 PM EDT) Date Time Interrogation Session [id number] CV DEVICE CHECK Type Interrogation Session Remote Scheduled CV DEVICE CHECK Implantable Pulse Generator Strategy Manager [employer] CV DEVICE CHECK Implantable Pulse Generator Type IPG CV DEVICE CHECK Implantable Pulse Generator Model 2240 Assurity(TM) CV DEVICE CHECK Implantable Pulse Generator Serial Number [id number] CV DEVICE CHECK Implantable Pulse Generator Implant Date [id number] CV DEVICE CHECK Battery Remaining Percentage 50.00 CV DEVICE CHECK Battery Remaining Longevity 67.0 CV DEVICE CHECK Battery Voltage 2.990 CV D EVICE CHECK Battery DELI BAKERY CLERK Trigger 2.600 CV DEVICE CHECK Battery Status Middle of Service CV DEVICE CHECK Kalyan Statistic RA Percent Paced 45.00 CV DEVICE CHECK Kalyan Statistic RV Percent Paced 1.00 CV DEVICE CHECK Atrial Tachy Statistic AT/AF [place] Percent 0.00 CV DEVICE CHECK Lead Channel [...] CV IMPLANTABLE CARDIAC DEVICE PROCEDURES Final Result * CARDIAC DEVICE CHECK- IN CLINIC- [facility] (10/19/2024 4:01 PM EST) Date Time Interrogation Session [id number] CV DEVICE CHECK Implantable Pulse Generator Strategy Manager [employer] CV DEVICE CHECK Implantable Pulse Generator Type IPG CV DEVICE CHECK Implantable Pulse Generator Model Assurity DR 2240 CV DEVICE CHECK Implantable Pulse Generator Serial Number [id number] CV DEVICE CHECK Implantable Pulse Generator Implant [...] % LAB CHEMISTRY METHOD 07/02/2024 11:19 AM [facility] Mean Bld Glu Estim. 166 mg/dL LAB CHEMISTRY METHOD 07/02/2024 11:19 AM [facility] Blood Venous blood specimen / Unknown Venipuncture / Unknown 07/01/2024 12:06 PM EST 07/01/2024 12:06 PM EST us Trina Messina MD LAB BLOOD ORDERABL ES Final Result [facility] [address] [place] [address], * (ABNORMAL) Comprehensive metabolic panel (07/01/2024 12:06 PM EST) [facility] Sodium 142 133 - 145 mmol/L LAB CHEMISTRY METHOD 07/01/2024 4:45 PM [facility] Potassium 4.4 3.5 - 5.5 mmol/L LAB CHEMISTRY METHOD 07/01/2024 4:45 PM [facility] Chloride 109 96 - 110 mmol/L LAB CHEMISTRY METHOD 07/01/2024 4:45 PM [facility] CO2 28 21 - 32 mmol/L LAB CHEMISTRY METHOD 07/01/2024 4:45 PM [facility] Anion Gap 5 3 - 11 LAB CHEMISTRY METHOD 07/01/2024 4:45 PM [facility] Glucose 176(H) 70 - 100 mg/dL LAB CHEMISTRY METHOD 07/01/2024 4:45 PM [facility] BUN 15 5 - 25 mg/dL LAB CHEMISTRY METHOD 07/01/2024 4:45 PM [facility] Creatinine 0.86 0.50 - 1.10 mg/dL LAB CHEMISTRY METHOD 07/01/2024 4:45 PM [facility] eGFR 67 >=60 mL/min/1. 73m2 LAB CHEMISTRY METHOD 07/01/2024 4:45 PM [facility] Comment:Calculation based on the??Chronic Kidney Disease Epidemiology Collaboration (CKD-EPI) equation refit??without adjustment for race. BUN/Creatinine Ratio 17.4 LAB CHEMISTRY METHOD 07/01/2024 4:45 PM [facility] Calcium 9.8 8.5 - 10.5 mg/dL LAB CHEMISTRY METHOD 07/01/2024 4:45 PM [facility] AST (SGOT) 20 10 - 42 unit/L LAB CHEMISTRY METHOD 07/01/2024 4:45 PM [facility] ALT (SGPT) 27 10 - 60 unit/L LAB CHEMISTRY METHOD 07/01/2024 4:45 PM [facility] Alkaline Phosphatase 111 42 - 121 unit/L LAB CHEMISTRY METHOD 07/01/2024 4:45 PM [facility] Total Protein 6.9 6.0 - 8.0 g/dL LAB CHEMISTRY METHOD 07/01/2024 4:45 PM [facility] Albumin 3.9 3.2 - 5.0 g/dL LAB CHEMISTRY METHOD 07/01/2024 4:45 PM [facility] Total Bilirubin 0.3 0.0 - 1.4 mg/dL LAB CHEMISTRY METHOD 07/01/2024 4:45 PM [facility] Blood Venous blood specimen / Unknown Venipuncture / Unknown 07/01/2024 12:06 PM EST 07/01/2024 12:06 PM EST us Trina Messina MD LAB BLOOD ORDERABL ES Final Result [facility] [address] [place] [address], [place] [phone] * HM Urine Albumin Creatinine Ratio (12/31/2022) HM Urine Albumin Creatinine Ratio abstracted Historical Provider HEALTH MAINTENANCE Final Result * (ABNORMAL) Lipid panel (10/21/2022) LDL/HDL Ratio 3 0 - 4 Triglycerides 101 0 - 150 mg/dL Cholesterol 206(A) 0 - 200 mg/dL HDL 64 >=40 mg/dL LDL Cholesterol 122(A) 0 - 100 mg/dL Blood Venous blood specimen / Unknown Historical Provider LAB BLOOD ORDERABLES Nicole l Result from Last 3 Months or Most Recently Relevant to Health Maintenance Insurance MEDICAID - [place] Advance Directives Documents on File Type Date Recorded Patient User Experience Lead Expl anation Health Care Decision (hx) 09/28/2023 [...] (hx) 04/14/2023 AD REDDY DIRECTIVE Care Teams Solutions Developer Relationship Specialty Start Date End Date Trina Messina MD [address] [place] [id number] PCP - General Internal Medicine 01/28/16
== END 2024-11-18 15:46 | disposition home or self-care (01) ==
LOC: HO.ENCR 15:14
PROVIDERS: PCP Internal Medicine; Visit Provider Nurse Practitioner Adult Health
DX: E11.65 Type 2 diabetes mellitus with hyperglycemia (principal); Z79.4 Long term (current) use of insulin
CPT/HCPCS: 99214; G2211

== ENCOUNTER 2025-05-11 14:56 | Outpatient (AMB) | payer OTHER, SELFPAY ==
[2025-05-11 14:57] VITALS: BP 184/84; PULSE 60; BMI 27.7
--- NOTE | 2025-05-11 14:57 | A.OFFVIS_ITS ---
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 Fabricator Required: No Accompanied by: Son Allergies insulin glargine (From Lantus U-100 Insulin) Allergy (Intermediate, Verified 11/18/24 15:26) rash atorvastatin (From Lipitor) Adverse Reaction (Unknown, Verified 11/18/24 15:26) Unknown codeine Adverse Reaction (Unknown, Verified 11/18/24 15:26) Unknown oxycodone Adverse Reaction (Unknown, Verified 11/18/24 15:26) Unknown rosuvastatin (From Crestor) Adverse Reaction (Unknown, Verified 11/18/24 15:26) Unknown sulfadiazine Adverse Reaction (Unknown, Verified 11/18/24 15:26) Unknown beta blockers Adverse Reaction (Unknown, Uncoded 11/18/24 15:26) Unknown HPI Comments Details: Pleasant 84 year old female who is seen in f/u for T2DM. Medical history: legally blind, [place] PCI, PPM, HLD, constipation Initially diagnosed with T2DM in 2013 Current regimen: Toujeo 25 units (believes she is taking 18 units) Previous medications: Lantus-rash A1C 7.4% Reports low sugars: none recent Treats lows with juice Freestyle micky sensor 3 average glucose: Glucose Management indicator 7.5% GMI 7.5% 40 % high (181-250) 60 % in range (70-180] 0 % low (69-55) 0 % very low (below 54) [facility] eyes checked locally[facility] and has a specialist in [place] Denies neuropathy Denies nephropathy, on ARB Denies HLD-on repatha Denies symptoms of chest pain, dyspnea or claudication. She c/o slight odor to her urine denies dysuria. Nocturia She c/o some constipation. 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 HEENT: Denies changes in vision and hearing. RESPIRATORY: Denies SOB and cough. CV: Denies palpitations and CP GI: Denies abdominal pain, nausea, vomiting and diarrhea. : Denies dysuria and urinary frequency. MSK: Denies new myalgia and joint pain. SKIN: Denies rash and pruritus. NEUROLOGICAL: Denies headache PSYCHIATRIC: Denies recent changes in mood. PHYSICAL EXAM: GENERAL: Alert and oriented x 3. NAD EYES: EOMI. Anicteric. HENT: Moist mucous membranes. No scleral icterus. No cervical lymphadenopathy. LUNGS: Clear to auscultation bilaterally. CARDIOVASCULAR: Regular rate and rhythm. No murmur. No JVD. ABDOMEN: Soft, non-tender +bs EXTREMITIES: No edema. Non-tender. SKIN: No rashes or lesions. Warm. NEUROLOGIC: No focal neurological deficits. CN II-XII grossly intact PSYCHIATRIC: Cooperative. Appropriate mood and affect [facility] Medical History Legally blind Pacemaker Surgical History Hx of eye surgery Hx of cholecystectomy Family History Mother Heart disease Father Stroke Social History Alcohol intake: never Patient Tobacco Use Status: Never used Tobacco Physical Exam Vital Signs: Last Vital Signs Pulse 60 05/11/25 14:57 BP 184/84 H 05/11/25 14:57 BMI result Body Mass Index 27.7 Results AMB Hemoglobin A1c AMB Hemoglobin A1c 7.4 % Last Edit by MARCO Adams on 05/11/25 15:19 Results Reviewed Results Reviewed: Laboratory Last Values Glucose (Clinic) 143 mg/dL (60-115) H 05/11/25 15:08 Hgb A1c (Clinic) 7.4 % (4.0-6.0) H 05/11/25 14:58 Assessment & Plan Assessment & Plan (1) Type 2 diabetes mellitus: Code(s): E11.9 - Type 2 diabetes mellitus without complications Category: Medical Qualifiers: Diabetes mellitus complication status: with hyperglycemia Diabetes mellitus detention insulin use: with detention use Qualified Code(s): E11.65 - Type 2 diabetes mellitus with hyperglycemia; Z79.4 - [facility] (current) use of insulin (2) Long-term insulin use in type 2 diabetes: Code(s): E11.9 - Type 2 diabetes mellitus without complications; Z79.4 - transformer tester (current) use of insulin Category: Medical Qualifiers: Diabetes mellitus complication status: with hyperglycemia Qualified Code(s): E11.65 - Type 2 diabetes mellitus with hyperglycemia; Z79.4 - [facility] (current) use of insulin (3) Cataract: Code(s): H26.9 - Unspecified cataract Category: Medical Qualifiers: Cataract type: unspecified Laterality: unspecified laterality Qualified Code(s): H26.9 - Unspecified cataract (4) Legally blind: Code(s): H54.8 - Legal blindness, as defined in [place] Category: Medical Plan DM-controlled for age. She could stay at current dose of insulin or increase by 2 units as she is fairly far from any hypoglycemia BP is high today. Says she has not yet taken her medications Requests low vision fireworks display specialist in the area-referral placed. She can return in 3 months or sooner as needed Orders: Orders AMB Hemoglobin A1c 05/11/25 E11.65 - Type 2 diabetes mellitus with hyperglycemia, Z79.4 - transformer tester (current) use of insulin Referrals Ophthalmology Referral H54.8 - Legal blindness, as defined in [place] Medications: New FreeStyle Micky 2 Plus Sensor (blood-glucose sensor) every 15 days 6 ea 3RF NS E11.65 - Type 2 diabetes mellitus with hyperglycemia, Z79.4 - transformer tester (current) use of insulin magnesium hydroxide 400 mg PO DAILY 90 tabs 3RF Changed From Toujeo SoloStar U-300 Insulin (insulin glargine U-300 conc) 22 units (0.0733 mL) subcut DAILY 30 days 3 mL 3RF NS To [place] MabryoStar U-300 Insulin (insulin glargine U-300 conc) 25 units (0.0833 mL) subcut DAILY 9 mL 3RF 90 days NS Discontinued FreeStyle Micky 2 Sensor (flash glucose sensor) Discontinued Reason: Doctor's Order every 14 days 6 ea 3RF NS E11.65 - Type 2 diabetes mellitus with hyperglycemia, Z79.4 - transformer tester (current) use of insulin Coding Level of Care Code Est Pt Level 4 (69336) Diagnoses Type 2 diabetes mellitus with hyperglycemia, with long-term current use of insulin E11.65; Z79.4 Diabetes mellitus complication status: with hyperglycemia Diabetes mellitus detention insulin use: with ball points inspector use Type 2 diabetes mellitus with hyperglycemia, with long-term current use of insulin E11.65; Z79.4 Diabetes mellitus complication status: with hyperglycemia Cataract, unspecified cataract type, unspecified laterality H26.9 Cataract type: unspecified Laterality: unspecified laterality Legally blind H54.8
[2025-05-11 15:13] LABS: Glucose, Whole Blood 143 mg/dL (60-115)
--- OUTSIDE RECORDS SUMMARY | 2025-05-11 19:15 | XMS_ITS ---
Author Name Gloria SMITHC, MRS. Reyan Address [address] [place] [address] Phone [phone] Organization [facility] [employer] [facility] Care Team Providers Care Wheel Mill Operator Name Role Phone Maribell Castro Unavailable [phone] alpha care service Unavailable [phone] Unavailable Unavailable [phone] Unavailable Unavailable [phone] Unavailable Unavailable [phone] Unavailable Unavailable Unavailable [facility] Unavailable Unavailable Unavailable Unavailable Trina Blackwell Unavailable [phone] FILIPPO BARROW Unavailable [phone] Anju Arango Unavailable [phone] Reason for Referral Not Available Allergies, adverse [...] 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 2023-10-08 No Data Available Access Systemse 2 [place] Device USE DIRECTED 2023-10-08 No Data Available [...] 4 WEEKS 2024-07-20 No Data Available [facility] spacer USE DIRECTED 2024-07-20 No Data Available [...] Pen-injector Subcutaneous 20 untis at night 2024-09-29 2025-01-11 Amoxicillin-Pot Clavulanate 875/125 mg Tab Take 1 tablet PO twice daily for 7 days 2024-09-29 2024-12-12 benzonatate 100 MG Oral Capsule [Tessaljamie Garcia] 1 PO BID PRN cough 2024-09-29 No [...] every two weeks. 2024-11-11 No Data Available methazolAMIDE 25 mg Tab No Data Available 2024-01-04 No Data Available Leftronic Flex System w/Device Kit No Data Available 2024-11-16 No Data Available Chlorhexidine Gluconate 4 % Solution Use solution once a week in shower 2024-12-12 No Data Available Lantus SoloStar 100 UNIT/ML Solution Pen-injector Subcutaneous inject 18 units under the skin once daily 2025-01-11 No Data Available Problem List Problem Status Onset Date Resolved Date Synopsis Mild obstructive sleep apnea Active 2022-05-26 N/A Sleep study- Arslan e 04/03/2019.CPAP - no longer uses as she is afraid she will inhale something and get sick. Has not used since having COVID Hyperlipidemia associated with type 2 diabetes mellitus Active 2022-05-26 N/A RX: Ezetimibe Heart healthy diet. Continue to follow up with PCP and Cardiology. Angina pectoris Active 2022-05-28 N/A RX: Nitro glycerin Denies recent episodes.Continue to follow up with Cardiology. Constipation Resolved 2024-03-23 2024-07-04 03/23/24: Last BM 5-7 days ago.Will refill miralax and docusate sodium.Eat fiber rich foods, prunes or drink prune juice dailyDrink plenty of waterIncrease daily physical activityContinue to monitorF/u with MAKAYLA 03/28/24 Rash Resolved 2024-07-04 2024-08-02 07/04/24: Saw pcp recently for a rash to chest and arms, itchy, a cream and short term pills were prescribed unsure of name. She had blood work done and is awaiting the results. Red flags reviewed. Cervical spondylosis Active 2022-05-26 N/A RX: Cyclobenzaprine. Discontinued Cortisone injections due to elevated blood glucose. No longer seeing Pain Management. Continue to follow up with PCP and Neurosurgeon as indicated. Hypertension Active 2022-05-26 N/A RX: Losartan Low NA diet BP 130/70Follow up pcp Major depressive disorder, recurrent, moderate, Psychosocial stressors Active 2022-05-26 N/A RX: Sertraline 5 0 mg in AM, Trazodone 50 mg qhsPhq2:2 Good sleep habits Member with recent stressors. She is agreeable to talking to a therapist. CBN referral placed (01/25/25) Chronic kidney disease, stage 2 (mild) Active 2022-05-26 N/A Avoid nephrotoxi c /15/24: eGFR 67; Creatinine 0.86 Creat clearance 51 Continue to follow up with PCP Fall, sequela Active 2024-08-02 N/A Hx falls As sistive devices to ambulate Dizziness Active 2024-03-23 N/A Describes a pr ocedure being done for BPPVAntivert prnSlow position changes Chronic pain; Primary osteoarthritis involving multiple joints Active 2024-03-23 N/A Pain at times to back pain, knee pain, right shoulder pain diclofenac gel.TylenolHeat/coldNo longer follows with pain management 01/25/25:Take tylenol, diclofenac gel prn. as needed. Incorporate Vitamin D and calcium. Incorporate an anti-inflammatory diet. Dress warmly for weather. Stretch, stay active as tolerated, weight-bearing exercises, limit caffeine, maintain healthy weight. Fall prevention-use of assistive device. Has bedside commode. Has a water bed with a heating feature. Continue follow up with PCP as scheduled. 02/27/25: mentioned about her chronic pain, Devonte says her knees are giving it out but I help her. Using diclofenac topical as prescribed. Callback PRN if worse than prior Sick sinus syndromePacemaker Active 2022-05-26 N/A s/p PPM. Juan Carlos nue to follow up with School Clerk and Cardiology. . Other problems related to medical facilities and other health care Active 2023-12-22 N/A Updated FALL CONTINGENCY PLANMember to call for the following symptoms: Fall / Vertigo/ WeaknessPlanned intervention: Have member check blood pressure and blood glucose. Encourage extra fluid intake Assess for change in mental status and provide reassurance if none (patient's Baseline is AAOx3) Review importance of sitting for two to three minutes prior to standing after laying downHYPERTENSION CONTINGENCY PLANLast er 05/10 elevated BPMember to call for the following symptoms: BP >180/100 / Chest pain / HR >100 Planned intervention: Beef Farmer on proper BP monitoring technique and reassess/ Encourage low sodium diet/ Discuss breathing exercises/ Encourage medication adherence DIABETES CONTINGENCY PLANMember to call for the following symptoms: Blood sugar <70 / Blood sugar >300 Planned intervention: Elevate legs/ Limit high-sugar and high-carbohydrate foods/ Go for a walk / consider lantus increase Chronic GERD Active 2024-11-05 N/A Rx: omeprazo le- Advised to reduce/avoid consumption of spicy foods and caffeinated beverages.- Advised to refrain from lying flat within 30 minutes after eating.- Advised to follow up with PCP URI (upper respiratory infection) Resolved 2025-01-11 2025-01-25 01/11/25:-member with report of a terrible cold all week leading to a vertigo episode this past Thursday. Symptoms improving. Advised to follow up for new or worsening symptoms. Skin lesion of lower extremity Active 2024-11-11 N/A 11/11/24:-member with growing flesh-colored skin lesion of 4 years to left inguinal area causing discomfort. Lack of visual/tactile assessment limits ability to evaluate/diagnose. There is a potential concern for malignancy. Will attempt to get a referral to dermatology for member as this may be a faster visit to obtain. She is in between PCPs and new PCP visit is not until 12/02/24.12/12/24-[facility] phone number: [phone] [facility] fax number: [phone] Date: 12/08/2024 Details of Order/Request: referral received, mbr is scheduled for apt 01/31/25. -I informed member of above information and sent her an SMS of same.-Additionally, Rx for chlorhexidine gluconate. Advised on use once a week in shower. Advised on importance of keeping skin clean, dry. 01/11/25:She still has not followed up with dermatology. She does not recall the contact information. This time I provided the contact information again to member and to her son for [facility] phone number: [phone]. Appt Date: 01/31/25. Member's son was advised to contact dermatology office to verify appt time. 01/25/25Member reminded of upcoming dermatology appt with [facility] phone number: [phone]. Appt Date: 01/31/25. Member's son sent SMS as a reminder and advised to to contact dermatology office to confirm appt date and time. Type 2 diabetes mellitus with stage 2 chronic kidney disease, with long-term current use of insulin Active 2023-12-22 N/A RX: Insulin Touj eo CGM 83-70001/: eGFR 67; Creatinine 0.86 Hemoglobin A1C 7.4ADA dietFollows with endocrine11/11/24-freestyle micky 2 sensors refill sent to pharmacy per member request12/12/24:-member reports body after rash every time she gets her insulin. States only happens with the insulin. She informed her PCP and spot checker. States spot checker prescribed her a cream which works, but is concerned that she gets this rash in the first place. She states she notices a splash of insulin get on her skin after the RN injects it and removes the needles. ---I discussed making sure RN is injecting the insulin fully and completely and not prematurely pulling out the needle before all the medicine can be delivered to SQ space. I informed her that when it is prematurely removed, it can cause skin irritation. I advised if still persists despite that, follow up with spot checker. She verbalized understanding.01/11/25:-membe r still having reaction to toujeo per member with pinprick rash throughout body.-Stop toujeo 22 units nightly, start lantus 18 units nightly. Advised to contact spot checker promptly to discuss toujeo reaction and change to lantus and any further management. Advised to continue to monitor BG and report elevated readings. Instructions reviewed in detail with member's son Devonte who is member's primary caregiver.-Refill of Freestyle CGM sensors sent to member's pharmacy.02/27/25: needs needles for lantus pen, and lantus med. Denies any acute changes. Med eprescribed. Type 2 diabetes mellitus with ophthalmic complication, Open-angle glaucoma, severe stage, Visual impairment Active 2022-05-26 N/A RX: Brimonidine, Brinzolamide, Latanoprost, Lumigan, Methazolamide, PrednisolonePreviously recommend tight blood glucose control. Continue to follow up with Ophthalmology.01/11/25:-per member, was referred to a low division controller by her watermelon inspector (who does not specialize in this). States she was advised to contact the [place] [employer] for names of specialists. However, after many attempts to the commission, she has not been able to get any information. [facility] task placed for additional assistance. Medication management Active 2025-02-27 N/A Mamta ds refill on few routine meds and asked question about medication indicationAnswered all questions and med eprescribed. Encounters Encounters Type Facility Date of Service Diagnosis/Co mplaint Pain Assessment - NO pain present (1126F) [facility] [place]20[place] Pain Assessment - NO pain present (1126F) [facility] [place] Pain Assessment - NO pain present (1126F) [facility] [place] Pain Assessment - NO pain present (1126F) [facility] [place] Pain Assessment - NO pain present (1126F) [facility] [place] Pain Assessment - NO pain present (1126F) [facility] [place] Pain Assessment - NO pain present (1126F) [facility] [place] Pain Assessment - NO pain present (1126F) [facility] [place] Pain Assessment - NO pain present (1126F) [facility] [place]20[place] Type 2 diabetes mellitus wit [...] or radiculopathy, cervical regionAthscl heart disease of [place] cor art w unsp ang pctrs No Data Available [facility] 06[place]/2022 Unlisted special service; to be used for medical record reviews and reporting CPTII codes (1111F, etc) [facility] 03/30/2023 Other specified health statu s Unlisted special service; to be used for medical record reviews and reporting CPTII codes (1111F, etc) [facility] [place] 03/30/20[place] Unlisted special service; to be used for medical record reviews and reporting CPTII codes (1111F, etc) [facility] [place] 03/30/2023 No Data Available [facility] [place] [facility] Unspecified open-angle glauc chester, severe stageMajor depressive disorder, recurrent, moderateSick sinus syndromeUnspecified atrial fibrillationVentricular tachycardia, unspecifiedChronic kidney disease, stage 3 unspecifiedInsomnia, unspecifiedObstructive sleep apnea (adult) (pediatric)Hypertensive chronic kidney disease w stg 1-4/unsp chr kdnyType 2 diabetes mellitus with other specified complicationHyperlipidemia, unspecifiedSpondylosis without myelopathy or radiculopathy, cervical regionAthscl heart disease of [place] cor art w unsp ang pctrsCough, unspecified No Data Available [facility] [place] No Data Available [facility] [place] No Data Available [facility] [place]/17[place]20[place] No Data Available [facility] [place]20[place] No Data Available [facility] [place] No Data Available [facility] [place]20[place] No Data Available [facility] [place] No Data Available [facility] [place] 04[place]17[place]2023 No Data Available [facility] [place] Unspecified open-angle glauc chester, severe stageType 2 diabetes mellitus with other diabetic ophthalmic complicationEssential (primary) hypertension No Data Available [facility] [place]2023 No Data Available [facility] No Data Available [facility] [place] No Data Available [facility] No Data Available [facility] 05[place]13[place]20[place] Estab. patient 30-39min; chronic exacerbation, 2 stable chronic or 1 acute illness add add modifier 95 for video, (do not use for phone, instead use 87449-75) [facility] [place] Type 2 diabetes mellitus wit h [...] (do not use for phone, instead use 21489-73) [facility] Estab. patient 30-39min; chronic exacerbation, 2 stable chronic or 1 acute illness add add modifier 95 for video, (do not use for phone, instead use 59641-84) [facility] [place] Estab. patient 30-39min; chronic exacerbation, 2 stable chronic or 1 acute illness add add modifier 95 for video, (do not use for phone, instead use 80336-09) [facility] Estab. patient 30-39min; chronic exacerbation, 2 stable chronic or 1 acute illness add add modifier 95 for video, (do not use for phone, instead use 33122-64) [facility] Estab. patient 30-39min; chronic exacerbation, 2 stable chronic or 1 acute illness add add modifier 95 for video, (do not use for phone, instead use 14369-64) [facility] [place] Estab. patient 30-39min; chronic exacerbation, 2 stable chronic or 1 acute illness add add modifier 95 for video, (do not use for phone, instead use 13994-64) [facility] Estab. patient 30-39min; chronic exacerbation, 2 stable chronic or 1 acute illness add add modifier 95 for video, (do not use for phone, instead use 92273-05) [facility] Estab. patient 30-39min; chronic exacerbation, 2 stable chronic or 1 acute illness add add modifier 95 for video, (do not use for phone, instead use 79247-77) [facility] Estab. patient 30-39min; chronic exacerbation, 2 stable chronic or 1 acute illness add add modifier 95 for video, (do not use for phone, instead use 29179-17) [facility] [place] 12[place]2023 No Data Available [facility] [place] 03[place]/2024 Constipation, unspecifiedOth er chronic painDizziness and giddiness No Data Available [facility] 03[place]23/2024 No Data Available [facility] [place] 03/[place] No Data Available [facility] [place] 04[place]19[place]2024 Type 2 diabetes mellitus wit h [...] giddinessOther chronic painConstipation, unspecified No Data Available [facility] No Data Available [facility] No Data Available [facility] No Data Available [facility] No Data Available [facility] 05[place]10[place]2024 Essential (primary) hypertensionType 2 diabetes mellitus with diabetic chronic kidney diseaseChronic kidney disease, unspecifiedLong term (current) use of insulin No Data Available [facility] 05[place]10/2024 No Data Available [facility] 06[place]08/2024 Type 2 diabetes mellitus [...] and other health care No Data Available [facility] 06/08/2024 No Data Available [facility]/08[place]24 No Data Available [facility]/08[place] No Data Available [facility]/08[place] No Data Available [facility] [place] 07/04/2024 Type 2 diabetes mellitus [...] other nonspecific skin eruption No Data Available [facility]/04/2024 No Data Available [facility] [place] 07/04/2024 No Data Available [facility] [place]/02/2024 Type 2 diabetes mellitus wit h [...] chronic painUnspecified fall, sequela No Data Available [facility] [place]2024 No Data Available [facility] [place]/02[place]2024 No Data Available [facility] [place] No Data Available [facility] [place]/02/20[place] Estab. patient 10-29min; 1 minor problem; add add modifier 95 for video, modifier 93 for phone [facility] [place]/2024 Type 2 diabetes mellitus wit h [...] modifier 93 for phone [facility] [place]/02[place]20[place] Estab. patient 10-29min; 1 minor problem; add add modifier 95 for video, modifier 93 for phone [facility] 09/02/20[place] Estab. patient 10-29min; 1 minor problem; add add modifier 95 for video, modifier 93 for phone [facility] 09/02/20[place] Estab. patient 10-29min; 1 minor problem; add add modifier 95 for video, modifier 93 for phone [facility] [place] 09/29/2024 Type 2 diabetes mellitus wit h [...] modifier 93 for phone [facility] [place] 09/29/2024 Estab. patient 10-29min; 1 minor problem; add add modifier 95 for video, modifier 93 for phone [facility] 09/29/2024 Estab. patient 10-29min; 1 minor problem; add add modifier 95 for video, modifier 93 for phone [facility] 09/29/2024 Estab. patient 10-29min; 1 minor problem; add add modifier 95 for video, modifier 93 for phone [facility] 09/29/2024 Estab. patient 20-29min; 1 stable chronic or 2 minor; add add modifier 95 for video, modifier 93 for phone [facility] 09/29/2024 Type 2 diabetes mellitus wit h [...] 95 for video, modifier 93 for phone [facility] [place]20[place] Estab. patient 20-29min; 1 stable chronic or 2 minor; add add modifier 95 for video, modifier 93 for phone [facility] [place] Estab. patient 20-29min; 1 stable chronic or 2 minor; add add modifier 95 for video, modifier 93 for phone [facility] [place] 09/29/20[place] Estab. patient 20-29min; 1 stable chronic or 2 minor; add add modifier 95 for video, modifier 93 for phone [facility] [place] 09/29/2024 Estab. patient 20-29min; 1 stable chronic or 2 minor; add add modifier 95 for video, modifier 93 for phone [facility] [place]/29/2024 Estab. patient 20-29min; 1 stable chronic or 2 minor; add add modifier 95 for video, modifier 93 for phone [facility] [place]/29/20[place] Estab. patient 20-29min; 1 stable chronic or 2 minor; add add modifier 95 for video, modifier 93 for phone [facility] [place]/29/[facility] Estab. patient 20-29min; 1 stable chronic or 2 minor; add add modifier 95 for video, modifier 93 for phone [facility] [place]/29[place]20[place] Estab. patient 20-29min; 1 stable chronic or 2 minor; add add modifier 95 for video, modifier 93 for [facility] [place] 09/29/2024 Estab. patient 10-29min; 1 minor problem; add add modifier 95 for video, modifier 93 for [facility] [place] 10/05/2024 Type 2 diabetes mellitus wit h [...] modifier 95 for video, modifier 93 for [facility] [place] 10/05/2024 Estab. patient 10-29min; 1 minor problem; add add modifier 95 for video, modifier 93 for [facility] [place] 10/05/2024 Estab. patient 10-29min; 1 minor problem; add add modifier 95 for video, modifier 93 for [facility] [place] 10/05/2024 Estab. patient 10-29min; 1 minor problem; add add modifier 95 for video, modifier 93 for [facility] [place] 10/05/2024 Estab. patient 10-29min; 1 minor problem; add add modifier 95 for video, modifier 93 for [facility] [place] 11/05/2024 Gastro-esophageal reflux dis ease without esophagitisEncounter for issue of repeat prescription Estab. patient 10-29min; 1 minor problem; add add modifier 95 for video, modifier 93 for [facility] [place] 11/05/2024 Estab. patient 10-29min; 1 minor problem; add add modifier 95 for video, modifier 93 for phone [facility]2024 Gastro-esophageal reflux dis ease without esophagitisType 2 diabetes mellitus with diabetic chronic kidney diseaseChronic kidney disease, stage 2 (mild)longterm (current) use of insulinDisorder of the skin and subcutaneous tissue, unspecified Estab. patient 10-29min; 1 minor problem; add add modifier 95 for video, modifier 93 for phone [facility] [place]/11/20[place] Estab. patient 10-29min; 1 minor problem; add add modifier 95 for video, modifier 93 for phone [facility] [place] 12/12/2024 Type 2 diabetes mellitus wit h diabetic chronic kidney diseaseChronic kidney disease, stage 2 (mild)Type 2 diabetes mellitus with other diabetic ophthalmic complicationUnspecified open-angle glaucoma, severe stageLong term (current) use of insulinDisorder of the skin and subcutaneous tissue, unspecifiedOther problems related to medical facilities and other health care Estab. patient 10-29min; 1 minor problem; add add modifier 95 for video, modifier 93 for phone [facility] [place] 12/12/20[place] Estab. patient 10-29min; 1 minor problem; add add modifier 95 for video, modifier 93 for phone [facility] [place] 12/12/2024 Estab. patient 10-29min; 1 minor problem; add add modifier 95 for video, modifier 93 for [facility] [place] 01/11/2025 Type 2 diabetes mellitus wit h diabetic chronic kidney diseaseChronic kidney disease, stage 2 (mild)Type 2 diabetes mellitus with other diabetic ophthalmic complicationUnspecified open-angle glaucoma, severe stageLong term (current) use of insulinAcute upper respiratory infection, unspecifiedDisorder of the skin and subcutaneous tissue, unspecifiedUnspecified visual loss Estab. patient 10-29min; 1 minor problem; add add modifier 95 for video, modifier 93 for phone [facility] [place] 01/11/2025 Estab. patient 10-29min; 1 minor problem; add add modifier 95 for video, modifier 93 for [facility] [place] 01/11/2025 Estab. patient 10-29min; 1 minor problem; add add modifier 95 for video, modifier 93 for phone [facility] [place] 01/[place]2025 Other chronic painPrimary generalized (osteo)arthritisMajor depressive disorder, recurrent, moderateOther specified problems related to psychosocial circumstancesDisorder of the skin and subcutaneous tissue, unspecified Estab. patient 10-29min; 1 minor problem; add add modifier 95 for video, modifier 93 for phone [facility], ([place]) 02/27/2025 Type 2 diabetes mellitus wit h diabetic chronic kidney diseaseChronic kidney disease, stage 2 (mild)longterm (current) use of insulinOther chronic painPrimary generalized (osteo)arthritisOther snf (current) drug therapy Estab. patient 10-29min; 1 minor problem; add add modifier 95 for video, modifier 93 for phone [facility], [place] 02/27/2025 Vital Signs Date of Collection Vitals 2022-05-26 [...] - 130.0 mm[Hg]Pain Scale - 5.0 {score} 2024-12-12 12:46:06 BP Diastolic - 80.0 mm[Hg]BP Systolic - 138.0 mm[Hg]Heart Rate - 61.0 /min Social History Social History Social History Observation Description Effec tive Time Current Smoking Status Never smoker 2025-04-18 5 Sex Female Gender identity Woman History of [...] (do not use for phone, instead use 61884-36) [id number] 2022-05-26 No Data Available No Data Availa ble Unlisted special service; to be used for medical record reviews and reporting CPTII codes (1111F, etc) 61413 2023-03-30 No Data Available No Data Availa ble SBP < 130 (3074F) 3074F 2023-03-30 No Data Available No Data Available DBP <80 (3078F) 3078F 2023-03-30 No Data Available No Data Available No Data Available [id number] 2023-04-17 No Data Available No Data Available [...] No Data Avail able No Data Available [id number] 2023-05-13 No Data Available No Data Available [...] (do not use for phone, instead use 07234-13) [id number] 2023-12-22 No Data Available No Data Availa [...] Available Advance care planning discussed and documented advance care plan or surrogate decision-maker was [...] ble Advance care planning discussed and documented advance care plan or surrogate decision-maker was [...] ble Advance care planning discussed and documented advance care plan or surrogate decision-maker was documented in the medical record. (1123F) 1123F 2024-06-08 No Data Available No Data Availa ble Medication List Documented (1159F) 1159F 2024-06-08 No Data Available No Data Mandy ilable Functional Status Assessed (1170F) 1170F 2024-06-08 No Data Available No Data Avail able No Data Available [id number] 2024-07-04 No Data Available No Data Available Medication List Documented (1159F) 1159F 2024-07-04 No Data Available No Data Mandy ilable Functional Status Assessed (1170F) 1170F 2024-07-04 No Data Available No Data Avail able No Data Available [id number] 2024-08-02 No Data Available No Data Available Medication List Documented (1159F) 1159F 2024-08-02 No Data Available No Data Mandy ilable Functional Status Assessed (1170F) 1170F 2024-08-02 No Data Available No Data Avail able Advance Care Directive Advance care planning discussion documented in the medical record (1158F) 1158F 2024-08-02 No Data Available No Data Availa ble Advance care planning discussed and documented advance care plan or surrogate decision-maker was documented in the medical record. (1123F) 1123F 2024-08-02 No Data Available No Data Availa ble Estab. patient 10-29min; 1 minor problem; add add modifier 95 for video, modifier 93 for phone [id number] 2024-09-02 No Data Available No Data Availa ble No Data Available [id number] 2024-09-02 No Data Available No Data Available Medication List Documented (1159F) 1159F 2024-09-02 No Data Available No Data Mandy ilable Functional Status Assessed (1170F) 1170F 2024-09-02 No Data Available No Data Avail able Estab. patient 10-29min; 1 minor problem; add add modifier 95 for video, modifier 93 for phone [id number] 2024-09-29 No Data Available No Data Availa ble Advance Care Directive Advance care planning discussion documented in the medical record (1158F) 1158F 2024-09-29 No Data Available No Data Availa ble Advance care planning discussed and documented advance care plan or surrogate decision-maker was [...] 95 for video, modifier 93 for phone [id number] 2024-09-29 No Data Available No Data Availa [...] ble Advance care planning discussed and documented advance care plan or surrogate decision-maker was [...] 95 for video, modifier 93 for phone [id number] 2024-10-05 No Data Available No Data Availa ble Advance Care Directive Advance care planning discussion documented in the medical record (1158F) 11582024-10-05 No Data Available No Data Availa ble Advance care planning discussed and documented advance care plan or surrogate decision-maker was [...] 95 for video, modifier 93 for phone [id number] 2024-11-06 No Data Available No Data Availa ble Medication List Documented (1159F) 1159F 2024-11-06 No Data Available No Data Mandy ilable Estab. patient 10-29min; 1 minor problem; add add modifier 95 for video, modifier 93 for phone [id number] 2024-11-11 No Data Available No Data Availa ble Medication List Documented (1159F) 1159F 2024-11-11 No Data Available No Data Mandy ilable Estab. patient 10-29min; 1 minor problem; add add modifier 95 for video, modifier 93 for phone [id number] 2024-12-12 No Data Available No Data Availa ble SBP 130-139 (3075F) 3075F 2024-12-12 No Data Availabl e No Data Available DBP 80-89 (3079F) 3079F 2024-12-12 No Data Available No Data Available Estab. patient 10-29min; 1 minor problem; add add modifier 95 for video, modifier 93 for phone [id number] 2025-01-11 No Data Available No Data Availa ble Medication List Documented (1159F) 1159F 2025-01-11 No Data Available No Data Mandy ilable Most recent A1c (HbA1c) or GMI level 7-7.9% (3051F) 3051F 2025-01-11 No Data Available No Data Availa ble Estab. patient 10-29min; 1 minor problem; add add modifier 95 for video, modifier 93 for phone [id number] 2025-01-25 No Data Available No Data Availa ble Estab. 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 2024-09-29 Mental Status Status Date Cognition Status: Oriented to Person, Pl lizette and Time 2023-12-22 Assessments Date of Service Assessments 2022-05-26 11:51:35 Major depressive dis order, recurrent, moderateSick sinus syndromeChronic kidney disease, stage 3 unspecifiedMild obstructive sleep apneaHypertension associated with type 2 diabetes mellitusHyperlipidemia associated with type 2 diabetes mellitusCervical spondylosisAtherosclerotic heart disease of [place] coronary artery with unspecified angina pectorisType 2 diabetes mellitus with unspecific complications 2023-04-17 13:36:41 Type 2 diabetes naye itus with unspecific complicationsMajor depressive disorder, recurrent, moderateSick sinus syndromeChronic kidney disease, stage 3 unspecifiedMild obstructive sleep apneaHypertension associated with type 2 diabetes mellitusHyperlipidemia associated with type 2 diabetes mellitusCervical spondylosisAtherosclerotic heart disease of [place] coronary artery with unspecified angina pectorisCough 2023-05-13 [...] disease, with long-term current use of insulin 2024-12-12 12:46:06 Skin lesion of lower extremityType 2 diabetes mellitus with stage 2 chronic kidney disease, with long-term current use of insulinType 2 diabetes mellitus with ophthalmic complication, Open-angle glaucoma, severe stageOther problems related to medical facilities and other health care 2025-01-11 09:20:52 URI (upper respirato ry infection)Skin lesion of lower extremityType 2 diabetes mellitus with stage 2 chronic kidney disease, with long-term current use of insulinType 2 diabetes mellitus with ophthalmic complication, Open-angle glaucoma, severe stage, Visual impairment 2025-01-25 06:40:51 Chronic pain; Primar y osteoarthritis involving multiple jointsMajor depressive disorder, recurrent, moderate, Psychosocial stressorsSkin lesion of lower extremity 2025-02-27 16:51:54 Follow up plan for a cute symptoms:Type 2 diabetes mellitus with stage 2 chronic kidney disease, with long-term current use of insulinChronic pain; Primary osteoarthritis involving multiple jointsMedication management Plan of Care Date of Service Plans [...] nitroglycerin prn. Risk factors/comorbidities include history of DC, HTN, HLD, SSS.RX: glipizide, metforminChecks BS every [...] an alternative class with a more favorable risk b enefit ratio, such as a lower risk of [...] nitroglycerin prn. Risk factors/comorbidities include history of DC, HTN, HLD, SSS. 04/17/2023-member stable on current [...] <80 (3078F)Continue to see PCP. Follow-up with [facility] as needed for any acute or disease [...] an alternative class with a more favorable risk b enefit ratio, such as a lower risk of [...] modifier 95Advance care planning discussed and documented advance care plan or surrogate decision-maker was [...] PCP and Cardiology.Continue to follow up with [facility]. .RX: Sertraline, Trazodone Notify provider [...] PLANMember to call for the following symptoms: Fall / Vertigo/ WeaknessPlanned intervention: Have member check blood [...] to go to her PCP but they don t have any appointments available.Started to get [...] with MAKAYLA 03/28/24 2024-04-19 10:14:34 Phone (patient, sudheere nt, or guardian); 11-20 minutes of medical [...] PLANMember to call for the following symptoms: Fall / Vertigo/ WeaknessPlanned intervention: Have member check blood [...] PCP and Cardiology.Continue to follow up with [facility]. .RX: Sertraline, Trazodone Notify provider [...] to go to her PCP but they don t have any appointments available.Started to get [...] PLANMember to call for the following symptoms: Fall / Vertigo/ WeaknessPlanned intervention: Have member check blood pressure and blood glucose. Encourage extra fluid intake Assess for change in mental status and provide reassurance if none (patient's Baseline is AAOx3) Review importance of sitting for two to three minutes prior to standing after laying downHYPERTENSION CONTINGENCY PLANLast updated: 06/08/2024Member to call for the following symptoms: BP >180/100 / Chest pain / HR >100 Planned intervention: Beef Farmer on proper BP monitoring technique and reassess/ Encourage low sodium diet/ Discuss breathing exercises/ Encourage medication adherenceAvoid nephrotoxic medications.Continue to follow up with PCP.RX: Brimonidine, Brinzolamide, Latanoprost, Lumigan, Methazolamide, PrednisoloneRecommend tight blood glucose control. Continue to follow up with Ophthalmology.RX: Ezetimibe Heart healthy diet. Continue to follow up with PCP and Cardiology.Continue to follow up with [facility]. .RX: Sertraline, Trazodone Notify provider [...] to go to her PCP but they don t have any appointments available.Started to get [...] I provided her with the number for [employer] to see if they could send her a replacement. Unable to send replacement strips for her talking meter as they came from a [employer] company.FALL CONTINGENCY PLANMember to call for the following symptoms: Fall / Vertigo/ WeaknessPlanned intervention: Have member check blood pressure and blood glucose. Encourage extra fluid intake Assess for change in mental status and provide reassurance if none (patient's Baseline is AAOx3) Review importance of sitting for two to three minutes prior to standing after laying downHYPERTENSION CONTINGENCY PLANLast updated: 07/04/2024Last er 05/10 elevated BPMember to call for the following symptoms: BP >180/100 / Chest pain / HR >100 Planned intervention: Beef Farmer on proper BP monitoring technique and reassess/ Encourage low sodium diet/ Discuss breathing exercises/ Encourage medication adherenceAvoid nephrotoxic medications.Continue to follow up with PCP.RX: Brimonidine, Brinzolamide, Latanoprost, Lumigan, Methazolamide, PrednisoloneRecommend tight blood glucose control. Continue to follow up with Ophthalmology.RX: Ezetimibe Heart healthy diet. Continue to follow up with PCP and Cardiology.Continue to follow up with [facility]. .RX: Sertraline, Trazodone Notify provider [...] to go to her PCP but they don t have any appointments available.Started to get [...] talking meter as they came from a [employer].FALL CONTINGENCY PLANMember to call for the following symptoms: Fall / Vertigo/ WeaknessPlanned intervention: Have member check blood pressure and blood glucose. Encourage extra fluid intake Assess for change in mental status and provide reassurance if none (patient's Baseline is AAOx3) Review importance of sitting for two to three minutes prior to standing after laying downHYPERTENSION CONTINGENCY PLANLast updated: 08/02/2024Last er 9 elevated BPMember to call for the following symptoms: BP >180/100 / Chest pain / HR >100 Planned intervention: Beef Farmer on proper BP monitoring technique and reassess/ Encourage low sodium diet/ Discuss breathing exercises/ Encourage medication adherenceAvoid nephrotoxic medications.Continue to follow up with PCP.RX: Brimonidine, Brinzolamide, Latanoprost, Lumigan, Methazolamide, PrednisoloneRecommend tight blood glucose control. Continue to follow up with Ophthalmology.RX: Ezetimibe Heart healthy diet. Continue to follow up with PCP and Cardiology.Continue to follow up with [facility]. .RX: Sertraline, Trazodone Notify provider [...] to go to her PCP but they don t have any appointments available.Started to get [...] talking meter as they came from a [employer].Updated 09.02.24FALL CONTINGENCY PLANMember to call for the following symptoms: Fall / Vertigo/ WeaknessPlanned intervention: Have member check blood pressure and blood glucose. Encourage extra fluid intake Assess for change in mental status and provide reassurance if none (patient's Baseline is AAOx3) Review importance of sitting for two to three minutes prior to standing after laying downHYPERTENSION CONTINGENCY PLANLast er 05/10 elevated BPMember to call for the following symptoms: BP >180/100 / Chest pain / HR >100 Planned intervention: Beef Farmer on proper BP monitoring technique and reassess/ Encourage low sodium diet/ Discuss breathing exercises/ Encourage medication adherenceAvoid nephrotoxic medications.Continue to follow up with PCP.RX: Brimonidine, Brinzolamide, Latanoprost, Lumigan, Methazolamide, PrednisoloneRecommend tight blood glucose control. Continue to follow up with Ophthalmology.RX: Ezetimibe Heart healthy diet. Continue to follow up with PCP and Cardiology.Continue to follow up with [facility]. .RX: Sertraline, Trazodone Notify provider [...] to go to her PCP but they don t have any appointments available.Started to get [...] talking meter as they came from a [employer] company.Updated 10.03.24FALL CONTINGENCY PLANMember to call for the following symptoms: Fall / Vertigo/ WeaknessPlanned intervention: Have member check blood pressure and blood glucose. Encourage extra fluid intake Assess for change in mental status and provide reassurance if none (patient's Baseline is AAOx3) Review importance of sitting for two to three minutes prior to standing after laying downHYPERTENSION CONTINGENCY PLANLast er 05/10 elevated BPMember to call for the following symptoms: BP >180/100 / Chest pain / HR >100 Planned intervention: Beef Farmer on proper BP monitoring technique and reassess/ Encourage low sodium diet/ Discuss breathing exercises/ Encourage medication adherenceAvoid nephrotoxic medications.Continue to follow up with PCP.RX: Brimonidine, Brinzolamide, Latanoprost, Lumigan, Methazolamide, PrednisoloneRecommend tight blood glucose control. Continue to follow up with Ophthalmology.RX: Ezetimibe Heart healthy diet. Continue to follow up with PCP and Cardiology.Continue to follow up with [facility]. .RX: Sertraline, Trazodone Notify provider [...] to go to her PCP but they don t have any appointments available.Started to get [...] record (1158F)Advance care planning discussed and documented advance care plan or surrogate decision-maker was [...] education needs that may arise.RX: Insulin Toujeo [facility] [id number]/01/24: eGFR 67; Creatinine 0.86 Hemoglobin A1C 7.4ADA dietFollows with endocrineUpdated 2FALL CONTINGENCY PLANMember to call for the following symptoms: Fall / Vertigo/ WeaknessPlanned intervention: Have member check blood pressure and blood glucose. Encourage extra fluid intake Assess for change in mental status and provide reassurance if none (patient's Baseline is AAOx3) Review importance of sitting for two to three minutes prior to standing after laying downHYPERTENSION CONTINGENCY PLANLast er 05/10 elevated BPMember to call for the following symptoms: BP >180/100 / Chest pain / HR >100 Planned intervention: Beef Farmer on proper BP monitoring technique and reassess/ Encourage low sodium diet/ Discuss breathing exercises/ Encourage medication adherence DIABETES CONTINGENCY PLANMember to call for the following symptoms: Blood sugar <70 / Blood sugar >300 Planned intervention: Elevate legs/ Limit high-sugar and high-carbohydrate foods/ Go for a walk / consider lantus increaseAvoid nephrotoxic voawemeqoto43/15/24: eGFR 67; Creatinine 0.86 Creat clearance 51 Continue to follow up with PCPRX: Brimonidine, Brinzolamide, Latanoprost, Lumigan, Methazolamide, PrednisolonePreviously recommend tight blood glucose control. Continue to follow up with Ophthalmology.RX: Ezetimibe Heart healthy diet. Continue to follow up with PCP and Cardiology.RX: Losartan Low NA diet BP 130/70Follow up pcps/p PPM. Continue to follow up with [facility]. .RX: Sertraline, Trazodone Phq2:2 Good [...] kidney disease, with long-term current use of lruuwrhA61.XXXS, R42, M15.0, E11.22, N18.263, 145Hx falls Assistive devices to ambulate 2024-10-05 14:44:03 Estab. patient 10-29 min; 1 minor problem; add add modifier 95 for video, modifier 93 for phoneContinue to see PCP. Follow-up with [facility] as needed for any acute or disease education needs that may arise 09/03.RX: Insulin Toujeo [facility] [id number]/: eGFR 67; Creatinine 0.86 Hemoglobin A1C 7.4ADA dietFollows with endocrineUpdated 2..25FALL CONTINGENCY PLANMember to call for the following symptoms: Fall / Vertigo/ WeaknessPlanned intervention: Have member check blood pressure and blood glucose. Encourage extra fluid intake Assess for change in mental status and provide reassurance if none (patient's Baseline is AAOx3) Review importance of sitting for two to three minutes prior to standing after laying downHYPERTENSION CONTINGENCY PLANLast er 05/10 elevated BPMember to call for the following symptoms: BP >180/100 / Chest pain / HR >100 Planned intervention: Beef Farmer on proper BP monitoring technique and reassess/ Encourage low sodium diet/ Discuss breathing exercises/ Encourage medication adherence DIABETES CONTINGENCY PLANMember to call for the following symptoms: Blood sugar <70 / Blood sugar >300 Planned intervention: Elevate legs/ Limit high-sugar and high-carbohydrate [...] pcps/p PPM. Continue to follow up with [facility]. .RX: Sertraline, Trazodone Phq2:2 Good [...] kidney disease, with long-term current use of bmiaferC74.XXXS, R42, M15.0, E11.22, N18.263, 145Hx falls Assistive devices to ambulate 2024-11-05 17:52:40 Televideo 10-29min; 1 minor problem; add add modifier 95 for video, modifier 93 for phoneContinue to see PCP. [facility] [...] 30 minutes after eating.RX: Insulin Toujeo [facility] [id number]/: eGFR 67; Creatinine 0.86 Hemoglobin A1C 7.4ADA dietFollows with endocrine11/11/24-freestyle micky 2 sensors refill sent to pharmacy per member request 2024-12-12 12:46:06 Estab. patient 10-29 min; 1 minor problem; add add modifier 95 for video, modifier 93 for phoneSBP 130-139 (5875F)DBP 80-89 (9059F)Continue to see PCP. [facility] or disease [...] and new PCP visit is not until 12/02/24.12/12/24-[facility] phone number: [phone] [facility] fax number: [phone] Date: 12/08/2024 Details of Order/Request: referral received, mbr is scheduled for apt 01/31/25. -I informed member of above information and sent her an SMS of same.-Additionally, Rx for chlorhexidine gluconate. Advised on use once a week in shower. Advised on importance of keeping skin clean, dry.RX: Insulin Toujeo [facility] [id number]/: eGFR 67; Creatinine 0.86 Hemoglobin A1C 7.4ADA dietFollows with endocrine11/11/24-freestyle micky 2 sensors refill sent to pharmacy per member request12/12/24:-member reports body after rash every time she gets her insulin. States only happens with the insulin. She informed her PCP and spot checker. States spot checker prescribed her a cream which works, but is concerned that she gets this rash in the first place. She states she notices a splash of insulin get on her skin after the RN injects it and removes the needles. ---I discussed making sure RN is injecting the insulin fully and completely and not prematurely pulling out the needle before all the medicine can be delivered to SQ space. I informed her that when it is prematurely removed, it can cause skin irritation. I advised if still persists despite that, follow up with spot checker. She verbalized understanding.RX: Brimonidine, Brinzolamide, Latanoprost, Lumigan, Methazolamide, PrednisolonePreviously recommend tight blood glucose control. Continue to follow up with Ophthalmology.Updated 10.05.24FALL CONTINGENCY PLANMember to call for the following symptoms: Fall / Vertigo/ WeaknessPlanned intervention: Have member check blood pressure and blood glucose. Encourage extra fluid intake Assess for change in mental status and provide reassurance if none (patient's Baseline is AAOx3) Review importance of sitting for two to three minutes prior to standing after laying downHYPERTENSION CONTINGENCY PLANLast er 05/10 elevated BPMember to call for the following symptoms: BP >180/100 / Chest pain / HR >100 Planned intervention: Beef Farmer on proper BP monitoring technique and reassess/ Encourage low sodium diet/ Discuss breathing exercises/ Encourage medication adherence DIABETES CONTINGENCY PLANMember to call for the following symptoms: Blood sugar <70 / Blood sugar >300 Planned intervention: Elevate legs/ Limit high-sugar and high-carbohydrate foods/ Go for a walk / consider lantus increase 2025-01-11 09:20:52 Estab. patient 10-29 min; 1 minor problem; add add modifier 95 for video, modifier 93 for phoneContinue to see PCP. Follow-up with [facility] as needed for any acute or disease education needs that may arise 09/03.01/11/25:-member with report of a terrible cold all week leading to a vertigo episode this past Thursday. Symptoms improving. Advised to follow up for new or worsening symptoms.11/11/24:-member with growing flesh-colored skin lesion of 4 years to left inguinal area causing discomfort. Lack of visual/tactile assessment limits ability to evaluate/diagnose. There is a potential concern for malignancy. Will attempt to get a referral to dermatology for member as this may be a faster visit to obtain. She is in between PCPs and new PCP visit is not until 12/02/24.12/12/24-[facility] phone number: [phone] [facility] fax number: [phone] Date: 12/08/2024 Details of Order/Request: referral received, mbr is scheduled for apt 01/31/25. -I informed member of above information and sent her an SMS of same.-Additionally, Rx for chlorhexidine gluconate. Advised on use once a week in shower. Advised on importance of keeping skin clean, dry. 01/11/25:She still has not followed up with dermatology. She does not recall the contact information. This time I provided the contact information again to member and to her son for [facility] phone number: [phone]. Appt Date: 01/31/25. Member's son was advised to contact dermatology office to verify appt time.RX: Insulin Toujeo [facility] [id number]/: eGFR 67; Creatinine 0.86 Hemoglobin A1C 7.4ADA dietFollows with endocrine11/11/24-freestyle micky 2 sensors refill sent to pharmacy per member request12/12/24:-member reports body after rash every time she gets her insulin. States only happens with the insulin. She informed her PCP and spot checker. States spot checker prescribed her a cream which works, but is concerned that she gets this rash in the first place. She states she notices a splash of insulin get on her skin after the RN injects it and removes the needles. ---I discussed making sure RN is injecting the insulin fully and completely and not prematurely pulling out the needle before all the medicine can be delivered to SQ space. I informed her that when it is prematurely removed, it can cause skin irritation. I advised if still persists despite that, follow up with spot checker. She verbalized understanding.01/11/25:-member still having reaction to toujeo per member with pinprick rash throughout body.-Stop toujeo 22 units nightly, start lantus 18 units nightly. Advised to contact spot checker promptly to discuss toujeo reaction and change to lantus and any further management. Advised to continue to monitor BG and report elevated readings. Instructions reviewed in detail with member's son Devonte who is member's primary caregiver.-Refill of Freestyle CGM sensors sent to member's pharmacy.RX: Brimonidine, Brinzolamide, Latanoprost, Lumigan, Methazolamide, PrednisolonePreviously recommend tight blood glucose control. Continue to follow up with Ophthalmology.01/11/25:-per member, was referred to a low division controller by her watermelon inspector (who does not specialize in this). [facility] she was advised to contact the [place] [employer] for names of specialists. However, after many attempts to the commission, she has not been able to get any information. [facility] task placed for additional assistance. 2025-01-25 06:40:51 Estab. patient 10-29 min; 1 minor problem; add add modifier 95 for video, modifier 93 for phoneContinue to see PCP. Follow-up with [facility] as needed for any acute or disease education needs that may arise 09/03.Pain at times to back pain, knee pain, right shoulder pain diclofenac gel.TylenolHeat/coldNo longer follows with pain management 01/25/25:Take tylenol, diclofenac gel prn. as needed. Incorporate Vitamin D and calcium. Incorporate an anti-inflammatory diet. Dress warmly for weather. Stretch, stay active as tolerated, weight-bearing exercises, limit caffeine, maintain healthy weight. Fall prevention-use of assistive device. Has bedside commode. Has a water bed with a heating feature. Continue follow up with PCP as scheduled.RX: Sertraline 50 mg in AM, Trazodone 50 mg qhsPhq2:2 Good sleep habits Member with recent stressors. She is agreeable to talking to a therapist. [facility] referral placed (01/25/25)11/11/24:-member with growing flesh-colored skin lesion of 4 years to left inguinal area causing discomfort. Lack of visual/tactile assessment limits ability to evaluate/diagnose. There is a potential concern for malignancy. Will attempt to get a referral to dermatology for member as this may be a faster visit to obtain. She is in between PCPs and new PCP visit is not until 12/02/24.12/12/24-[facility] phone number: [phone] [facility] fax number: [phone] Date: 12/08/2024 Details of Order/Request: referral received, mbr is scheduled for apt 01/31/25. -I informed member of above information and sent her an SMS of same.-Additionally, Rx for chlorhexidine gluconate. Advised on use once a week in shower. Advised on importance of keeping skin clean, dry. 01/11/25:She still has not followed up with dermatology. She does not recall the contact information. This time I provided the contact information again to member and to her son for [facility] phone number: [phone]. Appt Date: 01/31/25. Member's son was advised to contact dermatology office to verify appt time. 01/25/25 reminded of upcoming dermatology appt with [facility] phone number: [phone]. Appt Date: 01/31/25. Member's son sent SMS as a reminder and advised to to contact dermatology office to confirm appt date and time. 2025-02-27 16:51:54 Estab. patient 10-29 min; 1 minor problem; add add modifier 95 for video, modifier 93 for phoneMedication Review by prescribing provider or pharmacist documented (1160F)Continue to see PCP. Follow-up with [facility] as needed for any acute or disease education needs that may arise 09/03.RX: Insulin Toujeo CGM [id number]/: eGFR 67; Creatinine 0.86 Hemoglobin A1C 7.4ADA dietFollows with endocrine11/11/24-freestyle micky 2 sensors refill sent to pharmacy per member request12/12/24:-member reports body after rash every time she gets her insulin. States only happens with the insulin. She informed her PCP and spot checker. States spot checker prescribed her a cream which works, but is concerned that she gets this rash in the first place. She states she notices a splash of insulin get on her skin after the RN injects it and removes the needles. ---I discussed making sure RN is injecting the insulin fully and completely and not prematurely pulling out the needle before all the medicine can be delivered to SQ space. I informed her that when it is prematurely removed, it can cause skin irritation. I advised if still persists despite that, follow up with spot checker. She verbalized understanding.01/11/25:-member still having reaction to toujeo per member with pinprick rash throughout body.-Stop toujeo 22 units nightly, start lantus 18 units nightly. Advised to contact spot checker promptly to discuss toujeo reaction and change to lantus and any further management. Advised to continue to monitor BG and report elevated readings. Instructions reviewed in detail with member's son Devonte who is member's primary caregiver.-Refill of Freestyle CGM sensors sent to member's pharmacy.02/27/25: needs needles for lantus pen, and lantus med. Denies any acute changes. Med eprescribed.Pain at times to back pain, knee pain, right shoulder pain diclofenac gel.TylenolHeat/coldNo longer follows with pain management 01/25/25:Take tylenol, diclofenac gel prn. as needed. Incorporate Vitamin D and calcium. Incorporate an anti-inflammatory diet. Dress warmly for weather. Stretch, stay active as tolerated, weight-bearing exercises, limit caffeine, maintain healthy weight. Fall prevention-use of assistive device. Has bedside commode. Has a water bed with a heating feature. Continue follow up with PCP as scheduled. 02/27/25: mentioned about her chronic pain, Devonte says her knees are giving it out but I help her. Using diclofenac topical as prescribed. Callback PRN if worse than priorNeeds refill on few routine meds and asked question about medication indicationAnswered all questions and med eprescribed. Goals Date Goal 2022-05-26 Remember to keep all appointments with your PCP. 2022-05-26 Call if you have que stions or concerns before going to the ER. 2022-05-26 Discussed how to con cande [facility] via phone or tablet. 2023-05-13 Remember to [...] plan, complicance, and coordinating follow up care. 2024-12-12 Continue taking medi cations as directed and keep all follow up appointments with established PCP and Specialist. 2024-12-12 At least 50% of time spent counseling patient, discussing diagnosis, treatment plan, complicance, and coordinating follow up care. 2025-01-11 Continue taking medi cations as directed and keep all follow up appointments with established PCP and Specialist. 2025-01-11 At least 50% of time spent counseling patient, discussing diagnosis, treatment plan, complicance, and coordinating follow up care. 2025-01-25 Continue taking medi cations as directed and keep all follow up appointments with established PCP and Specialist. 2025-01-25 At least 50% of time spent counseling patient, discussing diagnosis, treatment plan, complicance, and coordinating follow up care. Health Concerns Date Concern 2025-02-27 Patient/Guardian agr eed to visit via telehealth.Visit completed via: [ ] audio and video; [x] audio only 2025-02-27 Concerns for today's visit:Summary: 2025-02-27 Most recent hospital stay or ER visit:No ER visits or hospitalizations documented in [facility] in last 90 days. Member denies ER visits or hospitalizations in last 90 days. 2025-02-27 Nurse comes by daily around 5/6pm gets lantus in the evening. Requesting for med refills for following: lantus 18U, omeprazole 40mg, zetia 10mg, coq10 100mg, vitamin E, and sertraline 50mg. 2025-02-27 Denies any other acu te symptoms.
--- OUTSIDE RECORDS SUMMARY | 2025-05-11 19:15 | XMS_ITS | Clinical Summary ---
Author Organization [facility] Address [address] [place] [id number] Phone Care Team Providers Care Doughnut Icer Name Role Phone Trina Messina MD Primary Care Pr ovider Ty Mcduffie MD [facility] [phone] Allergies Active Allergy Reactions Criticality Noted Date Comments Atorvastatin 07/08/2016 Beta-Blockers (Beta-Adrenergic Blocking Agts) 07/08/2016 Chlorpheniramine 11/15/2018 Pt denies Codeine Nausea and/or Vomiting 07/08/2016 Dextromethorphan 11/15/2018 Pt denies Diphenhydramine-Acetaminophe n 04/05/2015 Pt denies Guaifenesin 11/15/2018 Pt denies Metoprolol Succinate 07/08/2016 Pt cant rememeber Morphine Nausea and/or Vomiting 07/08/2016 Oxycodone Hcl Unknown,Nausea and/or Vomiting 12/08/2022 Phenylephrine Hcl 07/08/2016 Pt unsure Phenylpropanolamine 11/15/2018 Pt denies Rosuvastatin Unknown 12/08/2022 Sulfa (Sulfonamide Antibiotics) 07/08/2016 Pt cant remember reaction Medications * This document contains information received from the source organization and may not represent a complete record from that organization. aspirin 81 MG EC tablet 1 TABLET DAILY Active erythromycin (ROMYCIN) ophthalmic ointment 3.5 g. Reported on 10/23/2016 Active CYANOCOBALAMIN, VITAMIN B-12, (B-12 DOTS ORAL) daily. Act kristan ezetimibe-simvast atin (VYTORIN) 10-80 mg per tablet Active ibuprofen (ADVIL,MOTRIN) 800 MG tablet Active Lactobacillus acidophilus 100 mg (1 billion cell) Cap 6 Active linaclotide (LINZESS) 145 mcg Cap Active losartan-hydroCHL OROthiazide (HYZAAR) 100-12.5 mg per tablet Active melatonin 1 mg Tab Active metFORMIN (GLUCOPHAGE-XR) 750 MG 24 hr tablet Take 750 mg by mouth daily (with breakfast). Active nortriptyline (PAMELOR) 25 MG capsule 6 Active pediatric multivitamin (POLY--KALYN) chewable tablet Acti ve OMEGA-3 FATTY ACIDS ORAL Active pravastatin (PRAVACHOL) 10 MG tablet Active sertraline (ZOLOFT) 50 MG tablet Take 75 mg by mouth nightly at bedtime. Active VITAMIN E ACETATE (VITAMIN E ORAL) 400 Units daily. Active acetaminophen (TYLENOL) 500 mg/15 mL oral solution Take 325 mg by mouth every 6 (six) hours as needed. Active cholecalciferol (VITAMIN D3) 25 MCG (1,000 unit) tablet Take 1,000 Units by mouth daily. 2 Active diclofenac sodium (VOLTAREN) 0.1 % ophthalmic solution 1 Active docusate sodium (COLACE) 100 MG capsule Active ezetimibe (ZETIA) 10 mg tablet Take 1 tablet by mouth nightly at bedtime. 2 Active glipiZIDE (GLUCOTROL XL) 2.5 MG 24 hr tablet Take 1 tablet by mouth daily. morning 1 Active lactulose bulk (CONSTULOSE) 10 gram/15 mL solution 1 Active metoprolol succinate (TOPROL-XL) 25 MG 24 hr tablet Take 25 mg by mouth daily. Active nitroglycerin (NITROSTAT) 0.4 MG SL tablet 1 Active rosuvastatin (CRESTOR) 5 MG tablet 1 Active traZODone (DESYREL) 100 MG tablet Take 50 mg by mouth nightly at bedtime. 2 Active coenzyme Q10 100 mg capsule Take 100 mg by mouth daily. Active cyclobenzaprine (FLEXERIL) 10 MG tablet Take 10 mg by mouth 3 (three) times a day as needed for muscle spasms. Active hydroCHLOROthiazi de (HYDRODIURIL) 50 MG tablet 1 tablet Orally Once a day Active magnesium hydroxide (MOM) 400 mg/5 mL Susp Take 2,400 mg by mouth daily. 2 Active omeprazole (PRILOSEC) 40 MG capsule Take 40 mg by mouth daily. 3 Active bimatoprost (LUMIGAN) 0.01 % Drop Place 1 drop into each eye nightly at bedtime. 5 mL 11 4 Active brimonidine (ALPHAGAN) 0.2 % ophthalmic solution Place 1 drop into each eye 2 (two) times a day. 5 mL 12 4 Active brinzolamide (AZOPT) 1 % ophthalmic suspension Place 1 drop into each eye 2 (two) times a day. 15 mL 6 4 Active Active Problems Problem Noted Date Diagnosed Date Arteriosclerosis of coronary artery 12/15/2022 12/15/2022 Cervical spondylosis 07/17/2019 12/15/2022 CKD (chronic kidney disease) stage 3, GFR 30-59 ml/min 06/17/2019 12/15/2022 Obstructive sleep apnea 11/10/2018 12/16/19 23 Overview (12/15/2022): [facility] Polysomnogram: Date 11/09/2018; Wt 158# SE 49%; SM 52%; REM 0%; RDI 26 (AHI 6), Central apneas 0; Obstructive apneas 0; Mixed apneas 0; hypopneas 28; RERAs 87; average oxygen saturation 95% (lowest 92% - without saturations <88% for 5% or more of study); PLMs 6.Pre-study ESS 12. 3/4 RLS symptoms. Nuclear Stress Test 05/17/2018 EF 76% [facility] Polysomnogram treatment study. Date 04/03/2019. Wt 158#; [...] without sleep related hypoventilation by 2019 polysomnogram. Sick sinus syndrome 03/03/2018 12/15/2022 Hyperlipidemia 10/23/2016 Atrial fibrillation 05/07/2016 12/15/2022 Overview (12/15/2022): Short duration episodes, last one noted 03/31 Overview: Short duration episodes, last one noted 03/31 Type 2 diabetes mellitus with cataract 6 12/15/2022 Cardiac pacemaker 06/13/2009 12/15/2022 Overview (12/15/2022): 2008 Dual chamber, due to sinus kianna Dr. Ty Mcduffie Overview: 2008 Dual chamber, due to sinus kianna Dr. Ty Mcduffie Encounters Date Type Department Care Team Description 02/15/[address] [address] Sammie Weaver MD Appointment ([facility] from the Call Center called to have an urgent appt booked for Ms. Mojica. Pt reports dizziness and blurry vision.) from Last 3 Months Family History Medical History Relation Comments Diabetes Father Breast cancer Maternal Aunt Glaucoma Maternal Grandfather Relation Status Comments Father Maternal Aunt Maternal Grandfather Social History Tobacco Use Types Packs/Day Years Used Date Smoking Tobacco: Never Smokeless Tobacco: Never Tobacco Cessation:Counseling Given: Not Answered Alcohol Use Standard Drinks/Week Comments No 0 (1 standard drink = 0.6 oz pur e alcohol) Education Answer Date Recorded Are you interested in more education? Not on janet e 12/11/2022 Are you concerned about learning? Not on file 12/11/2022 No 12/11/2022 No 12/11/2022 Digital Access Answer Date Recorded No 01/09/2023 No 01/09/2023 Reliable internet access at home? Not on file 01/09/2023 Device with a working camera? Not on file Intimate Partner Violence Answer Date R ecorded Are you denied basic needs s uch as food, clothing, or medical care? No 01/19/2023 In the past 12 months have y ou been in a relationship with a person who hurts, threatens, or tries to control you? No 01/19/2023 Are you denied basic needs s uch as food, clothing, or medical care? No 01/19/2023 In the past 12 months have y ou been in a relationship with a person who hurts, threatens, or tries to control you? No 01/19/2023 Comments No Sex and Gender Information Value Date Recorded Sex Assigned at Female 08/24/2017 9:35 AM EST Legal Sex Female 7:09 AM EST Gender Identity Female 10/12/2017 4:37 PM EST Sexual Orientation Straight 12/11/2023 9: 29 AM EDT Last Filed Vital Signs Vital Sign Reading Time Taken Comments Blood Pressure 159/76 01/19/2023 1:45 PM EDT Pulse 60 01/19/2023 1:45 PM EDT Temperature 36.2 C (97.2 F) 01/19/2023 1:30 PM EDT Respiratory Rate 15 01/19/2023 1:30 PM EDT Oxygen Saturation 100% 01/19/2023 1:45 PM EDT Inhaled Oxygen Concentration - - Weight 68 kg (150 lb) 01/19/2023 10:56 AM EDT Height 160 cm (5' 3 ) 01/19/2023 10:56 AM EDT Body Mass Index 26.57 01/19/2023 10:56 AM EDT Plan of Treatment Health Maintenance Due Date Last Done Comments BLOOD PRESSURE 1939 CREATININE LEVEL 1939 POTASSIUM LEVEL 1939 DEPRESSION SCREENING 1951 PNEUMOCOCCAL VACCINES (50+ years) (1 of 2 - PCV) 12/12/1958 ZOSTER VACCINES (1 of 2) 12/12/1989 OSTEOPOROSIS SCREENING INITIAL (ONE-TIME) 12/12/2004 Adult Td,Tdap Booster 04/24/2014 04/24/2004 RSV VACCINE (1 - 1-dose 75+ series) 12/12/2014 LIPID PANEL 10/22/2023 10/21/2022 HEMOGLOBIN A1C 12/29/2024 07/01/2024, 08/04/2023, 10/21/2022 INFLUENZA VACCINE (#1) 2025 08/29/2013, 2006 COVID-19 VACCINE ( season) 2025 DIABETIC EYE EXAM 11/28/2025 11/28/2024, , 11/28/2024, Additional history exists HEPATITIS A VACCINES Aged Out No long er eligible based on patient's age to complete this topic HIB VACCINES Aged Out No longer eligi ble based on patient's age to complete this topic MENINGOCOCCAL VACCINES (ACWY) Aged Out No longer eligible based on patient's age to complete this topic MENINGOCOCCAL VACCINES (B) Aged Out N o longer eligible based on patient's age to complete this topic Medical Devices Implanted Type Area Survey Project Manager Device Identifier Shelf Expiration Date Model / Serial / Lot Pacemaker Cardiac Stent X3 Iol Insurance MEDICARE PART A & B DUAL MEDICARE REPLACEMENT MEDICARE PART A & B DUAL MEDICARE REPLACEMENT MEDICARE PART A & [place] [address] [place] [address] DUAL MEDICARE REPLACEMENT MEDICARE PART A & B [facility] DUAL MEDICARE REPLACEMENT MEDICARE PART A & B MEDICARE PART A & B Member Subscriber Plan / Payer ( fective 2005-Present) Name:Shruti Mojica Member ID:[id number] Relation to Subscriber:Self Name:MojicaShruti ha Subscriber ID:[id number] Payer ID:[id number] Group ID:Not on file Type:Medicare Address: [employer] [address] [place] [id number] [facility] DUAL MEDICARE REPLACEMENT [place] [id number] MEDICARE PART A & B [facility] DUAL MEDICARE REPLACEMENT MEDIC[place] PART A & [place] [id number] [facility] DUAL MEDICARE REPLACEMENT MEDICARE PART A & B Care Teams Doughnut Icer Relationship Specialty Start Date End Date Trina Messina MD [address] [place] [id number] PCP - General Internal Medicine 06/23/16 yT Mcduffie MD [address] [place] [address] Drive [address] [place] [address] Cardiology 03/03/22 Additional Source Comments The information contained in this document represents components of the legal health record. It is not the complete legal health record.[facility]
--- OUTSIDE RECORDS SUMMARY | 2025-05-11 19:15 | XMS_ITS | Clinical Summary ---
Author Organization [address] Address [address] [place] [address] Care Team Providers Care Product Development Chemist Name Role Phone Trina Messina MD Primary [...] to be due to eye disease Old MA (myocardial infarction) 09/19/2018 Overview (09/19/2018): Overview: Inferior wall NSTEMI 2006; drug eluting stents 2 to the mid RCA 95% lesion status post balloon angioplasty 6 sinus syndrome status post dual chamber pacemaker. Sick sinus syndrome (HC Code) 03/03/2018 MCI (mild cognitive impairment) with memory loss 02/09/2018 Legally blind 07/14/2017 Anxiety 05/07/2016 Atrial fibrillation (HC Code) 05/07/2016 Overview (09/19/2018): Overview: Short duration episodes, last [...] 65 10/12/2018 1:06 PM EST Temperature 36.7 C (98 F) 10/12/2018 1:06 PM EST Respiratory Rate - [...] 2 - PCV) 07/03/2018 07/03/2017 Influenza vaccine 03/17/2025 Covid-19 vaccine series ( - season) 2025 Breast cancer screening Discontinued Cervical cancer screening Discontinued Colon cancer screening, Colonoscopy Discontinued Meningococcal B Vaccine Aged Out No l onger eligible based on patient's age to complete this topic Meningococcal Vaccine Aged Out No carlos eduardo jem eligible based on patient's age to complete this topic Medical Devices Implanted Type Area Professor Of Anthropology Device Identifier Shelf Expiration Date Model / Serial / Lot Pacemaker [facility] [employer] Insurance [facility] MGD [facility] MGD [facility] MGD Care Teams Product Development Chemist Relationship Specialty Start Date End Date Trina Messina MD PCP - General Internal Medicine 10/14/18
--- OUTSIDE RECORDS SUMMARY | 2025-05-11 19:16 | XMS_ITS | Encounter Summary ---
Author Organization [facility] Address [address] [place] [address] Phone Care Team Providers Care Urgent Care Physician Name Role Phone Trina Messina MD Primary Care Pr ovider Ty Mcduffie MD [facility] [phone] Encounter Details Date Type Department Care Team (Late st Contact Info) Description 01/19/2023 Procedure Pass [facility] PERIOP DEPT [address] [place] [id number] Social History Tobacco Use Types Packs/Day Years [...] Orientation Straight 12/11/2023 9: 29 AM EDT documented as of this encounter Plan of Treatment Not on file documented as of this encounter Visit Diagnoses Not on filedocumented in this encounter Care Teams Urgent Care Physician Relationship Specialty Start Date End Date Trina Messina MD [address] [place] [address] PCP - General Internal Medicine 06/23/16 Ty Mcduffie MD [address] [place] [address] [address] [place] [address] Cardiology 03/03/22 documented as of this encounter Additional Source Comments The information contained in this document represents components of the legal health record. It is not the complete legal health record.[facility]
--- OUTSIDE RECORDS SUMMARY | 2025-05-11 19:16 | XMS_ITS | Encounter Summary ---
Author Organization [facility] Address [address] [place] [address] Phone Care Team Providers Care Stacking Machine Operator Name Role Phone Trina Messina MD Primary Care Pr ovider Ty Mcduffie MD Unavailable [phone] Encounter Details Date Type Department Care Team (Late st Contact Info) Description 03/17/2022 Procedure Pass [facility] PERIOP DEPT [address] [place] [id number] Social History Tobacco Use Types Packs/Day Years Used Date Smoking Tobacco: Never Smokeless Tobacco: Never Alcohol Use Standard Drinks/Week Comments No 0 (1 standard drink = 0.6 oz pur e alcohol) Comments Unknown Sex and Gender Information Value [...] on filedocumented in this encounter Care Teams Stacking Machine Operator Relationship Specialty Start Date End Date Trina Messina MD [address] [place] [id number] PCP - General Internal Medicine 06/23/16 Ty Mcduffie MD [address] [place] [address] Drive [address] [place] [address] Cardiology 03/03/22 documented as of this encounter Additional Source Comments The information contained in this document represents components of the legal health record. It is not the complete legal health record.[facility]
--- OUTSIDE RECORDS SUMMARY | 2025-05-11 19:16 | XMS_ITS | Clinical Summary ---
Author Organization [facility] Address [address] [place] [address] Care Team Providers Care Vocational School Teacher Name Role Phone Trina Messina MD Primary [...] - PCV) 07/03/2018 07/03/2017 Influenza Vaccine (#1) 2025 Hepatitis B Vaccines Aged Out No long er eligible based on patient's age to complete this topic RSV Ped < 20 months Aged Out No longe r eligible based on patient's age to complete this topic Care Teams Vocational School Teacher Relationship Specialty Start Date End Date Trina Messina MD PCP - General Internal Medicine 09/15/19
--- OUTSIDE RECORDS SUMMARY | 2025-05-11 19:16 | XMS_ITS | Patient Health Record ---
Author Organization [facility] Address [address] [place] [address] Care Team Providers Care Steel Burner Name Role Phone Sixto Mckeon MD Primary Care Provider Oni Sargent Unavailable [phone] Allergies Allergen (clinical drug ingredient) Drug/Non Drug [...] year . Dx: NIDDM, Foot Deformity, Preulcerative Callus; Duration: . 05/30/2015 Unknown hydroCHLOROthiazide 50 MG 1 tablet Orall y Once a day Unknown Metformin & Diet Manage Prod Unknown Problems No Known Problems Plan Of Treatment No Information Insurance Providers Payer Name Payer Address Payer Phone Subscriber Number Group Number Insured Name Patient Relationship to Insured Coverage Start Date Coverage End Date [facility] Medicare Complete [address] [address] [place] [address] [phone] [id number] Shruti Mojica Self - patient is the insured Medical (General) History Medical History History ICD Code Arthritis Back,Hip,and Knee pain Cholesterol type II diabetes Glaucoma Heart disease High blood pressure keloids Stroke Vascular phlebitis (clots) Measles Mumps Chicken pox Surgical History Surgery Date(Month/Year) CATARACTS GALLBLADDER PACEMAKER/STINTS
--- OUTSIDE RECORDS SUMMARY | 2025-05-11 19:16 | XMS_ITS | Encounter Summary ---
Author Organization [facility] Address [address] [place] [address] [place] [address] Phone Care Team Providers Care Band Log Mill And Carriage Operator Name Role Phone Trina Messina MD Primary Care Pr ovider Ty Mcduffie MD Unavailable [phone] Encounter Details Date Type Department Care Team (Late st Contact Info) Description 12/15/2022 Procedure Pass [facility] DEPT [address] [place] [address] Social History Tobacco Use Types Packs/Day Years Used Date Smoking Tobacco: Never Smokeless Tobacco: Never Alcohol Use Standard Drinks/Week Comments No 0 (1 standard drink = 0.6 oz pur e alcohol) Education Answer Date Recorded Are you interested in more education? Not on janet e 12/11/2022 Are you concerned about learning? Not on file 12/11/2022 No 12/11/2022 No 12/11/2022 Comments No Sex and Gender Information Value [...] on filedocumented in this encounter Care Teams Band Log Mill And Carriage Operator Relationship Specialty Start Date End Date Trina Messina MD [address] [place] [address] PCP - General Internal Medicine 06/23/16 Ty Mcduffie MD [address] [place] [address] [place] [address] Cardiology 03/03/22 documented as of this encounter Additional Source Comments The information contained in this document represents components of the legal health record. It is not the complete legal health record.[facility]
== END 2025-05-11 15:40 | disposition home or self-care (01) ==
LOC: HO.ENCR 14:56
PROVIDERS: PCP Internal Medicine; Visit Provider Internal Medicine
DX: E11.65 Type 2 diabetes mellitus with hyperglycemia (principal); Z79.4 Long term (current) use of insulin

== ENCOUNTER → 2025-05-11 14:56 | Outpatient (BNVA) | payer OTHER, SELFPAY | PROVIDERS: PCP Internal Medicine; Visit Provider Internal Medicine | DX: E11.65 Type 2 diabetes mellitus with hyperglycemia (principal); E11.36 Type 2 diabetes mellitus with diabetic cataract; H54.8 Legal blindness, as defined in USA; Z79.4 Long term (current) use of insulin | CPT/HCPCS: 82947; 83036; 99212 ==

== ENCOUNTER 2025-08-02 14:33 | Outpatient (AMB) | payer OTHER, SELFPAY ==
--- NOTE | 2025-08-02 14:35 | A.OFFVIS_ITS ---
Vital Signs 08/02/25 14:36 Height 5 ft 3.5 in Weight 158 lb 14.999 oz BMI 27.7 BP 138/78 Blood Pressure Location Rt brachial Position Sitting Pulse 96 Pulse Source Pulse Oximeter Pulse Oximetry (%) 95 Oxygen Delivery Method Room Air Intake Visit Reasons: DM follow up Intake Note: Patient presents today for a follow-up on Type 2 Diabetes Mellitus: Last Diabetic eye exam was on: 04/2024, patient needs a new referral Last Podiatry exam was on: Does not see a Supervisor Final Most recent HbA1c: 6.7%, 08/02/2025 Random Glucose- 165 mg/dL, Today [place] Required: No Accompanied by: Family/Other Allergies insulin glargine (From Lantus U-100 Insulin) Allergy (Intermediate, Verified 08/02/25 15:00) rash atorvastatin (From Lipitor) Adverse Reaction (Unknown, Verified 08/02/25 15:00) Unknown codeine Adverse Reaction (Unknown, Verified 08/02/25 15:00) Unknown oxycodone Adverse Reaction (Unknown, Verified 08/02/25 15:00) Unknown rosuvastatin (From Crestor) Adverse Reaction (Unknown, Verified 08/02/25 15:00) Unknown sulfadiazine Adverse Reaction (Unknown, Verified 08/02/25 15:00) Unknown beta blockers Adverse Reaction (Unknown, Uncoded 08/02/25 15:00) Unknown HPI Comments Details: Pleasant 84 year old female who is seen in f/u for T2DM. Medical history: legally blind, LA PCI, PPM, HLD, constipation Initially diagnosed with T2DM in 2013 Current regimen: Toujeo 25 units Previous medications: Lantus-rash. Remotely on metformin which she believes she tolerated. Expresses some interest in return to oral medication but hanh today decided that she would prefer to still with insulin. Her family member injects it in the evening once daily A1C 6.7% from 7.4% Freestyle micky sensor 3 average glucose: GMI 7.7% 47 % high (181-250) 53 % in range (70-180] 0 % low (69-55) 0 % very low (below 54) Reports low sugars: none recent Treats lows with juice Has eyes checked locally-Has an planning specialist in [place]. Seeing low vision planning specialist in [place] Denies neuropathy Denies nephropathy, on ARB Denies HLD-on repatha Denies symptoms of chest pain, dyspnea or claudication. She c/o slight odor to her urine denies dysuria. Nocturia She c/o some constipation. Takes MOM as needed Diet: balanced Not interested in seeing applications development analyst Weight: stable ROS CONSTITUTIONAL: Denies weight loss, fever and chills. HEENT: Denies changes in vision and hearing. RESPIRATORY: Denies SOB and cough. CV: Denies palpitations and CP GI: Denies abdominal pain, nausea, vomiting and diarrhea. : Denies dysuria and urinary frequency. MSK: Denies new myalgia and joint pain. SKIN: Denies rash and pruritus. NEUROLOGICAL: Denies headache PSYCHIATRIC: Denies recent changes in mood. PHYSICAL EXAM: GENERAL: Alert and oriented x 3. NAD EYES: EOMI. Anicteric. HENT: Moist mucous membranes. No scleral icterus. No cervical lymphadenopathy. LUNGS: Clear to auscultation bilaterally. CARDIOVASCULAR: Regular rate and rhythm. No murmur. No JVD. ABDOMEN: Soft, non-tender +bs EXTREMITIES: No edema. Non-tender. SKIN: No rashes or lesions. Warm. NEUROLOGIC: No focal neurological deficits. CN II-XII grossly intact PSYCHIATRIC: Cooperative. Appropriate mood and affect [facility] Medical History Legally blind Pacemaker Surgical History Hx of eye surgery Hx of cholecystectomy Family History Mother Heart disease Father Stroke Social History Alcohol intake: never Patient Tobacco Use Status: Never used Tobacco Results AMB Hemoglobin A1c AMB Hemoglobin A1c 6.7 % Last Edit by MARCO Adams on 08/02/25 14:54 Assessment & Plan Assessment & Plan (1) Type 2 diabetes mellitus: Code(s): E11.9 - Type 2 diabetes mellitus without complications Category: Medical Qualifiers: Diabetes mellitus terminal superintendent insulin use: with terminal superintendent use Diabetes mellitus complication status: with hyperglycemia Qualified Code(s): E11.65 - Type 2 diabetes mellitus with hyperglycemia; Z79.4 - superintendent terminal (current) use of insulin (2) Long-term insulin use in type 2 diabetes: Code(s): E11.9 - Type 2 diabetes mellitus without complications; Z79.4 - superintendent terminal (current) use of insulin Category: Medical Qualifiers: Diabetes mellitus complication status: with hyperglycemia Qualified Code(s): E11.65 - Type 2 diabetes mellitus with hyperglycemia; Z79.4 - superintendent terminal (current) use of insulin Plan Type 2 diabetes Well controlled without hypoglycemia on current regimen She will continue on this regimen though we discussed cequr and oral medications Treat hypoglycemia by rules of 15s Requests 3 month med supplies through [facility] Return in 3 months or sooner as needed Orders: Orders AMB Hemoglobin A1c Today E11.65 - Type 2 diabetes mellitus with hyperglycemia, Z79.4 - superintendent terminal (current) use of insulin Medications: New Toujeo Max U-300 SoloStar (insulin glargine U-300 conc) 30 units (0.1 mL) subcut DAILY 9 mL 3RF 90 days NS Changed From pen needle, diabetic, safety (True Comfort Safety Pen Needle) As directed 100 ea E11.65 - Type 2 diabetes mellitus with hyperglycemia, Z79.4 - group home (current) use of insulin To pen needle, diabetic, safety (True Comfort Safety Pen Needle) once daily 100 ea 3RF E11.65 - Type 2 diabetes mellitus with hyperglycemia, Z79.4 - group home (current) use of insulin Refilled FreeStyle Lite Strips (blood sugar diagnostic) USE TO TEST FINGER STICK BLOOD SUGAR DIRECTED 100 strips 3RF NS FreeStyle Micky 2 Plus Sensor (blood-glucose sensor) every 15 days 6 ea 3RF NS E11.65 - Type 2 diabetes mellitus with hyperglycemia, Z79.4 - group home (current) use of insulin FreeStyle Lancets (lancets) As directed 100 ea 3RF NS E11.65 - Type 2 diabetes mellitus with hyperglycemia, Z79.4 - superintendent terminal (current) use of insulin Discontinued Juan Pablo ClotildeoStar U-300 Insulin (insulin glargine U-300 conc) Discontinued Reason: Doctor's Order 25 units (0.0833 mL) subcut DAILY 90 days 9 mL 3RF NS Coding Level of Care Code Est Pt Level 4 (31855) Diagnoses Type 2 diabetes mellitus with hyperglycemia, with long-term current use of insulin E11.65; Z79.4 Diabetes mellitus usp insulin use: with usp use Diabetes mellitus complication status: with hyperglycemia Type 2 diabetes mellitus with hyperglycemia, with long-term current use of insulin E11.65; Z79.4 Diabetes mellitus complication status: with hyperglycemia
[2025-08-02 14:36] VITALS: BP 138/78; PULSE 96; O2SAT 95; BMI 27.7
[2025-08-02 14:50] LABS: Glucose, Whole Blood 165 mg/dL (60-115)
--- OUTSIDE RECORDS SUMMARY | 2025-08-02 19:28 | XMS_ITS | Encounter Summary ---
[facility] Organization [facility] Address [address] [place] [address] Care Team Providers Care Medical Staffing Coordinator Name Role Phone Negin Wright MD Primary Care Provider [phone] Encounter Details Date Type Department Care Team (Late st Contact Info) Description 07/28/2025 Telephone Internal Medicine - [address] [place], [place] [phone] Negin Wright MD [address] [place] Social History Tobacco Use Types Packs/Day Years Used Date Smoking Tobacco: Never Smokeless Tobacco: Never Alcohol Use Standard Drinks/Week Comments No 0 (1 standard drink = 0.6 oz pur e alcohol) Housing Instability Answer Date Recorde d Are you worried that in the next 2 months you may not have stable housing? No 01/11/2025 Food Access & Nutrition Answer Date Rec orded Do you have access to a vari ety of food including fruits and vegetables? Yes 01/11/2025 Access to Healthcare Answer Date Record ed Within the last 3 months, ho omar many times did you visit the emergency department for your medical care? 0 01/11/2025 Health Literacy Answer Date Recorded How often do you need to hav e someone help you when you read instructions, pamphlets, or other written material from your doctor or pharmacy? Never 01/11/2025 Caregiver: How often do you need to have someone help you when you read instructions, pamphlets, or other written material from your doctor or pharmacy? Not on file 01/11/2025 Financial Risk Answer Date Recorded How hard is it for you to pa y for the very basics like food, housing, medical care, and air conditioning / heating? Not very hard 01/11/2025 Transportation Answer Date Recorded Has the lack of transportati on kept you from meetings, work, or from getting things needed for daily living? No Has the lack of transportati on kept you from medical appointments or from getting medications? No 01/11/2025 Social Isolation Answer Date Recorded How often do you feel lonely or isolated from th ose around you? Never 01/11/2025 Food Risk Answer Date Recorded Within the past 12 months we worried whether our food would run out before we got money to buy more. Never true 01/11/2025 Within the past 12 months th e food we bought just didn't last and we didn't have money to get more. Never true 01/11/2025 Dependent Care Answer Date Recorded Do you need help finding or paying for care for your loved ones. For example, children's institution attendant or elderly care for an older adult? No 01/11/2025 Education Answer Date Recorded Do you think completing more education or training, like finishing a GED, going to college, or learning a trade, would be helpful for you? N/A 01/11/2025 Employment and Income Answer Date Recor ded During the last four weeks, have you been actively looking for work? No 01/11/2025 Living Situation Answer Date Recorded What is your living situation? Unrecognized valu e 01/11/2025 Comments No Sex and Gender Information Value Date Recorded Sex Assigned at Not on file Legal Sex Female 5:24 PM EST Gender Identity Not on file Sexual Orientation Not on file Occupation Industry Job Start Date Job End Date RETIRED Not on file Not on file Not on file documented as of this encounter Progress Notes * Rubina Cruz MA - 07/31/2025 9:32 AM EST Noted. KA * Matthew Anderson - 07/31/2025 8:52 AM EST VNA CALL Which VNA office is calling? [facility] Full name of caller: Rubia Simpson The caller is A nurse Is the caller at the patients home?: no Reason for call: VNA does not take patient S insurance Does caller need an urgent call back? no Was CONTACT Telephone # obtained above?: yes [phone] * Rubina Cruz MA - 07/28/2025 4:22 PM EST Noted. I hand manually faxed four home care vna referral to four different vna services for Ms. Mojica . KA * Matthew Anderson - 07/28/2025 3:26 PM EST [facility]NA CALL [facility] Full name of caller: Alecia The caller is A nurse Is the caller at the patients home?: no Reason for call: Referral received - out of network - patient has [facility] Does caller need an urgent call back? yes Was CONTACT Telephone # obtained above?: yes documented in this encounter Plan of Treatment Upcoming Encounters Date Type Department Care Team (Late st Contact Info) Description 08/15/2025 1:30 PM EST Ancillary Procedure [facility] - [address] [place] [address] 09/04/2025 1:15 PM EST Office Visit Internal Medicine - [address] [address] Sanaz Saucedo, DERRICK [address] [place] [address] 09/06/2025 1:30 PM EST [facility] [address] [place] [address] Neign Wright MD [address] [facility] [place] 10/23/2025 4:00 PM EDT Ancillary Procedure [facility] - [address] [facility] [address] [place] [address] documented as of this encounter Visit Diagnoses Not on filedocumented in this encounter Additional Health Concerns Assessment Noted Time PHQ-9 Depression Total Score: 0 07/04/20 2:55 PM EST documented as of this encounter Care Teams Medical Staffing Coordinator Relationship Specialty Start Date End Date Negin Wright MD [address] [facility] [place] PCP - General Internal Medicine 04/27/25 documented as of this encounter
--- OUTSIDE RECORDS SUMMARY | 2025-08-02 19:28 | XMS_ITS | Encounter Summary ---
Author Organization [facility] Address [address] [place] [address] Care Team Providers Care Chrome Cleaner Name Role Phone Negin Wright MD Primary Care Provider [phone] Reason for Visit * Reason Onset Date Comments Request For Order(s) 07/28/2025 Internation al Health Encounter Details Date Type Department Care Team (Late st Contact Info) Description 07/28/2025 Telephone Internal Medicine - [address] [place], [place] [phone] Negin Wright MD [address] [place], [place] Social History Tobacco Use Types Packs/Day [...] Record ed Within the last 3 months, lashell w many times did you visit the emergency [...] care for your loved ones. For example, child psychiatrist or elderly care for an older adult? [...] Progress Notes * Rubina Cruz MA - 07/28/2025 3:44 PM EST Sent four referral out to [facility] services for Ms. Mojica to receive her home care . Ms. Mojica inform me she does have someone to administrate her insuline for her over weekend of 07/28/25 through 07/30/25. KA * Rubina Cruz MA - 07/28/2025 3:26 PM EST returning patient phone call , called back twice , patient finally answered the phone was inform I sent over new referral letter to [facility] , also I spoke with Quinton over at [facility] Patient finally answered the phone not allowing me to finish my sentence , I trying to inform patient I did ask Quinton if we can expedite , on 07/06/25 [facility] contacted to inform us patient refused services, signed a released waiver see message dated on 07/06/25 ANIL * Saroj Rose - 07/28/2025 2:57 PM EST Pt is asking that we expedite this request as she has not had a VNA nurse in almost a month. And she needs regular scheduled insuline injections and medications * Eron Lyons - 07/28/2025 2:01 PM EST Orders received from [facility] placed in Negin Wright MD bin. Please fax back to [phone] once completed. Thank you documented in this encounter Plan of Treatment Upcoming Encounters Date Type Department Care Team (Late st Contact Info) Description 08/15/2025 1:30 PM EST Ancillary Procedure [facility] - [address] [place] [address] 09/04/2025 1:15 PM EST Office Visit Internal Medicine - [address] [place] [address] Sanaz Saucedo NP [address] [place] [address] 09/06/2025 1:30 PM EST Office Visit Internal Medicine - [address] [phone] Negin Wright MD [address] [place] [address] 10/23/2025 4:00 PM EDT Ancillary Procedure [facility] - [address] [place] [address] documented as of this encounter Visit Diagnoses Not on filedocumented in this encounter Additional Health Concerns Assessment Noted Time PHQ-9 Depression Total Score: 0 07/04/20 2:55 PM EST documented as of this encounter Care Teams Chrome Cleaner Relationship Specialty Start Date End Date Negin Wright MD [address] [place] [address] PCP - General Internal Medicine 04/27/25 documented as of this encounter
--- OUTSIDE RECORDS SUMMARY | 2025-08-02 19:28 | XMS_ITS | Clinical Summary ---
Author Organization [facility] Address [address] [place] [address] Phone Care Team Providers Care System Auditor Name Role Phone Trina Messina MD Primary Care Pr ovider Ty Mcduffie MD [facility] [phone] Allergies Active Allergy Reactions Criticality Noted Date [...] sleep apnea 11/10/2018 12/16/19 23 Overview (12/15/2022): [facility] Polysomnogram: Date 11/09/2018; Wt 158# SE 49%; SM 52%; REM 0%; RDI 26 (AHI 6), Central apneas 0; Obstructive apneas 0; Mixed apneas 0; hypopneas 28; RERAs 87; average oxygen saturation 95% (lowest 92% - without saturations <88% for 5% or more of study); PLMs 6.Pre-study ESS 12. 3/4 RLS symptoms. Nuclear Stress Test 05/17/2018 EF 76% [facility] Polysomnogram treatment study. Date 04/03/2019. Wt 158#; [...] Encounters Date Type Department Care Team Description 07/11/2025 Telephone [facility] [address] [place] [address] Trina Messina MD from Last 3 Months Family History Medical [...] 01/19/2023 10:56 AM EDT Plan of Treatment Upcoming Encounters Date Type Department Care Team (Late st Contact Info) Description 09/19/2025 1:10 PM EST Office Visit [facility] [address] [place] [address] Sammie Weaver MD [address] [place] [address] [email or web address]. [facility] Health Maintenance Due Date Last Done Comments [...] (#1) 2025 08/29/2013, 2006 COVID-19 VACCINE ( - season) 2025 DIABETIC EYE EXAM 11/28/2025 11/28/2024, [...] this topic Medical Devices Implanted Type Area Armhole Sewer Device Identifier Shelf Expiration Date Model / Serial / Lot Pacemaker Cardiac Stent X3 Iol Insurance MEDICARE REPLACEMENT MEDICARE PART A & [place] [address] [place] [address] MEDICARE REPLACEMENT MEDICARE PART A & B [facility] MEDICARE REPLACEMENT MEDICARE PART A & B Member Subscriber Plan / Payer (Ef fective 2016-Present) Name:Shruti Mojica Grey Relation to Subscriber:Self Name:Shruti Mojica Payer ID:[id number] (NAIC) Group ID:[id number] Type:Medicare Address: [place] [id number] MEDICARE PART A & [place] [address] [place] [address] MEDICARE REPLACEMENT [place] [address] MEDICARE PART A & B [facility] MEDICARE REPLACEMENT [place] [id number] MEDICARE PART A & B MEDICARE REPLACEMENT MEDICARE PART A & B MEDICARE REPLACEMENT MEDICARE PART A & [place] [address] [address] [place] [address] MEDICARE REPLACEMENT MEDICARE PART A & B Care Teams System Auditor Relationship Specialty Start Date End Date Trina Messina MD [address] [place] [address] PCP - General Internal Medicine 06/23/16 Ty Mcduffie MD [address] [place] [address] [address] [place] [address] Cardiology 03/03/22 Additional Source Comments The information contained in this document represents components of the legal health record. It is not the complete legal health record.[facility]
--- OUTSIDE RECORDS SUMMARY | 2025-08-02 19:28 | XMS_ITS | Encounter Summary ---
Author Organization [facility] Address [address] [place] [address] Care Team Providers Care Water Main Inspector Name Role Phone Negin Wright MD Primary Care Provider [phone] Encounter Details Date Type Department Care Team (Late st Contact Info) Description 07/28/2025 Telephone Internal Medicine - [address] [place], [place] [phone] Negin Wright MD [address] [place] Social History Tobacco Use Types Packs/Day [...] care for your loved ones. For example, professor of early childhood education or elderly care for an older adult? [...] [facility] - [address] [place] [address] 09/04/2025 1:15 PM EST Office Visit Internal Medicine - [address] [place], [place] [phone] Sanaz Saucedo NP [address] [place], [place] 09/06/2025 1:30 PM EST Office Visit Internal Medicine - [address] [phone] Negin Wright MD [address] [place] [address] 10/23/2025 4:00 PM EDT Ancillary Procedure [facility] - [address] [place] [address] documented as of this encounter Visit Diagnoses Not on filedocumented in this encounter Additional Health Concerns Assessment Noted Time PHQ-9 Depression Total Score: 0 07/04/20 2:55 PM EST documented as of this encounter Care Teams Water Main Inspector Relationship Specialty Start Date End Date Negin Wright MD [address] [place] [address] PCP - General Internal Medicine 04/27/25 documented as of this encounter
--- OUTSIDE RECORDS SUMMARY | 2025-08-02 19:28 | XMS_ITS | Encounter Summary ---
Author Organization [facility] Address [address] [place] [address] Care Team Providers Care Pricing/Signage Team Member Name Role Phone Negin Wright MD Primary Care Provider [phone] Reason for Visit * Reason Onset Date Comments VNA 07/31/2025 Encounter Details Date Type Department Care Team (Late st Contact Info) Description 07/31/2025 Telephone Internal Medicine - [facility] [address] [place], [place] [phone] Negin Wright MD [address] [place], [place] Social History Tobacco Use Types Packs/Day [...] for your loved ones. For example, child guidance counselor or elderly care for an older adult? [...] as of this encounter Progress Notes * Radha Brooks, MOSHE - 07/31/2025 11:07 AM EST Spoke with GABBIE Naranjo, I told him he needs to contact pt to see if she has another agency. Jose A states he will call her then take it from there. * Xenia Warner - 07/31/2025 10:28 AM EST [facility]NA CALL Which [facility]NA office is calling? [facility] ext [phone] / Full name of caller: Jose A The caller is A nurse Is the caller at the patients home?: no Reason for call: wanst to make sure pt does not have another agency, multiple request were sent outfor this patient Also will need start of care orders if necessary Does caller need an urgent call back? yes Was CONTACT Telephone # obtained above?: yes Fax #: n/a documented in this encounter Plan of Treatment Upcoming Encounters Date Type Department Care Team (Late st Contact Info) Description 08/15/2025 1:30 PM EST Ancillary Procedure [facility] - [facility] [address] [facility] [address] [place] [address] 09/04/2025 1:15 PM EST [facility] [address] [place] [address] Sanaz Saucedo NP [address] [place] [id number] 09/06/2025 1:30 PM EST [facility] [address] [place] [address] Negin Wright MD [address] [place] [address] 10/23/2025 4:00 PM EDT Ancillary Procedure [facility] - [facility] [address] [facility] [address] [place] [address] documented as of this encounter Visit Diagnoses Not on filedocumented in this encounter Additional Health Concerns Assessment Noted Time PHQ-9 Depression Total Score: 0 07/04/20 25 2:55 PM EST documented as of this encounter Care Teams Pricing/Signage Team Member Relationship Specialty Start Date End Date Negin Wright MD [address] [facility] [place] [address] PCP - General Internal Medicine 04/27/25 documented as of this encounter
--- OUTSIDE RECORDS SUMMARY | 2025-08-02 19:29 | XMS_ITS ---
Author Name Gloria SMITHC, MRS. Reyna Address [address] [place] [address] Phone [phone] Organization [facility] Care Team Providers Care Molder Operator Name Role Phone Maribell Castro Unavailable [phone] Unavailable Unavailable [phone] alpha care service Unavailable [phone] Unavailable Unavailable [phone] Unavailable Unavailable [phone] Unavailable Unavailable [phone] Unavailable Unavailable Unavailable [facility] Unavailable [phone] Dionne Neil Unavailable [phone] Trina Blackwell Unavailable FILIPPO BARROW Unavailable [phone] Anju Arango Unavailable [phone] Reason for Referral Not Available Allergies, adverse [...] 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 2023-10-08 No Data Available G-mode Micky 2 [place] Device USE DIRECTED 2023-10-08 No Data Available [...] 100 mg Tab TAKE 1 TABLET BY [facility] ONCE DAILY AT BEDTIME 2024-01-29 No Data [...] FOR 4 WEEKS 2024-07-20 No Data Available [facility] spacer USE DIRECTED 2024-07-20 No Data Available Clotrimazole 1 % Crm APPLY TO THE AFFECT ED AREA TOPICALLY two (2) times a day 2024-07-20 No Data Available Albuterol Sulfate HFA 108 (9 0 Base) MCG/ACT Aerosol Solution INHALE 2 PUFFS BY MOUTH INTO THE lungs 4 (FOUR) TIMES DAILY NEEDED FOR SHORTNESS OF BREATH OR FOR WHEEZING 2024-07-20 No Data Available Tojeff SoloStar 300 UNIT/ML Solution Pen-injector Subcutaneous 20 untis at night 2024-09-29 2025-01-11 Amoxicillin-Pot Clavulanate 875/125 mg Tab Take 1 tablet PO twice daily for 7 days 2024-09-29 2024-12-12 benzonatate 100 MG Oral Capsule [Tessalon Radha] 1 PO BID PRN cough 2024-09-29 No [...] No Data Available 2024-01-04 No Data Available [employer] System w/Device Kit No Data Available 2024-11-16 No Data Available Chlorhexidine Gluconate 4 % Solution Use solution once a week in shower 2024-12-12 No Data Available Lantus SoloStar 100 UNIT/ML Solution Pen-injector Subcutaneous inject 18 units under the skin once daily 2024-02-19 No Data Available Vit E-1000 IU (450 mg) Capsule TAKE 1 CAPSULE BY MOUTH ONCE DAILY 2025-02-27 No Data Available Repatha SureClick 140 mg/ML Solution Auto-injector Inject 1 mL (140 mg total) under the skin 1 (one) time for 1 dose. 2025-05-03 No Data Available Isosorbide Mononitrate ER 30 mg Tab ER 24hr TAKE 1 TABLET BY MOUTH ONCE DAILY DO NOT CRUSH OR chew 2025-05-03 No Data Available Levocetirizine Dihydrochloride 5 mg Tab take 1 tablet by mouth daily 2025-06-15 No Data Available Benzonatate 100 mg Cap Take 1 tablet twi ce daily as needed for cough. 2025-06-15 No Data Available Fluticasone Propionate 50 MCG/ACT Suspension Nasal use 1 spray in each nostril daily 2025-06-15 No Data Available Augmentin 875mg Tab 1 tablet Q12H x 7 days 2025-06-15 No Data Available [facility] Covid-19 At Home Test Ki t Kit In Vitro follow as directed 2025-06-15 No Data Available Problem List Problem Status [...] Neurosurgeon as indicated. Hypertension Active 2022-05-26 N/A Requesting a BP cuff. Last on file BP was 135/70 as per OC. Advised to purchase OTC unless open HEDIS Gap or uncontrolled htn.RX: Losartan Low NA diet BP 130/70Follow up pcp Major depressive disorder, recurrent, moderate, Psychosocial stressors Active 2022-05-26 N/A RX: Sertraline 5 0 mg in AM, Trazodone 50 mg qhsPhq2:2 Good sleep habits Member with recent stressors. She is agreeable to talking to a therapist. [facility] referral placed (01/25/25) Chronic kidney disease, stage 2 (mild) Active 2022-05-26 N/A Avoid nephrotoxi c lpgowzoeugn70/15/24: eGFR 67; Creatinine 0.86 Creat clearance 51 Continue to follow up with PCP Fall, sequela Active 2024-08-02 N/A Hx falls As sistive devices to ambulate Dizziness Active 2024-03-23 N/A Describes a pr ocedure being done for BPPVAntivert prnSlow position changes Chronic pain; Primary osteoarthritis involving multiple joints Active 2024-03-23 N/A Pain at times to back pain, knee pain, right shoulder pain diclofenac gel.TylenolCyclobenzaprineHe at/coldNo longer follows with pain management 01/25/25:Take tylenol, [...] Juan Carlos nue to follow up with [facility]. . Other problems related to [...] Chest pain / HR >100 Planned intervention: Settlement Clerk on proper BP monitoring technique and reassess/ [...] and new PCP visit is not until 12/02/24.12/12/24-[facility] phone number: [phone] Best fax number: [phone] Date: 12/08/2024 Details of Order/Request: referral received, [...] to member and to her son for [facility] phone number: [phone]. Appt Date: 01/31/25. Member's son was advised to contact dermatology office to verify appt time. 01/25/25Member reminded of upcoming dermatology appt with [facility] Best phone number: [phone]. Appt Date: 01/31/25. Member's son sent SMS as a reminder and advised to to contact dermatology office to confirm appt date and time. Type 2 diabetes mellitus with stage 2 chronic kidney disease, with long-term current use of insulin Active 2023-12-22 N/A RX: Insulin Touj eo CGM [id number]/: eGFR 67; Creatinine 0.86 Hemoglobin A1C 7.4ADA dietFollows with endocrine11/11/24-freestyle micky 2 sensors refill sent to pharmacy per member request12/12/24:-member reports body after rash every time she gets her insulin. States only happens with the insulin. She informed her PCP and enterprise application administrator. [facility] enterprise application administrator prescribed her a cream which works, but [...] still persists despite that, follow up with enterprise application administrator. She verbalized understanding.01/11/25:-membe r still having reaction to toujeo per member with pinprick rash throughout body.-Stop toujeo 22 units nightly, start lantus 18 units nightly. Advised to contact enterprise application administrator promptly to discuss toujeo reaction and change [...] Ophthalmology.01/11/25:-per member, was referred to a low television production technician by her dynamite shooter (who does not specialize in this). [facility] she was advised to contact the [place] [employer] for names of specialists. However, after many attempts to the commission, she has not been able to get any information. [facility] task placed for additional assistance. Medication management Active 2025-02-27 N/A Nee ds refill on few routine meds and asked question about medication indicationAnswered all questions and med eprescribed. Sinusitis Active 2025-06-15 N/A Increase clear fluids and rest. Flonase as directed. Claritin daily. Tessalon perles as directed. Augmentin 875 mg BID X 7 days. Call CB if you develop fever, SOB, CP, or if the above does not alleviate symptoms in 5 days. Encounters Encounters Type Facility Date of Service Diagnosis/Co mplaint Pain Assessment - NO pain present (1126F) [facility] [place] Pain Assessment - NO pain present (1126F) [facility] [place] Pain Assessment - NO pain present (1126F) [facility] [place] Pain Assessment - NO pain present (1126F) [facility] [place] Pain Assessment - NO pain present (1126F) [facility] [place] Pain Assessment - NO pain present (1126F) [facility] [place] Pain Assessment - NO pain present (1126F) [facility] [place] Pain Assessment - NO pain present (1126F) [facility] [place] Pain Assessment - NO pain present (1126F) [facility] [place]20[place] Type 2 diabetes [...] or radiculopathy, cervical regionAthscl heart disease of [place] cor art w unsp ang pctrs No Data Available [facility] [place]2022 Unlisted special service; to be used for medical record reviews and reporting CPTII codes (1111F, etc) [facility] [place] 03/[place]/2023 Other specified health statu s Unlisted special service; to be used for medical record reviews and reporting CPTII codes (1111F, etc) [facility] [place]20[place] Unlisted special service; to be used for medical record reviews and reporting CPTII codes (1111F, etc) [facility] [place]20[place] No Data Available [facility] [place]2023 Unspecified open-angle glauc chester, severe stageMajor depressive disorder, recurrent, moderateSick sinus syndromeUnspecified atrial fibrillationVentricular tachycardia, unspecifiedChronic kidney disease, stage 3 unspecifiedInsomnia, unspecifiedObstructive sleep apnea (adult) (pediatric)Hypertensive chronic kidney disease w stg 1-4/unsp chr kdnyType 2 diabetes mellitus with other specified complicationHyperlipidemia, unspecifiedSpondylosis without myelopathy or radiculopathy, cervical regionAthscl heart disease of [place] cor art w unsp ang pctrsCough, unspecified No Data Available [facility] [place] 04[place]2023 No Data Available [facility] [place]20[place] No Data Available [facility] [place]/17[place]2023 No Data Available [facility] [place]20[place] No Data Available [facility] [place]2023 No Data Available [facility] [place]/17[place]2023 No Data Available [facility] [place]20[place] No Data Available [facility] [place]2023 No Data Available [facility] [place]/13[place]2023 Unspecified open-angle glauc chester, severe stageType 2 diabetes mellitus with other diabetic ophthalmic complicationEssential (primary) hypertension No Data Available [facility] [place] 05[place]13/2023 No Data Available [facility] [place]/13[place]2023 No Data Available [facility] [place]2023 No Data Available [facility] [place]20[place] No Data Available [facility] [place] 05[place]13[place]20[place] Estab. patient 30-39min; chronic exacerbation, 2 stable chronic or 1 acute illness add add modifier 95 for video, (do not use for phone, instead use 98176-93) [facility] [place]2023 Type 2 diabetes mellitus wit h [...] (do not use for phone, instead use 33079-09) [facility] [place] Estab. patient 30-39min; chronic exacerbation, 2 stable chronic or 1 acute illness add add modifier 95 for video, (do not use for phone, instead use 16694-61) [facility] [place] 12/[place]/2023 Estab. patient 30-39min; chronic exacerbation, 2 stable chronic or 1 acute illness add add modifier 95 for video, (do not use for phone, instead use 28765-76) [facility] [place] 12/22/2023 Estab. patient 30-39min; chronic exacerbation, 2 stable chronic or 1 acute illness add add modifier 95 for video, (do not use for phone, instead use 95852-74) [facility] [place] 12/22/2023 Estab. patient 30-39min; chronic exacerbation, 2 stable chronic or 1 acute illness add add modifier 95 for video, (do not use for phone, instead use 42229-49) [facility] [place] 12/[place]/2023 Estab. patient 30-39min; chronic exacerbation, 2 stable chronic or 1 acute illness add add modifier 95 for video, (do not use for phone, instead use 89933-43) [facility] [place] 12[place]22/2023 Estab. patient 30-39min; chronic exacerbation, 2 stable chronic or 1 acute illness add add modifier 95 for video, (do not use for phone, instead use 45407-45) [facility] [place] 12[place]/2023 Estab. patient 30-39min; chronic exacerbation, 2 stable chronic or 1 acute illness add add modifier 95 for video, (do not use for phone, instead use 25003-71) [facility] [place] 12[place]22/2023 Estab. patient 30-39min; chronic exacerbation, 2 stable chronic or 1 acute illness add add modifier 95 for video, (do not use for phone, instead use 40741-76) [facility] [place] 12/22/2023 No Data Available [facility] [place] 03/23/2024 Constipation, unspecifiedOth er chronic painDizziness and giddiness No Data Available [facility] [place] 03[place]23[place]2024 No Data Available [facility] [place] 03[place] No Data Available [facility] [place] 04[place]19/2024 Type 2 diabetes mellitus wit h [...] giddinessOther chronic painConstipation, unspecified No Data Available [facility] [place] 04[place]19[place]20[place] No Data Available [facility] [place] 04/19/[place] No Data Available [facility] [place] 04/19[place]20[place] No Data Available [facility] [place] 04[place]19[place] No Data Available [facility] [place] 05/10/2024 Essential (primary) hypertensionType 2 diabetes mellitus with diabetic chronic kidney diseaseChronic kidney disease, unspecifiedLong term (current) use of insulin No Data Available [facility] [place] 05[place] No Data Available [facility] [place]20[place] Type 2 diabetes mellitus wit [...] and other health care No Data Available [facility] [place]20[place] No Data Available [facility] [place] 06[place] No Data Available [facility] [place] No Data Available [facility] [place] No Data Available [facility] [place]/04[place]2024 Type 2 diabetes mellitus wit [...] other nonspecific skin eruption No Data Available [facility] [place] 07/04[place]2024 No Data Available [facility] [place] 07/04[place]2024 No Data Available [facility] [place] 08/02/2024 Type 2 diabetes mellitus [...] chronic painUnspecified fall, sequela No Data Available [facility] [place] 08[place]02/2024 No Data Available [facility] [place] 08/02[place]20[place] No Data Available [facility] [place] No Data Available [facility] [place] 08/[place]20[place] Estab. patient 10-29min; 1 minor problem; add add modifier 95 for video, modifier 93 for phone [facility] [address] [facility] [place]02[place]20[place] Type 2 diabetes mellitus wit h [...] 95 for video, modifier 93 for phone [facility] [place] 09/02/20[place] Estab. patient 10-29min; 1 minor problem; add add modifier 95 for video, modifier 93 for phone [facility] [place] 09/02/20[place] Estab. patient 10-29min; 1 minor problem; add add modifier 95 for video, modifier 93 for phone [facility] [place] 09/02/20[place] Estab. patient 10-29min; 1 minor problem; add add modifier 95 for video, modifier 93 for phone [employer] [facility] 09/29/2024 Type 2 diabetes mellitus wit h [...] 95 for video, modifier 93 for phone [facility] [place] 09/29/2024 Estab. patient 10-29min; 1 minor problem; add add modifier 95 for video, modifier 93 for phone [facility] [place] 09/29/2024 Estab. patient 10-29min; 1 minor problem; add add modifier 95 for video, modifier 93 for phone [facility] [place] 09/29/2024 Estab. patient 10-29min; 1 minor problem; add add modifier 95 for video, modifier 93 for [facility] [address] [facility] [place] 09/29/2024 Estab. patient 20-29min; 1 stable chronic or 2 minor; add add modifier 95 for video, modifier 93 for phone [facility] [place] 09/29/2024 Type 2 diabetes mellitus wit h [...] modifier 93 for phone [facility] 09/29/2024 Estab. patient 20-29min; 1 stable chronic or 2 minor; add add modifier 95 for video, modifier 93 for phone [facility] [facility] Estab. patient 20-29min; 1 stable chronic or 2 minor; add add modifier 95 for video, modifier 93 for phone [facility] [place] 09/29/[facility]24 Estab. patient 20-29min; 1 stable chronic or 2 minor; add add modifier 95 for video, modifier 93 for phone [facility] [place] 09/29/2024 Estab. patient 20-29min; 1 stable chronic or 2 minor; add add modifier 95 for video, modifier 93 for phone [facility] [place] 09/29/2024 Estab. patient 20-29min; 1 stable chronic or 2 minor; add add modifier 95 for video, modifier 93 for phone [facility] [place] 09/29/2024 Estab. patient 20-29min; 1 stable chronic or 2 minor; add add modifier 95 for video, modifier 93 for phone [facility] [place] 09/29/2024 Estab. patient 20-29min; 1 stable chronic or 2 minor; add add modifier 95 for video, modifier 93 for phone [facility] [place] 09/29/2024 Estab. patient 20-29min; 1 stable chronic or 2 minor; add add modifier 95 for video, modifier 93 for phone [facility] [place] 09/29/2024 Estab. patient 10-29min; 1 minor problem; add add modifier 95 for video, modifier 93 for phone [facility] [place] 10/05/2024 Type 2 diabetes mellitus wit h [...] 95 for video, modifier 93 for phone [facility] [place]/05/20[place] Estab. patient 10-29min; 1 minor problem; add add modifier 95 for video, modifier 93 for phone [facility] [place] 10/05/2024 Estab. patient 10-29min; 1 minor problem; add add modifier 95 for video, modifier 93 for [facility] [place] 10[place]05/2024 Estab. patient 10-29min; 1 minor problem; add add modifier 95 for video, modifier 93 for phone [facility] [place] 10/05/2024 Estab. patient 10-29min; 1 minor problem; add add modifier 95 for video, modifier 93 for phone [facility] [place] 11/05/2024 Gastro-esophageal reflux dis ease without esophagitisEncounter for issue of repeat prescription Estab. patient 10-29min; 1 minor problem; add add modifier 95 for video, modifier 93 for phone [facility] [place] 11/05/2024 Estab. patient 10-29min; 1 minor problem; add add modifier 95 for video, modifier 93 for phone [facility] [place] 11/11/2024 Gastro-esophageal reflux dis ease without esophagitisType 2 diabetes mellitus with diabetic chronic kidney diseaseChronic kidney disease, stage 2 (mild)buttermaker continuous churn (current) use of insulinDisorder of the skin and subcutaneous tissue, unspecified Estab. patient 10-29min; 1 minor problem; add add modifier 95 for video, modifier 93 for phone [facility] [place] 11/11/2024 Estab. patient 10-29min; 1 minor problem; add add modifier 95 for video, modifier 93 for phone [facility] [place]/12/2024 Type 2 diabetes mellitus [...] modifier 95 for video, modifier 93 for [facility] [place] 12/12/2024 Estab. patient 10-29min; 1 minor problem; add add modifier 95 for video, modifier 93 for [facility] [place] 12/12/2024 Estab. patient 10-29min; 1 minor problem; add add modifier 95 for video, modifier 93 for [facility] [place] 01/11/2025 Type 2 diabetes mellitus wit h diabetic chronic kidney diseaseChronic kidney disease, stage 2 (mild)Type 2 diabetes mellitus with other diabetic ophthalmic complicationUnspecified open-angle glaucoma, severe stageLong term (current) use of insulinAcute upper respiratory infection, unspecifiedDisorder of the skin and subcutaneous tissue, unspecifiedUnspecified visual loss Estab. patient 10-29min; 1 minor problem; add add modifier 95 for video, modifier 93 for [facility] [place] 01/11/2025 Estab. patient 10-29min; 1 minor problem; add add modifier 95 for video, modifier 93 for [facility] [place] 01/11/2025 Estab. patient 10-29min; 1 minor problem; add add modifier 95 for video, modifier 93 for [facility] [place] 01/25/2025 Other chronic painPrimary generalized (osteo)arthritisMajor depressive disorder, recurrent, moderateOther specified problems related to psychosocial circumstancesDisorder of the skin and subcutaneous tissue, unspecified Estab. patient 10-29min; 1 minor problem; add add modifier 95 for video, modifier 93 for [facility] [place] 02/27/2025 Type 2 diabetes mellitus wit h diabetic chronic kidney diseaseChronic kidney disease, stage 2 (mild)jail (current) use of insulinOther chronic painPrimary generalized (osteo)arthritisOther half-way (current) drug therapy Estab. patient 10-29min; 1 minor problem; add add modifier 95 for video, modifier 93 for phone [facility] [place] 02/[place]/20[place] No Data Available [facility] [place] 05/29/2025 Other chronic painPrimary generalized (osteo)arthritisHypertensive chronic kidney disease w stg 1-4/unsp chr kdnyOther problems related to medical facilities and other health careType 2 diabetes mellitus with diabetic chronic kidney diseaseChronic kidney disease, stage 2 (mild)jail (current) use of insulin No Data Available [facility] [place] 05/29/2025 Estab. patient 10-29min; 1 minor problem; add add modifier 95 for video, modifier 93 for phone [facility] [place] 06/15/2025 Chronic sinusitis, unspecifi ed Estab. patient 10-29min; 1 minor problem; add add modifier 95 for video, modifier 93 for phone [facility] [place] 06/20/2025 Essential (primary) hyperten roxanne Estab. patient 10-29min; 1 minor problem; add add modifier 95 for video, modifier 93 for phone [facility] [place] 06/20/2025 Estab. patient 10-29min; 1 minor problem; add add modifier 95 for video, modifier 93 for phone [facility] [place] 06/20/2025 Vital Signs Date of Collection Vitals 2022-05-26 [...] - 138.0 mm[Hg]Heart Rate - 61.0 /min 2025-06-20 10:18:10 BP Diastolic - 69.0 mm[Hg]BP Systolic - 135.0 mm[Hg] Social History Social History Social History Observation Description Effec tive Time Current Smoking Status Never smoker 2025-07-17 8 Sex Female Gender identity Woman History of [...] (do not use for phone, instead use [id number]) [id number] 2022-05-26 No Data Available No Data Availa ble Unlisted special service; to be used for medical record reviews and reporting CPTII codes (1111F, etc) 10871 2023-03-30 No Data Available No Data Availa ble SBP < 130 (3074F) 3074F 2023-03-30 No Data Available No Data Available DBP <80 (3078F) 3078F 2023-03-30 No Data Available No Data Available No Data Available [id number] 2023-04-17 No Data Available No Data Available [...] No Data Avail able No Data Available [id number] 2023-05-13 No Data Available No Data Available [...] (do not use for phone, instead use 51437-20) [id number] 2023-12-22 No Data Available No Data Availa [...] No Data Availa ble No Data Available [id number] 2024-03-23 No Data Available No Data Available SBP >= 140 3077F 2024-03-23 No Data Available No Data Available DBP <80 (3078F) 3078F 2024-03-23 No Data Available No Data Available No Data Available [id number] 2024-04-19 No Data Available No Data Available [...] No Data Availa ble No Data Available [id number] 2024-05-10 No Data Available No Data Available SBP >= 140 3077F 2024-05-10 No Data Available No Data Available No Data Available [id number] 2024-06-08 No Data Available No Data Available [...] No Data Avail able No Data Available [id number] 2024-07-04 No Data Available No Data Available Medication List Documented (1159F) 1159F 2024-07-04 No Data Available No Data Mandy ilable Functional Status Assessed (1170F) 1170F 2024-07-04 No Data Available No Data Avail able No Data Available [id number] 2024-08-02 No Data Available No Data Available [...] 95 for video, modifier 93 for phone [id number] 2024-09-02 No Data Available No Data Availa ble No Data Available [id number] 2024-09-02 No Data Available No Data Available Medication List Documented (1159F) 1159F 2024-09-02 No Data Available No Data Mandy ilable Functional Status Assessed (1170F) 1170F 2024-09-02 No Data Available No Data Avail able Estab. patient 10-29min; 1 minor problem; add add modifier 95 for video, modifier 93 for phone [id number] 2024-09-29 No Data Available No Data Availa [...] 95 for video, modifier 93 for phone [id number] 2024-09-29 No Data Available No Data Availa [...] 95 for video, modifier 93 for phone [id number] 2024-10-05 No Data Available No Data Availa [...] 95 for video, modifier 93 for phone [id number] 2024-11-06 No Data Available No Data Availa ble Medication List Documented (1159F) 1159F 2024-11-06 No Data Available No Data Mandy ilable Estab. patient 10-29min; 1 minor problem; add add modifier 95 for video, modifier 93 for phone [id number] 2024-11-11 No Data Available No Data Availa ble Medication List Documented (1159F) 1159F 2024-11-11 No Data Available No Data Mandy ilable Estab. patient 10-29min; 1 minor problem; add add modifier 95 for video, modifier 93 for phone [id number] 2024-12-12 No Data Available No Data Availa ble SBP 130-139 (3075F) 307F 2024-12-12 No Data Availabl e No Data Available DBP 80-89 (3079F) 3079F 2024-12-12 No Data Available No Data Available Estab. patient 10-29min; 1 minor problem; add add modifier 95 for video, modifier 93 for phone [id number] 2025-01-11 No Data Available No Data Availa ble Medication List Documented (1159F) 1159F 2025-01-11 No Data Available No Data Mandy ilable Most recent A1c (HbA1c) or GMI level 7-7.9% (3051F) 3051F 2025-01-11 No Data Available No Data Availa ble Estab. patient 10-29min; 1 minor problem; add add modifier 95 for video, modifier 93 for phone [id number] 2025-01-25 No Data Available No Data Availa ble Estab. patient 10-29min; 1 minor problem; add add modifier 95 for video, modifier 93 for phone [id number] 2025-02-27 No Data Available No Data Availa ble Medication List Documented (1159F) 1159F 2025-02-27 No Data Available No Data Mandy ilable Pain Assessment - Pain Documented on a Pain Scale (1125F) 1125F 2025-05-29 No Data Available No Data Mandy ilable Estab. patient 10-29min; 1 minor problem; add add modifier 95 for video, modifier 93 for phone [id number] 2025-06-15 No Data Available No Data Availa ble Estab. 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 Mental Status Status Date Cognition Status: Oriented to Person, Pl lizette and Time 2023-12-22 Assessments Date of Service Assessments 2022-05-26 11:51:35 Major depressive dis order, recurrent, moderateSick sinus syndromeChronic kidney disease, stage 3 unspecifiedMild obstructive sleep apneaHypertension associated with type 2 diabetes mellitusHyperlipidemia associated with type 2 diabetes mellitusCervical spondylosisAtherosclerotic heart disease of [place] coronary artery with unspecified angina pectorisType 2 diabetes mellitus with unspecific complications 2023-04-17 13:36:41 Type 2 diabetes naye itus with unspecific complicationsMajor depressive disorder, recurrent, moderateSick sinus syndromeChronic kidney disease, stage 3 unspecifiedMild obstructive sleep apneaHypertension associated with type 2 diabetes mellitusHyperlipidemia associated with type 2 diabetes mellitusCervical spondylosisAtherosclerotic heart disease of [place] coronary artery with unspecified angina pectorisCough 2023-05-13 [...] sequela 2024-11-05 17:52:40 Follow up plan for anirudh marr symptoms: 11/11/24 with APPMedication refillChronic GERD 2024-11-11 [...] pain; Primary osteoarthritis involving multiple jointsMedication management 2025-05-29 12:51:39 Chronic pain; Primar y osteoarthritis involving multiple jointsHypertensionOther problems related to medical facilities and other health careType 2 diabetes mellitus with stage 2 chronic kidney disease, with long-term current use of insulin 2025-06-15 13:17:16 Follow up plan for a cute symptoms: CB is available 09/03 for acute need. Market f/u 06/20/25Sinusitis 2025-06-20 10:18:10 Hypertension Plan of Care Date of Service Plans [...] nitroglycerin prn. Risk factors/comorbidities include history of DE, HTN, HLD, SSS.RX: glipizide, metforminChecks BS every [...] call.GFR - 58 (04/16/2022)Follow PCP every yearRX: TrazadonCaroleleep study- Date 04/03/2019.CPAP - no longer uses [...] nitroglycerin prn. Risk factors/comorbidities include history of DE, HTN, HLD, SSS. 04/17/2023-member stable on current [...] education needs that may arise 09/03.RX: glipizide, metforminChericos BS every day - 114 (05/25/22)A1C 5.6 [...] PCP and Cardiology.Continue to follow up with [facility]. .RX: Sertraline, Trazodone Notify [...] modifier 95)Continue to see PCP. [facility] or [...] PCP and Cardiology.Continue to follow up with [facility]. .RX: Sertraline, Trazodone Notify [...] modifier 95)Continue to see PCP. Follow-up with [facility] as needed for any acute or [...] talking meter as they came from a [employer]. 2024-06-08 13:10:29 Phone (patient, pare nt, or guardian); 5-10 minutes of medical discussion (no modifier 95)Continue to see PCP. Follow-up with [facility] as needed for any acute or [...] talking meter as they came from a [employer].FALL CONTINGENCY PLANMember to call for the following [...] Chest pain / HR >100 Planned intervention: Settlement Clerk on proper BP monitoring technique and reassess/ Encourage low sodium diet/ Discuss breathing exercises/ Encourage medication adherenceAvoid nephrotoxic medications.Continue to follow up with PCP.RX: Brimonidine, Brinzolamide, Latanoprost, Lumigan, Methazolamide, PrednisoloneRecommend tight blood glucose control. Continue to follow up with Ophthalmology.RX: Ezetimibe Heart healthy diet. Continue to follow up with PCP and Cardiology.Continue to follow up with [facility]. .RX: Sertraline, Trazodone Notify [...] I provided her with the number for [employer] to see if they could send her a replacement. Unable to send replacement strips for her talking meter as they came from a [employer].FALL CONTINGENCY PLANMember to call for the following [...] Chest pain / HR >100 Planned intervention: Settlement Clerk on proper BP monitoring technique and reassess/ Encourage low sodium diet/ Discuss breathing exercises/ Encourage medication adherenceAvoid nephrotoxic medications.Continue to follow up with PCP.RX: Brimonidine, Brinzolamide, Latanoprost, Lumigan, Methazolamide, PrednisoloneRecommend tight blood glucose control. Continue to follow up with Ophthalmology.RX: Ezetimibe Heart healthy diet. Continue to follow up with PCP and Cardiology.Continue to follow up with [facility]. .RX: Sertraline, Trazodone Notify [...] modifier 95)Continue to see PCP. Follow-up with [facility] as needed for any acute or [...] talking meter as they came from a [employer].FALL CONTINGENCY PLANMember to call for the following [...] Chest pain / HR >100 Planned intervention: Settlement Clerk on proper BP monitoring technique and reassess/ Encourage low sodium diet/ Discuss breathing exercises/ Encourage medication adherenceAvoid nephrotoxic medications.Continue to follow up with PCP.RX: Brimonidine, Brinzolamide, Latanoprost, Lumigan, Methazolamide, PrednisoloneRecommend tight blood glucose control. Continue to follow up with Ophthalmology.RX: Ezetimibe Heart healthy diet. Continue to follow up with PCP and Cardiology.Continue to follow up with [facility]. .RX: Sertraline, Trazodone Notify [...] for phoneContinue to see PCP. [facility] or [...] talking meter as they came from a [employer].Updated 09.02.24FALL CONTINGENCY PLANMember to call for the [...] Chest pain / HR >100 Planned intervention: Settlement Clerk on proper BP monitoring technique and reassess/ Encourage low sodium diet/ Discuss breathing exercises/ Encourage medication adherenceAvoid nephrotoxic medications.Continue to follow up with PCP.RX: Brimonidine, Brinzolamide, Latanoprost, Lumigan, Methazolamide, PrednisoloneRecommend tight blood glucose control. Continue to follow up with Ophthalmology.RX: Ezetimibe Heart healthy diet. Continue to follow up with PCP and Cardiology.Continue to follow up with [facility]. .RX: Sertraline, Trazodone Notify [...] talking meter as they came from a [employer] company.Updated 10.03.24FALL CONTINGENCY PLANMember to call for [...] Chest pain / HR >100 Planned intervention: Settlement Clerk on proper BP monitoring technique and reassess/ Encourage low sodium diet/ Discuss breathing exercises/ Encourage medication adherenceAvoid nephrotoxic medications.Continue to follow up with PCP.RX: Brimonidine, Brinzolamide, Latanoprost, Lumigan, Methazolamide, PrednisoloneRecommend tight blood glucose control. Continue to follow up with Ophthalmology.RX: Ezetimibe Heart healthy diet. Continue to follow up with PCP and Cardiology.Continue to follow up with [facility]. .RX: Sertraline, Trazodone Notify [...] Scale (1125F)Continue to see PCP. Follow-up with [facility] as needed for any acute or disease education needs that may arise.RX: Insulin Toujeo CGM [id number]/01/24: eGFR 67; Creatinine 0.86 Hemoglobin A1C 7.4ADA dietFollows with endocrineUpdated 09.29.24FALL CONTINGENCY PLANMember to call for the following [...] Chest pain / HR >100 Planned intervention: Settlement Clerk on proper BP monitoring technique and reassess/ Encourage low sodium diet/ Discuss breathing exercises/ Encourage medication adherence DIABETES CONTINGENCY PLANMember to call for the following symptoms: Blood sugar <70 / Blood sugar >300 Planned intervention: Elevate legs/ Limit high-sugar and high-carbohydrate foods/ Go for a walk / consider lantus increaseAvoid nephrotoxic vizjvlwcyeb44/15/24: eGFR 67; Creatinine 0.86 Creat clearance 51 Continue to follow up with PCPRX: Brimonidine, Brinzolamide, Latanoprost, Lumigan, Methazolamide, PrednisolonePreviously recommend tight blood glucose control. Continue to follow up with Ophthalmology.RX: Ezetimibe Heart healthy diet. Continue to follow up with PCP and Cardiology.RX: Losartan Low NA diet BP 130/70Follow up pcps/p PPM. Continue to follow up with [facility]. .RX: Sertraline, Trazodone Phq2:2 [...] kidney disease, with long-term current use of eertqfyS77.XXXS, R42, M15.0, E11.22, N18.263, 145Hx falls Assistive devices to ambulate 2024-10-05 14:44:03 Estab. patient 10-29 min; 1 minor problem; add add modifier 95 for video, modifier 93 for phoneContinue to see PCP. Follow-up with [facility] as needed for any acute or disease education needs that may arise 09/03.RX: Insulin Toujeo [facility] [id number]/: eGFR 67; Creatinine 0.86 Hemoglobin A1C 7.4ADA dietFollows with endocrineUpdated 2.19.25FALL CONTINGENCY PLANMember to call for the following [...] Chest pain / HR >100 Planned intervention: Settlement Clerk on proper BP monitoring technique and reassess/ Encourage low sodium diet/ Discuss breathing exercises/ Encourage medication adherence DIABETES CONTINGENCY PLANMember to call for the following symptoms: Blood sugar <70 / Blood sugar >300 Planned intervention: Elevate legs/ Limit high-sugar and high-carbohydrate foods/ Go for a walk / consider lantus increaseAvoid nephrotoxic yllpedwjslh15/15/24: eGFR 67; Creatinine 0.86 Creat clearance 51 Continue to follow up with PCPRX: Brimonidine, Brinzolamide, Latanoprost, Lumigan, Methazolamide, PrednisolonePreviously recommend tight blood glucose control. Continue to follow up with Ophthalmology.RX: Ezetimibe Heart healthy diet. Continue to follow up with PCP and Cardiology.RX: Losartan Low NA diet BP 130/70Follow up pcps/p PPM. Continue to follow up with [facility]. .RX: Sertraline, Trazodone Phq2:2 [...] kidney disease, with long-term current use of ezidhxzH32.XXXS, R42, M15.0, E11.22, N18.263, 145Hx falls Assistive [...] for phoneContinue to see PCP. [facility] or [...] 30 minutes after eating.RX: Insulin Toujeo CGM [id number]/: eGFR 67; Creatinine 0.86 Hemoglobin A1C 7.4ADA dietFollows with endocrine11/11/24-freestyle micky 2 sensors refill sent to pharmacy per member request 2024-12-12 12:46:06 Estab. patient 10-29 min; 1 minor problem; add add modifier 95 for video, modifier 93 for phoneSBP 130-139 (3075F)DBP 80-89 (3079F)Continue to see PCP. [facility] or [...] and new PCP visit is not until 12/02/24.12/12/24-[facility] phone number: [phone] [facility] fax number: [phone] Date: 12/08/2024 Details of Order/Request: referral received, mbr is scheduled for apt 01/31/25. -I informed member of above information and sent her an SMS of same.-Additionally, Rx for chlorhexidine gluconate. Advised on use once a week in shower. Advised on importance of keeping skin clean, dry.RX: Insulin Toujeo CGM [id number]/: eGFR 67; Creatinine 0.86 Hemoglobin A1C 7.4ADA dietFollows with endocrine11/11/24-freestyle micky 2 sensors refill sent to pharmacy per member request12/12/24:-member reports body after rash every time she gets her insulin. States only happens with the insulin. She informed her PCP and enterprise application administrator. States enterprise application administrator prescribed her a cream which works, but [...] still persists despite that, follow up with enterprise application administrator. She verbalized understanding.RX: Brimonidine, Brinzolamide, Latanoprost, Lumigan, [...] Chest pain / HR >100 Planned intervention: Settlement Clerk on proper BP monitoring technique and reassess/ [...] and new PCP visit is not until 12/02/24.12/12/24-[facility] phone number: [phone] [facility] fax number: [phone] Date: 12/08/2024 Details of Order/Request: referral received, [...] to member and to her son for [facility] phone number: [phone]. Appt Date: 01/31/25. Member's son was advised to contact dermatology office to verify appt time.RX: Insulin Toujeo CGM [id number]/: eGFR 67; Creatinine 0.86 Hemoglobin A1C 7.4ADA dietFollows with endocrine11/11/24-freestyle micky 2 sensors refill sent to pharmacy per member request12/12/24:-member reports body after rash every time she gets her insulin. States only happens with the insulin. She informed her PCP and enterprise application administrator. [facility] enterprise application administrator prescribed her a cream which works, but [...] still persists despite that, follow up with enterprise application administrator. She verbalized understanding.01/11/25:-member still having reaction to toujeo per member with pinprick rash throughout body.-Stop toujeo 22 units nightly, start lantus 18 units nightly. Advised to contact enterprise application administrator promptly to discuss toujeo reaction and change [...] Ophthalmology.01/11/25:-per member, was referred to a low television production technician by her dynamite shooter (who does not specialize in this). [facility] she was advised to contact the [place] [employer] for names of specialists. However, after many attempts to the commission, she has not been able to get any information. [facility] task placed for additional assistance. 2025-01-25 06:40:51 Estab. patient 10-29 min; 1 minor problem; add add modifier 95 for video, modifier 93 for phoneContinue to see PCP. Follow-up with [facility] as needed for any acute or [...] and new PCP visit is not until 12/02/24.12/12/24-[facility] phone number: [phone] [facility] fax number: [phone] Date: 12/08/2024 Details of Order/Request: referral received, [...] to member and to her son for [facility] phone number: [phone]. Appt Date: 01/31/25. Member's son was advised to contact dermatology office to verify appt time. 01/25/25Member reminded of upcoming dermatology appt with [facility] phone number: [phone]. Appt Date: 01/31/25. Member's son sent SMS as a reminder and advised to to contact dermatology office to confirm appt date and time. 2025-02-27 16:51:54 Estab. patient 10-29 min; 1 minor problem; add add modifier 95 for video, modifier 93 for phoneMedication Review by prescribing provider or pharmacist documented (1160F)Continue to see PCP. Follow-up with [facility] as needed for any acute or disease education needs that may arise 09/03.RX: Insulin Toujeo CGM [id number]/: eGFR 67; Creatinine 0.86 Hemoglobin A1C 7.4ADA dietFollows with endocrine11/11/24-freestyle micky 2 sensors refill sent to pharmacy per member request12/12/24:-member reports body after rash every time she gets her insulin. States only happens with the insulin. She informed her PCP and enterprise application administrator. States enterprise application administrator prescribed her a cream which works, but [...] still persists despite that, follow up with enterprise application administrator. She verbalized understanding.01/11/25:-member still having reaction to toujeo per member with pinprick rash throughout body.-Stop toujeo 22 units nightly, start lantus 18 units nightly. Advised to contact enterprise application administrator promptly to discuss toujeo reaction and change [...] medication indicationAnswered all questions and med eprescribed. 2025-05-29 12:51:39 Pain at times to karolina k pain, knee pain, right shoulder pain diclofenac gel.TylenolCyclobenzaprineHeat/coldRX: Losartan Low NA diet BP 130/70Follow up pcpHYPERTENSION CONTINGENCY PLANMember to call for the following symptoms: BP >180/100 / Chest pain / HR >100 Planned intervention: Settlement Clerk on proper BP monitoring technique and reassess/ Encourage low sodium diet/ Discuss breathing exercises/ Encourage medication adherenceRX: Insulin Toujeo ADA dietFollows with endocrine 2025-06-15 13:17:16 Televideo 10-29min; 1 minor problem; add add modifier 95 for video, modifier 93 for phoneContinue to see PCP. Follow-up with [facility] as needed for any acute or disease education needs that may arise 09/03.Increase clear fluids and rest. Flonase as directed. Claritin daily. Tessalon perles as directed. Augmentin 875 mg BID X 7 days. Call CB if you develop fever, SOB, CP, or if the above does not alleviate symptoms in 5 days. 2025-06-20 10:18:10 Estab. patient 10-29 min; 1 minor problem; add add modifier 95 for video, modifier 93 for phoneContinue to see PCP. Follow-up with [facility] as needed for any acute or disease education needs that may arise 09/03.Requesting a BP cuff. Last on file BP was 135/70 as per [facility]. Advised to purchase OTC, since not routinely covered unless open HEDIS Gap or uncontrolled htn.RX: Losartan Low NA diet BP 130/70Follow up pcp Goals Date Goal 2022-05-26 Remember to keep all appointments with your PCP. 2022-05-26 Call if you have que stions or concerns before going to the ER. 2022-05-26 Discussed how to con tact [facility] via phone or tablet. 2023-05-13 Remember to [...] follow up care. Health Concerns Date Concern 2025-06-20 Patient/Guardian agr eed to visit via telehealth.Visit completed via:[ ] audio and video; [x] audio only 2025-06-20 Concerns for today's visit:Request for BP cuff. 2025-06-20 Most recent hospital stay or ER visit:05/24/24 for HBP and hyperglycemia 2025-06-20 Open HEDIS Measures: No open measures
--- OUTSIDE RECORDS SUMMARY | 2025-08-02 19:29 | XMS_ITS | Clinical Summary ---
Author Organization [facility] Prior to 01/14/25 Address [address] [place] [address] Care Team Providers Care Meter Reader Inspector Name Role Phone Trina Messina MD [...] age to complete this topic Care Teams Meter Reader Inspector Relationship Specialty Start Date End Date Trina Messina MD PCP - General Internal Medicine 09/15/19
--- OUTSIDE RECORDS SUMMARY | 2025-08-02 19:29 | XMS_ITS | Encounter Summary ---
Author Organization [facility] Address [address] [place] [address] Care Team Providers Care Training Assistant Name Role Phone Negin Wright MD Primary Care Provider [phone] Encounter Details Date Type Department Care Team (Late st Contact Info) Description 07/05/2025 Telephone Internal Medicine - [facility] [place], [place] [phone] Negin Wright MD [address] Social History Tobacco Use Types Packs/Day [...] for your loved ones. For example, child welfare caseworker or elderly care for an older adult? [...] as of this encounter Progress Notes * Ammy Ledbetter MA - 07/07/2025 3:27 PM EST Spoke with pt, pt will call insurance get information and call office back to let us know where shewould like to go. * Sanaz De La Cruz NP - 07/07/2025 2:30 PM EST Notify patient and have patient speak to the agency. Also, see what other agency takes her insurance and set up home care referral for mcc. * Evelia James MA - 07/05/2025 3:34 PM EST [facility] will longer be providing services. Patient lives in an unsafe neighborhood to be in after dark. Provider needs to find another agency. She's been seen daily for a few years and recently started kicking nurses out. * Matthew Anderson - 07/05/2025 3:23 PM EST [facility] CALL Which [facility] office is calling? [facility] Full name of caller: Paulo Stokes The caller is [facility] Is the caller at the patients home?: no Reason for call: Discontinuing service Does caller need an urgent call back? no Was CONTACT Telephone # obtained above?: yes Fax #: n/a [facility] will longer be providing services. Patient lives in an unsafe neighborhood to be in after dark. Provider needs to find another agency. She's been seen daily for a few years and recently started kicking nurses out. She's been non-compliant with diet and medication documented in this encounter Plan of Treatment Upcoming Encounters Date Type Department Care Team (Late st Contact Info) Description 08/15/2025 1:30 PM EST Ancillary Procedure [facility] - [address] [place] [address] 09/04/2025 1:15 PM EST [facility] [address] [place] [address] Sanaz Saucedo NP [address] [place] [address] 09/06/2025 1:30 PM EST Office Visit Internal Medicine - [facility] [address] [facility] [place] [address] Negin Wright MD [address] [place], [place] [address]thier[place] [address] 10/23/2025 4:00 PM EDT Ancillary Procedure [facility] - [address] [place] [address] documented as of this encounter Visit Diagnoses Not on filedocumented in this encounter Additional Health Concerns Assessment Noted Time PHQ-9 Depression Total Score: 0 07/04/20 2:55 PM EST documented as of this encounter Care Teams Training Assistant Relationship Specialty Start Date End Date Negin Wright MD [address] [place], [place] [address]thierry [place] PCP - General Internal Medicine 04/27/25 documented as of this encounter
--- OUTSIDE RECORDS SUMMARY | 2025-08-02 19:29 | XMS_ITS | Encounter Summary ---
[facility] Organization [facility] Address [address] [place] [address] Care Team Providers Care Paperhanger Supervisor Name Role Phone Negin Wright MD Primary Care Provider [phone] Reason for Referral * Home Health (Routine) - Canceled Specialty Diagnoses / Procedures Referred By Gisselle serrato Referred To Contact Home Health Services Diagnoses Encounter for counseling for care management of patient with chronic conditions and complex health needs using nurse-based model Negin Wright MD [address] [place] [address] Phone: tel: fax: Referral ID Status Reason Start Date Expiration Date V isits Requested Visits Authorized [id number] Canceled Consult and Treat 07/06/2025 07/06/2026 1 1 Reason for Visit * Reason Onset Date Comments information needed about vna services 07/06/2025 Encounter Details Date Type Department Care Team (Late st Contact Info) Description 07/06/2025 Telephone Internal Medicine - [facility] [address] [place], [place] [phone] Negin Wright MD [address] [place] [address] Social History Tobacco Use Types Packs/Day Years [...] ed Within the last 3 months, ho w many times did you visit the [...] care for your loved ones. For example, exceptional children teacher or elderly care for an older adult? [...] as of this encounter Progress Notes * Buffy Bartlett RN - 07/06/2025 10:58 AM EST Spoke with the patient she is upset the VNA discontinued her services. States she still needs VNA and would like a referral to another VNA * Evelia James MA - 07/06/2025 10:49 AM EST See yesterday's triage call * Dionne Jorgensen - 07/06/2025 10:36 AM EST Pt called today and stated that she was told her vna services will be discontinued. She would like to know why and says she still needs this please advise pt thank you documented in this encounter Plan of Treatment Upcoming Encounters Date Type Department Care Team (Late st Contact Info) Description 08/15/2025 1:30 PM EST Ancillary Procedure [facility] - [address] [place] [address] 09/04/2025 1:15 PM EST Office Visit Internal Medicine - [address] [address] Sanaz Saucedo NP [address] [place] [address] 09/06/2025 1:30 PM EST Office Visit [facility] Medicine - [facility] [place] [phone] Negin Wright MD [address] [facility] [place] 10/23/2025 4:00 PM EDT Ancillary Procedure [facility] - [facility] [address] [facility] 154 [place] [address] Scheduled Referrals Name Type Priority Associated Diagnoses Order Schedule Ambulatory referral to Home Health Outpatient Referral Routine Encounter for counseling for care management of patient with chronic conditions and complex health needs using nurse-based model 1 Occurrences starting 07/06/2025 until 07/06/2026 documented as of this encounter Visit Diagnoses Diagnosis Encounter for counseling for care management of patient with chronic conditions and complex health needs using nurse-based model- Primary Encounter for adjustment or management of cardiac device documented in this encounter Additional Health Concerns Assessment Noted Time PHQ-9 Depression Total Score: 0 07/04/20 2:55 PM EST documented as of this encounter Care Teams Paperhanger Supervisor Relationship Specialty Start Date End Date Negin Wright MD [address] [place], [place] [address] PCP - General Internal Medicine 04/27/25 documented as of this encounter
--- OUTSIDE RECORDS SUMMARY | 2025-08-02 19:29 | XMS_ITS | Encounter Summary ---
Author Organization [facility] Address [address] [place] [address] Care Team Providers Care Acid Maker Name Role Phone Negin Wright MD Primary Care Provider [phone] Reason for Visit * Reason Onset Date Comments VNA 07/06/2025 Encounter Details Date Type Department Care Team (Late st Contact Info) Description 07/06/2025 Telephone Internal Medicine - [facility] [address] [place], [place] [phone] Negin Wright MD [address] [place], [place] Social History Tobacco Use Types Packs/Day [...] as of this encounter Progress Notes * Matthew Anderson - 07/06/2025 3:10 PM EST [facility] tried to do a last visit with the patient today, patient refused. She has officially been discharged from services documented in this encounter Plan of Treatment Upcoming Encounters Date Type Department Care Team (Late st Contact Info) Description 08/15/2025 1:30 PM EST Ancillary Procedure [facility] Cardiology [facility] - [facility] [address] [place] [address] 09/04/2025 1:15 PM EST Office Visit Internal Medicine - [address] [phone] Sanaz Saucedo NP [address] [place] [address] 09/06/2025 1:30 PM EST Office Visit Internal Medicine - [address] [phone] Negin Wright MD [address] [place] [address] 10/23/2025 4:00 PM EDT Ancillary Procedure [facility] [address] [facility] 154 [place] [address] documented as of this encounter Visit Diagnoses Not on filedocumented in this encounter Additional Health Concerns Assessment Noted Time PHQ-9 Depression Total Score: 0 07/04/20 2:55 PM EST documented as of this encounter Care Teams Acid Maker Relationship Specialty Start Date End Date Negin Wright MD [address] [place] [address] PCP - General Internal Medicine 04/27/25 documented as of this encounter
--- OUTSIDE RECORDS SUMMARY | 2025-08-02 19:29 | XMS_ITS | Encounter Summary ---
[facility] Address [address] [place] [address] Care Team Providers Care Crane Hooker Name Role Phone Negin Wright MD Primary Care Provider [phone] Reason for Referral * Home Health (Routine) - Pending Review Specialty Diagnoses / Procedures Referred By Gisselle serrato Referred To Contact Home Health Services Diagnoses Osteoarthritis of multiple joints, unspecified osteoarthritis type Chronic bilateral low back pain without sciatica Gait disorder Negin Wright MD [address] [place] [address] Phone: tel: fax: Referral ID Status Reason Start Date Expiration Date Visits Requested Visits Authorized [id number] Pending Review Consult and Treat 07/26/2026 1 1 Reason for Visit * Reason Onset Date Comments Advice Only 07/26/2025 Patient wants to know why VNA isn't going to her home anymore and what she needs to do to get services back? Encounter Details Date Type Department Care Team (Late Contact Info) Description 07/26/2025 Telephone Internal Medicine - [facility] [address] [place] [address] Negin Wright MD [address] [place] [address] Social History Tobacco Use Types Packs/Day Years [...] for your loved ones. For example, child daycare worker or elderly care for an older adult? [...] Notes * Rubina Cruz MA - 07/28/2025 2:47 PM EST Noted , sent last office notes , referral letter to [facility] In take [phone] . KA * Rubina Cruz MA - 07/27/2025 8:28 AM EST Noted. Lmtcb on voice mail , please transfer call to ext : [phone] thanks. KA * Negin Wright MD - 07/26/2025 11:21 PM EST Ref placed * Ammy Ledbetter MA - 07/26/2025 4:52 PM EST Spoke with pt, per pt Vna services had her sign her self out as the Nurse vicky refused to work in her area as it dangers, pt would like Vna services again * Karen Castanon - 07/26/2025 3:17 PM EST Patient and her son are calling in to inquire what is going on with her VNA services. States she hasn't seen a nurse in about 3 weeks. She is in a lot of pain and needs to know what is going on. Would like to be called at [phone] documented in this encounter Plan of Treatment Upcoming Encounters Date Type Department Care Team (Late st Contact Info) Description 08/15/2025 1:30 PM EST Ancillary Procedure [facility] [address] [facility] [address] [place] [address] 09/04/2025 1:15 PM EST Office Visit Internal Medicine - [address] [phone] Sanaz Sacuedo NP [address] [place] [address] 09/06/2025 1:30 PM EST Office Visit Internal Medicine - [address] [phone] Negin Wright MD [address] [place] [address] 10/23/2025 4:00 PM EDT Ancillary Procedure [facility] - [facility] [address] 300 [facility] 154 [place] [address] Scheduled Referrals Name Type Priority Associated Diagnoses Orde r Schedule Ambulatory referral to Home Health Outpatient Referral Routine Osteoarthritis of multiple joints, unspecified osteoarthritis type Chronic bilateral low back pain without sciatica Gait disorder 1 Occurrences starting 07/26/2025 until 07/26/2026 documented as of this encounter Visit Diagnoses Diagnosis Osteoarthritis of multiple joints, unspecified osteoarthritis type- Primary Chronic bilateral low back pain without sciatica Gait disorder Abnormality of gait Encounter for adjustment or management of cardiac device documented in this encounter Additional Health Concerns Assessment Noted Time PHQ-9 Depression Total Score: 0 07/04/20 25 2:55 PM EST documented as of this encounter Care Teams Crane Hooker Relationship Specialty Start Date End Date Negin Wright MD [address] [place] [address] PCP - General Internal Medicine 04/27/25 documented as of this encounter
--- OUTSIDE RECORDS SUMMARY | 2025-08-02 19:29 | XMS_ITS | Patient Health Record ---
Author Organization [facility] Address [address] [place] [address] Care Team Providers Care Plugger Name Role Phone Sixto Mckeon MD Primary Care Provider Oni Sargent Unavailable [phone] Allergies Allergen (clinical drug ingredient) Drug/Non Drug [...] Insured Coverage Start Date Coverage End Date [facility] Medicare Complete [address] [address] [place] [address] [id number] Shruti Mojica Self - patient is the insured Medical (General) History Medical History History ICD Code Arthritis Back,Hip,and Knee pain Cholesterol type II diabetes Glaucoma Heart disease High blood pressure keloids Stroke Vascular phlebitis (clots) Measles Mumps Chicken pox Surgical History Surgery Date(Month/Year) CATARACTS GALLBLADDER PACEMAKER/STINTS
--- OUTSIDE RECORDS SUMMARY | 2025-08-02 19:29 | XMS_ITS | Data Portability ---
Author Organization [place] [facility] Address [address] [facility] [address] [place] [address] Care Team Providers Care Non Licensed Nuclear Equipment Operator Name Role Phone [facility] Primary Care Provider Assessment Encounter Date Assessment [...] specimen 2020 021 [facility] - Home, [address] [place], [address], 17:56:58 SARS CoV 2 RNA (COVID-19), QL, plastics bench mechanic-PCR, respiratory specimen 2020 021 [employer] (Centralized Electronic Ordering - All Locations), Patient Can Go To The Location Of Their Choice, [address] 11:00:08 SARS CoV 2 RNA (COVID-19), QL, plastics bench mechanic-PCR, respiratory specimen 2020 021 [employer] (Centralized Electronic Ordering - All Locations), Patient Can Go To The Location Of Their Choice, [address] 11:00:08 Referral None recorded. Procedures None recorded. Surgeries None recorded. Imaging None recorded. Medication Orders None recorded. Patient TargetsNo targets recorded. Patient Instructions Encounter Date Encounter Id Patient Instructions Last Modified By Organization Details Last Modified Time 12/09/2020 [id number] coronavirus (covid-19): care instructions Not available 12/09/2020 17:49:28 Reason for Referral None Reported. Results Created Date Observation Date Name Description Value Unit Range Abnormal Flag Note LastModifiedBy Organization Detail LastModifiedTime 12/10/19 21 12/09/2020 rapid SARS CoV + SARS CoV 2 Ag, QL [place], respi rator y speci men Covid-19 positi ve Not Available [facility] - Home [address] [place], [address], 12/09/2020 17:55:57 12/10/19 21 12/09/2020 rapid SARS CoV + SARS CoV 2 Ag, QL [place], respi rator y speci men Control Visual ized/V alid Not Available [facility] - Home [address] [place], [address], 12/09/2020 17:55:57 Result Notes None recorded. Procedures Surgical History Date Name Laterality Status Provider Name and Address Organization Details Recorded Time Unlisted px ant segment eye completed Tiara Mello NP [address] [place], [address], [place] [facility] 12/09/2020 17:13:25 Xcapsl ctrc rmvl cplx wo ecp completed Tiara Mello NP [address] [place], [address], [place] [facility] 12/09/2020 17:13:36 placement of stent in pulmonary artery completed Tiara Mello NP [address] [place], [address], [place] [facility] 12/09/2020 17:13:45 cardiac pacemaker procedure completed Tiara Mello NP [address] [place], [address], [place] [facility] 12/09/2020 17:13:57 cholecystectomy completed Tiara Mello NP [address] [place], [address], [place] [facility] 12/09/2020 17:14:05 discectomy of spine completed Tiara Mello NP [address] [place], [address], [place] [facility] 12/09/2020 17:14:17 Imaging Results [...] Recorded Body temperature Respiratory rate Oxygen saturation Heart rate Systolic And Diastolic Provider Name and Address Organization Details Last Updated DateTime 97.9 [degF] 14 /min 98 % 60 /min 120/66 mm[Hg] Not Available [facility] 17:10:38 Social History Question Answer Notes LastModified by Organizat ion Details LastModified Time Tobacco Smoking Status Never Smoker Tiara Mello, DERRICK [address] [place], [address], [place] [facility] 12/09/2020 17:12:17 Do You [...] Visiting Friends Or Family Or Going To Worship Or Club Meetings) 1 Or 2 Times [...] Response Diabetes Y Coronary Artery Disease Y Cancer N Stroke Y Asthma N COPD N Depression N High Cholesterol Y Pulmonary Embolism N Hypertension Y Kidney Disease N Gynecological HistoryNo gynecological history recorded. Obstetrics History GPAL:G 0 P 0 0 0 0 Past Encounters Encounter ID Performer Location Encounter Start Date Encounter Closed Date Diagnosis/Indication Diagnosis SNOMED-CT Code Diagnosis ICD10 Code Diagnosis IMO Codes Diagnosis Note [id number] Tiara Mello NP [facility] [address] [facility] [place] [address] 12/09/2020 17:04:51 12/09/2020 18:10:44 Suspected COVID-19 712779554 Z03.89 and . Exposure t o communicable disease 176225056 Z20.822 Overview/H istory: Patient is an 79 [...] 911. Proper Personal Protective Equipment (PPE), including gloves, eye protection , N95 mask, gown, and shoe covers were donned and doffed appropriat rachana and all equipment cleaned using approved technique with germicidal disposable wipes prior to and after care of this patient according to [facility]'s infection prevention protocols. In order to obtain further informatio n and compare any laboratory results/va lues, I have accessed old patient records. This informatio n was pertinent in my medical decision making today. Health Concerns Section Related Observation LastModified by Organization Detai ls LastModified Time None Recorded Concern Status LastModified by Organization Details LastModified Time None Recorded Advance Directives Directive N: Payers Insurance Date Sequence Insurance Name Policy Number Policy Raza Covered Member ID Raza Member ID Guarantor Name 12/09/2020 1 *SELF PAY* Shruti Mojica [id number] Shruti Mojica 12/09/2020 1 [facility] (MEDICARE REPLACEMENT/A DVANTAGE - HMO) Shruti Mojica [id number] Shruti Mojica Notes Date Note Type Note Provider Name and Address Organization Details Recorded Time 12/09/2020 text/html COVID-19 Symptom s December 2019Reported by Patient Patient is an alert 79 year old [...] placement, diabetes, hyperlipidemia, HTN, multiple TIA's. Tiara Mello, DERRICK [address] [place], [place] [address]susan, [place], [address], [place] [facility] 12/09/2020 18:02:11 OBGyn Episode No OBEpisode recorded.
--- OUTSIDE RECORDS SUMMARY | 2025-08-02 19:30 | XMS_ITS | Encounter Summary ---
Author Organization [facility] Address [address] [place] [address] Care Team Providers Care Court Reporter Name Role Phone Negin Wright MD Primary Care Provider [phone] Reason for Visit * Reason Onset Date Comments Request For Order(s) 08/02/2025 [facility] Encounter Details Date Type Department Care Team (Late st Contact Info) Description 08/02/2025 Telephone Internal [facility] [place] [place] [phone] Negin Wright MD [address] [place], [place] Social History Tobacco Use Types Packs/Day [...] do you feel lonely or isolated from ose around you? Never 01/11/2025 Food Risk [...] for your loved ones. For example, child and adolescent psychologist or elderly care for an older adult? [...] as of this encounter Progress Notes * CarlosRafaTamara Lyons - 08/02/2025 2:11 PM EST Faxed order received from [facility]. Orders placed in Negin rWight MD bin for signing,please fax to [phone]. documented in this encounter Plan of Treatment Upcoming Encounters Date Type Department Care Team (Late st Contact Info) Description 08/15/2025 1:30 PM EST Ancillary Procedure [facility] - [facility] [address] [facility] [address] [place] [address] 09/04/2025 1:15 PM EST [facility] [address] [place] [address] Sanaz Saucedo NP [address] [place], [place] 09/06/2025 1:30 PM EST Office Visit Internal Medicine - [address] [phone] Negin Wright MD [address] [place] [address] 10/23/2025 4:00 PM EDT Ancillary Procedure [facility] - [facility] [address] [facility] [address] [place] [address] documented as of this encounter Visit Diagnoses Not on filedocumented in this encounter Additional Health Concerns Assessment Noted Time PHQ-9 Depression Total Score: 0 07/04/20 2:55 PM EST documented as of this encounter Care Teams Court Reporter Relationship Specialty Start Date End Date Negin Wright MD [address] [place] [address] PCP - General Internal Medicine 04/27/25 documented as of this encounter
--- OUTSIDE RECORDS SUMMARY | 2025-08-02 19:30 | XMS_ITS | Encounter Summary ---
[facility] Organization [facility] Address [address] [place] [address] Care Team Providers Care Concrete Stone Fabricator Name Role Phone Negin Wright MD Primary Care Provider [phone] Reason for Visit * Reason Onset Date Comments Request For Order(s) 06/30/2025 [facility]-Missed Visit Encounter Details Date Type Department Care Team (Late st Contact Info) Description 06/30/2025 Telephone Internal Medicine - [facility] [place] [place] [phone] Negin Wright MD [address] [place], [place] Social History Tobacco Use Types Packs/Day [...] for your loved ones. For example, child support specialist or elderly care for an older adult? [...] as of this encounter Progress Notes * Alta Weir - 06/30/2025 9:24 AM EST Placed order in Negin Wright MD Please sign and fax back to [phone] documented in this encounter Plan of Treatment Upcoming Encounters Date Type Department Care Team (Late st Contact Info) Description 08/15/2025 1:30 PM EST Ancillary Procedure [facility] - [address] [facility] [address] [place] [address] 09/04/2025 1:15 PM EST Office [facility] [address] [place] [address] Sanaz Saucedo NP [address] [place] [address] 09/06/2025 1:30 PM EST [facility] [address] [place] [address] Negin Wright MD [address] [place] [address] 10/23/2025 4:00 PM EDT Ancillary Procedure [facility] Cardiology [facility] - [facility] [address] [facility] [address] [place] [address] documented as of this encounter Visit Diagnoses Not on filedocumented in this encounter Additional Health Concerns Assessment Noted Time PHQ-9 Depression Total Score: 0 01/12/20 1:20 PM EDT documented as of this encounter Care Teams Concrete Stone Fabricator Relationship Specialty Start Date End Date Negin Wright MD [address] [place] [address] PCP - General Internal Medicine 04/27/25 documented as of this encounter
--- OUTSIDE RECORDS SUMMARY | 2025-08-02 19:30 | XMS_ITS | Clinical Summary ---
Author Organization [address] Address [address] [place] [address] Care Team Providers Care College Football Coach Name Role Phone Trina Messina MD Primary [...] to be due to eye disease Old DE (myocardial infarction) 09/19/2018 Overview (09/19/2018): Overview: Inferior [...] this topic Medical Devices Implanted Type Area Resource Technician Device Identifier Shelf Expiration Date Model / Serial / Lot Pacemaker [employer] Insurance [facility] MGD [facility] M[facility] MGD Care Teams College Football Coach Relationship Specialty Start Date End Date Trina Messina MD PCP - General Internal Medicine 10/14/18
--- OUTSIDE RECORDS SUMMARY | 2025-08-02 19:30 | XMS_ITS | Encounter Summary ---
Author Organization [facility] Address [address] [address] Phone Care Team Providers Care Mobile Disc Jockey Name Role Phone Trina Messina MD Primary Care Pr ovider Ty Mcduffie MD Unavailable [phone] Encounter Details Date Type Department Care Team (Late Contact Info) Description 12/15/2022 Procedure [facility] [address] [place], [place] [id number] Social History Tobacco Use Types Packs/Day Years [...] Department Care Team (Late Contact Info) Description 09/19/2025 1:10 PM EST Office Visit [facility] [address] [address] Sammie Weaver MD [address] [place] [address] [email or web address] documented as of this encounter Visit Diagnoses Not on filedocumented in this encounter Care Teams Mobile Disc Jockey Relationship Specialty Start Date End Date Trina Messina MD [address] [place] [address] PCP - General Internal Medicine 06/23/16 Ty Mcduffie MD [address] [place] [address] [place] [address] Cardiology 03/03/22 documented as of this encounter Additional Source Comments The information contained in this document represents components of the legal health record. It is not the complete legal health record.[facility]
--- OUTSIDE RECORDS SUMMARY | 2025-08-02 19:30 | XMS_ITS | Clinical Summary ---
Author Organization [facility] [address] [facility] lding Address [address] [place] [address] Phone Care Team Providers Care Horse Breaker Name Role Phone Negni Wright MD Primary Care Provider [phone] Allergies Active Allergy Reactions Criticality Noted Date Comments Atorvastatin Other,Unknown 08/18/2008 Some elevation in liver enzymes Beta-Blockers (Beta-Adrenergic Blocking Agts) Other 08/18/2008 Bradycardia in 20s Pt cant rememeber Chlorpheniramine 11/15/2018 Pt denies Dextromethorphan 11/15/2018 Pt denies Diphenhydramine-Acetaminophen 2014 Pt denies Guaifenesin 11/15/2018 Pt denies Phenylephrine 07/08/2016 Pt unsure Phenylpropanolamine 11/15/2018 Pt denies Rosuvastatin Unknown 11/15/2018 Sulfa (Sulfonamide Antibiotics) 07/08/2016 Pt cant remember reaction Medications ascorbic acid (VITAMIN C) 500 mg tablet Take 1 tablet (500 mg total) by mouth 1 (one) time each day. 04/12/20 24 Active cholecalciferol (VITAMIN D-3) 25 mcg (1,000 unit) tablet Take 1 tablet (1,000 Units total) by mouth 1 (one) time each day. 02/19/20 24 Active clonazePAM (KlonoPIN) 0.5 mg tablet Take 1 tablet (0.5 mg total) by mouth 2 times daily. Active flash glucose sensor (FreeStyle Micky 2 Sensor) kit APPLY TO BACK OF arm AND CHANGE sensors EVERY 14 DAYS Active flash glucose sensor (FREESTYLE MICKY 2 SENSOR [facility]) USE DIRECTED 06/10/20 24 Active bimatoprost (LATISSE) 0.03 % ophthalmic solution Place into both eyes at bedtime. Apply one drop to applicator and apply to the upper eyelid at night. Active brimonidine (ALPHAGAN P) 0.1 % ophthalmic solution Administer 1 drop into both eyes 2 (two) times a day. Active MULTIVITAMIN ORAL Take by mouth. Activ e UNABLE TO FIND Take 1 capsule by mouth 1 (one) time each day. Vitamin E Water Soluble 450 MG (1000 UT) Cap 08/14/20 23 Active Lactobacillus acidophilus 100 mg [...] NEEDED FOR MUSCLE SPASM 45 tablet 5 01/18/20 25 Active traZODone (DESYREL) 100 mg tabletIndicatio ns:Anxiety disorder, unspecified TAKE ONE TABLET BY MOUTH DAILY AT BEDTIME 90 tablet 1 03/22/20 25 Active nitroglycerin (NITROSTAT) 0.[address] 1 tablet (0.4 mg total) under the tongue every 5 (five) minutes if needed for chest pain. May repeat dose every 5 minutes for up to 3 doses total. 100 tablet 05/03/20 026 Active isosorbide mononitrate (IMDUR) 30 mg 24 hr tablet Take 1 tablet (30 mg total) by mouth 1 (one) time each day. Do not crush or chew. 30 each 05/03/20 026 Active evolocumab (Repatha SureClick) 140 mg/mL pen injector injectionIndica tions:Pacemaker reprogramming/c heck,Atrial flutter, unspecified type ([facility] V24, [facility] V28),Coronary artery disease involving [place] coronary artery of [place] heart with angina pectoris ([facility] V24),Hyperchole sterolemia Inject 1 mL (140 mg total) under the skin every 14 (fourteen) days. 2 mL 6 05/29/20 25 Active losartan (COZAAR) 100 mg tabletIndicatio ns:Type 2 diabetes mellitus with diabetic cataract ([facility] V24, [facility] V28) TAKE 1 TABLET BY MOUTH ONCE DAILY 90 tablet 1 06/01/20 25 Active ezetimibe (ZETIA) 10 mg tablet TAKE 1 TABLET BY MOUTH ONCE DAILY 90 tablet 1 06/01/20 25 Active diclofenac (VOLTAREN) 1 % topical gel Apply 4 g topically 4 (four) times a day. 05/29/20 25 Active docusate sodium (COLACE) 100 mg capsule Take 1 capsule (100 mg total) by mouth 2 (two) times a day. Active insulin glargine U-300 conc (Toujeo Max U-300 SoloStar) 300 unit/mL (3 mL) CONCENTRATED injection pen Inject 25 Units under the skin at bedtime. Active brinzolamide (AZOPT) 1 % ophthalmic suspension Administer 1 drop into both eyes 2 (two) times a day. Active omeprazole (PriLOSEC) [address] capsule Take 1 capsule (40 mg total) by mouth 1 (one) time each day. Do not crush or chew. Active sertraline (ZOLOFT) 50 mg tablet Take 1 tablet (50 mg total) by mouth at bedtime. Active pen needle, diabetic 32 gauge x 5/32 needle by abdominal subcutaneous route 2 (two) times a day. 180 each 3 07/04/20 25 Active aspirin 81 mg chewable tablet Chew 1 tablet (81 mg total) 1 (one) time each day. 90 each 3 07/04/20 25 Active polyethylene glycol (MIRALAX) 17 gram packet Take 17 g by mouth 1 (one) time each day. 1530 g 3 07/04/20 25 026 Active aspirin 81 mg chewable tablet 1 tablet (81 mg total) 1 (one) time each day at the same time. 025 Discontinu ed(Reorder ) cyanocobalamin, vitamin B-12, 1,000 mcg capsule Take by mouth. Discontinu ed(Prescri luz marina Discontinu ed) coenzyme Q-10 100 mg capsule Take 1 capsule (100 mg total) by mouth daily. Discontinu ed(Prescri luz marina Discontinu ed) meclizine (ANTIVERT) 12.5 mg tablet Take 1 tablet (12.5 mg total) by mouth 3 (three) times a day if needed for dizziness. 30 tablet 11 07/01/20 24 insulin glargine (LANTUS) 100 unit/mL injection Inject 20 unit subcutaneously once a day at bedtime Discontinu ed(Formula ry change) pen needle, diabetic 32 gauge x 32 needle USE FOR injecting lantus AND lispro 4 (FOUR) TIMES DAILY 12/16/19 24 Discontinu ed(Reorder ) dorzolamide (TRUSOPT) 2 % ophthalmic solution 2 Drops 3 times daily. Discontinu ed(Discont inued by another clinician) methazolAMIDE (NEPTAZANE) 25 mg tablet Take 1 tablet (25 mg total) by mouth 2 (two) times a day. 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 She voiced understanding and agreed. Coronary artery disease invo lving [place] coronary artery of [place] heart with angina pectoris 12/15/2022 History of 2019 novel coronavirus disease (COVID -19) 04/18/2022 Insomnia 02/11/2021 COVID-19 virus infection 12/21/2020 Cervical spondylosis 07/17/2019 CKD (chronic kidney disease) stage 3, GFR 30-59 ml/min 06/17/2019 Sliding hiatal hernia 04/01/2019 Obstructive sleep apnea 11/10/2018 Overview (07/01/2024): [facility] Polysomnogram: Date 11/09/2018; Wt 158# SE 49%; SM 52%; REM 0%; RDI 26 (AHI 6), Central apneas 0; Obstructive apneas 0; Mixed apneas 0; hypopneas 28; RERAs 87; average oxygen saturation 95% (lowest 92% - without saturations <88% for 5% or more of study); PLMs 6.Pre-study ESS 12. 3/4 RLS symptoms. Nuclear Stress Test 05/17/2018 EF 76% [facility] Polysomnogram treatment study. Date 04/03/2019. Wt 158#; [...] sleep related hypoventilation by 2019 polysomnogram. [place] (myocardial infarction) 09/19/2018 Overview (07/01/2024): Inferior wall [...] patient is legally blind HTN (hypertension) 07/06/2008 Hypercholesterolemia 07/06/2008 Encounters Date Type Department Care Team Description 08/02/2025 Telephone [facility] [address] [place] [phone] Negin Wright MD 07/31/2025 Telephone [facility] Medicine - [address] [address] [place] [phone] Negin Wright MD 07/31/2025 Telephone [facility] - [facility] [address] [place] [phone] Negin Wright MD 07/28/2025 Telephone Internal Medicine - [place] [address] [facility], [place] [phone] Negin Wright MD 07/28/2025 Telephone Internal Medicine - [place] [address] [facility], [place] [phone] Negin Wright MD 07/28/2025 Telephone Internal Medicine - [facility] [address] [place], [place] [phone] Negin Wright MD 07/26/2025 Telephone [facility] Medicine - [facility] [address] [facility], [place] [phone] Negin Wright MD 07/19/2025 Telephone Internal Medicine - [facility] [address] [place], [place] [phone] Negin Wright MD 07/19/2025 Telephone [facility] - [facility] [address] [place], [place] [phone] Negin Wright MD 07/06/2025 Telephone [facility] Medicine - [place] [address] [facility], [place] [phone] Negin Wright MD 07/06/2025 Telephone [facility] Medicine - [facility] [address] [place], [place] [phone] Negin Wright MD 07/06/2025 Telephone [facility] Medicine - [facility] [address] [place], [place] [phone] Negin Wright MD 07/05/2025 Telephone [facility] Medicine - [facility] [address] [place], [place] [phone] Negin Wright MD 07/05/2025 Telephone Internal Medicine - [place] [address] [facility], [place] [phone] Negin Wright MD 07/04/2025 3:00 PM EST [facility] [address] [facility] [place] [phone] Sanaz Saucedo, CAUSTIC ROOM OPERATOR Osteoarthritis of multiple joints, unspecified osteoarthritis type (Primary Dx); Chronic pain of left knee; Chronic bilateral low back pain without sciatica; Constipation, unspecified constipation type 06/30/2025 [facility] [address] [place], [place] [address] [phone] Negin Wright MD 06/23/2025 [facility] [place] [place], [place] [address], [place] [phone] Negin Wright MD 06/22/2025 [facility] [place] [address] [facility] [place] [phone] Negin Wright MD 06/19/2025 [facility] [place] [facility] [place] [phone] Negin Wright MD 06/15/2025 [facility] [place] [address] [facility] [place] [phone] Negin Wright MD 06/15/2025 Telephone [facility] - [facility] [address] [place], [place] [address], [place] [phone] Negin Wright MD 06/13/2025 Telephone [facility] [place] [address] [facility] [place] [phone] Negin Wright MD 06/12/2025 Telephone [facility] [place] [address] [facility] [place] [phone] Negin Wright MD 06/08/2025 [facility]phone [facility] [place] [address] [facility] [place] [phone] Negin Wright MD 06/07/2025 Telephone [facility] - [place] [address] [place] [phone] Negin Wright MD 06/01/2025 Telephone Internal Medicine - [facility] [address] [place], [place] [phone] Negin Wright MD 06/01/[address] [facility] - [address] [place] [phone] Abelardo Singer NP 05/30/2025 Telephone Internal Medicine - [place] [address] [place], [place] [phone] Negin Wright MD 05/30/2025 Telephone [facility] - [address] [place] [address] Rc Patrick MD 05/30/2025 Telephone Internal Medicine - [address] [place], [place] [phone] Negin Wright MD 05/26/2025 9:15 AM EDT Ancillary Procedure [facility] - [address] [place] [address] 05/26/2025 Telephone Internal Medicine - [facility] [address] [place], [place] [phone] Negin Wright MD 05/26/2025 Results Follow-Up Internal Medicine - [facility] [address] [place], [place] [phone] Sanaz Saucedo NP 05/25/2025 2:45 PM EDT Office Visit Internal Medicine - [facility] [address] [place] [phone] Sanaz Saucedo NP Elevated blood sugar level (Primary Dx); Complex care coordination; Medication dose missed; Medication management 05/24/2025 5:01 AM EDT - 05/24/2025 5:12 PM EDT Emergency [place] [facility] Emergency [address] [place] [address] KokkinosJackie MD Fainsod, Joshua, MD Hypertension, unspecified type (Primary Dx); Hyperglycemia Discharge Disposition: Home or Self Care 05/03/2025 1:30 PM EDT Office Visit [facility] - [address] [place] [address] Rc Patrick MD Atrial flutter, unspecified type ([facility] V24, [facility] V28) (Primary Dx); Pacemaker reprogramming/check; Coronary artery disease involving [place] coronary artery of [place] heart with angina pectoris ([facility] V24); Hypercholesterolemia 05/03/2025 Telephone [facility] - [address] [place] [address] Rc Patrick MD from Last 3 Months Immunizations Immunization Administration Dates Next Due PPD Test 08/15/2016,08/13/2016 Pneumococcal polysaccharide 23 valent (Pneumovax 23) 2yo and older 07/03/2017 Surgical History Surgery Date Site/Laterality Comments PARTIAL HYSTERECTOMY PROCEDURE: GA SUPRACERVICAL ABDL HYSTER W/WO RMVL TUBE OVARY CATARACT EXTRACTION ', , ', ' PROCEDURE: HISTORICAL CATARACT REMOVAL CARDIAC CATHETERIZATION 2006 PROCEDURE: HISTORICAL CARDIAC CATH; COMMENT: 2 stents PACEMAKER IMPLANT 2008 PROCEDURE: HISTORICAL PACEMAKER EYE SURGERY [id number] PROCEDURE: HISTORICAL EYE SURGERY; COMMENT: 4 surgeries for glaucoma OTHER SURGICAL HISTORY 03/09/2020 PROCEDURE: HISTORY OTHER; COMMENT: Spinal surgery, Dr. Berkowitz LUMBAR LAMINECTOMY PROCEDURE: HISTORICAL LUMB LAMINECTOMY Medical History Medical History Date Comments Cataract DX:Cataract NSTEMI (non-ST elevation prasanna cardial infarction) ([facility] V24, [facility] V28) DX:NSTEMI (non- ST elevation myocardial infarction) ([facility]) Diabetes mellitus type 2, uncomplicated ([facility] V24, [facility] V28) 05/07/2016 DX:Diabetes mellitus type 2, uncomplicated ([facility]) GERD (gastroesophageal reflux disease) 05/07/2016 DX:GERD (gastroesophageal reflux disease) Fibromyalgia 05/07/2016 DX:Fibromyalgia Depression 05/07/2016 DX:Depression Anxiety 05/07/2016 DX:Anxiety Type 2 diabetes mellitus wit h cataract ([facility] V24, [facility] V28) 05/07/2016 DX: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) Cervical spondylosis 07/17/2019 DX:Cervical spondylosis Insomnia 02/11/2021 [...] HTN Diabetes Son 2 from diabe kyaw Cancer Son 3 Hypertension Son 4 Relation Name [...] for your loved ones. For example, child care worker or elderly care for an older [...] Sign Reading Time Taken Comments Blood Pressure 128/72 07/04/2025 3:37 PM EST Pulse 61 07/04/2025 2:55 PM EST auto cuff Temperature 36.1 C (96.9 F) 07/04/2025 2:55 PM EST Respiratory Rate 18 05/24/2025 4:09 PM EDT Oxygen Saturation 100% 05/24/2025 4:09 PM EDT Inhaled Oxygen Concentration - - Weight 69.8 kg (153 lb 14.4 oz) 07/04/2025 2:55 PM EST Height 160 cm (5' 3 ) 05/24/2025 5:16 AM EDT Body Mass Index 27.26 05/24/2025 5:16 AM EDT Plan of Treatment Upcoming Encounters Date Type Department Care Team (Late st Contact Info) Description 08/15/2025 1:30 PM EST Ancillary Procedure [facility] [address] [facility] [address] [place] [address] 09/04/2025 1:15 PM EST Office Visit Internal Medicine - [address] [phone] Sanaz Saucedo NP [address] [place] [phone] 09/06/2025 1:30 PM EST Office Visit Internal Medicine - [address] [phone] Negin Wright MD [address] [place] [phone] 10/23/2025 4:00 PM EDT Ancillary Procedure [facility] - [facility] [address] [facility] [address] [place] [phone] Health Maintenance Due Date Last Done Comments Drug Screen 1940 Non-Opioid Controlled Substance Agreement 1940 COVID-19 Vaccine (#1) 12/12/1944 Diabetes: Annual Foot Exam 12/12/1949 Zoster Vaccines (1 of 2) 12/12/1958 DTaP,Tdap,and Td Vaccines (2 - Td or Tdap) 04/24/2014 04/24/2004 RSV Immunization Adult Patients (1 - 1-dose 75+ series) 12/12/2014 Pneumococcal Vaccine: 50+ Years (2 of 2 - PCV) 07/03/2018 07/03/2017 Osteoporosis Screening (Bone Density Screening) 07/26/2022 Diabetes: Annual Urine Albumin-Creatinine Ratio (uACR) 01/01/2024 12/31/2022 Diabetes: Annual Retina Eye Exam 03/22/2025 03/22/2024 Influenza Vaccine (#1) 2025 08/29/2013, 2006 Diabetes: Blood Sugar Control Test (HGBA1C) 10/08/2025 04/07/2025, 07/01/2024 Falls Risk Assessment 01/11/2026 01/11/2025 Medicare Annual Wellness Visit 01/11/2026 01/11/2025 Social Influencers of Health Screening 01/11/2026 01/11/2025 Diabetes: Annual GFR (Glomerular Filtration Rate) 05/25/2026 05/25/2025, 05/24/2025, 04/07/2025, Additional history exists Hypertension/CHF/CAD Annual BMP Blood Test 05/25/2026 05/25/2025, 05/24/2025, 04/07/2025, Additional history exists Cholesterol Screening (Lipid Panel) 04/07/2030 04/07/2025, 10/21/2022 Depression Screening Completed 07/04/2025 HIB Vaccines Aged Out No longer eligi [...] age to complete this topic Meningococcal B Vaccine Aged Out No l onger eligible based on patient's age to complete this topic RSV Immunization Patients Under 20 months Aged Out No longer eligible based on patient's age to complete this topic Varicella Vaccines Aged Out No longer eligible based on patient's age to complete this topic Medical Devices Implanted Type Area 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 Identifier Shelf Expiration Date Model / Serial / Lot Luis 2240 Birdie(Tm) [id number] Implanted:12/2017 by Cain Mena MD (Quantity not on file) Cardiac Pacemaker Left: Chest [facility] 2[address] ASSSVEN(TM ) DR Zapata [id number] / [address] 2240 [id number] Implanted:12/2017 (Quantity not on file) Cardiac Pacemaker [facility] BIRDIE [place] / [id number] / Procedures Procedure Name Priority Date/Time Associated Diagnosis Comments CARDIAC DEVICE CHECK- REMOTE- MURJ Routine 05/26/2025 9:14 AM EDT CBC WITH AUTO DIFFERENTIAL Routine 05/25/2025 3:33 PM EDT Elevated blood sugar level COMPREHENSIVE METABOLIC PANEL Routine 05/25/2025 3:33 PM EDT Elevated blood sugar level CBC AND DIFFERENTIAL Routine 05/25/2025 3:33 PM EDT Elevated blood sugar level ECG ANNOTATED 05/25/2025 POCT GLUCOSE BLOOD Routine 05/24/2025 3: 05 PM EDT POCT GLUCOSE BLOOD Routine 05/24/2025 11 :22 AM EDT POCT GLUCOSE BLOOD Routine 05/24/2025 10 :11 AM EDT XR CHEST 1 VIEW STAT 05/24/2025 9:15 AM EDT POCT GLUCOSE BLOOD Routine 05/24/2025 8: [address] HEAD WO CONTRAST STAT 05/24/2025 7 :46 AM EDT RHYTHM ECG, REPORT Routine 05/24/2025 7: 36 AM EDT DURHAM URINE CULTURE TUBE STAT 05/24/20 6:35 AM EDT URINALYSIS WITH REFLEX MICROSCOPIC AND CULTURE STAT 05/24/2025 6:35 AM EDT URINALYSIS WITH REFLEX MICROSCOPIC AND CULTURE STAT 05/24/2025 6:35 AM EDT POCT GLUCOSE BLOOD Routine 05/24/2025 5: 21 AM EDT ECG 12-LEAD STAT 05/24/2025 5:20 AM EDT CBC WITH AUTO DIFFERENTIAL STAT 05/24/2025 5:16 AM EDT VENOUS BLOOD GAS STAT 05/24/2025 5:16 AM EDT BETA HYDROXYBUTYRATE STAT 05/24/2025 5:16 AM EDT OSMOLALITY STAT 05/24/2025 5:16 AM EDT MAGNESIUM STAT 05/24/2025 5:16 AM EDT LIPASE STAT 05/24/2025 5:16 AM EDT COMPREHENSIVE METABOLIC PANEL STAT 05/24/2025 5:16 AM EDT CBC AND DIFFERENTIAL STAT 05/24/2025 5:16 AM EDT ECG 12-LEAD Routine 05/03/2025 1:27 PM EDT Pacemaker reprogramming/check Atrial flutter, unspecified type (CMS/HCC V24, CMS/HCC V28) HEMOGLOBIN A1C Routine 04/07/2025 2:25 PM EDT Type 2 diabetes mellitus with other specified complication, with long-term current use of insulin (CMS/HCC V24, CMS/HCC V28) LIPID PANEL WITH REFLEX TO DIRECT LDL Routine 04/07/2025 2:25 PM EDT Type 2 diabetes mellitus with other specified complication, with long-term current use of insulin (CMS/HCC V24, CMS/HCC V28) HM URINE ALBUMIN CREATININE RATIO Routine 12/31/2022 from Last 3 Months or Most Recently Relevant to Health Maintenance Results * Cardiac device check - Remote- MURJ (05/26/2025 9:14 AM EDT) Date Time Interrogation Session [id number] CV DEVICE CHECK Type Interrogation Session Remote Scheduled CV DEVICE CHECK Implantable Pulse Generator 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 [employer] CV DEVICE CHECK Implantable Pulse Generator Type IPG CV DEVICE CHECK Implantable Pulse Generator Model 2240 Assurity(TM) CV DEVICE CHECK Implantable Pulse Generator Serial Number [id number] CV DEVICE CHECK Implantable Pulse Generator Implant Date [id number] CV DEVICE CHECK Battery Remaining Percentage 41.00 CV DEVICE CHECK Battery Remaining Longevity 55.0 CV DEVICE CHECK Battery Voltage 2.980 CV D EVICE CHECK Battery FURNACE TENDER Trigger 2.600 CV DEVICE CHECK Battery Status Middle of Service CV DEVICE CHECK Kalyan Statistic RA Percent Paced 81.00 CV DEVICE CHECK Kalyan Statistic RV Percent Paced 1.00 CV DEVICE CHECK Atrial Tachy Statistic AT/AF Delong Percent 0.00 CV DEVICE CHECK Lead Channel Sensing Intrinsic Amplitude 2.300 CV DEVICE CHECK Lead Channel Setting Sensing Sensitivity 0.30 CV DEVICE CHECK Lead Channel Impedance Value 510 CV DEVICE CHECK Lead Channel Pacing Threshold Amplitude 0.625 CV DEVICE CHECK Lead Channel Pacing Threshold Pulse Width 0.4 CV DEVICE CHECK Lead Channel RA Pacing Threshold Date 2025-05-22 CV DEVICE CHECK Lead Channel Setting Pacing Amplitude 1.625 CV DEVICE CHECK Lead Channel Setting Pacing Pulse Width 0.4 CV DEVICE CHECK Lead Channel Sensing Intrinsic Amplitude 12.000 CV DEVICE CHECK Lead Channel Setting Sensing Sensitivity 2.00 CV DEVICE CHECK Lead Channel Impedance Value 780 CV DEVICE CHECK Lead Channel Pacing Threshold Amplitude 0.500 CV DEVICE CHECK Lead Channel Pacing Threshold Pulse Width 0.4 CV DEVICE CHECK Lead Channel RV Pacing Threshold Date 2025-05-22 CV DEVICE CHECK Lead Channel Setting Pacing [...] 200 CV DEVICE CHECK Date of Service 2025-06-02 CV DEVICE CHECK Anatomical Region Laterality Modality Device Interroga tion 05/22/2025 5:47 AM EDT Impressions 05/26/2025 7:51 AM EDT Normal Remote: No Events * Normal Device Function * Alerts or events: None * Battery: Battery is at 41%, 4.58 yrs * Sensing, impedance and thresholds reviewed * Programmed parameters reviewed * Presenting rhythm reviewed * Heart Rate Histograms reviewed * No significant changes noted Narrative Procedure Note Cain Mena MD - 05/26/2025 IMPRESSION: Normal Remote: No Events * Normal Device Function * Alerts or events: None * Battery: Battery is at 41%, 4.58 yrs * Sensing, impedance and thresholds reviewed * Programmed parameters reviewed * Presenting rhythm reviewed * Heart Rate Histograms reviewed * No significant changes noted Cain Mena MD CV IMPLANTABLE CARDIAC DEVICE PROCEDURES Final Result * (ABNORMAL) CBC auto differential (05/25/2025 3:33 PM EDT) Only the most recent of2 resultswithin the time period is included. WBC 6.8 4.8 - 10.8 K/mcL LAB HEMETOLOGY METHOD 05/25/2025 6:14 PM EDT [facility] RBC 4.40 3.80 - 4.80 M/mcL LAB HEMETOLOGY METHOD 05/25/2025 6:14 PM EDT [facility] Hemoglobin 12.5 11.5 - 16.0 g/dL LAB HEMETOLOGY METHOD 05/25/2025 6:14 PM EDT [facility] Hematocrit 40.5 35.0 - 47.0 % LAB HEMETOLOGY METHOD 05/25/2025 6:14 PM EDT [facility] MCV 91.2 79.0 - 98.0 FL LAB HEMETOLOGY METHOD 05/25/2025 6:14 PM EDT [facility] MCH 28.2 27.0 - 32.0 pcg LAB HEMETOLOGY [facility] M[facility]C 30.9(L) 32.0 - 37.0 g/dL LAB HEMETOLOGY [facility]25[facility]25 [facility] RDW 12.1 11.0 - 15.0 % LAB HEMETOLOGY METHOD 05/25/2025 6:14 PM [facility] Platelets 261 130 - 400 K/mcL LAB HEMETOLOGY METHOD 05/25/2025 6:14 PM [facility] MPV 11.7(H) 7.0 - 11.0 FL LAB HEMETOLOGY METHOD 05/25/2025 6:14 PM [facility] NRBC 0.0 <1.0 % LAB HEMETOLOGY METHOD 05/25/2025 6:14 PM [facility] NRBC Absolute 0.00 <0.10 K/mcL LAB HEMETOLOGY METHOD 05/25/2025 6:14 PM [facility] Neutrophils Relative 46.2 % LAB HEMETOLOGY METHOD 05/25/2025 6:14 PM [facility] Lymphocytes Relative 43.4 % LAB HEMETOLOGY METHOD 05/25/2025 6:14 PM [facility] Monocytes Relative 7.0 % LAB HEMETOLOGY METHOD 05/25/2025 6:14 PM [facility] Eosinophils Relative 2.5 % LAB HEMETOLOGY METHOD 05/25/2025 6:14 PM [facility] Basophils Relative 0.6 % LAB HEMETOLOGY METHOD 05/25/2025 6:14 PM [facility] Immature Granulocytes Relative 0.3 % LAB HEMETOLOGY METHOD 05/25/2025 6:14 PM [facility] Neutrophils Absolute 3.16 1.50 - 7.00 K/mcL LAB HEMETOLOGY METHOD 05/25/2025 6:14 PM [facility] Lymphocytes Absolute 2.97 1.00 - 5.00 K/mcL LAB HEMETOLOGY METHOD 05/25/2025 6:14 PM [facility] Monocytes Absolute 0.48 0.20 - 1.00 K/mcL LAB HEMETOLOGY METHOD 05/25/2025 6:14 PM EDT [facility] Eosinophils Absolute 0.17 0.00 - 0.50 K/mcL LAB HEMETOLOGY METHOD 05/25/2025 6:14 PM EDT [facility] Basophils Absolute 0.04 0.00 - 0.20 K/[facility] LAB HEMETOLOGY METHOD 05/25/2025 6:14 PM EDT [facility] Immature Granulocytes Absolute 0.02 0.00 - 0.03 K/[facility] LAB HEMETOLOGY METHOD 05/25/2025 6:14 PM EDT [facility] Blood Venous blood specimen / Unknown Venipuncture / Unknown 05/25/2025 3:33 PM EDT 05/25/2025 3:33 PM EDT us Sanaz De La Cruz NP LAB BLOOD ORDERABLES Final R esult [facility] [address] [place] [address], [place] [phone] * (ABNORMAL) Comprehensive metabolic panel (05/25/2025 3:33 PM EDT) Only the most recent of2 resultswithin the time period is included. Sodium 140 133 - 145 mmol/L LAB CHEMISTRY METHOD 05/25/2025 7:07 PM [facility] Potassium 4.7 3.5 - 5.5 mmol/L LAB CHEMISTRY METHOD 05/25/2025 7:07 PM [facility] Chloride 107 96 - 110 mmol/L LAB CHEMISTRY METHOD 05/25/2025 7:07 PM [facility] CO2 27 21 - 32 mmol/L LAB CHEMISTRY METHOD 05/25/2025 7:07 PM [facility] Anion Gap 6 3 - 11 LAB CHEMISTRY METHOD 05/25/2025 7:07 PM [facility] Glucose 252(H) 70 - 100 mg/dL LAB CHEMISTRY METHOD 05/25/2025 7:07 PM [facility] BUN 14 5 - 25 mg/dL LAB CHEMISTRY METHOD 05/25/2025 7:07 PM [facility] Creatinine 1.00 0.50 - 1.10 mg/dL LAB CHEMISTRY METHOD 05/25/2025 7:07 PM [facility] eGFR 55(L) >=60 mL/min/1. 73m2 LAB CHEMISTRY METHOD 05/25/2025 7:07 PM [facility] Comment:Calculation based on the Chronic Kidney Disease Epidemiology Collaboration (CKD-EPI) equation refit without adjustment for race. BUN/Creatinine Ratio 14.0 LAB CHEMISTRY METHOD 05/25/2025 7:07 PM [facility] Calcium 9.7 8.5 - 10.5 mg/dL LAB CHEMISTRY METHOD 05/25/2025 7:07 PM [facility] AST (SGOT) 16 10 - 42 unit/L LAB CHEMISTRY METHOD 05/25/2025 7:07 PM [facility] ALT (SGPT) 32 10 - 60 unit/L LAB CHEMISTRY METHOD 05/25/2025 7:07 PM [facility] Alkaline Phosphatase 96 42 - 121 unit/L LAB CHEMISTRY METHOD 05/25/2025 7:07 PM [facility] Total Protein 7.0 6.0 - 8.0 g/dL LAB CHEMISTRY METHOD 05/25/2025 7:07 PM [facility] Albumin 4.1 3.2 - 5.0 g/dL LAB CHEMISTRY METHOD 05/25/2025 7:07 PM [facility] Total Bilirubin 0.5 0.0 - 1.4 mg/dL LAB CHEMISTRY METHOD 05/25/2025 7:07 PM [facility] Comment:Results verified by repeat testing Blood Venous blood specimen / Unknown Venipuncture / Unknown 05/25/2025 3:33 PM EDT 05/25/2025 3:33 PM EDT Sanaz De La Cruz NP LAB BLOOD ORDERABLES Final R esult [facility] [address] [place] [address], [place] [phone] * ECG-Annotated (05/25/2025) Provider Onbase MD ECG ORDERABLES Final Result * (ABNORMAL) POCT Glucose, blood (05/24/2025 3:05 PM EDT) Only the most recent of5 resultswithin the time period is included. [facility] Glucose POCT 182(H) 70 - 100 mg/dL 05/24/2025 3:05 PM EDT [facility] Blood Capillary blood specimen / Unknown 05/24/2025 3:05 PM EDT 05/24/2025 3:06 PM EDT Mathew Greene MD LAB POINT OF CARE TE ST DOCKED DEVICE UNSOLICITED RESULTS Final Result Performing Organization Address City/[facility]/ZIP Co de Phone Number [facility] [address] [place] [address], [place] [phone] * XR Chest 1 View (05/24/2025 9:15 AM EDT) Anatomical Region Laterality Modality Body Radiographic Janel ging 05/24/2025 9:20 AM EDT Impressions 05/24/2025 9:21 AM EDT Impression: No active pulmonary process identified. Telerad NIALL ([id number]) -------- FINAL REPORT -------- Dictated By: Melyssa Hernández Dictated Date: 05/24/2025 09:20 ET Assigned Physician: Melyssa Hernández Reviewed and Electronically Signed By: Melyssa Hernández Signed Date: 05/24/2025 09:21 ET Workstation ID: [id number] Transcribed By: Self Edit Transcribed Date: 05/24/2025 09:20 ET Narrative 05/24/2025 9:21 AM EDT History: Hyperglycemia. Comparison: 09/10/23 Findings: Portable AP upright chest at 9:12 AM. The cardiac silhouette remains borderline enlarged. A left subclavian transvenous pacemaker is again seen, with leads terminating in the expected locations of the right atrium and ventricle. The paige are not enlarged. The pulmonary vascularity is within normal limits. The lungs are grossly clear. The costophrenic angles are sharp. Cholecystectomy clips are noted. Procedure Note Melyssa Hernández MD - 05/24/2025 History: Hyperglycemia. Comparison: 09/10/23 Findings: Portable AP upright chest at 9:12 AM. The cardiac silhouette remainsborderline enlarged. A left subclavian transvenous pacemaker is againseen, with leads terminating in the expected locations of the right atriumand ventricle. The paige are not enlarged. The pulmonary vascularity iswithin normal limits. The lungs are grossly clear. The costophrenic anglesare sharp. Cholecystectomy clips are noted. IMPRESSION: Impression: No active pulmonary process identified. Telerad PA ([id number]) -------- FINAL REPORT -------- Dictated By: Melyssa Hernández Dictated Date: 05/24/2025 09:20 ET Assigned Physician: Melyssa Hernández Reviewed and Electronically Signed By: Melyssa Hernández Signed Date: 05/24/2025 09:21 ET Workstation ID: [id number] Transcribed By: Self Edit Transcribed Date: 05/24/2025 09:20 ET us Mathew Greene MD IMG XR PROCEDURES Final Result * CT Head wo Contrast (05/24/2025 7:46 AM EDT) Anatomical Region Laterality Modality Head and Neck Computed Tomogra phy 05/24/2025 8:47 AM EDT Impressions 05/24/2025 8:49 AM EDT Impression: 1. No acute hemorrhage or intracranial mass effect. 2. Moderate, nonspecific deep white matter changes compatible with chronic microvascular ischemia in a patient of this age. No significant change. Telerad PA ([id number]) -------- FINAL REPORT -------- Dictated By: Melyssa Hernández Dictated Date: 05/24/2025 08:47 ET Assigned Physician: Melyssa Hernández Reviewed and Electronically Signed By: Melyssa Hernández Signed Date: 05/24/2025 08:49 ET Workstation ID: [id number] Transcribed By: Self Edit Transcribed Date: 05/24/2025 08:47 ET Narrative 05/24/2025 8:49 AM EDT History: Hypertension. Dizziness. Headache. Comparison: 11/03/23 Technique: Contiguous axial images were obtained at 2.5 mm intervals through the posterior fossa and at 5 mm intervals through the remainder of the brain without intravenous contrast. DLP: 716.71 mGy/cm GE Plan B Labspeed VCT Iterative reconstruction technique Findings: Moderate to advanced generalized cerebral volume loss is again demonstrated. Durham-white differentiation is maintained. Moderate patchy deep white matter hypodensity is again seen bilaterally, unaccompanied by mass effect or hemorrhage and without significant change. No abnormal intra- or extra-axial masses or fluid collections are seen. There is no evidence of acute intracranial hemorrhage. Minimal partial opacification of the ethmoid sinuses is without significant change. The mastoid air cells are clear. The calvarium is intact. Procedure Note Melyssa Hernández MD - 05/24/2025 History: Hypertension. Dizziness. Headache. Comparison: 11/03/23 Technique: Contiguous axial images were obtained at 2.5 mm intervalsthrough the posterior fossa and at 5 mm intervals through the remainder ofthe brain without intravenous contrast. DLP: 716.71 mGy/cm GE LightSpeed VCT Iterative reconstruction technique Findings: Moderate to advanced generalized cerebral volume loss is againdemonstrated. [place]-white differentiation is maintained. Moderate patchydeep white matter hypodensity is again seen bilaterally, unaccompanied bymass effect or hemorrhage and without significant change. No abnormal intra- or extra-axial masses or fluid collections are seen.There is no evidence of acute intracranial hemorrhage. Minimal partial opacification of the ethmoid sinuses is withoutsignificant change. The mastoid air cells are clear. The calvarium isintact. IMPRESSION: Impression: 1. No acute hemorrhage or intracranial mass effect. 2. Moderate, nonspecific deep white matter changes compatible with chronicmicrovascular ischemia in a patient of this age. No significant change. Telerad PA ([id number]) -------- FINAL REPORT -------- Dictated By: Melyssa Hernández Dictated Date: 05/24/2025 08:47 ET Assigned Physician: Melyssa Hernández Reviewed and Electronically Signed By: Melyssa Hernández Signed Date: 05/24/2025 08:49 ET Workstation ID: [id number] Transcribed By: Self Edit Transcribed Date: 05/24/2025 08:47 ET Mathew Greene MD IMG CT PROCEDURES Final Result * (ABNORMAL) RHYTHM ECG, REPORT (05/24/2025 7:36 AM EDT) Narrative Mathew Greene MD - 05/24/2025 7:36 AM EDT Mathew Greene MD 05/25/2025 12:46 PM ECG Rhythm Interpretation and Report Date/Time: 05/24/2025 7:36 AM Performed by: Mathew Greene MD Authorized by: Mathew Greene MD ECG interpreted by ED Physician in the absence of a cost manager: yes Previous ECG: Previous ECG: Compared to current Similarity: No change Interpretation: Interpretation: abnormal Details: Atrial paced rhythm. Ventricular rate 60 bpm. Normal GA, QRS, QTc, axis. Nonspecific T wave abnormalities. No ST segment changes. No evidence of acute ischemia. No significant changes from previous. us Mathew Greene MD ECG ORDERABLES Final Result * (ABNORMAL) Urinalysis with reflex microscopic and culture (05/24/2025 6:35 AM EDT) Specific [place] Urine 1.017 1.003 - 1.030 LAB URINALYSIS - AUTOMATED METHOD 05/24/2025 6:58 AM EDT [facility] pH, Urine 6.0 5.0 - 8.0 pH LAB URINALYSIS - AUTOMATED METHOD 05/24/2025 6:58 AM [facility] Leukocytes, Urine Negative Negative LAB URINALYSIS - AUTOMATED METHOD 05/24/2025 6:58 AM [facility] Nitrite, Urine Negative Negative LAB URINALYSIS - AUTOMATED METHOD 05/24/2025 6:58 AM [facility] Protein, Urine Negative <=Trace mg/dL LAB URINALYSIS - AUTOMATED METHOD 05/24/2025 6:58 AM [facility] Glucose, Urine >=1000(A) Negative mg/dL LAB URINALYSIS - AUTOMATED METHOD 05/24/2025 6:58 AM [facility] Ketones, Urine Negative Negative mg/dL LAB URINALYSIS - AUTOMATED METHOD 05/24/2025 6:58 AM [facility] Urobilinogen , Urine 0.2 0.2 - 1.0 mg/dL LAB URINALYSIS - AUTOMATED METHOD 05/24/2025 6:58 AM [facility] Bilirubin, Urine Negative Negative LAB URINALYSIS - AUTOMATED METHOD 05/24/2025 6:58 AM [facility] Blood, Urine Negative Negative LAB URINALYSIS - AUTOMATED METHOD 05/24/2025 6:58 AM [facility] Urine Urine specimen obtained by clean catch procedure / Unknown Non-blood Collection / Unknown 05/24/2025 6:35 AM EDT 05/24/2025 6:48 AM EDT us Jackie Jane MD LAB URINE ORDERABLES Final Res ult [facility] [address] [place] [address], * [place] urine culture tube (05/24/2025 6:35 AM EDT) Extra Tube Hold for add-ons. 05/24/2025 8:01 AM EDT [facility] Comment:Auto resulted. Urine Urine specimen obtained by clean catch procedure / Unknown Non-blood Collection / Unknown 05/24/2025 6:35 AM EDT 05/24/2025 6:48 AM EDT Jackie Jane MD LAB URINE ORDERABLES Final Res ult Performing Organization Address City/[facility]/ZIP Co de Phone Number [facility] [address] [place] [address], [place] [phone] * ECG 12 lead (05/24/2025 5:20 AM EDT) Only the most recent of2 resultswithin the time period is included. Ventricular Rate ECG 60 BPM GEMUSE Atrial Rate 60 BPM GEMUSE P-R Interval 154 ms GEMUSE QRS Duration 82 ms GEMUSE Q-T Interval 474 ms GEMUSE QTc 474 ms GEMUSE P Wave [place] 47 degrees GEMUSE R [place] 38 degrees GEMUSE T [place] 113 degrees GEMUSE ECG Interpretation Atrial-paced rhythm Nonspecific ST and T wave abnormality Abnormal ECG When compared with ECG of 03-MAY-2025 13:27, Nonspecific T wave abnormality, improved in Lateral leads QT has shortened Confirmed by Leander NG JAMES ([id number]) on 05/24/2025 12:36:48 PM GEMUSE 05/24/2025 5:20 AM EDT 05/24/2025 12:36 PM EDT Jackie Jane MD ECG ORDERABLES Final Result Performing Organization Address City/[facility]/ZIP Co de Phone Number GEMUSE * Beta hydroxybutyrate (05/24/2025 5:16 AM EDT) Beta-Hydroxybu tyrate 1.2 0.2 - 2.8 mg/dL LAB CHEMISTRY METHOD 05/24/2025 5:45 AM EDT [facility] Blood Venous blood specimen / Unknown Venipuncture / Unknown 05/24/2025 5:16 AM EDT 05/24/2025 5:19 AM EDT us Jackie Jane MD LAB BLOOD ORDERABLES Final Res ult Performing Organization Address [facility] de Phone Number [facility] [address] [place] [address], [place] [phone] * (ABNORMAL) Osmolality (05/24/2025 5:16 AM EDT) [facility] Osmolality Sarah 313(H) 280 - 300 mOsm/kg LAB CHEMISTRY METHOD 05/24/2025 5:43 AM EDT [facility] Blood Venous blood specimen / Unknown Venipuncture / Unknown 05/24/2025 5:16 AM EDT 05/24/2025 5:19 AM EDT Jackie Jane MD LAB BLOOD ORDERABLES Final Res ult Performing Organization Address [facility] de Phone Number [facility] [address] [place] [address], [place] [phone] * Magnesium (05/24/2025 5:16 AM EDT) [facility] Magnesium 1.9 1.9 - 2.6 mg/dL LAB CHEMISTRY METHOD 05/24/2025 5:45 AM EDT [facility] Blood Venous blood specimen / Unknown Venipuncture / Unknown 05/24/2025 5:16 AM EDT 05/24/2025 5:19 AM EDT us Jackie Jane MD LAB BLOOD ORDERABLES Final Res ult Performing Organization Address [facility] de Phone Number [facility] [address] [place] [address], [place] [phone] * (ABNORMAL) Lipase (05/24/2025 5:16 AM EDT) [facility] Lipase 109(H) 13 - 75 unit/L LAB CHEMISTRY METHOD 05/24/2025 5:45 AM EDT [facility] Blood Venous blood specimen / Unknown Venipuncture / Unknown 05/24/2025 5:16 AM EDT 05/24/2025 5:19 AM EDT Jackie Jane MD LAB BLOOD ORDERABLES Final Res ult Performing Organization Address City/[facility]/ZIP Co de Phone Number [facility] [address] [place] [address], [place] [phone] * Venous blood gas (05/24/2025 5:16 AM EDT) pH, Kavin 7.36 7.32 - 7.42 pH 05/24/2025 5:22 AM EDT [facility] pCO2, Kavin 46 41 - 51 mmHg 05/24/2025 5:22 AM EDT [facility] pO2, Kavin 32 25 - 40 mmHg 05/24/2025 5:22 AM EDT [facility] HCO3, Venous 23.9 22.0 - 26.0 mmol/L 05/24/2025 5:22 AM EDT [facility] O2 Sat, Kavin 49.4 % 05/24/2025 5:22 AM EDT [facility] Base Excess, Kavin 0.2 -2.0 - 2.0 mmol/L 05/24/2025 5:22 AM EDT [facility] Blood Venous blood specimen / Unknown Venipuncture / Unknown 05/24/2025 5:16 AM EDT 05/24/2025 5:19 AM EDT us Jackie Jane MD LAB BLOOD ORDERABLES Final Res ult [facility] [address] [place] [address], [place] [phone] * (ABNORMAL) Lipid panel with reflex to direct LDL (04/07/2025 2:25 PM EDT) Cholesterol 259(H) 0 - 200 mg/dL LAB CHEMISTRY METHOD 04/07/2025 6:46 PM EDT [facility] Triglycerides 112 0 - 150 mg/dL LAB CHEMISTRY METHOD 04/07/2025 6:46 PM EDT [facility] HDL 68 >=40 mg/dL LAB CHEMISTRY METHOD 04/07/2025 6:46 PM EDT [facility] LDL Calculated 169(H) 0 - 100 mg/dL LAB CHEMISTRY METHOD 04/07/2025 6:46 PM EDT [facility] Comment:Estimated LDL Calcul ated using equation: Total cholesterol - HDL cholesterol - (Triglycerides/5) VLDL Cholesterol Sukumar 22.4 mg/dL LAB CHEMISTRY METHOD 04/07/2025 6:46 PM EDT [facility] Non HDL Chol. (LDL+VLDL) 191(H) <145 mg/dL LAB CHEMISTRY METHOD 04/07/2025 6:46 PM EDT [facility] Chol/HDL Ratio 3.8 0.0 - 4.4 LAB CHEMISTRY METHOD 04/07/2025 6:46 PM EDT [facility] Blood Venous blood specimen / Unknown Venipuncture / Unknown 04/07/2025 2:25 PM EDT 04/07/2025 2:25 PM EDT us Negin Wright MD LAB BLOOD ORDERABLES Final Res ult [facility] [address] [place] [address], [place] [phone] * (ABNORMAL) Hemoglobin A1c (04/07/2025 2:25 PM EDT) Hemoglobin A1C 7.1(H) <6.5 % LAB CHEMISTRY METHOD 04/07/2025 10:15 PM EDT [facility] Mean Bld Glu Estim. 157 mg/dL LAB CHEMISTRY METHOD 04/07/2025 10:15 PM EDT [facility] Blood Venous blood specimen / Unknown Venipuncture / Unknown 04/07/2025 2:25 PM EDT 04/07/2025 2:25 PM EDT Negin Wright MD LAB BLOOD ORDERABLES Final Res ult [facility] [address] [place] [address], [place] [phone] * Urine Albumin Creatinine Ratio (12/31/2022) Urine Albumin Creatinine Ratio abstracted Historical Provider HEALTH MAINTENANCE Final Result from Last 3 Months or Most Recently Relevant to Health Maintenance Insurance MEDICAID - [place] [employer] MEDICARE Advance Directives Documents on File Type Date Recorded Patient Depalletizer Operator Expl anation Health Care Decision (hx) [...] (hx) 04/14/2023 AD REDDY DIRECTIVE Care Teams Horse Breaker Relationship Specialty Start Date End Date Negin Wright MD [address] [place] [address] PCP - General Internal Medicine 04/27/25
--- OUTSIDE RECORDS SUMMARY | 2025-08-02 19:30 | XMS_ITS | Encounter Summary ---
Author Organization [facility] Address [address] [place] [address] Care Team Providers Care Hospital Account Manager Name Role Phone Negin Wright MD Primary Care Provider [phone] Reason for Visit * Reason Onset Date Comments Request For Order(s) 07/31/2025 At Home [facility] i[facility] Care Encounter Details Date Type Department Care Team (Late st Contact Info) Description 07/31/2025 Telephone Internal Medicine - [facility] [address] [place], [place] [phone] Negin Wright MD [address] [place] [address] Social History Tobacco Use Types Packs/Day Years [...] for your loved ones. For example, children's author or elderly care for an older adult? [...] as of this encounter Progress Notes * Eron Lyons - 07/31/2025 2:15 PM EST Faxed order received from [facility]. Orders placed in Negin Wright MD bin for signing,please fax to [phone]. documented in this encounter Plan of Treatment Upcoming Encounters Date Type Department Care Team (Late st Contact Info) Description 08/15/2025 1:30 PM EST Ancillary Procedure [facility] Cardiology [facility] - [facility] [address] [place] [address] 09/04/2025 1:15 PM EST [facility] [address] [place] [address] Sanaz Saucedo NP [address] [place], [place] 09/06/2025 1:30 PM EST [facility] [phone] Negin Wright MD [address] [place] [address] 10/23/2025 4:00 PM EDT Ancillary Procedure [facility] - [facility] [address] [facility] [address] [place] [address] documented as of this encounter Visit Diagnoses Not on filedocumented in this encounter Additional Health Concerns Assessment Noted Time PHQ-9 Depression Total Score: 0 07/04/20 2:55 PM EST documented as of this encounter Care Teams Hospital Account Manager Relationship Specialty Start Date End Date Negin Wright MD [address] [place] [address] PCP - General Internal Medicine 04/27/25 documented as of this encounter
--- OUTSIDE RECORDS SUMMARY | 2025-08-02 19:30 | XMS_ITS | Encounter Summary ---
Author Organization [facility] Address [address] [place] [address] Phone Care Team Providers Care Wood Heel Flap Trimmer Name Role Phone Trina Messina MD Primary Care Pr ovider Ty Mcduffie MD Unavailable [phone] Encounter Details Date Type Department Care Team (Late st Contact Info) Description 03/17/2022 Procedure Pass [facility]IOP DEPT [address] [place] [id number] Social History Tobacco Use Types Packs/Day Years [...] [facility] [address] [address] Sammie Weaver MD [address] [place] [address] [email or web address] documented as of this encounter Visit Diagnoses Not on filedocumented in this encounter Care Teams Wood Heel Flap Trimmer Relationship Specialty Start Date End Date Trina Messina MD [address] [place] [address] PCP - General Internal Medicine 06/23/16 Ty Mcduffie MD [address] [place] [address] [address] [place] [address] Cardiology 03/03/22 documented as of this encounter Additional Source Comments The information contained in this document represents components of the legal health record. It is not the complete legal health record.[facility]
--- OUTSIDE RECORDS SUMMARY | 2025-08-02 19:30 | XMS_ITS | Encounter Summary ---
Author Organization [facility] Address [address] [facility] [address] [place] [address] Phone Care Team Providers Care Olive Pitter Name Role Phone Trina Messina MD Primary Care Pr ovider Ty Mcduffie MD Unavailable [phone] Encounter Details Date Type Department Care Team (Late st Contact Info) Description 07/11/2025 Telephone [facility] Eye and Ear Optometry Service [address] [address] Trina Messina MD [address] [place] [address] Social History Tobacco Use Types Packs/Day Years [...] Description 09/19/2025 1:10 PM EST Office Visit [facility] and Ear Glaucoma Service [address] [place] [phone] Sammie Weaver MD [address] [place] [phone] [email or web address] [facility] documented as of this encounter Visit Diagnoses Not on filedocumented in this encounter Care Teams Olive Pitter Relationship Specialty Start Date End Date Trina Messina MD [address] [place] [phone] PCP - General Internal Medicine 06/23/16 Ty Mcduffie MD [address] [place] [address] [place] [address] Cardiology 03/03/22 documented as of this encounter Additional Source Comments The information contained in this document represents components of the legal health record. It is not the complete legal health record.[facility]
--- OUTSIDE RECORDS SUMMARY | 2025-08-02 19:30 | XMS_ITS | Encounter Summary ---
Author Organization [facility] Address [address] [facility] [address] [place] [address] Phone Care Team Providers Care Pcmh Specialist Name Role Phone Trina Messina MD Primary Care Pr ovider Ty Mcduffie MD [facility] [phone] Encounter Details Date Type Department Care Team (Late st Contact Info) Description 01/19/2023 Procedure Pass [facility] PERIOP DEPT [address] [place] [address] Social History Tobacco Use Types Packs/Day Years [...] Description 09/19/2025 1:10 PM EST Office Visit [facility] Eye and Ear Glaucoma Service [address] [address] Sammie Weaver MD [address] [place] [phone] [email or web address] documented as of this encounter Visit Diagnoses Not on filedocumented in this encounter Care Teams Pcmh Specialist Relationship Specialty Start Date End Date Trina Messina MD [address] [place] [address] PCP - General Internal Medicine 06/23/16 Ty Mcduffie MD [address] [place] [address] [place] [phone] Cardiology 03/03/22 documented as of this encounter Additional Source Comments The information contained in this document represents components of the legal health record. It is not the complete legal health record.[facility]
== END 2025-08-02 15:18 | disposition home or self-care (01) ==
LOC: HO.ENCR 14:34
PROVIDERS: PCP Internal Medicine; Visit Provider Internal Medicine
DX: E11.65 Type 2 diabetes mellitus with hyperglycemia (principal); Z79.4 Long term (current) use of insulin

== ENCOUNTER → 2025-08-02 14:33 | Outpatient (BNVA) | payer OTHER, SELFPAY | PROVIDERS: PCP Internal Medicine; Visit Provider Internal Medicine | DX: E11.65 Type 2 diabetes mellitus with hyperglycemia (principal); Z79.4 Long term (current) use of insulin | CPT/HCPCS: 82947; 83036; 99212 ==